=== PATIENT | male | born 1945 | race Caucasian/White ===

== ENCOUNTER → 2016-11-07 | Outpatient (CLI) | payer OTHER ==
[~2016-11-07] MED LIST: ASPCH81 PO; ASPI81TA28 PO; ATOR-26 PO; CARB25TA12 PO; CARB25TA14 PO; CHOL100010 PO; CHOL200010 PO; DONE1TAB11 PO; GLUCTAB7 PO; IMD/2 PO; METO25TA56 PO; MISCCAP80 PO; MULT-845 PO; NTRGSL/4 SL; OMEG10007 PO; PRAM1TAB47 PO; PREG1CAP28 PO; PRLSR20 PO; SERT50TA PO; TPRSR25 PO; TRAM-10 PO; VNTHFA/IN INH; WARF3TAB PO
[2016-11-07 15:38] LABS: BASO % 0.3 %; BASO ABS # 0.04 K/uL (0-0.2); COMPLETE YES; EOS % 2.2 %; HEMATOCRIT 36.7 % (42-52); IG% 0.2 %; LYMPH % 14.7 %; LYMPH ABS # 1.87 K/uL (1.2-3.4); MEAN CELL VOLUME 91.8 fL (80-100); MEAN CORPUSCULAR HGB CONC 33.8 g/dl (32-36); MEAN PLATELET VOLUME 11.3 fL (7.4-10.4); MONO % 3.8 %; NEUT % 78.8 %; PLATELET COUNT 194 K/uL (130-400)
[2016-11-07 15:40] LABS: URINE APPEARANCE CLEAR (CLEAR); URINE BILIRUBIN NEG (NEG); URINE COLOR DK YELLOW; URINE EPITHELIAL CELL AUTO 0-5 /lpf (0-5); URINE NITRITE NEG (NEG); URINE PH 5.5 (4.5-7.5); URINE SPECIFIC GRAVITY 1.025 (1.000-1.030); UROBILINOGEN NEG (NEG); ZZUR CULT IF INDIC CLEAN CATCH NO
[2016-11-07 15:45] LABS: MANUAL MICROSCOPIC REQUIRED? NO; REVIEW REQ? NO
[2016-11-07 15:59] LABS: ALT/SGPT 8 U/L (12-78); AST/SGOT 14 U/L (15-37); BLOOD UREA NITROGEN 16 mg/dl (7-18); BUN/CREATININE RATIO 15.7 (10-20); CARBON DIOXIDE 29 mmol/L (21-32); CHLORIDE 105 mmol/L (98-107); GLUCOSE 117 mg/dl (70-99); POTASSIUM 4.2 mmol/L (3.5-5.1); SODIUM 141 mmol/L (136-145)
[2016-11-07 16:00] LABS: ALB/GLOB RATIO 0.7 (0.9-2); ALKALINE PHOSPHATASE 115 U/L (45-117)
[2016-11-08 06:34] LABS: ESTIMATED AVERAGE GLUCOSE 120 mg/dl; HA1C FLAG Normal (Normal)
== END | disposition home or self-care (01) ==
LOC: C.LAB1850 14:23
PROVIDERS: ATTEND Internal Medicine
DX: R73.01 Impaired fasting glucose (principal); I25.10 Atherosclerotic heart disease of native coronary artery without angina pectoris; Z11.59 Encounter for screening for other viral diseases; M25.569 Pain in unspecified knee; I48.0 Paroxysmal atrial fibrillation

== ENCOUNTER → 2016-11-11 | Outpatient (CLI) | payer OTHER | END | disposition home or self-care (01) | LOC: C.LABSPEC 17:11 | PROVIDERS: ATTEND Internal Medicine | DX: R39.9 Unspecified symptoms and signs involving the genitourinary system (principal) ==

== ENCOUNTER → 2016-11-19 | Outpatient (CLI) | payer OTHER ==
[2016-11-19 17:23] LABS: BASO % 0.5 %; BASO ABS # 0.04 K/uL (0-0.2); COMPLETE YES; EOS % 3.5 %; HEMATOCRIT 38.4 % (42-52); IG% 0.1 %; LYMPH % 23.5 %; LYMPH ABS # 1.94 K/uL (1.2-3.4); MEAN CELL VOLUME 91.6 fL (80-100); MEAN CORPUSCULAR HEMOGLOBIN 30.1 pg (25-34); MEAN CORPUSCULAR HGB CONC 32.8 g/dl (32-36); MEAN PLATELET VOLUME 11.9 fL (7.4-10.4); MONO % 3.5 %; NEUT % 68.9 %; PLATELET COUNT 175 K/uL (130-400); RED BLOOD COUNT 4.19 M/uL (4.7-6.1); WHITE BLOOD COUNT 8.27 K/uL (4.8-10.8)
== END | disposition home or self-care (01) ==
LOC: C.LABBFT 12:17
PROVIDERS: ATTEND Internal Medicine
DX: R79.9 Abnormal finding of blood chemistry, unspecified (principal)

== ENCOUNTER → 2016-12-31 | Outpatient (CLI) | payer OTHER ==
[2016-12-31 17:50] LABS: BASO % 0.4 %; BASO ABS # 0.03 K/uL (0-0.2); COMPLETE YES; EOS % 3.5 %; IG% 0.3 %; LYMPH % 27.3 %; LYMPH ABS # 2.13 K/uL (1.2-3.4); MEAN CELL VOLUME 91.3 fL (80-100); MEAN CORPUSCULAR HGB CONC 32.8 g/dl (32-36); MEAN PLATELET VOLUME 11.9 fL (7.4-10.4); MONO % 5.3 %; NEUT % 63.2 %; PLATELET COUNT 133 K/uL (130-400); RED BLOOD COUNT 4.27 M/uL (4.7-6.1); WHITE BLOOD COUNT 7.79 K/uL (4.8-10.8)
[2016-12-31 18:42] LABS: ALT/SGPT 13 U/L (12-78); AST/SGOT 17 U/L (15-37); BLOOD UREA NITROGEN 16 mg/dl (7-18); BUN/CREATININE RATIO 13.5 (10-20); CALCIUM 8.6 mg/dl (8.5-10.1); CARBON DIOXIDE 29 mmol/L (21-32); CHLORIDE 108 mmol/L (98-107); GLUCOSE 112 mg/dl (70-99); POTASSIUM 4.1 mmol/L (3.5-5.1); SODIUM 143 mmol/L (136-145)
[2016-12-31 18:57] LABS: ALB/GLOB RATIO 0.8 (0.9-2); ALKALINE PHOSPHATASE 116 U/L (45-117)
== END | disposition home or self-care (01) ==
LOC: C.LABBFT 10:30
PROVIDERS: ATTEND Nurse Practitioner Family
DX: D69.6 Thrombocytopenia, unspecified (principal)

== ENCOUNTER 2017-01-05 16:06 | Inpatient (IN) | payer OTHER ==
[~2017-01-05] VITALS: Ht 170.2 cm; Wt 91.4 kg
[~2017-01-05 16:06] MED LIST changes: -ASPI81TA28 PO; -CARB25TA14 PO; -CHOL200010 PO; -DONE1TAB11 PO; -IMD/2 PO; -TPRSR25 PO
[2017-01-05] MEDS ORDERED: SODIUM CHLORIDE 0.9% 1000ML 1,000 ML IV STA (18:04)
--- NOTE | 2017-01-05 18:32 | DIAGNOSTIC IMAGING REPORT ---
CHEST ONE VIEW PORTABLE CLINICAL HISTORY: Weakness, shortness of breath, confusion. COMPARISON STUDY: Thyroid second 2016 FINDINGS: There are postsurgical changes of a midline sternotomy. There is no failure. There is no focal pulmonary consolidation. There are no pleural effusions. A subcentimeter opacity at left lung base, likely represents atelectasis/scar.[ IMPRESSION: AP portable study. No evidence of failure. No evidence of focal pulmonary consolidation. Electronically signed by: Darien Velazquez M.D. 01/05/2017 6:31 PM Dictated Date/Time: 01/05/2017 6:30 PM
[2017-01-05 18:41] LABS: BASO % 0.4 %; BASO ABS # 0.04 K/uL (0-0.2); COMPLETE YES; EOS % 3.3 %; HEMATOCRIT 38.7 % (42-52); IG% 0.2 %; LYMPH % 24.8 %; LYMPH ABS # 2.35 K/uL (1.2-3.4); MEAN CELL VOLUME 89.4 fL (80-100); MEAN CORPUSCULAR HEMOGLOBIN 29.8 pg (25-34); MEAN CORPUSCULAR HGB CONC 33.3 g/dl (32-36); MEAN PLATELET VOLUME 11.1 fL (7.4-10.4); MONO % 4.7 %; NEUT % 66.6 %; PLATELET COUNT 120 K/uL (130-400); RED BLOOD COUNT 4.33 M/uL (4.7-6.1); WHITE BLOOD COUNT 9.48 K/uL (4.8-10.8)
[2017-01-05 18:52] LABS: INR 1.9 (0.9-1.1); PARTIAL THROMBOPLASTIN RATIO 1.5; PROTHROMBIN TIME (PATIENT) 20.5 SECONDS (9.0-12.0)
--- NOTE | 2017-01-05 18:58 | DIAGNOSTIC IMAGING REPORT ---
CT HEAD WITHOUT CONTRAST (CT) CLINICAL HISTORY: Change in mental status. Weakness. Parkinson's. COMPARISON STUDY: 06/01/2015 TECHNIQUE: Axial CT of the brain is performed from the vertex to the skull base. IV contrast was not administered for this examination. CT DOSE: 537.48 mGy.cm FINDINGS: No intra or extra-axial mass lesions are visualized. There is no CT evidence of acute cortical infarction. There is no evidence of midline shift. There is no acute hemorrhage. No calvarial fractures are visualized. There are minimal white matter hypodensities likely on a small vessel basis. There are dense pontine calcification similar to the preceding study. There is no evidence of pathologic ventricular dilatation. There is no evidence of acute sinusitis IMPRESSION: Dense pontine calcifications, unchanged from the preceding study. No acute intracranial findings. Electronically signed by: Darien Velazquez M.D. 01/05/2017 6:56 PM Dictated Date/Time: 01/05/2017 6:50 PM
[2017-01-05 19:01] LABS: ALT/SGPT 12 U/L (12-78); AST/SGOT 12 U/L (15-37); BLOOD UREA NITROGEN 19 mg/dl (7-18); CALCIUM 8.6 mg/dl (8.5-10.1); CARBON DIOXIDE 32 mmol/L (21-32); CHLORIDE 108 mmol/L (98-107); GLUCOSE 89 mg/dl (70-99); MAGNESIUM 2.3 mg/dl (1.8-2.4); POTASSIUM 4.2 mmol/L (3.5-5.1); SODIUM 145 mmol/L (136-145)
[2017-01-05 19:16] LABS: ALKALINE PHOSPHATASE 107 U/L (45-117)
[2017-01-05 20:10] LABS: URINE APPEARANCE CLEAR (CLEAR); URINE BILIRUBIN NEG (NEG); URINE COLOR DK YELLOW; URINE NITRITE NEG (NEG); URINE SPECIFIC GRAVITY 1.029 (1.000-1.030); UROBILINOGEN NEG (NEG)
[2017-01-05 20:12] LABS: MANUAL MICROSCOPIC REQUIRED? NO; REVIEW REQ? YES
[2017-01-05 20:34] LABS: URINE PATH CASTS 1-5 GRANULAR CASTS /lpf (0)
[2017-01-05] MEDS ORDERED: LACTULOSE SYRUP 20 GM/30 ML UDC PO STA (20:58)
[2017-01-05] MEDS ORDERED: ALBUTEROL HFA 8 GM INHALER INH PRN (22:00)
[2017-01-05] MEDS ORDERED: ALUMINUM/MAGNESIUM/SIMETH (MAALOX MAX) 30 ML UDC PO PRN (22:00)
[2017-01-05] MEDS ORDERED: ACETAMINOPHEN 325 MG TAB PO PRN (22:00)
[2017-01-05] MEDS ORDERED: POLYETHYLENE (MIRALAX) 17 GM PACK PO PRN (22:00)
[2017-01-05] MEDS ORDERED: ONDANSETRON INJ 2 MG/ML 2 ML VIAL IV PRN (22:00)
[2017-01-05] MEDS ORDERED: NITROGLYCERIN 0.4 MG SL PER TAB CHARGE SL PRN (22:00)
[2017-01-05] MEDS ORDERED: MAGNESIUM HYDROXIDE SUSP 30 ML UDC PO PRN (22:00)
--- NOTE | 2017-01-05 22:12 | History and Physical ---
History & Physical Date & Time of Service: Jan 05, 2017 at 21:54 Chief Complaint: Shortness Of Breath - Confused - Weakness Primary Care Physician: Isak Galaviz M.D. History of Present Illness Source: patient, spouse Mr Ramirez is a 71 yo M with Parkinson's Disease who presents with shortness of breath, fatigue, and altered mental status since noon today. His reports the pt was complaining his breathing was difficult, and the pt says he felt like he was drowning. She took his blood pressure and noticed his HR in the 50's, which is low for him. He has not been eating much over the last 1.5 weeks, and his reports he has only eating 1/4 of meals he usually eats. He has also not been drinking much water since he is having fecal incontinence. He denied any chest pain or tightness. He denied any nausea or vomiting. He has also had his Aricept increased from 5mg to 10mg over the last two weeks. His neurologist is Dr Rosado. He has had occasional urinary symptoms, including urgency. He has not had any fevers. He recently completed a PT/OT therapy session at [facility] for 6 weeks. Past Medical/Surgical History Medical Problems: (1) Coronary artery bypass grafts x 2 Status: Resolved (2) Coronary artery disease Status: Chronic (3) Coronary bypass surgery Status: Resolved (4) Hyperlipidemia Status: Chronic (5) Hypotension Status: Chronic (6) Kidney stone Status: Resolved (7) Myocardial infarction Status: Resolved Family History Cancer Heart disease Hypertension Social History Smoking Status: Current Every Day Smoker Marital Status: Housing status: lives with family Occupational Status: employed Immunizations History of Influenza Vaccine: Yes Influenza Vaccine Date: Jun 27, 2013 History of Tetanus Vaccine?: Yes History of Pneumococcal: Yes History of Hepatitis B Vaccine: Unknown Multi-Drug Resistant Organisms History of MDRO: No Allergies Coded Allergies: Penicillins (Verified Allergy, Severe, hives,swelling, 01/05/17) IV PENICILLINS Home Medications Scheduled Aspirin (Aspirin Tab-Chewable *), 81 MG PO QPM Atorvastatin (Lipitor), 80 MG PO HS Carbidopa/Levodopa (Sinemet 25MG/100MG), 1.5 TAB PO QID Cholecalciferol (Vitamin D), 1,000 INTER.UNIT PO QAM Fish Oil (Benoit-3), 1 CAP PO BID Wrgjldtrwcz-Vjydygdpbmu-Gcq C- (Glucosamine Chondroitin), 1 TAB PO BID Metoprolol Tartrate (Lopressor) (Lopressor), 12.5 MG PO BID Multiple Vitamins W/ Minerals (Centrum Silver Adult 50+), 1 TAB PO QAM Nitroglycerin (Nitrostat), 0.4 MG SL PRN Omeprazole (Prilosec), 20 MG PO QAM Pramipexole Dihydrochloride (Mirapex), 0.5 MG PO BID Pregabalin (Lyrica), 75 MG PO BID Probiotic Product (Probiotic), 1 CAP PO TID Sertraline (Zoloft), 50 MG PO QAM Warfarin Sodium (Coumadin), 3 MG PO QPM UD Scheduled PRN Albuterol Hfa (Ventolin Hfa), 2 PUFFS INH QID PRN Tramadol (Ultram), 1 TAB PO BID PRN for Pain Review of Systems See HPI for pertinent positives & negatives. A total of 10 systems reviewed and were otherwise negative. Physical Exam Vital Signs Date Time Temp Pulse Resp B/P Pulse Ox O2 Delivery O2 Flow Rate FiO2 01/05/17 21:09 69 20 102/73 94 Room Air 01/05/17 19:45 52 01/05/17 19:12 98 Room Air 01/05/17 19:10 55 16 117/72 98 Room Air 01/05/17 16:16 96 Room Air 01/05/17 16:16 36.9 53 16 111/74 96 Room Air General Appearance: WD/WN, no apparent distress, + pertinent finding (Flat facies) Head: normocephalic, atraumatic Eyes: normal inspection, PERRL ENT: hearing grossly normal Neck: supple, no JVD Respiratory/Chest: lungs clear, normal breath sounds, no respiratory distress Cardiovascular: regular rate, rhythm, no murmur, normal peripheral pulses Abdomen/GI: normal bowel sounds, non tender, soft Back: no CVA tenderness, no muscle spasm Extremities/Musculoskelatal: no pedal edema Neurologic/Psych: alert, normal mood/affect, oriented x 3 Skin: no rash Diagnostics Laboratory Results Results Past 24 Hours Test 01/05/17 18:25 01/05/17 19:20 01/05/17 19:30 Range/Units White Blood Count 9.48 4.8-10.8 K/uL Red Blood Count 4.33 4.7-6.1 M/uL Hemoglobin 12.9 14.0-18.0 g/dL Hematocrit 38.7 42-52 % Mean Corpuscular Volume 89.4 80-100 fL Mean Corpuscular Hemoglobin 29.8 25-34 pg Mean Corpuscular Hemoglobin Concent 33.3 32-36 g/dl Platelet Count 120 130-400 K/uL Mean Platelet Volume 11.1 7.4-10.4 fL Neutrophils (%) (Auto) 66.6 % Lymphocytes (%) (Auto) 24.8 % Monocytes (%) (Auto) 4.7 % Eosinophils (%) (Auto) 3.3 % Basophils (%) (Auto) 0.4 % Neutrophils # (Auto) 6.31 1.4-6.5 K/uL Lymphocytes # (Auto) 2.35 1.2-3.4 K/uL Monocytes # (Auto) 0.45 0.11-0.59 K/uL Eosinophils # (Auto) 0.31 0-0.5 K/uL Basophils # (Auto) 0.04 0-0.2 K/uL RDW Standard Deviation 45.9 36.4-46.3 fL RDW Coefficient of Variation 14.0 11.5-14.5 % Immature Granulocyte % (Auto) 0.2 % Immature Granulocyte # (Auto) 0.02 0.00-0.02 K/uL Prothrombin Time 20.5 9.0-12.0 SECONDS Prothromb Time International Ratio 1.9 0.9-1.1 Activated Partial Thromboplast Time 38.3 21.0-31.0 SECONDS Partial Thromboplastin Ratio 1.5 Sodium Level 145 136-145 mmol/L Potassium Level 4.2 3.5-5.1 mmol/L Chloride Level 108 98-107 mmol/L Carbon Dioxide Level 32 21-32 mmol/L Anion Gap 5.0 3-11 mmol/L Blood Urea Nitrogen 19 7-18 mg/dl Creatinine 1.10 0.60-1.40 mg/dl Est Creatinine Clear Calc Drug Dose 64.5 ml/min Estimated GFR () 76.8 Estimated GFR (Non- 66.2 BUN/Creatinine Ratio 17.0 10-20 Random Glucose 89 70-99 mg/dl Calcium Level 8.6 8.5-10.1 mg/dl Magnesium Level 2.3 1.8-2.4 mg/dl Total Bilirubin 0.7 0.2-1 mg/dl Direct Bilirubin 0.2 0-0.2 mg/dl Aspartate Amino Transf (AST/SGOT) 12 15-37 U/L Alanine Aminotransferase (ALT/SGPT) 12 12-78 U/L Alkaline Phosphatase 107 45-117 U/L Troponin I < 0.015 0-0.045 ng/ml Pro-B-Type Natriuretic Peptide 282 0-900 pg/ml Total Protein 7.0 6.4-8.2 gm/dl Albumin 3.1 3.4-5.0 gm/dl Lipase 94 73-393 U/L Thyroid Stimulating Hormone (TSH) 1.380 0.300-4.500 uIu/ml Urine Color DK YELLOW Urine Appearance CLEAR CLEAR Urine pH 5.0 4.5-7.5 Urine Specific Petty 1.029 1.000-1.030 Urine Protein NEG NEG Urine Glucose (UA) NEG NEG Urine Ketones TRACE NEG Urine Occult Blood NEG NEG Urine Nitrite NEG NEG Urine Bilirubin NEG NEG Urine Urobilinogen NEG NEG Urine Leukocyte Esterase TRACE NEG Urine WBC (Auto) 5-10 0-5 /hpf Urine RBC (Auto) 5-10 0-4 /hpf Urine Hyaline Casts (Auto) 10-30 0-5 /lpf Urine Epithelial Cells (Auto) 10-20 0-5 /lpf Urine Bacteria (Auto) NEG NEG Urine Crystals CALCIUM OXALATE NONE PRSENT Urine Pathogenic Casts 1-5 GRANULAR CASTS 0 /lpf Ammonia 44.0 11-32 umol/L Microbiology Results 01/05/17 Urine Culture, Received Pending Diagnostic Radiology [~ rep ct add3]] CT HEAD WITHOUT CONTRAST (CT) CLINICAL HISTORY: Change in mental status. Weakness. Parkinson's. COMPARISON STUDY: 06/01/2015 TECHNIQUE: Axial CT of the brain is performed from the vertex to the skull base. IV contrast was not administered for this examination. CT DOSE: 537.48 mGy.cm FINDINGS: No intra or extra-axial mass lesions are visualized. There is no CT evidence of acute cortical infarction. There is no evidence of midline shift. There is no acute hemorrhage. No calvarial fractures are visualized. There are minimal white matter hypodensities likely on a small vessel basis. There are dense pontine calcification similar to the preceding study. There is no evidence of pathologic ventricular dilatation. There is no evidence of acute sinusitis IMPRESSION: Dense pontine calcifications, unchanged from the preceding study. No acute intracranial findings. Electronically signed by: Darien Velazquez M.D. 01/05/2017 6:56 PM Dictated Date/Time: 01/05/2017 6:50 PM CXR normal Normal EKG, No change from prior EKG Impression Assessment and Plan 71 yo M with altered mental state and shortness of breath for about 11 hours, found to have elevated ammonia level. Differential includes: stroke, arrhythmia/ [place], hepatic disfunction/failure, dehydration, CHF exacerbation. Metabolic encephalopathy - Telemetry monitoring - Will obtain MRI combo now - Trend CBC/CMP/Ammonia level - If breathing worsens, will obtain ABG/repeat CXR Parkinson's Disease - Will decrease Aricept back to 5mg from 10mg - Falls/aspiration precautions - Swallow evaluation / speech and language consult - PT/OT Elevated ammonia level - Received 30g Lactulose in ED - Will recheck in AM and reassess need for further therapy Urinalysis - Will give a dose of Levaquin now to treat UTI - Would be helpful to obtain a repeat clean catch sample if pt is able to with assistance - Urine culture, will adjust/discontinue abx as necessary Dehydration - Maintenance IV fluids - Electrolytes normal - If pt has significant diarrhea, will bolus fluids Low albumin/Poor dietary intake - Emblem Cutter consult History of [place] - Continue aspirin and metoprolol History of atrial fibrillation, on coumadin - Subtherapeutic INR today (1.9) - Telemetry monitoring - 3mg dose today, then continue tomorrow Level of Care Telemetry Resuscitation Status FULL RESUSCITATION VTE Prophylaxis VTE Risk Assessment Done? Y/N: Yes Risk Level: Low Given or contraindicated: Warfarin (Coumadin) Resident Tracking Resident Involvement: Resident Care Provided Care Provided: Adult Hospital Medicine Assessment and Plan Attending Addendum: I have physically seen and examined this patient, have directed their medical care, have supervised the medical residents activities, and agree with the H&P as noted above, with the following changes: The patient is awake, alert and oriented 3, but slow in speech, normocephalic and atraumatic, lying in bed and in no acute distress. HEENT--PERRL, EOMI, mucous membranes and oropharynx dry. Neck--supple, no JVD or bruits, thyroid normal, trachea midline, no adenopathy. Heart--normal S1 and S2, no extra beats, no murmurs, rubs or gallops. Lungs--clear bilaterally with good air movement, no respiratory distress, no accessory muscle use. Abdomen--normal bowel sounds and soft, nontender and nondistended, no hernias or masses, no organomegaly. Extremities--no cyanosis, clubbing or edema. There are good distal pulses b/l. Dermatologic--normal skin turgor, normal color, warm and dry, no abnormal lymph nodes, no rash. Neurologic--cranial nerves II through XII grossly intact, motor and sensory examination normal. Rheumatologic--normal range of motion, nontender, muscles and joints. Psychiatric--relatively flat affect. Assessment and Plan: Metabolic encephalopathy/altered mental status contributing factors include recent increase in Aricept dosing, recent discontinuance of Parkinson's physical therapy, acute on chronic urinary issues, difficulties with speech and swallowing, potential new CVA, among others. CAD/hypertension/status post CABG/atrial fibrillation/history of [place]--The patient will be admitted to the telemetry unit, for serial cardiac enzymes, cardiac rhythm monitoring and a 2-D echocardiogram with Dopplers. 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 Parkinson's disease/depression--we'll decrease Aricept from 10 mg back to 5 mg daily. We'll order speech, PT and OT assessments. Continue carbidopa/ levodopa 25/100 one half tabs by mouth 4 times a day, pramipexole 0.5 mg by mouth twice a day, sertraline 50 mg by mouth every morning, Lyrica 75 mg by mouth twice a day. Possible UTI/probable BPH--treated empirically for UTI with Levaquin 500 mg IV daily, follow urine culture and sensitivity reports. Hypercholesterolemia--continue atorvastatin 80 mg by mouth at bedtime, and fish oil 1 capsule by mouth twice a day. GERD--change omeprazole 20 mg by mouth every morning to pantoprazole 40 mg by mouth every morning. Pulmonary status/tobacco --despite his objective no dictation of the sense of not deep enough breath, he does have good oxygenation, normal examination and respiratory rate. His best treatment would be tobacco cessation. We'll have albuterol HFA and high flow nebs available to use when necessary. Ammonia level--minimally elevated, did receive a one-time dose of lactulose emergency department, is more likely a functional dehydration and hemoconcentration, he'll be gently hydrated with IV fluids.
[2017-01-05] MEDS ORDERED: WARFARIN SOD 3 MG TAB PO ONE (22:30)
[2017-01-05 22:45] VITALS: BP 120/73; PULSE 56; TEMP 36.5; O2SAT 95; Ht 170.2 cm; Wt 91.4 kg
[2017-01-05] MEDS ORDERED: LEVOFLOXACIN / D5W 750 MG in PREMIXED IN D5W 150 ML IV SCH (23:00)
[2017-01-05] MEDS ORDERED: SODIUM CHLOR 0.45% + 20MEQ KCL 1,000 ML IV SCH (23:00)
[2017-01-06] MEDS ORDERED: GADAVIST IV PRN (01:00)
--- NOTE | 2017-01-06 02:14 | EMERGENCY ROOM VISIT NOTE ---
History Report prepared by Oscar: Igor Costa Under the Supervision of: Dr. Tarun Richards M.D. First contact with patient: 17:59 Chief Complaint: SHORTNESS OF BREATH Stated Complaint: SHORTNESS OF BREATH - CONFUSED - WEAKNESS Nursing Triage Summary: Patient ambulatory to triage with the use of a walker, states "I am having shortness of breath, weakness, confusion. I am not sure what is wrong. I have had symptoms since 1300 today." History of Present Illness The patient is a 71 year old male who presents to the Emergency Room with complaints of constant shortness of breath since 1300 today. The patient's additionally states that the patient was confused, weak, tired, and having some leg swelling. She states that the patient became short of breath while just sitting, and even more so after walking. The patient additionally states that he is having some left-sided back pain. She additionally states that the patient had a heart bypass surgery done in 2012. Pt denies LOC, headache, fevers , chills, diaphoresis, visual changes, neck pain, chest pain, nausea, vomiting, abdominal pain, melena, hematochezia, urinary symptoms, numbness, lymphadenopathy, rash, or other complaints. Source of History: patient, spouse/significant other Onset: 1300 Position: other (global) Quality: other (shortness of breath) Timing: constant Associated Symptoms: + back pain (left) Note: Associated symptoms: Leg swelling Review of Systems See HPI for pertinent positives and negatives. A total of ten systems were reviewed and were otherwise negative. Past Medical & Surgical Medical Problems: (1) Altered mental status (2) Chest pain (3) Coronary artery bypass grafts x 2 (4) Coronary artery disease (5) Coronary bypass surgery (6) Hyperlipidemia (7) Hypotension (8) Increased ammonia level (9) Kidney stone (10) Myocardial infarction (11) Shortness of breath Family History Cancer Heart disease Hypertension Social History Smoking Status: Current Every Day Smoker Alcohol Use: occasionally Marital Status: Housing Status: lives with family Occupation Status: employed Current/Historical Medications Scheduled Aspirin (Aspirin Tab-Chewable *), 81 MG PO QPM Atorvastatin (Lipitor), 80 MG PO HS Carbidopa/Levodopa (Sinemet 25MG/100MG), 1.5 TAB PO QID Cholecalciferol (Vitamin D), 1,000 INTER.UNIT PO QAM Fish Oil ([place]-3), 1 CAP PO BID Rghzbszxkbv-Dvyycjfhfjp-Voq C- (Glucosamine Chondroitin), 1 TAB PO BID Metoprolol Tartrate (Lopressor) (Lopressor), 12.5 MG PO BID Multiple Vitamins W/ Minerals (Centrum Silver Adult 50+), 1 TAB PO QAM Nitroglycerin (Nitrostat), 0.4 MG SL PRN Omeprazole (Prilosec), 20 MG PO QAM Pramipexole Dihydrochloride (Mirapex), 0.5 MG PO BID Pregabalin (Lyrica), 75 MG PO BID Probiotic Product (Probiotic), 1 CAP PO TID Sertraline (Zoloft), 50 MG PO QAM Warfarin Sodium (Coumadin), 3 MG PO QPM UD Scheduled PRN Albuterol Hfa (Ventolin Hfa), 2 PUFFS INH QID PRN Tramadol (Ultram), 1 TAB PO BID PRN for Pain Allergies Coded Allergies: Penicillins (Verified Allergy, Severe, hives,swelling, 01/05/17) IV PENICILLINS Physical Exam Vital Signs Date Time Temp Pulse Resp B/P Pulse Ox O2 Delivery O2 Flow Rate FiO2 01/05/17 21:09 69 20 102/73 94 Room Air 01/05/17 19:45 52 01/05/17 19:12 98 Room Air 01/05/17 19:10 55 16 117/72 98 Room Air 01/05/17 16:16 96 Room Air 01/05/17 16:16 36.9 53 16 111/74 96 Room Air Physical Exam GENERAL: Awake, alert, well-appearing, in no distress HENT: Normocephalic, atraumatic. Oropharynx unremarkable. EYES: PERRL. EOMI. Normal conjunctiva. Sclera non-icteric. NECK: Supple. No nuchal rigidity. FROM. No JVD. RESPIRATORY: Clear to auscultation. CARDIAC: Regular rate, normal rhythm. Extremities warm and well perfused. Pulses equal. ABDOMEN: Soft, non-distended. No tenderness to palpation. No rebound or guarding. No masses. RECTAL: Deferred. MUSCULOSKELETAL: Chest examination reveals no tenderness. The back is symmetrical on inspection without obvious abnormality. There is no CVA tenderness to palpation. No joint edema. LOWER EXTREMITIES: Trace lower extremity edema. Calves are equal size bilaterally and non-tender. No discoloration. NEURO: No drift. Normal alternating movements. Normal sensorium. No sensory or motor deficits noted. SKIN: No rash or jaundice noted. Medical Decision & Procedures ER Provider Diagnostic Interpretation: X ray results as stated below per my interpretation and radiologist interpretation. Other radiology results as stated below per my review and radiologist interpretation CT HEAD WITHOUT CONTRAST (CT) CLINICAL HISTORY: Change in mental status. Weakness. Parkinson's. COMPARISON STUDY: 06/01/2015 TECHNIQUE: Axial CT of the brain is performed from the vertex to the skull base. IV contrast was not administered for this examination. CT DOSE: 537.48 mGy.cm FINDINGS: No intra or extra-axial mass lesions are visualized. There is no CT evidence of acute cortical infarction. There is no evidence of midline shift. There is no acute hemorrhage. No calvarial fractures are visualized. There are minimal white matter hypodensities likely on a small vessel basis. There are dense pontine calcification similar to the preceding study. There is no evidence of pathologic ventricular dilatation. There is no evidence of acute sinusitis IMPRESSION: Dense pontine calcifications, unchanged from the preceding study. No acute intracranial findings. Electronically signed by: Darien Velazquez M.D. 01/05/2017 6:56 PM Dictated Date/Time: 01/05/2017 6:50 PM CHEST ONE VIEW PORTABLE CLINICAL HISTORY: Weakness, shortness of breath, confusion. COMPARISON STUDY: Thyroid second 2015 FINDINGS: There are postsurgical changes of a midline sternotomy. There is no failure. There is no focal pulmonary consolidation. There are no pleural effusions. A subcentimeter opacity at left lung base, likely represents atelectasis/scar.[ IMPRESSION: AP portable study. No evidence of failure. No evidence of focal pulmonary consolidation. Electronically signed by: Darien Velazquez M.D. 01/05/2017 6:31 PM Dictated Date/Time: 01/05/2017 6:30 PM Laboratory Results 01/05/17 18:25 Red Blood Count 4.33, Mean Corpuscular Volume 89.4, Mean Corpuscular Hemoglobin 29.8, Mean Corpuscular Hemoglobin Concent 33.3, Mean Platelet Volume 11.1, Neutrophils (%) (Auto) 66.6, Lymphocytes (%) (Auto) 24.8, Monocytes (%) (Auto) 4.7, Eosinophils (%) (Auto) 3.3, Basophils (%) (Auto) 0.4, Neutrophils # (Auto) 6.31, Lymphocytes # (Auto) 2.35, Monocytes # (Auto) 0.45, Eosinophils # (Auto) 0.31, Basophils # (Auto) 0.04 01/05/17 18:25 Test 01/05/17 18:25 01/05/17 19:20 01/05/17 19:30 White Blood Count 9.48 K/uL (4.8-10.8) Red Blood Count 4.33 M/uL (4.7-6.1) Hemoglobin 12.9 g/dL (14.0-18.0) Hematocrit 38.7 % (42-52) Mean Corpuscular Volume 89.4 fL (80-100) Mean Corpuscular Hemoglobin 29.8 pg (25-34) Mean Corpuscular Hemoglobin Concent 33.3 g/dl (32-36) Platelet Count 120 K/uL (130-400) Mean Platelet Volume 11.1 fL (7.4-10.4) Neutrophils (%) (Auto) 66.6 % Lymphocytes (%) (Auto) 24.8 % Monocytes (%) (Auto) 4.7 % Eosinophils (%) (Auto) 3.3 % Basophils (%) (Auto) 0.4 % Neutrophils # (Auto) 6.31 K/uL (1.4-6.5) Lymphocytes # (Auto) 2.35 K/uL (1.2-3.4) Monocytes # (Auto) 0.45 K/uL (0.11-0.59) Eosinophils # (Auto) 0.31 K/uL (0-0.5) Basophils # (Auto) 0.04 K/uL (0-0.2) RDW Standard Deviation 45.9 fL (36.4-46.3) RDW Coefficient of Variation 14.0 % (11.5-14.5) Immature Granulocyte % (Auto) 0.2 % Immature Granulocyte # (Auto) 0.02 K/uL (0.00-0.02) Prothrombin Time 20.5 SECONDS (9.0-12.0) Prothromb Time International Ratio 1.9 (0.9-1.1) Activated Partial Thromboplast Time 38.3 SECONDS (21.0-31.0) Partial Thromboplastin Ratio 1.5 Anion Gap 5.0 mmol/L (3-11) Est Creatinine Clear Calc Drug Dose 64.5 ml/min Estimated GFR () 76.8 Estimated GFR (Non- 66.2 BUN/Creatinine Ratio 17.0 (10-20) Calcium Level 8.6 mg/dl (8.5-10.1) Magnesium Level 2.3 mg/dl (1.8-2.4) Total Bilirubin 0.7 mg/dl (0.2-1) Direct Bilirubin 0.2 mg/dl (0-0.2) Aspartate Amino Transf (AST/SGOT) 12 U/L (15-37) Alanine Aminotransferase (ALT/SGPT) 12 U/L (12-78) Alkaline Phosphatase 107 U/L (45-117) Troponin I < 0.015 ng/ml (0-0.045) Pro-B-Type Natriuretic Peptide 282 pg/ml (0-900) Total Protein 7.0 gm/dl (6.4-8.2) Albumin 3.1 gm/dl (3.4-5.0) Lipase 94 U/L (73-393) Thyroid Stimulating Hormone (TSH) 1.380 uIu/ml (0.300-4.500) Urine Color DK YELLOW Urine Appearance CLEAR (CLEAR) Urine pH 5.0 (4.5-7.5) Urine Specific [place] 1.029 (1.000-1.030) Urine Protein NEG (NEG) Urine Glucose (UA) NEG (NEG) Urine Ketones TRACE (NEG) Urine Occult Blood NEG (NEG) Urine Nitrite NEG (NEG) Urine Bilirubin NEG (NEG) Urine Urobilinogen NEG (NEG) Urine Leukocyte Esterase TRACE (NEG) Urine WBC (Auto) 5-10 /hpf (0-5) Urine RBC (Auto) 5-10 /hpf (0-4) Urine Hyaline Casts (Auto) 10-30 /lpf (0-5) Urine Epithelial Cells (Auto) 10-20 /lpf (0-5) Urine Bacteria (Auto) NEG (NEG) Urine Crystals CALCIUM OXALATE (NONE Urine Pathogenic Casts 1-5 GRANULAR CASTS /lpf (0) Ammonia 44.0 umol/L (11-32) Laboratory results reviewed by me Medications Administered Medications (Trade) Dose Ordered Sig/Dany Route Start Time Stop Time Status Last Admin Dose Admin Sodium Chloride (Nss 1000ml) 1,000 ml @ 125 mls/hr Q8H STAT IV 01/05/17 18:04 01/05/17 22:51 DC 01/05/17 19:08 125 MLS/HR Lactulose (Chronulac Syrup) 30 gm NOW STAT PO 01/05/17 20:58 01/05/17 21:00 DC 01/05/17 21:09 30 GM ECG Indication: SOB/dyspnea Rate (beats per minute): 52 Rhythm: sinus bradycardia Findings: no acute ischemic change, no ectopy ED Course 1758: The patient was evaluated in room C6. A complete history and physical exam was performed. 1803: Sodium Chloride 1000 ml @ 125 mls/hr IV 2053: I reevaluated the patient, and he is still somewhat confused, but he is without complaints. 2057: Lactulose 30gm PO 2106: I discussed the patient's case with Dr. Guillory. She is going to evaluate the patient for further treatment Medical Decision Prior records/ancillary studies reviewed and summarized above. Nursing notes reviewed and agree them. Additional history obtained from his . The patient's history was concerning for altered mental status. Differential diagnosis: Etiologies such as infection, hypoglycemia, electrolyte abnormalities, cardiac sources, intracerebral event, toxicologic, neurologic, as well as others were entertained. Physical examination: As above. ER treatment provided: IV Lock Normal saline hydration Oral lactulose On reassessment the patient felt better. Diagnostics interpretation by me: ECG: No ischemia The labs revealed an unremarkable CBC except for mild anemia. Therapeutic INR. Chemistry panel unremarkable. LFTs unremarkable. Ammonia level was elevated. BnP, TSH negative. Imaging studies: X-ray and CT scan as above The patient has hyperammonemia. His current medications are not known to cause this. He has no history of liver disease. This may explain why he has had this confusion. Further evaluation and management will be necessary. Consultation: A consultation was placed with the hospitalist. The case was discussed and diagnostics were reviewed. The patient was evaluated in the ER for further treatment. The chart was completed utilizing [employer] voice recognition software. Grammatical errors, random word insertions, pronoun errors, and incomplete sentences are an occasional consequence of this system due to software limitations, ambient noise, and hardware issues. Any formal questions or concerns about the content, text, or information contained within the body of this dictation should be directly addressed to the physician for clarification. Consults Time Called: 2101 Consulting Physician: Dr. Guillory Returned Call: 2106 I discussed the patient's case with Dr. Guillory. She is going to evaluate the patient for further treatment Impression Primary Impression: Altered mental status Additional Impression: Hyperammonemia Scribe Attestation The scribe's documentation has been prepared under my direction and personally reviewed by me in its entirety. I confirm that the note above accurately reflects all work, treatment, procedures, and medical decision making performed by me. Departure Information Dispostion Being Evaluated By Hospitalist Referrals No Doctor, Assigned (PCP) Patient Instructions [facility] Problem Qualifiers
[2017-01-06 04:00] VITALS: BP 128/64; PULSE 62; TEMP 36.8; O2SAT 96
--- NOTE | 2017-01-06 06:52 | DIAGNOSTIC IMAGING REPORT ---
MRI OF THE BRAIN WITHOUT AND WITH IV CONTRAST CLINICAL HISTORY: ?stroke mental status change COMPARISON STUDY: 06/01/2015 TECHNIQUE: Utilizing a 1.5 Jessica magnet and dedicated coil, multiplanar, multiecho imaging of the brain was performed pre and postcontrast administration. IV administration of 8 mL of Gadavist contrast was uneventful. FINDINGS: Diffusion-weighted images are negative for an acute ischemic process. Mild chronic small vessel change in the periventricular deep white matter regions. No evidence for abnormal postcontrast enhancement. IMPRESSION: Negative MRI of the brain for age Electronically signed by: Jeanmarie Palumbo M.D. 01/06/2017 6:51 AM Dictated Date/Time: 01/06/2017 6:49 AM
[2017-01-06 07:17] LABS: BASO % 0.4 %; BASO ABS # 0.03 K/uL (0-0.2); COMPLETE YES; EOS % 4.4 %; HEMATOCRIT 35.9 % (42-52); IG% 0.1 %; LYMPH % 28.6 %; LYMPH ABS # 1.94 K/uL (1.2-3.4); MEAN CELL VOLUME 90.4 fL (80-100); MEAN CORPUSCULAR HGB CONC 33.1 g/dl (32-36); MONO % 4.9 %; NEUT % 61.6 %; PLATELET COUNT 102 K/uL (130-400); RED BLOOD COUNT 3.97 M/uL (4.7-6.1); WHITE BLOOD COUNT 6.79 K/uL (4.8-10.8)
[2017-01-06 07:20] LABS: PROTHROMBIN TIME (PATIENT) 22.6 SECONDS (9.0-12.0)
[2017-01-06 07:44] VITALS: BP 131/80; PULSE 48; TEMP 36.7; O2SAT 95
[2017-01-06 07:45] LABS: BUN/CREATININE RATIO 21.4 (10-20); CALCIUM 8.3 mg/dl (8.5-10.1); CREATININE 0.85 mg/dl (0.60-1.40); POTASSIUM 3.8 mmol/L (3.5-5.1)
[2017-01-06 07:47] LABS: ALB/GLOB RATIO 0.8 (0.9-2)
[2017-01-06] MEDS: SERTRALINE HCL 50 MG TAB PO SCH (08:18)
[2017-01-06] MEDS: PANTOprazole SOD 40 MG TAB PO SCH (08:18)
[2017-01-06] MEDS: DONEPEZIL HCL 5 MG TAB PO SCH (08:18)
[2017-01-06] MEDS: PRAMIPEXOLE DIHYDROCHLORIDE 0.5 MG TAB PO SCH ×2 (08:18→20:22)
[2017-01-06] MEDS: CARBIDOPA/LEVODOPA 25/100MG TAB PO SCH ×3 (08:19→20:21)
[2017-01-06] MEDS: PREGABALIN 75 MG CAP PO SCH ×2 (08:22→20:21)
[2017-01-06] MEDS ORDERED: METOPROLOL TARTRATE 25 MG TAB PO SCH (09:00)
[2017-01-06 11:00] VITALS: BP 80/55
[2017-01-06 11:57] VITALS: BP_SYST 107; BP_SYST 132; BP_SYST 133; BP_DIAS 68; BP_DIAS 77; PULSE 50; TEMP 36.6; O2SAT 94
[2017-01-06 14:31] VITALS: BP 133/78; PULSE 50; O2SAT 95
[2017-01-06 15:54] VITALS: BP 137/55; PULSE 43; TEMP 36.2; O2SAT 99
--- NOTE | 2017-01-06 15:54 | DIAGNOSTIC IMAGING REPORT ---
VIDEO SWALLOW HISTORY: Dysphagia. Dyspnea. advancing Parkinson's; please schedule per order TECHNIQUE: Video fluoroscopic evaluation of swallowing was performed in the AP and lateral projections by the speech pathology staff. The patient is fed nectar-thick and thin liquid barium, a barium coated wafer, and barium pudding. FLUOROSCOPY TIME: 1.7 minutes. COMPARISON STUDY: None. FINDINGS: There is evidence for aspiration with thin and somewhat thicker liquids. There is minimal cough reflex. There is no significant aspiration with thick fluids to semisolid substances. IMPRESSION: 1. Significant aspiration with thin and moderately thickened fluids. 2. Please see the speech pathologist report for detailed findings and recommendations. Electronically signed by: Jeanmarie Palumbo M.D. 01/06/2017 3:52 PM Dictated Date/Time: 01/06/2017 3:45 PM
[2017-01-06] MEDS: WARFARIN SOD 3 MG TAB PO SCH (16:35)
--- NOTE | 2017-01-06 16:39 | Family Medicine Progress Note ---
Progress Note Date of Service Jan 06, 2017. Subjective Pt evaluation today including: conversation w/ patient, physical exam, chart review, lab review, review of studies Pain: 0/10 Voiding: no voiding problems Patient described the incidence of ALOC to me , states he suddenly had an episode of shortness of breath and saw physical coffins stack up and then fly away. Stated that he thought he was going to and told his to call the EMS He has never had visual hallucinations before he has not had any sob since this episode Constitutional: No fever Eyes: No worsening of vision ENT: No hearing loss Respiratory: No cough, No dyspnea on exertion, No shortness of breath, No sputum, No wheezing Cardiovascular: No chest pain Abdomen: No constipation, No diarrhea, No nausea, No pain, No vomiting Musculoskeletal: No joint pain, No muscle pain Male : No dysuria, No hematuria Neurologic: + balance problems, + weakness, No paralysis Endo: No fatigue Skin: No rash Medications Medications Administered Medications (Trade) Dose Ordered Sig/Dany Route Start Time Stop Time Status Last Admin Dose Admin Sodium Chloride (Nss 1000ml) 1,000 ml @ 125 mls/hr Q8H STAT IV 01/05/17 18:04 01/05/17 22:51 DC 01/05/17 19:08 125 MLS/HR Lactulose (Chronulac Syrup) 30 gm NOW STAT PO 01/05/17 20:58 01/05/17 21:00 DC 01/05/17 21:09 30 GM Carbidopa/Levodopa (Sinemet 25/ 100MG Tab) 1.5 tab QID PO 01/06/17 09:00 02/05/17 08:59 01/06/17 08:19 1.5 TAB Pramipexole Dihydrochloride (miraPEX TAB) 0.5 mg BID PO 01/06/17 09:00 02/05/17 08:59 01/06/17 08:18 0.5 MG Pregabalin (Lyrica Cap) 75 mg BID PO 01/06/17 09:00 02/05/17 08:59 01/06/17 08:22 75 MG Sertraline HCl (Zoloft Tab) 50 mg QAM PO 01/06/17 09:00 02/05/17 08:59 01/06/17 08:18 50 MG Pantoprazole Sodium (Protonix Tab) 40 mg QAM PO 01/06/17 09:00 02/05/17 08:59 01/06/17 08:18 40 MG Warfarin Sodium 3 mg 3 mg 2230 ONCE PO 01/05/17 22:30 01/05/17 22:31 DC 01/05/17 22:28 3 MG Levofloxacin/Prmx (Levaquin / D5W/ Premixed D5W) 150 ml @ 100 mls/hr Q24H IV 01/05/17 23:00 01/15/17 22:59 Future Hold 01/05/17 23:22 100 MLS/HR Donepezil HCl 5 mg 5 mg QAM PO 01/06/17 09:00 02/05/17 08:59 01/06/17 08:18 5 MG Potassium Chloride/Sodium Chloride (1/2 Nss + 20meq KCl 1000ml) 1,000 ml @ 100 mls/hr Q10H IV 01/05/17 23:00 01/07/17 04:59 01/05/17 23:21 100 MLS/HR Objective Vital Signs Date Time Temp Pulse Resp B/P Pulse Ox O2 Delivery O2 Flow Rate FiO2 01/06/17 15:54 36.2 43 20 137/55 99 Room Air 01/06/17 14:31 50 95 01/06/17 12:00 Room Air 01/06/17 11:57 36.6 50 16 133/77 94 Room Air 132/77 107/68 01/06/17 11:00 80/55 01/06/17 08:00 Room Air 01/06/17 07:44 36.7 48 16 131/80 95 Room Air 01/06/17 04:00 36.8 62 18 128/64 96 Room Air 01/06/17 04:00 Room Air 01/05/17 22:45 36.5 56 16 120/73 95 Room Air 01/05/17 22:21 54 20 119/80 96 01/05/17 21:09 69 20 102/73 94 Room Air 01/05/17 19:45 52 01/05/17 19:12 98 Room Air 01/05/17 19:10 55 16 117/72 98 Room Air Physical Exam General Appearance: no apparent distress Eyes: normal inspection ENT: normal ENT inspection Neck: supple Respiratory/Chest: lungs clear, normal breath sounds, no respiratory distress, no accessory muscle use Cardiovascular: regular rate, rhythm, no murmur Abdomen: normal bowel sounds, non tender, soft Extremities: non-tender, normal inspection, no pedal edema, no calf tenderness Neurologic/Psychiatric: alert, oriented x 3 Skin: normal color, warm/dry, no rash Lymphatic: no adenopathy Laboratory Results Results Past 24 Hours Test 01/05/17 18:25 01/05/17 19:20 01/05/17 19:30 01/06/17 06:59 Range/Units White Blood Count 9.48 6.79 4.8-10.8 K/uL Red Blood Count 4.33 3.97 4.7-6.1 M/uL Hemoglobin 12.9 11.9 14.0-18.0 g/dL Hematocrit 38.7 35.9 42-52 % Mean Corpuscular Volume 89.4 90.4 80-100 fL Mean Corpuscular Hemoglobin 29.8 30.0 25-34 pg Mean Corpuscular Hemoglobin Concent 33.3 33.1 32-36 g/dl Platelet Count 120 102 130-400 K/uL Mean Platelet Volume 11.1 11.0 7.4-10.4 fL Neutrophils (%) (Auto) 66.6 61.6 % Lymphocytes (%) (Auto) 24.8 28.6 % Monocytes (%) (Auto) 4.7 4.9 % Eosinophils (%) (Auto) 3.3 4.4 % Basophils (%) (Auto) 0.4 0.4 % Neutrophils # (Auto) 6.31 4.18 1.4-6.5 K/uL Lymphocytes # (Auto) 2.35 1.94 1.2-3.4 K/uL Monocytes # (Auto) 0.45 0.33 0.11-0.59 K/uL Eosinophils # (Auto) 0.31 0.30 0-0.5 K/uL Basophils # (Auto) 0.04 0.03 0-0.2 K/uL RDW Standard Deviation 45.9 46.5 36.4-46.3 fL RDW Coefficient of Variation 14.0 14.0 11.5-14.5 % Immature Granulocyte % (Auto) 0.2 0.1 % Immature Granulocyte # (Auto) 0.02 0.01 0.00-0.02 K/uL Prothrombin Time 20.5 22.6 9.0-12.0 SECONDS Prothromb Time International Ratio 1.9 2.0 0.9-1.1 Activated Partial Thromboplast Time 38.3 21.0-31.0 SECONDS Partial Thromboplastin Ratio 1.5 Sodium Level 145 144 136-145 mmol/L Potassium Level 4.2 3.8 3.5-5.1 mmol/L Chloride Level 108 109 98-107 mmol/L Carbon Dioxide Level 32 28 21-32 mmol/L Anion Gap 5.0 7.0 3-11 mmol/L Blood Urea Nitrogen 19 18 7-18 mg/dl Creatinine 1.10 0.85 0.60-1.40 mg/dl Est Creatinine Clear Calc Drug Dose 64.5 83.5 ml/min Estimated GFR () 76.8 100.2 Estimated GFR (Non- 66.2 86.4 BUN/Creatinine Ratio 17.0 21.4 10-20 Random Glucose 89 78 70-99 mg/dl Calcium Level 8.6 8.3 8.5-10.1 mg/dl Magnesium Level 2.3 1.8-2.4 mg/dl Total Bilirubin 0.7 0.5 0.2-1 mg/dl Direct Bilirubin 0.2 0-0.2 mg/dl Aspartate Amino Transf (AST/SGOT) 12 13 15-37 U/L Alanine Aminotransferase (ALT/SGPT) 12 13 12-78 U/L Alkaline Phosphatase 107 99 45-117 U/L Troponin I < 0.015 0-0.045 ng/ml Pro-B-Type Natriuretic Peptide 282 0-900 pg/ml Total Protein 7.0 6.4 6.4-8.2 gm/dl Albumin 3.1 2.8 3.4-5.0 gm/dl Lipase 94 73-393 U/L Thyroid Stimulating Hormone (TSH) 1.380 0.300-4.500 uIu/ml Urine Color DK YELLOW Urine Appearance CLEAR CLEAR Urine pH 5.0 4.5-7.5 Urine Specific [place] 1.029 1.000-1.030 Urine Protein NEG NEG Urine Glucose (UA) NEG NEG Urine Ketones TRACE NEG Urine Occult Blood NEG NEG Urine Nitrite NEG NEG Urine Bilirubin NEG NEG Urine Urobilinogen NEG NEG Urine Leukocyte Esterase TRACE NEG Urine WBC (Auto) 5-10 0-5 /hpf Urine RBC (Auto) 5-10 0-4 /hpf Urine Hyaline Casts (Auto) 10-30 0-5 /lpf Urine Epithelial Cells (Auto) 10-20 0-5 /lpf Urine Bacteria (Auto) NEG NEG Urine Crystals CALCIUM OXALATE NONE PRSENT Urine Pathogenic Casts 1-5 GRANULAR CASTS 0 /lpf Ammonia 44.0 32.0 11-32 umol/L Globulin 3.6 2.5-4.0 gm/dl Albumin/Globulin Ratio 0.8 0.9-2 Microbiology Results 01/05/17 Urine Culture - Preliminary, Resulted NO GROWTH - LESS THAN 1,000 COLONIES/... Assessment and Plan This is a 71 yo m that is presenting to us with an episode of visual hallucinations and shortness of breath. there is question if this is secondary to progression of disease ; Lewy Body dementia. He also has been having hypotensive episodes which could be secondary to autonomic dysfunction. At this time patient is not safe to go home until full evaluation completed. Will also trial d/c of Metoprolol metabolic encephalopathy secondary to progression of disease; lewy body dementia ? - downgrade to medsurg as ALOC resolved - follow BMP and CBC - close follow up with neuro in outpt - PT/OT eval - speech eval - mri wnl orthostatic hypotension secondary to autonomic dysfunction - will hold metoprolol - as per Dr Campbell clinic note ok to hold with autonomic dysfunction - follow vitals while in house HTN - metoprolol held Hyperammonia - unclear significance but improving Parkinson's - continue Sinemet, Mirapex and Aricept Abnormal UA - unlikely a UTi - considering prolonged QTc and PCn allergy will follow cultures and additionally add abx - for now d/c levaquin DVt prophylaxis - warfarin- patient has a h/o DVt/PE - no h/o a fibb - daily INR SCD Resident Physician Supervision Note: I interviewed and examined the patient. Discussed with Dr. Rodrigues and agree with findings and plan as documented in the note. Any exceptions or clarifications are listed here: None Documented By: Héctor Gracia feeling better no further hallucinations. bp drops noted vitals noted, see EMR. 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 follow - no clear reasons for delirium otherwise and seems to have resolved orthostatic hypotension - likely does relate to parkinsons - reduce BP meds ( agree holding beta delfina) weakness - await PT/OT evals- hopefully home tomorrow Continued [facility] stay due to: other Discharge planning: uncertain
[2017-01-06] MEDS ORDERED: ASPIRIN 81 MG CHEW PO SCH (21:00)
[2017-01-06] MEDS ORDERED: ATORVASTATIN 40 MG TAB PO SCH (21:00)
[2017-01-07 01:28] VITALS: BP 113/67; PULSE 52; TEMP 36.6; O2SAT 96
[2017-01-07 07:38] LABS: INR 2.7 (0.9-1.1); PROTHROMBIN TIME (PATIENT) 30.1 SECONDS (9.0-12.0)
[2017-01-07] MEDS ORDERED: BOOST VANILLA PO SCH ×2 (08:00)
[2017-01-07 08:04] LABS: BUN/CREATININE RATIO 17.3 (10-20); CALCIUM 8.4 mg/dl (8.5-10.1); CREATININE 0.81 mg/dl (0.60-1.40); POTASSIUM 3.9 mmol/L (3.5-5.1)
[2017-01-07] MEDS: CARBIDOPA/LEVODOPA 25/100MG TAB PO SCH ×3 (08:08→16:37)
[2017-01-07] MEDS: PANTOprazole SOD 40 MG TAB PO SCH (08:08)
[2017-01-07] MEDS: PRAMIPEXOLE DIHYDROCHLORIDE 0.5 MG TAB PO SCH (08:08)
[2017-01-07] MEDS: SERTRALINE HCL 50 MG TAB PO SCH (08:08)
[2017-01-07] MEDS: DONEPEZIL HCL 5 MG TAB PO SCH (08:08)
[2017-01-07] MEDS: PREGABALIN 75 MG CAP PO SCH (08:09)
[2017-01-07 08:21] VITALS: BP 120/77; PULSE 58; TEMP 36.6; O2SAT 95
[2017-01-07 09:55] LABS: HEMATOCRIT 36.1 % (42-52); MEAN CELL VOLUME 89.1 fL (80-100); MEAN CORPUSCULAR HEMOGLOBIN 30.4 pg (25-34); MEAN CORPUSCULAR HGB CONC 34.1 g/dl (32-36); PLATELET COUNT 109 K/uL (130-400); PLT ESTIMATE DECREASED; RED BLOOD COUNT 4.05 M/uL (4.7-6.1)
--- NOTE | 2017-01-07 14:06 | Discharge Instructions ---
Discharge Instructions Date of Service Jan 07, 2017. Admission Reason for Admission: Altered Mental Status,Increased Ammonia Level,Sob Discharge Discharge Diagnosis / Problem: autonomic dysfunction Discharge Goals Goal(s): Diagnostic testing, Therapeutic intervention Activity Recommendations Activity Limitations: as noted below Exercise/Sports Limitations: gradually increase as tolerated Remember to take your time moving from a sitting to a standing position . Instructions / Follow-Up Instructions / Follow-Up You were admitted to the hospital because of the acute shortness of breath you were suffering from. This resolved however you did have an episode of hypotension during one of your sessions with therapy. This resolved after laying in bed. We believe that this is something called autonomic dysfunction. Unfortunately as a part of ageing and can be exacerbated by Parkinson's this is not an uncommon finding. Our body loses the ability to compensate to blood pressure changes when we are doing activities or changing position. This can be avoided by taking breaks before changing position to allow our body to adjust and by changing medications that augment blood pressure. As per Dr Campbell's notes, if this become an issue he recommended stopping the metoprolol which is what we did. We recommend follow up with your PCP and Dr Campbell 1. Please stop metoprolol 2. Urine did not indicate an infection, no need for antibiotics Current Hospital Diet Patient's current hospital diet: AHA Diet (Heart Healthy) Discharge Diet Recommended Diet: AHA Diet (Heart Healthy) Pending Studies Studies pending at discharge: no Laboratory Results Hemoglobin A1c Test 11/07/16 14:26 Range/Units Estimated Average Glucose 120 mg/dl Hemoglobin A1c 5.8 H 4.5-5.6 % Medical Emergencies . Who to Call and When: Medical Emergencies: If at any time you feel your situation is an emergency, please call 911 immediately. . Non-Emergent Contact Non-Emergency issues call your: Primary Care Provider . . "Provider Documentation" section prepared by Twyla Rodrigues. VTE Core Measure Inpt VTE Proph given/why not?: Warfarin (Coumadin)
[2017-01-07 14:53] VITALS: BP 120/77; PULSE 58; TEMP 36.6; O2SAT 95
[2017-01-07 15:57] VITALS: BP 115/64; PULSE 92; TEMP 36.7; O2SAT 90
--- NOTE | 2017-01-07 16:28 | Discharge Summary ---
Discharge Summary Date of Service Jan 07, 2017. (Twyla Rodrigues MD) Discharge Summary Admission Date: Jan 05, 2017 at 21:52 Discharge Date: Jan 07, 2017 Discharge Disposition: Home Principal Diagnosis: autonomic dysfunction Immunizations: Have You Had Influenza Vaccine: Yes Influenza Vaccine Date: Jun 27, 2013 History of Tetanus Vaccine?: Yes History of Pneumococcal: Yes History of Hepatitis B Vaccine: Unknown (Twyla Rodrigues MD) Medication Reconciliation Continued Medications: Albuterol Hfa (Ventolin Hfa) 200 Puffs/98294 Mcg Aers 2 PUFFS INH QID PRN Aspirin (Aspirin Tab-Chewable *) 81 Mg Chew 81 MG PO QPM, 0 Refills Atorvastatin (Lipitor) 80 Mg Tab 80 MG PO HS, TAB Carbidopa/Levodopa (Sinemet 25MG/100MG) Tab 1.5 TAB PO QID, TAB Cholecalciferol (Vitamin D) 1,000 Inter.unit Tab 1000 INTER.UNIT PO QAM, TAB Fish Oil ([place]-3) 1 Ea Cap 1 CAP PO BID, CAP Bhthojysmcv-Btkeksloycf-Cni C- (Glucosamine Chondroitin) 1 Tab Tab 1 TAB PO BID Multiple Vitamins W/ Minerals (Centrum Silver Adult 50+) 1 Tab Tab 1 TAB PO QAM Nitroglycerin (Nitrostat) 0.4 Mg Tab 0.4 MG SL PRN, 0 Refills EVERY 5 MINUTES TIMES 3 Omeprazole (Prilosec) 20 Mg Capcr 20 MG PO QAM, 0 Refills Pramipexole Dihydrochloride (Mirapex) 0.5 Mg Tab 0.5 MG PO BID 1 TAB IN AFTERNOON 2 TAB AT NIGHT Pregabalin (Lyrica) 75 Mg Cap 75 MG PO BID, CAP Probiotic Product (Probiotic) 1 Cap Cap 1 CAP PO TID Sertraline (Zoloft) 50 Mg Tab 50 MG PO QAM, 0 Refills Tramadol (Ultram) 50 Mg Tab 1 TAB PO BID PRN for Pain, TAB Warfarin Sodium (Coumadin) 3 Mg Tab 3 MG PO QPM UD, TAB Discontinued Medications: Metoprolol Tartrate (Lopressor) (Lopressor) 25 Mg Tab 12.5 MG PO BID, TAB 1/2 of 25 mg.tab Discharge Exam Feeling well, no hypotensive episodes or visual hallucinations discussed care and d/c with and patient and agreeable to d/c home questions answered Review of Systems: Constitutional: No fever Eyes: No worsening of vision ENT: No hearing loss Respiratory: No cough, No dyspnea at rest, No dyspnea on exertion, No shortness of breath, No sputum, No wheezing Cardiovascular: No chest pain Abdomen: No constipation, No diarrhea, No nausea, No pain, No vomiting Musculoskeletal: No joint pain, No muscle pain Genitourinary - Male: No dysuria, No hematuria Neurologic: + balance problems, + weakness, No numbness/tingling Psychiatric: No depression symptoms Endocrine: No fatigue Integumentary: No rash Physical Exam: General Appearance: no apparent distress Eyes: normal inspection ENT: normal ENT inspection Neck: supple Respiratory/Chest: normal breath sounds, no respiratory distress, no accessory muscle use Cardiovascular: regular rate, rhythm, no murmur Abdomen / GI: normal bowel sounds, non tender, soft Extremities: no calf tenderness, no pedal edema, + pertinent finding ( shuffling gait) Neurologic/Psychiatric: alert, oriented x 3, + pertinent finding (flat affect) Skin: normal color, warm/dry, no rash Lymphatic: no adenopathy (Twyla Rodrigues MD) Hospital Course This is a 71 yo m that is presenting to us with an episode of visual hallucinations and shortness of breath. there is question if this is secondary to progression of disease ; Lewy Body dementia. He also has been having hypotensive episodes which could be secondary to autonomic dysfunction. After a chart review and discuss with the patient and family it was decided that the metoprolol was held. No further episodes since d/c. metabolic encephalopathy secondary to progression of disease; lewy body dementia ? - Follow up with neuro in outpatient - PT/OT eval - will continue outpt PT/ OT, script given - speech eval - discussed proper swallowing technique with patient as risk for aspiration - mri wnl orthostatic hypotension secondary to autonomic dysfunction - will hold metoprolol - as per Dr Campbell clinic note ok to hold with autonomic dysfunction HTN - metoprolol held Hyperammonia - unclear significance but improving - recommend repeat in one month Parkinson's - continue Sinemet, Mirapex and Aricept Abnormal UA - unlikely a UTi - UCx negative DVt prophylaxis - warfarin- patient has a h/o DVt/PE - no h/o a fibb Total Time Spent: Less than 30 minutes This includes examination of the patient, discharge planning, medication reconciliation, and communication with other providers. (Twyla Rodrigues MD) Resident Physician Supervision Note: I interviewed and examined the patient. Discussed with Dr. Rodrigues and agree with findings and plan as documented in the note. Any exceptions or clarifications are listed here: None Documented By: Héctor Gracia extensive discussion w and pt. answered all questions to the best of our ability. feeling better. safe/stable for home vitals noted nad, breathing unlabored, cn2-12 grossly intact, no focal deficits altered mental status - seems to have been transient visual hallucinations. no UTI, ammonia of doubtful significance. repeat in ~1wks. likely related to parkinsons. autonomic insufficiency and orthostatic hypotension - from parkinsons - stop beta delfina. stable for home, outpt PT, outpt labs, outpt f/ u Total Time Spent: Greater than 30 minutes (Héctor Gracia, D.O.) Discharge Instructions Please refer to the electronic Patient Visit Report (Discharge Instructions) for additional information. (Twyla Rodrigues MD) Additional Copies To Isak Galaviz M.D.; Geoffrey Rosado M.D.; Ke Campbell MD
[2017-01-07] MEDS: WARFARIN SOD 3 MG TAB PO SCH (16:37)
--- NOTE | 2017-01-20 08:00 | EDITING REQUIRED CODING QUERY ---
SUPPORTING DIAGNOSIS NEEDED A supporting diagnosis is required for the test/procedure performed on this patient in order for us to be reimbursed by the patient's insurance. Please provide a supporting diagnosis for the following test/procedure listed below next to the test name along with your signature. *If there is no additional diagnosis for this patient that would support the following test/procedure please document that below next to the test/procedure. Test(s)/Procedure(s) that require a supporting diagnosis: * VIDEO SWALLOW DIAGNOSIS: * DOS: 01/06/17 Diagnosis: Dysphagia. Dyspnea. advancing Parkinson's, Concern for aspiration Provider Signature: TED YA Date: ____01/20/17___ Thank you Rosalina Hardin Health Information Management Once completed, please kindly fax back to [phone] For questions please call [phone]
[2017-06-11] MEDS ORDERED: TPRSR25 PO (16:08)
== END 2017-01-07 16:44 | disposition home or self-care (01) | DRG 71 ==
LOC: CANRESERV → ENRESERVTM → ENRESERVDT → C.EDB 16:07 → C.2T 21:52 → C.MS4W 01-06 13:17
PROVIDERS: ADMIT Hospitalist; ATTEND Family Medicine
DX: G93.41 Metabolic encephalopathy (principal); E72.20 Disorder of urea cycle metabolism, unspecified; G90.8 Other disorders of autonomic nervous system; R79.1 Abnormal coagulation profile; R82.90 Unspecified abnormal findings in urine; G20 Parkinson's disease; F02.80 Dementia in other diseases classified elsewhere, unspecified severity, without behavioral disturbance, psychotic disturbance, mood disturbance, and anxiety; E88.09 Other disorders of plasma-protein metabolism, not elsewhere classified; R44.1 Visual hallucinations; R06.02 Shortness of breath; I95.1 Orthostatic hypotension; E86.0 Dehydration; R19.7 Diarrhea, unspecified; R15.9 Full incontinence of feces; I48.91 Unspecified atrial fibrillation; K21.9 Gastro-esophageal reflux disease without esophagitis; I10 Essential (primary) hypertension; I25.10 Atherosclerotic heart disease of native coronary artery without angina pectoris; E78.00 Pure hypercholesterolemia, unspecified; N40.0 Benign prostatic hyperplasia without lower urinary tract symptoms; F32.9 Major depressive disorder, single episode, unspecified; F17.200 Nicotine dependence, unspecified, uncomplicated; I25.2 Old myocardial infarction; Z95.1 Presence of aortocoronary bypass graft; Z86.718 Personal history of other venous thrombosis and embolism; Z86.711 Personal history of pulmonary embolism; Z86.73 Personal history of transient ischemic attack (TIA), and cerebral infarction without residual deficits; Z79.82 Long term (current) use of aspirin; Z79.01 Long term (current) use of anticoagulants; Z79.891 Long term (current) use of opiate analgesic; Z79.899 Other long term (current) drug therapy

== ENCOUNTER 2017-04-15 04:18 | Inpatient (IN) | payer OTHER ==
[~2017-04-15] VITALS: Ht 172.7 cm; Wt 91.1 kg
[2017-04-15] VITALS (10 sets, daily range): BP systolic 110–152; BP diastolic 68–83; PULSE 50–61; TEMP 36.5–36.9; O2SAT 94–97; Ht 172.7 cm; Wt 91.1 kg
[~2017-04-15 04:18] MED LIST changes: -METO25TA56 PO
[2017-04-15] MEDS ORDERED: SODIUM CHLORIDE 0.9% 500ML 500 ML IV STA ×2 (04:37→05:28)
[2017-04-15 04:52] LABS: ALT/SGPT 12 U/L (12-78); BLOOD UREA NITROGEN 16 mg/dl (7-18); BUN/CREATININE RATIO 14.1 (10-20); CALCIUM 8.7 mg/dl (8.5-10.1); CARBON DIOXIDE 31 mmol/L (21-32); CHLORIDE 107 mmol/L (98-107); GLUCOSE 92 mg/dl (70-99); MAGNESIUM 2.1 mg/dl (1.8-2.4); SODIUM 143 mmol/L (136-145)
[2017-04-15 04:59] LABS: PARTIAL THROMBOPLASTIN RATIO 1.5; PROTHROMBIN TIME (PATIENT) 21.8 SECONDS (9.0-12.0)
[2017-04-15 05:03] LABS: ALKALINE PHOSPHATASE 115 U/L (45-117); AST/SGOT 23 U/L (15-37)
[2017-04-15 05:15] LABS: BASO % 0.3 %; BASO ABS # 0.02 K/uL (0-0.2); COMPLETE YES; EOS % 3.1 %; HEMATOCRIT 34.9 % (42-52); IG% 0.2 %; LYMPH % 22.4 %; LYMPH ABS # 1.36 K/uL (1.2-3.4); MEAN CELL VOLUME 89.9 fL (80-100); MEAN CORPUSCULAR HEMOGLOBIN 29.9 pg (25-34); MEAN CORPUSCULAR HGB CONC 33.2 g/dl (32-36); MEAN PLATELET VOLUME 10.9 fL (7.4-10.4); MONO % 6.9 %; NEUT % 67.1 %; PLATELET COUNT 127 K/uL (130-400); RED BLOOD COUNT 3.88 M/uL (4.7-6.1); WHITE BLOOD COUNT 6.06 K/uL (4.8-10.8)
[2017-04-15] MEDS ORDERED: CARB25TA14 PO (05:20)
[2017-04-15] MEDS ORDERED: PRAM1TAB47 PO ×2 (05:23)
[2017-04-15] MEDS ORDERED: DONE1TAB11 PO (05:25)
[2017-04-15] MEDS ORDERED: ASPI81TA28 PO (05:25)
[2017-04-15] MEDS ORDERED: IMD/2 PO (05:26)
[2017-04-15] MEDS ORDERED: CHOL200010 PO (05:26)
[2017-04-15] MEDS ORDERED: SODIUM CHLORIDE 0.9% 1000ML 1,000 ML IV STA (05:27)
--- NOTE | 2017-04-15 05:28 | EMERGENCY ROOM VISIT NOTE ---
ED Visit Note First contact with patient: 04:26 I have personally evaluated and examined this patient. I agree with assessment and plan of Candy Stern PA-C.
[2017-04-15] MEDS ORDERED: NITROGLYCERIN 0.4 MG SL PER TAB CHARGE SL PRN (06:15)
[2017-04-15] MEDS ORDERED: ONDANSETRON INJ 2 MG/ML 2 ML VIAL IV PRN (06:15)
[2017-04-15] MEDS ORDERED: ACETAMINOPHEN 325 MG TAB PO PRN (06:15)
--- NOTE | 2017-04-15 06:16 | EMERGENCY ROOM VISIT NOTE ---
History First contact with patient: 04:26 Chief Complaint: FALL Stated Complaint: FALL History of Present Illness The patient is a 71 year old male who presents to the Emergency Room with complaints of near syncope tonight. Patient states he got up from his recliner and felt very weak walk into his bedroom called out for his and fell. Patient denies hitting his head or losing consciousness. Patient states he feels weak, weaker than normal. He normally ambulates with his walker but did not. Patient denies chest pain, dyspnea, fever, chills, cough, congestion, abdominal pain, headache, head injury, neck pain, numbness, tingling. Patient states she is tolerate by mouth fluids and food. He ate dinner last night without difficulties. Family check blood pressure at home and was 80/60. EMS got 110/70 Review of Systems See HPI for pertinent positives & negatives. A total of 10 systems reviewed and were otherwise negative. Past Medical/Surgical History Medical Problems: (1) Altered mental status (2) Chest pain (3) Coronary artery bypass grafts x 2 (4) Coronary artery disease (5) Coronary bypass surgery (6) Hyperlipidemia (7) Hypotension (8) Increased ammonia level (9) Kidney stone (10) Myocardial infarction (11) Shortness of breath (12) Syncope Family History Cancer Heart disease Hypertension Social History Smoking Status: Light Tobacco Smoker Alcohol Use: occasionally Drug Use: none Marital Status: Housing Status: lives with family Occupation Status: employed Current/Historical Medications Scheduled Aspirin (Aspirin Ec), 81 MG PO HS Atorvastatin (Lipitor), 80 MG PO HS Carbidopa/Levodopa (Sinemet 25MG/250MG), 1 TAB PO QID Cholecalciferol (Vitamin D), 2,000 UNIT PO QAM Donepezil Hydrochloride (Donepezil Hcl), 5 MG PO HS Zsqofuxdqwk-Jvuyovjslpm-Lrk C- (Glucosamine Chondroitin), 1 TAB PO BID Loperamide Hcl (Imodium), 2 MG PO QAM Multiple Vitamins W/ Minerals (Centrum Silver Adult 50+), 1 TAB PO QAM Omeprazole (Prilosec), 20 MG PO QAM Pramipexole Dihydrochloride (Mirapex), 1 TAB PO daily at 2pmwi Pramipexole Dihydrochloride (Mirapex), 2 TABS PO HS Pregabalin (Lyrica), 75 MG PO AMPM Probiotic Product (Probiotic), 1 CAP PO TID Sertraline (Zoloft), 50 MG PO daily at 2pm Warfarin Sodium (Coumadin), 3 MG PO QPM UD Scheduled PRN Nitroglycerin (Nitrostat), 0.4 MG SL UD PRN for Chest Pain Tramadol (Ultram), 1 TAB PO BID PRN for Pain Allergies Coded Allergies: Penicillins (Verified Allergy, Severe, hives,swelling, 04/15/17) IV PENICILLINS Physical Exam Vital Signs Date Time Temp Pulse Resp B/P (MAP) Pulse Ox O2 Delivery O2 Flow Rate FiO2 04/15/17 05:44 60 18 90/60 92 Room Air 04/15/17 05:27 62 18 103/67 93 Room Air 04/15/17 05:03 61 18 98/65 95 Room Air 69 94/66 72 70/52 04/15/17 04:41 95 Room Air 04/15/17 04:41 95 Room Air 04/15/17 04:23 36.5 65 18 96/60 95 Room Air Physical Exam VITALS: Vitals are noted on the nurse's note and reviewed by myself. Vital signs mildly hypotensive GENERAL: Pleasant male, in no acute distress, nondiaphoretic, well-developed well-nourished. SKIN: The skin was without rashes, erythema, edema, or bruising. There is no tenting of the skin. Capillary reflex less than 2 seconds. HEAD: Normocephalic atraumatic. EARS: External auditory canals clear, tympanic membranes pearly goldsmith without erythema or effusion bilaterally. EYES: Pupils equal round and reactive to light and accommodation. Conjunctivae without injection, sclerae without icterus. Extraocular movements intact. NOSE: Patent, turbinates without inflammation or discharge. MOUTH: Mucous membranes mildly dry. Pharynx without erythema or exudate. Uvula midline. Airway patent. Tongue does not deviate. NECK: Supple without nuchal rigidity. No lymphadenopathy. No thyromegaly. Cervical spine is nontender. No JVD. HEART: Regular rate and rhythm LUNGS: Clear to auscultation bilaterally without wheezes, rales or rhonchi. No dullness to percussion. No retractions or accessory muscle use. ABDOMEN: Positive bowel sounds x 4. Normal tympanic percussion. Soft, nontender, without masses or organomegaly. Moreno sign negative. No guarding or rebound tenderness. MUSCULOSKELETAL: No muscle atrophy, erythema, or edema noted. NEURO: Patient was alert and oriented to person place and time. Normal sensation to light and sharp touch. No focal neurological deficits. Medical Decision & Procedures Laboratory Results 04/15/17 05:06 Red Blood Count 3.88, Mean Corpuscular Volume 89.9, Mean Corpuscular Hemoglobin 29.9, Mean Corpuscular Hemoglobin Concent 33.2, Mean Platelet Volume 10.9, Neutrophils (%) (Auto) 67.1, Lymphocytes (%) (Auto) 22.4, Monocytes (%) (Auto) 6.9, Eosinophils (%) (Auto) 3.1, Basophils (%) (Auto) 0.3, Neutrophils # (Auto) 4.06, Lymphocytes # (Auto) 1.36, Monocytes # (Auto) 0.42, Eosinophils # (Auto) 0.19, Basophils # (Auto) 0.02 04/15/17 04:00 Test 04/15/17 04:00 04/15/17 05:06 Prothrombin Time 21.8 SECONDS (9.0-12.0) Prothromb Time International Ratio 2.0 (0.9-1.1) Activated Partial Thromboplast Time 38.3 SECONDS (21.0-31.0) Partial Thromboplastin Ratio 1.5 Anion Gap 5.0 mmol/L (3-11) Est Creatinine Clear Calc Drug Dose 65.3 ml/min Estimated GFR () 76.8 Estimated GFR (Non- 66.2 BUN/Creatinine Ratio 14.1 (10-20) Calcium Level 8.7 mg/dl (8.5-10.1) Magnesium Level 2.1 mg/dl (1.8-2.4) Total Bilirubin 0.7 mg/dl (0.2-1) Direct Bilirubin 0.2 mg/dl (0-0.2) Aspartate Amino Transf (AST/SGOT) 23 U/L (15-37) Alanine Aminotransferase (ALT/SGPT) 12 U/L (12-78) Alkaline Phosphatase 115 U/L (45-117) Troponin I < 0.015 ng/ml (0-0.045) Total Protein 7.1 gm/dl (6.4-8.2) Albumin 3.4 gm/dl (3.4-5.0) Thyroid Stimulating Hormone (TSH) 3.240 uIu/ml (0.300-4.500) White Blood Count 6.06 K/uL (4.8-10.8) Red Blood Count 3.88 M/uL (4.7-6.1) Hemoglobin 11.6 g/dL (14.0-18.0) Hematocrit 34.9 % (42-52) Mean Corpuscular Volume 89.9 fL (80-100) Mean Corpuscular Hemoglobin 29.9 pg (25-34) Mean Corpuscular Hemoglobin Concent 33.2 g/dl (32-36) Platelet Count 127 K/uL (130-400) Mean Platelet Volume 10.9 fL (7.4-10.4) Neutrophils (%) (Auto) 67.1 % Lymphocytes (%) (Auto) 22.4 % Monocytes (%) (Auto) 6.9 % Eosinophils (%) (Auto) 3.1 % Basophils (%) (Auto) 0.3 % Neutrophils # (Auto) 4.06 K/uL (1.4-6.5) Lymphocytes # (Auto) 1.36 K/uL (1.2-3.4) Monocytes # (Auto) 0.42 K/uL (0.11-0.59) Eosinophils # (Auto) 0.19 K/uL (0-0.5) Basophils # (Auto) 0.02 K/uL (0-0.2) RDW Standard Deviation 44.7 fL (36.4-46.3) RDW Coefficient of Variation 13.6 % (11.5-14.5) Immature Granulocyte % (Auto) 0.2 % Immature Granulocyte # (Auto) 0.01 K/uL (0.00-0.02) Medications Administered Medications (Trade) Dose Ordered Sig/Dany Route Start Time Stop Time Status Last Admin Dose Admin Sodium Chloride 500 ml @ 999 mls/hr Q31M STAT IV 04/15/17 04:37 04/15/17 05:07 DC 04/15/17 05:07 999 MLS/HR Sodium Chloride 1,000 ml @ 125 mls/hr Q8H STAT IV 04/15/17 05:27 04/15/17 13:26 04/15/17 06:10 125 MLS/HR Sodium Chloride 500 ml @ 999 mls/hr Q31M STAT IV 04/15/17 05:28 04/15/17 05:58 DC 04/15/17 05:49 999 MLS/HR ED Course Prior records/ancillary studies reviewed and summarized above. Nursing notes reviewed. Additional history obtained from EMS. The patient's history was concerning for weakness. Differential diagnosis: Etiologies such as metabolic, infection, hypo/hyperglycemia, electrolyte abnormalities, cardiac sources, intracerebral event, toxicologic, neurologic, as well as others were entertained. Physical examination: As above. ER treatment provided: IV Lock IV fluids On reassessment the patient felt better. Diagnostics interpretation by me: ECG: Normal sinus, normal intervals, no acute ST-T wave changes. Impression normal sinus rhythm interpreted by myself The labs revealed mild anemia. Imaging studies: Negative head CT Chest x-ray with no acute consolidation, pneumothorax or free air per my interpretation, hardware placement Consultation: A consultation was placed with the hospitalist, Dr. Ramsey. The case was discussed and diagnostics were reviewed. The patient was evaluated in the ER for further treatment. Exam and history seem consistent with near-syncope from dehydration. He was neurovascularly and neurologically intact. No deficits on exam. He will be evaluated by medicine for possible admission.By the evaluation outlined above emergent etiologies such as infection, electrolyte abnormalities, cardiac sources, intracerebral event, toxologic, neurologic, abnormalities blood glucose , metabolic, as well as others were deemed relatively unlikely. The pt informed about the findings as listed above. All questions were answered and pleased with the treatment. Case reviewed with my attending. Medical Decision As above Impression Primary Impression: Hypotension Additional Impressions: Dehydration Fall Departure Information Dispostion Being Evaluated By Hospitalist Condition FAIR Referrals Isak Galaviz M.D. (PCP) Patient Instructions My [facility] Problem Qualifiers
--- NOTE | 2017-04-15 06:32 | History and Physical ---
History & Physical Date & Time of Service: Apr 15, 2017 at 06:12 Chief Complaint: FALL Primary Care Physician: Isak Galaviz M.D. History of Present Illness Source: patient, spouse The patient is a 71-year-old male with a past medical history including Parkinson's who was walking with his walker early this morning, and he, per his fell forward. She reports that the duration of time he was passed out for was 2-3 minutes, did not have loss of bowel or bladder function, and was not postictal when he awoke. This was not a mechanical fall per the . He reports that he's had difficulty getting a full breath of air over the past few weeks, but denies any cough, wheezing, or other signs of infection. His reports that he does not drink much in the way of liquids, because he does not want to have to go to the bathroom, so her feeling is that he is always dehydrated, and appears more so than now than usual. He has been taking his medications as directed. He is supposed to wear CPAP at nighttime, but has not been wearing it due to the noise it makes, and she reports that he does take 4- 5 naps during the day. His neurologist is Dr. Rosado. Past Medical/Surgical History Medical Problems: (1) Coronary artery bypass grafts x 2 Status: Resolved (2) Coronary artery disease Status: Chronic (3) Coronary bypass surgery Status: Resolved (4) Hyperlipidemia Status: Chronic (5) Hypotension Status: Chronic (6) Kidney stone Status: Resolved (7) Myocardial infarction Status: Resolved Family History Cancer Heart disease Hypertension Social History Smoking Status: Light Tobacco Smoker Smokeless Tobacco Use: No Alcohol Use: none Drug Use: none Marital Status: Housing status: lives with family Occupational Status: employed Immunizations History of Influenza Vaccine: Yes Influenza Vaccine Date: Jun 27, 2013 History of Tetanus Vaccine?: Yes History of Pneumococcal: Yes History of Hepatitis B Vaccine: Unknown Multi-Drug Resistant Organisms History of MDRO: No Allergies Coded Allergies: Penicillins (Verified Allergy, Severe, hives,swelling, 04/15/17) IV PENICILLINS Home Medications Scheduled Aspirin (Aspirin Ec), 81 MG PO HS Atorvastatin (Lipitor), 80 MG PO HS Carbidopa/Levodopa (Sinemet 25MG/250MG), 1 TAB PO QID Cholecalciferol (Vitamin D), 2,000 UNIT PO QAM Donepezil Hydrochloride (Donepezil Hcl), 5 MG PO HS Mvuztwmycqt-Rttuuznjhzx-Mqh C- (Glucosamine Chondroitin), 1 TAB PO BID Loperamide Hcl (Imodium), 2 MG PO QAM Multiple Vitamins W/ Minerals (Centrum Silver Adult 50+), 1 TAB PO QAM Omeprazole (Prilosec), 20 MG PO QAM Pramipexole Dihydrochloride (Mirapex), 1 TAB PO daily at 2pmwi Pramipexole Dihydrochloride (Mirapex), 2 TABS PO HS Pregabalin (Lyrica), 75 MG PO AMPM Probiotic Product (Probiotic), 1 CAP PO TID Sertraline (Zoloft), 50 MG PO daily at 2pm Warfarin Sodium (Coumadin), 3 MG PO QPM UD Scheduled PRN Nitroglycerin (Nitrostat), 0.4 MG SL UD PRN for Chest Pain Tramadol (Ultram), 1 TAB PO BID PRN for Pain Review of Systems The patient denies chest pain, palpitations, cough, lower extremity swelling, sore throat, fevers, chills, sweats, weight change, nausea, vomiting, abdominal pain, pelvic pain, blood in urine or stool, dysuria, urinary frequency or urgency, rash, abnormal bruising or bleeding, focal weakness, numbness or tingling in arms or legs, arthralgias or myalgias, back or neck pain, night sweats. The review of systems is otherwise negative other than for that already noted above, and at least 10 systems have been reviewed. Physical Exam Vital Signs Date Time Temp Pulse Resp B/P (MAP) Pulse Ox O2 Delivery O2 Flow Rate FiO2 04/15/17 05:44 60 18 90/60 92 Room Air 04/15/17 05:27 62 18 103/67 93 Room Air 04/15/17 05:03 61 18 98/65 95 Room Air 69 94/66 72 70/52 04/15/17 04:41 95 Room Air 04/15/17 04:41 95 Room Air 04/15/17 04:23 36.5 65 18 96/60 95 Room Air The patient is awake, well-developed and adequately nourished, alert and oriented 3, normocephalic and atraumatic, lying in bed and in no acute distress. HEENT--PERRL, EOMI, mucous membranes and oropharynx dry. Neck--supple, no JVD or bruits, thyroid normal, trachea midline, no adenopathy. Heart--normal S1 and S2, no extra beats, no murmurs, rubs or gallops. Lungs--decreased breath sounds throughout, no respiratory distress, no accessory muscle use. Abdomen--normal bowel sounds and soft, nontender and nondistended, no hernias or masses, no organomegaly. Extremities--no cyanosis, clubbing or edema. There are good distal pulses b/l. Dermatologic--normal skin turgor, normal color, warm and dry, no abnormal lymph nodes, no rash. Neurologic--cranial nerves II through XII grossly intact. Rheumatologic--deferred. Psychiatric--normal affect. Diagnostics Laboratory Results Results Past 24 Hours Test 04/15/17 04:00 04/15/17 05:06 Range/Units Prothrombin Time 21.8 9.0-12.0 SECONDS Prothromb Time International Ratio 2.0 0.9-1.1 Activated Partial Thromboplast Time 38.3 21.0-31.0 SECONDS Partial Thromboplastin Ratio 1.5 Sodium Level 143 136-145 mmol/L Potassium Level 4.0 3.5-5.1 mmol/L Chloride Level 107 98-107 mmol/L Carbon Dioxide Level 31 21-32 mmol/L Anion Gap 5.0 3-11 mmol/L Blood Urea Nitrogen 16 7-18 mg/dl Creatinine 1.10 0.60-1.40 mg/dl Est Creatinine Clear Calc Drug Dose 65.3 ml/min Estimated GFR () 76.8 Estimated GFR (Non- 66.2 BUN/Creatinine Ratio 14.1 10-20 Random Glucose 92 70-99 mg/dl Calcium Level 8.7 8.5-10.1 mg/dl Magnesium Level 2.1 1.8-2.4 mg/dl Total Bilirubin 0.7 0.2-1 mg/dl Direct Bilirubin 0.2 0-0.2 mg/dl Aspartate Amino Transf (AST/SGOT) 23 15-37 U/L Alanine Aminotransferase (ALT/SGPT) 12 12-78 U/L Alkaline Phosphatase 115 45-117 U/L Troponin I < 0.015 0-0.045 ng/ml Total Protein 7.1 6.4-8.2 gm/dl Albumin 3.4 3.4-5.0 gm/dl Thyroid Stimulating Hormone (TSH) 3.240 0.300-4.500 uIu/ml White Blood Count 6.06 4.8-10.8 K/uL Red Blood Count 3.88 4.7-6.1 M/uL Hemoglobin 11.6 14.0-18.0 g/dL Hematocrit 34.9 42-52 % Mean Corpuscular Volume 89.9 80-100 fL Mean Corpuscular Hemoglobin 29.9 25-34 pg Mean Corpuscular Hemoglobin Concent 33.2 32-36 g/dl Platelet Count 127 130-400 K/uL Mean Platelet Volume 10.9 7.4-10.4 fL Neutrophils (%) (Auto) 67.1 % Lymphocytes (%) (Auto) 22.4 % Monocytes (%) (Auto) 6.9 % Eosinophils (%) (Auto) 3.1 % Basophils (%) (Auto) 0.3 % Neutrophils # (Auto) 4.06 1.4-6.5 K/uL Lymphocytes # (Auto) 1.36 1.2-3.4 K/uL Monocytes # (Auto) 0.42 0.11-0.59 K/uL Eosinophils # (Auto) 0.19 0-0.5 K/uL Basophils # (Auto) 0.02 0-0.2 K/uL RDW Standard Deviation 44.7 36.4-46.3 fL RDW Coefficient of Variation 13.6 11.5-14.5 % Immature Granulocyte % (Auto) 0.2 % Immature Granulocyte # (Auto) 0.01 0.00-0.02 K/uL EKG EKG shows normal sinus rhythm at 62 bpm, no acute ST-T changes, and compared to 01/07/2017 there are no longer PVCs present. Impression Assessment and Plan Syncope--patient had a CT of the head which was negative. During his most recent hospital admission from January 05 to January 07, he did have an MRI of the brain performed at that time. Possible etiologies include: Dehydration, fatigue secondary to uncorrected sleep apnea, arrhythmia, seizure or underlying Parkinson's. denies any seizure type activity. We'll consult his neurologist Dr. Rosado. We'll place him on IV fluids for rehydration. When he provides a urine specimen if it looks to be infected, antibiotics can be started at that time. We'll consult PT/OT/social work msw. His reports that he refused PT/OT in December. Parkinson's/dementia/depression/anxiety--continue carbidopa/ levodopa, donepezil , pramipexole, sertraline, Lyrica. Sleep apnea--his present CPAP machine at home is at least 5 years old. He may benefit from a newer machine which is less noisy, and thus he might utilize at home. CAD/hypertension--continue aspirin 81 mg by mouth daily, warfarin 3 mg by mouth daily. Hyperlipidemia--continue atorvastatin. GERD--continue pantoprazole. GI--continue Floranex, loperamide, ondansetron. Level of Care Telemetry Advanced Directives Existing Advance Directive: No Existing Living Will: No Existing Power of Mechanical Expert: No Resuscitation Status FULL RESUSCITATION VTE Prophylaxis VTE Risk Assessment Done? Y/N: Yes Risk Level: Moderate Given or contraindicated: Warfarin (Coumadin)
--- NOTE | 2017-04-15 07:10 | DIAGNOSTIC IMAGING REPORT ---
CT SCAN OF THE BRAIN WITHOUT IV CONTRAST CLINICAL HISTORY: Fall. Weakness. COMPARISON STUDY: CT of the brain dated 01/05/2017. MRI of the brain dated 01/06/2017. TECHNIQUE: Unenhanced axial CT scan of the brain is performed from the vertex to the skull base. CT DOSE: 614.27 mGy.cm FINDINGS: Brain parenchyma: There are age-related involutional changes noting mild subcortical and periventricular microangiopathic change. There is no hemorrhage, mass effect, or evidence of acute territorial ischemia by CT criteria. Meek-white matter is preserved. No extra-axial fluid collection is seen. A large calcification is again seen within the brainstem. This is similar to prior studies. Ventricles, sulci, cisterns: Prominent secondary to involutional change. Intracranial vasculature: There is atherosclerotic calcification of the cavernous carotid and vertebral arteries. Calvarium: The skeletal structures are osteopenic. No depressed calvarial fracture is seen. Sinuses and mastoids: There is trace mucosal thickening in the right maxillary antrum. A tiny retention cyst is seen in the left maxillary antrum. The remaining visualized paranasal sinuses are clear. The mastoid air cells are well pneumatized. Orbits: The bony orbits are grossly intact. There are bilateral ocular lens implants. IMPRESSION: There is no hemorrhage, mass effect, or evidence of acute territorial ischemia by CT criteria. Electronically signed by: Reese Colmenares M.D. 04/15/2017 7:09 AM Dictated Date/Time: 04/15/2017 7:06 AM
--- NOTE | 2017-04-15 07:26 | DIAGNOSTIC IMAGING REPORT ---
SINGLE VIEW CHEST CLINICAL HISTORY: Generalized weakness. FINDINGS: An AP, portable, upright chest radiograph is compared to study dated 01/05/2017 and correlated with chest CT dated 10/27/2012. The examination is degraded by portable technique and patient rotation. The patient is status post midline sternotomy. The heart is enlarged and there is atherosclerotic calcification of the thoracic aorta. The pulmonary vascular structures noncongested. There are low lung volumes. Chronic interstitial thickening is unchanged. No airspace consolidation or large pleural effusion is identified. No pneumothorax is seen. The skeletal structures are osteopenic. The bony thorax is grossly intact. IMPRESSION: Low lung volumes and cardiomegaly. There is no acute cardiopulmonary abnormality. Electronically signed by: Reese Colmenares M.D. 04/15/2017 7:25 AM Dictated Date/Time: 04/15/2017 7:24 AM
[2017-04-15] MEDS: NSS + 20MEQ KCL 1000ML 1,000 ML IV SCH ×2 (07:35→17:03)
[2017-04-15] MEDS: TRAMADOL HCL 50 MG TAB PO PRN (07:39)
[2017-04-15 09:13] LABS: URINE APPEARANCE CLEAR (CLEAR); URINE BILIRUBIN NEG (NEG); URINE COLOR DK YELLOW; URINE NITRITE NEG (NEG); URINE SPECIFIC GRAVITY 1.022 (1.000-1.030); UROBILINOGEN NEG (NEG)
[2017-04-15 09:33] LABS: MANUAL MICROSCOPIC REQUIRED? NO; REVIEW REQ? NO
--- NOTE | 2017-04-15 09:43 | Medical Student: [facility] ---
Med Student History & Physical Date & Time of Service: Apr 15, 2017 at 09:09 Chief Complaint: Syncope Primary Care Physician: Isak Galaviz M.D. History of Present Illness Source: patient, clinic records, hospital records Mr. Ramirez is a 71yo male with a medical history significant for Parkinson's disease, CAD, hyperlipidemia, restless leg syndrome, peripheral neuropathy, DVT , COPD, and bladder cancer who presented to the ED with a suspected syncopal episode. According to the patient, he had been working outside for several hours during the daytime. At about 2-3AM he was walking from his recliner in the TV room to his bedroom. He fell while walking from the doorway of his bedroom to the bed in the center of the room. Given his PD, the patient describes difficulty with balance and gait. He normally uses a walker or cane for assistance when walking outside the home. When walking within his home, he uses furniture and the mosqueda to guide and steady himself. Yet, Mr. Ramirez had nothing to guide him (i.e. hold onto) when he walked to the bed in the center of the room. The patient describes that his legs were weak and then went numb, which caused him to fall. He remembers falling and calling out to his for help. Prior to arriving in the ED, his took his blood pressure, which was low; reported a systolic BP of around 70, but he could not remember the diastolic BP reading. Mr. Ramirez does not like drink much fluid in order to avoid the effects of his urge incontinence. At Mr. Ramirez's most recent neurology appointment in February 2017, Dr. Rosado noted a modest symptomatic decline in his Parkinson's disease for which he recommended an increase in his Sinemet dosage to 25/250mg four times a day. A slight improvement in his restless leg syndrome symptoms was noted for which he takes Mirapex. He was originally diagnosed with PD in 2010; his PD is described as "not really classic or idiopathic, primarily bradykinetic with postural instability. No evidence for NPH on previous imaging." Also, no shaking or tremor is noted. Past Medical/Surgical History Medical History: 1.) Hyperlipidemia 2.) Pre-diabetes 3.) Peripheral neuropathy 4.) BPH 5.) CAD 6.) Parkinson's disease 7.) Mild dementia 8.) DVT 9.) COPD 10.) Sleep apnea 11.) Depression Past Surgical History: 1.) CABG x 2 (WHITTAKER to LAD; SCG to RCA) Family History Father: heart disease (CAD- in eight decade of life) Mother: pertinent history of (aneurysm- in eight decade of life) Social History Smoking Status: Current Every Day Smoker (smokes/chews cigars 2-3/day) Smokeless Tobacco Use: Yes (smokes/chews cigars 2-3/day) Alcohol Use: occasionally (3-4 shots of bourbon per week) Drug Use: none Marital Status: Housing status: lives with family 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) Immunizations History of Influenza Vaccine: Yes Influenza Vaccine Date: Jun 27, 2013 History of Tetanus Vaccine?: Yes History of Pneumococcal: Yes History of Hepatitis B Vaccine: Unknown Allergies Coded Allergies: Penicillins (Verified Allergy, Severe, hives,swelling, 04/15/17) IV PENICILLINS Medications Aspirin (Aspirin Ec), 81 MG PO HS Atorvastatin (Lipitor), 80 MG PO HS Carbidopa/Levodopa (Sinemet 25MG/250MG), 1 TAB PO QID Cholecalciferol (Vitamin D), 2,000 UNIT PO QAM Donepezil Hydrochloride (Donepezil Hcl), 5 MG PO HS Yqqajiyvhlv-Ywiejhyukww-Atd C- (Glucosamine Chondroitin), 1 TAB PO BID Loperamide Hcl (Imodium), 2 MG PO QAM Multiple Vitamins W/ Minerals (Centrum Silver Adult 50+), 1 TAB PO QAM Nitroglycerin (Nitrostat), 0.4 MG SL UD PRN for Chest Pain Omeprazole (Prilosec), 20 MG PO QAM Pramipexole Dihydrochloride (Mirapex), 1 TAB PO daily at 2pmwi Pramipexole Dihydrochloride (Mirapex), 2 TABS PO HS Pregabalin (Lyrica), 75 MG PO AMPM Probiotic Product (Probiotic), 1 CAP PO TID Sertraline (Zoloft), 50 MG PO daily at 2pm Tramadol (Ultram), 1 TAB PO BID PRN for Pain Warfarin Sodium (Coumadin), 3 MG PO QPM UD Review of Systems Constitutional: + weakness, No fever, No chills, No sweats Eyes: + eye pain (left eye pain) ENT: + hearing loss (slight b/l hearing loss), No nasal symptoms, No tinnitus Respiratory: + shortness of breath, + dyspnea on exertion, + dyspnea at rest, No cough, No sputum, No wheezing Cardiovascular: No chest pain, No orthopnea, No edema Abdomen: + constipation, No pain, No nausea, No vomiting, No diarrhea Genitourinary - Male: + urinary urgency, + urinary incontinence Neurologic: + numbness/tingling (b/l lower extremities ), + balance problems Endocrine: No fatigue Integumentary: No rash, No itch Physical Exam Vital Signs (24 Hours) Date Time Temp Pulse Resp B/P (MAP) Pulse Ox O2 Delivery O2 Flow Rate FiO2 04/15/17 07:16 36.5 54 16 110/68 (82) 96 Room Air 04/15/17 06:25 58 18 103/69 95 04/15/17 05:44 60 18 90/60 92 Room Air 04/15/17 05:27 62 18 103/67 93 Room Air 04/15/17 05:03 61 18 98/65 95 Room Air 69 94/66 72 70/52 04/15/17 04:41 95 Room Air 04/15/17 04:41 95 Room Air 04/15/17 04:23 36.5 65 18 96/60 95 Room Air General Appearance: WD/WN, no apparent distress Head: normocephalic, atraumatic Eyes: PERRL, EOMI, + pertinent finding (left eye redness and gopi-orbital edema ) ENT: pharynx normal, + pertinent finding (mild b/l hearing loss) Neck: supple, no adenopathy, thyroid normal, no carotid bruits Respiratory/Chest: lungs clear, + pertinent finding (difficulty with deep breathing) Cardiovascular: regular rate, rhythm, no murmur Abdomen/GI: normal bowel sounds Extremities/Musculoskelatal: no pedal edema Neurologic/Psych: waste examiner II-XII nml as tested (except for some difficulty swallowing), no motor/sensory deficits (strength 5/5 b/l upper and lower extremity ), alert, + pertinent finding (flat affect; slow cognition) Skin: normal color, no rash Diagnostics Laboratory Results Results Past 24 Hours Test 04/15/17 04:00 04/15/17 05:06 04/15/17 08:00 Range/Units Prothrombin Time 21.8 9.0-12.0 SECONDS Prothromb Time International Ratio 2.0 0.9-1.1 Activated Partial Thromboplast Time 38.3 21.0-31.0 SECONDS Partial Thromboplastin Ratio 1.5 Sodium Level 143 136-145 mmol/L Potassium Level 4.0 3.5-5.1 mmol/L Chloride Level 107 98-107 mmol/L Carbon Dioxide Level 31 21-32 mmol/L Anion Gap 5.0 3-11 mmol/L Blood Urea Nitrogen 16 7-18 mg/dl Creatinine 1.10 0.60-1.40 mg/dl Est Creatinine Clear Calc Drug Dose 65.3 ml/min Estimated GFR () 76.8 Estimated GFR (Non- 66.2 BUN/Creatinine Ratio 14.1 10-20 Random Glucose 92 70-99 mg/dl Calcium Level 8.7 8.5-10.1 mg/dl Magnesium Level 2.1 1.8-2.4 mg/dl Total Bilirubin 0.7 0.2-1 mg/dl Direct Bilirubin 0.2 0-0.2 mg/dl Aspartate Amino Transf (AST/SGOT) 23 15-37 U/L Alanine Aminotransferase (ALT/SGPT) 12 12-78 U/L Alkaline Phosphatase 115 45-117 U/L Troponin I < 0.015 0-0.045 ng/ml Total Protein 7.1 6.4-8.2 gm/dl Albumin 3.4 3.4-5.0 gm/dl Thyroid Stimulating Hormone (TSH) 3.240 0.300-4.500 uIu/ml White Blood Count 6.06 4.8-10.8 K/uL Red Blood Count 3.88 4.7-6.1 M/uL Hemoglobin 11.6 14.0-18.0 g/dL Hematocrit 34.9 42-52 % Mean Corpuscular Volume 89.9 80-100 fL Mean Corpuscular Hemoglobin 29.9 25-34 pg Mean Corpuscular Hemoglobin Concent 33.2 32-36 g/dl Platelet Count 127 130-400 K/uL Mean Platelet Volume 10.9 7.4-10.4 fL Neutrophils (%) (Auto) 67.1 % Lymphocytes (%) (Auto) 22.4 % Monocytes (%) (Auto) 6.9 % Eosinophils (%) (Auto) 3.1 % Basophils (%) (Auto) 0.3 % Neutrophils # (Auto) 4.06 1.4-6.5 K/uL Lymphocytes # (Auto) 1.36 1.2-3.4 K/uL Monocytes # (Auto) 0.42 0.11-0.59 K/uL Eosinophils # (Auto) 0.19 0-0.5 K/uL Basophils # (Auto) 0.02 0-0.2 K/uL RDW Standard Deviation 44.7 36.4-46.3 fL RDW Coefficient of Variation 13.6 11.5-14.5 % Immature Granulocyte % (Auto) 0.2 % Immature Granulocyte # (Auto) 0.01 0.00-0.02 K/uL Impression Assessment and Plan Mr. Ramirez is a 71yo male with a medical history significant for Parkinson's disease, CAD, hyperlipidemia, restless leg syndrome, peripheral neuropathy, DVT , COPD, and bladder cancer who presented to the ED with a suspected syncopal episode. syncopal episode --there appear to be multiple factors contributing to Mr. Ramirez's most recent fall/syncopal episode: -tiredness, groggy- fall occurred around 2-3AM when he awoke from his recliner and walked to his bedroom in the dark -dehydration and subsequent hypotension -long history of PD affecting his gait and balance -peripheral neuropathy may contribute to him losing his footing in a dark room --would recommend that Mr. Ramirez increase his fluid intake during the day, consider compression socks, and consider using his cane for assistance around the house, especially in the dark when there is nothing around for him to support/stabilize himself --consider PT/OT; prior PT/OT at [facility] was done earlier this year. Parkinson's disease --Carbidopa-levodopa 25/250mg qid Restless leg syndrome --Pramipexole dihydrochloride 0.5mg 2hr b/f bed Memory loss --donepezil HCl 10mg Depression --sertraline HCL 50mg DVT PPx --warfarin sodium 3mg Hyperlipidemia --atorvastatin calcium 80mg Neurology attending addendum: Patient was seen and evaluated with medical student. Please see my separate neurology consult note for full evaluation and recommendations. 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
--- NOTE | 2017-04-15 09:56 | Neurology Consultation ---
Neurology Consultation Date of Consultation: Apr 15, 2017. Attending Physician: Jose J Leon M.D. Primary Care Physician: Isak Galaviz M.D. Reason for Consultation: Consultation for syncope History of Present Illness Source: patient, clinic records, hospital records This is a 71-year-old male who presents for the above evaluation. Per ER notes describes suitable episode where he was passed out for 1-2 minutes. No reported seizure-like activity. Patient does admit that he was working outside all day and does tend to chronically be dehydrated due to urinary urgency. He restricts his fluid intake to try to avoid urinary accidents. He reports that last night he got up to go to his bedroom and was feeling dizzy/lightheaded. He reports this is been going on for years to. He reports that he does not feel dizzy fees lay down, but every day when he sits up or stands up he feels dizzy. He reports only 2 falls in the last year to 2 mechanical tripping. Family reports that he does not pick up man his feet very well. He reports that he did do [facility] rehabilitation earlier this year. He denies any increased dizziness when his Sinemet was increased by Dr. Rosado in clinic in February. She reports that when he was going to the bedroom he did not have lights on. He was hanging on to mosqueda and furniture like he normally does to help keep his balance, and when he was going between the wall and the bed he fell. He is not certain whether he lost consciousness, but per ER reports the believes that he did. He does report poor balance and symptoms of likely peripheral neuropathy with decreased sensation and pain in his feet. In the emergency room he did have positive orthostatic blood pressure On review of systems he reports some left eye pain which may be secondary to his fall. He has reports some chronic mild dysphagia for which she seen speech before. He reports some on-and-off shortness of breath. He reports some left shoulder pain and leg pain since his fall. He does report that his left side tends to be stiffer than the right secondary to Parkinson's. He denies any significant tremor at this time. He does have symptoms of urinary urgency. 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 Family History No family history of Parkinson's Social History Patient lives with his . Normal independent in his activities of daily living. History of tobacco use. Drinks 3-4 drinks per week. Smoking Status: Former smoker Smokeless Tobacco Use: No Alcohol Use: none Drug Use: none Marital Status: Housing Status: lives with family Occupation Status: employed Allergies Coded Allergies: Penicillins (Verified Allergy, Severe, hives,swelling, 04/15/17) IV PENICILLINS Current Inpatient Medications Current Inpatient Medications Medications (Trade) Dose Ordered Sig/Dany Route Start Time Stop Time Status Last Admin Dose Admin Potassium Chloride/Sodium Chloride 1,000 ml @ 100 mls/hr Q10H IV 04/15/17 08:00 05/15/17 07:59 04/15/17 07:35 100 MLS/HR Acetaminophen (Tylenol Tab) 650 mg Q4H PRN PO 04/15/17 06:15 05/15/17 06:14 Ondansetron HCl (Zofran Inj) 4 mg Q6H PRN IV 04/15/17 06:15 05/15/17 06:14 Aspirin (Ecotrin Tab) 81 mg HS PO 04/15/17 21:00 05/15/17 20:59 Atorvastatin Calcium (Lipitor Tab) 80 mg HS PO 04/15/17 21:00 05/15/17 20:59 Carbidopa/Levodopa (Sinemet 25/ 250MG Tab) 1 tab QID PO 04/15/17 13:00 05/15/17 12:59 Donepezil HCl (Aricept Tab) 5 mg HS PO 04/15/17 21:00 05/15/17 20:59 Loperamide HCl (Imodium Cap) 2 mg QAM PO 04/16/17 09:00 05/16/17 08:59 Multivitamins/ Minerals (Multivitamin W/ Minerals Tab) 1 tab QAM PO 04/16/17 09:00 05/16/17 08:59 Nitroglycerin (Nitrostat Tab) 0.4 mg UD PRN SL 04/15/17 06:15 05/15/17 06:14 Pramipexole Dihydrochloride (miraPEX TAB) 0.5 mg DAILY@1400 PO 04/15/17 14:00 05/15/17 13:59 Pramipexole Dihydrochloride (miraPEX TAB) 1 mg HS PO 04/15/17 21:00 05/15/17 20:59 Pregabalin (Lyrica Cap) 75 mg BID PO 04/15/17 21:00 05/15/17 20:59 Sertraline HCl (Zoloft Tab) 50 mg DAILY@1400 PO 04/15/17 14:00 05/15/17 13:59 Tramadol HCl (Ultram Tab) 50 mg BID PRN PO 04/15/17 06:15 05/15/17 06:14 04/15/17 07:39 50 MG Warfarin Sodium (Coumadin Tab) 3 mg DAILY@1600 PO 04/15/17 16:00 05/15/17 15:59 Cholecalciferol (Vitamin D Tab) 2,000 inter.unit QAM PO 04/16/17 09:00 05/16/17 08:59 Pantoprazole Sodium (Protonix Tab) 40 mg QAM PO 04/16/17 09:00 05/16/17 08:59 Lactobacillus Acidophilus (Floranex Tab) 4 tab TIDM PO 04/15/17 12:00 05/15/17 11:59 Review of Systems Complete review of systems otherwise negative except for the above noted in history of present illness Physical Exam Vital Signs (Past 24 Hrs): Date Time Temp Pulse Resp B/P (MAP) Pulse Ox O2 Delivery O2 Flow Rate FiO2 04/15/17 07:16 36.5 54 16 110/68 (82) 96 Room Air 04/15/17 06:25 58 18 103/69 95 04/15/17 05:44 60 18 90/60 92 Room Air 04/15/17 05:27 62 18 103/67 93 Room Air 04/15/17 05:03 61 18 98/65 95 Room Air 69 94/66 72 70/52 04/15/17 04:41 95 Room Air 04/15/17 04:41 95 Room Air 04/15/17 04:23 36.5 65 18 96/60 95 Room Air Gen.: Patient is alert and oriented in no acute distress lying in bed Heart: Regular rate and rhythm Extremities: No gross deformities or rashes noted Neurological examination: Mental status: Patient is alert and oriented to person place and time. Able to give his own history. Attention concentration normal for the situation. Speech is fluent without any dysarthria or aphasia noted. He occasionally searches for words Cranial nerves: Funduscopic examination was difficult to visualize. Pupils equally round and reactive to light. Extraocular muscles intact without nystagmus. No facial asymmetry noted. Facial sensation intact. Tongue midline. Good palatal elevation. Good shoulder shrug bilaterally. Hearing grossly intact voice. Strength: 5/5 both proximal and distal in all extremities with the exception of some possible trace weakness in left hip flexion. Minimally increased tone in the left upper extremity compared to the right. No tremors seen Sensation: Grossly intact to light touch in all extremities but this seemed to have some possible decreased sensation to light touch in the distal feet compared to proximal legs right greater than the left. Deep tendon reflexes: +1 in bilateral biceps and patellar. Toes are downgoing to plantar stimulation bilaterally Coordination: Patient has good finger to nose without dysmetria Station within the bed is normal. Laboratory Results Past 24 Hours: 04/15/17 05:06 Red Blood Count 3.88, Mean Corpuscular Volume 89.9, Mean Corpuscular Hemoglobin 29.9, Mean Corpuscular Hemoglobin Concent 33.2, Mean Platelet Volume 10.9, Neutrophils (%) (Auto) 67.1, Lymphocytes (%) (Auto) 22.4, Monocytes (%) (Auto) 6.9, Eosinophils (%) (Auto) 3.1, Basophils (%) (Auto) 0.3, Neutrophils # (Auto) 4.06, Lymphocytes # (Auto) 1.36, Monocytes # (Auto) 0.42, Eosinophils # (Auto) 0.19, Basophils # (Auto) 0.02 04/15/17 04:00 Test 04/15/17 04:00 04/15/17 05:06 04/15/17 08:00 Prothrombin Time 21.8 SECONDS (9.0-12.0) Prothromb Time International Ratio 2.0 (0.9-1.1) Activated Partial Thromboplast Time 38.3 SECONDS (21.0-31.0) Partial Thromboplastin Ratio 1.5 Anion Gap 5.0 mmol/L (3-11) Est Creatinine Clear Calc Drug Dose 65.3 ml/min Estimated GFR () 76.8 Estimated GFR (Non- 66.2 BUN/Creatinine Ratio 14.1 (10-20) Calcium Level 8.7 mg/dl (8.5-10.1) Magnesium Level 2.1 mg/dl (1.8-2.4) Total Bilirubin 0.7 mg/dl (0.2-1) Direct Bilirubin 0.2 mg/dl (0-0.2) Aspartate Amino Transf (AST/SGOT) 23 U/L (15-37) Alanine Aminotransferase (ALT/SGPT) 12 U/L (12-78) Alkaline Phosphatase 115 U/L (45-117) Troponin I < 0.015 ng/ml (0-0.045) Total Protein 7.1 gm/dl (6.4-8.2) Albumin 3.4 gm/dl (3.4-5.0) Thyroid Stimulating Hormone (TSH) 3.240 uIu/ml (0.300-4.500) White Blood Count 6.06 K/uL (4.8-10.8) Red Blood Count 3.88 M/uL (4.7-6.1) Hemoglobin 11.6 g/dL (14.0-18.0) Hematocrit 34.9 % (42-52) Mean Corpuscular Volume 89.9 fL (80-100) Mean Corpuscular Hemoglobin 29.9 pg (25-34) Mean Corpuscular Hemoglobin Concent 33.2 g/dl (32-36) Platelet Count 127 K/uL (130-400) Mean Platelet Volume 10.9 fL (7.4-10.4) Neutrophils (%) (Auto) 67.1 % Lymphocytes (%) (Auto) 22.4 % Monocytes (%) (Auto) 6.9 % Eosinophils (%) (Auto) 3.1 % Basophils (%) (Auto) 0.3 % Neutrophils # (Auto) 4.06 K/uL (1.4-6.5) Lymphocytes # (Auto) 1.36 K/uL (1.2-3.4) Monocytes # (Auto) 0.42 K/uL (0.11-0.59) Eosinophils # (Auto) 0.19 K/uL (0-0.5) Basophils # (Auto) 0.02 K/uL (0-0.2) RDW Standard Deviation 44.7 fL (36.4-46.3) RDW Coefficient of Variation 13.6 % (11.5-14.5) Immature Granulocyte % (Auto) 0.2 % Immature Granulocyte # (Auto) 0.01 K/uL (0.00-0.02) Urine Color DK YELLOW Urine Appearance CLEAR (CLEAR) Urine pH 7.0 (4.5-7.5) Urine Specific [place] 1.022 (1.000-1.030) Urine Protein NEG (NEG) Urine Glucose (UA) NEG (NEG) Urine Ketones TRACE (NEG) Urine Occult Blood NEG (NEG) Urine Nitrite NEG (NEG) Urine Bilirubin NEG (NEG) Urine Urobilinogen NEG (NEG) Urine Leukocyte Esterase NEG (NEG) Imaging CT of the head report and images reviewed by myself and unremarkable Impression this is a 71-year-old male who presents with what appears to be syncopal event secondary to orthostatic hypotension. Likely multifactorial including acute on chronic dehydration, Parkinson's disease, medication, etc. I do not see anything at this time that suggests a stroke or seizure etiology. Plan Encourage better hydration Recommend trying compression socks or stockings for symptoms of orthostatic hypotension There may be also a component of poor balance and deconditioning secondary to Parkinson's and possible peripheral neuropathy. Would consider PT/OT and speech evaluations (patient also complains of dysphagia sometimes) Discussed the importance of turning the lights, avoiding walking through dark spaces, and using his cane to help avoid losing his balance and falling. I do not see any indication for adjusting his Parkinson's medications. Follow-up with Dr. Rosado in neurology clinic as previously indicated.
[2017-04-15] MEDS: CARBIDOPA/LEVODOPA 25-250 1 EA TAB PO SCH ×3 (13:33→20:56)
[2017-04-15] MEDS: LACTOBACILLUS ACIDOPHILUS (FLORANEX) TAB PO SCH ×2 (13:33→17:04)
[2017-04-15] MEDS ORDERED: PRAMIPEXOLE DIHYDROCHLORIDE 0.5 MG TAB PO SCH ×2 (14:00→21:00)
[2017-04-15] MEDS ORDERED: SERTRALINE HCL 50 MG TAB PO SCH (14:00)
--- NOTE | 2017-04-15 14:32 | Family Medicine Progress Note ---
Progress Note Date of Service Apr 15, 2017. Subjective Pt evaluation today including: conversation w/ patient, conversation w/ family , physical exam, chart review, lab review, review of studies Pain: states that his knees hurt today PO Intake: WNL Voiding: no voiding problems Patient sates that he has ongoing dizziness when he tries to get up. He does not have it when he is sitting in the bed. Amendable to PT. States he wears stockings but they are "the regular kind" so difficult to determine if this is ANN stockings Constitutional: No fever Eyes: No worsening of vision ENT: No hearing loss Respiratory: No cough, No sputum, No wheezing, No shortness of breath, No dyspnea on exertion Cardiovascular: No chest pain Abdomen: No pain, No nausea, No vomiting, No diarrhea, No constipation Musculoskeletal: + joint pain, No muscle pain Neurologic: + weakness, + balance problems, No memory loss Psychiatric: No depression symptoms Endo: No fatigue Medications Medications Administered Medications (Trade) Dose Ordered Sig/Dany Route Start Time Stop Time Status Last Admin Dose Admin Sodium Chloride 500 ml @ 999 mls/hr Q31M STAT IV 04/15/17 04:37 04/15/17 05:07 DC 04/15/17 05:07 999 MLS/HR Sodium Chloride 1,000 ml @ 125 mls/hr Q8H STAT IV 04/15/17 05:27 04/15/17 07:17 DC 04/15/17 06:10 125 MLS/HR Sodium Chloride 500 ml @ 999 mls/hr Q31M STAT IV 04/15/17 05:28 04/15/17 05:58 DC 04/15/17 05:49 999 MLS/HR Potassium Chloride/Sodium Chloride 1,000 ml @ 100 mls/hr Q10H IV 04/15/17 08:00 05/15/17 07:59 04/15/17 07:35 100 MLS/HR Carbidopa/Levodopa (Sinemet 25/ 250MG Tab) 1 tab QID PO 04/15/17 13:00 05/15/17 12:59 04/15/17 13:33 1 TAB Pramipexole Dihydrochloride (miraPEX TAB) 0.5 mg DAILY@1400 PO 04/15/17 14:00 05/15/17 13:59 04/15/17 13:34 0.5 MG Sertraline HCl (Zoloft Tab) 50 mg DAILY@1400 PO 04/15/17 14:00 05/15/17 13:59 04/15/17 13:35 50 MG Tramadol HCl (Ultram Tab) 50 mg BID PRN PO 04/15/17 06:15 05/15/17 06:14 04/15/17 07:39 50 MG Lactobacillus Acidophilus (Floranex Tab) 4 tab TIDM PO 04/15/17 12:00 05/15/17 11:59 04/15/17 13:33 4 TAB Objective Vital Signs Date Time Temp Pulse Resp B/P (MAP) Pulse Ox O2 Delivery O2 Flow Rate FiO2 04/15/17 11:33 36.8 50 18 114/70 (85) 95 Room Air 04/15/17 08:00 36.5 58 16 111/71 95 Room Air 04/15/17 07:16 36.5 54 16 110/68 (82) 96 Room Air 04/15/17 06:25 58 18 103/69 95 04/15/17 05:44 60 18 90/60 92 Room Air 04/15/17 05:27 62 18 103/67 93 Room Air 04/15/17 05:03 61 18 98/65 95 Room Air 69 94/66 72 70/52 04/15/17 04:41 95 Room Air 04/15/17 04:41 95 Room Air 04/15/17 04:23 36.5 65 18 96/60 95 Room Air Physical Exam General Appearance: no apparent distress Eyes: normal inspection ENT: normal ENT inspection Neck: supple Respiratory/Chest: normal breath sounds, no respiratory distress, no accessory muscle use Cardiovascular: regular rate, rhythm, no murmur Abdomen: normal bowel sounds, non tender, soft Extremities: non-tender, normal inspection, no pedal edema, no calf tenderness Neurologic/Psychiatric: alert, oriented x 3, + pertinent finding (no tremors noted, unable to illicit cogwheel rigidity, flat affect, slow speech) Skin: normal color, warm/dry, no rash Lymphatic: no adenopathy Laboratory Results Results Past 24 Hours Test 04/15/17 04:00 04/15/17 05:06 04/15/17 08:00 Range/Units Prothrombin Time 21.8 9.0-12.0 SECONDS Prothromb Time International Ratio 2.0 0.9-1.1 Activated Partial Thromboplast Time 38.3 21.0-31.0 SECONDS Partial Thromboplastin Ratio 1.5 Sodium Level 143 136-145 mmol/L Potassium Level 4.0 3.5-5.1 mmol/L Chloride Level 107 98-107 mmol/L Carbon Dioxide Level 31 21-32 mmol/L Anion Gap 5.0 3-11 mmol/L Blood Urea Nitrogen 16 7-18 mg/dl Creatinine 1.10 0.60-1.40 mg/dl Est Creatinine Clear Calc Drug Dose 65.3 ml/min Estimated GFR () 76.8 Estimated GFR (Non- 66.2 BUN/Creatinine Ratio 14.1 10-20 Random Glucose 92 70-99 mg/dl Calcium Level 8.7 8.5-10.1 mg/dl Magnesium Level 2.1 1.8-2.4 mg/dl Total Bilirubin 0.7 0.2-1 mg/dl Direct Bilirubin 0.2 0-0.2 mg/dl Aspartate Amino Transf (AST/SGOT) 23 15-37 U/L Alanine Aminotransferase (ALT/SGPT) 12 12-78 U/L Alkaline Phosphatase 115 45-117 U/L Troponin I < 0.015 0-0.045 ng/ml Total Protein 7.1 6.4-8.2 gm/dl Albumin 3.4 3.4-5.0 gm/dl Thyroid Stimulating Hormone (TSH) 3.240 0.300-4.500 uIu/ml White Blood Count 6.06 4.8-10.8 K/uL Red Blood Count 3.88 4.7-6.1 M/uL Hemoglobin 11.6 14.0-18.0 g/dL Hematocrit 34.9 42-52 % Mean Corpuscular Volume 89.9 80-100 fL Mean Corpuscular Hemoglobin 29.9 25-34 pg Mean Corpuscular Hemoglobin Concent 33.2 32-36 g/dl Platelet Count 127 130-400 K/uL Mean Platelet Volume 10.9 7.4-10.4 fL Neutrophils (%) (Auto) 67.1 % Lymphocytes (%) (Auto) 22.4 % Monocytes (%) (Auto) 6.9 % Eosinophils (%) (Auto) 3.1 % Basophils (%) (Auto) 0.3 % Neutrophils # (Auto) 4.06 1.4-6.5 K/uL Lymphocytes # (Auto) 1.36 1.2-3.4 K/uL Monocytes # (Auto) 0.42 0.11-0.59 K/uL Eosinophils # (Auto) 0.19 0-0.5 K/uL Basophils # (Auto) 0.02 0-0.2 K/uL RDW Standard Deviation 44.7 36.4-46.3 fL RDW Coefficient of Variation 13.6 11.5-14.5 % Immature Granulocyte % (Auto) 0.2 % Immature Granulocyte # (Auto) 0.01 0.00-0.02 K/uL Urine Color DK YELLOW Urine Appearance CLEAR CLEAR Urine pH 7.0 4.5-7.5 Urine Specific [place] 1.022 1.000-1.030 Urine Protein NEG NEG Urine Glucose (UA) NEG NEG Urine Ketones TRACE NEG Urine Occult Blood NEG NEG Urine Nitrite NEG NEG Urine Bilirubin NEG NEG Urine Urobilinogen NEG NEG Urine Leukocyte Esterase NEG NEG Assessment and Plan This is a 71 yo m with a history of Parkinson's and CABG that presented to the ED after a syncopal episode. CT head was negative and he was found to have profound orthostasis. Considering his Parkinson's the syncopal episode is most likely secondary to autonomic dysfunction. No abnormalities noted on the monitor while admitted. Syncope most likely secondary to autonomic dysfunction and Parkinson's - CT head negative - MRI dec 2016 WNL - Consult neuro- no need to change medications at this time - To continue his Sinemet, donepezil, pramipexole, sertraline and lyrica - patient is not on any medications that could exacerbate this - patient was on toprol during his previous admission in december however this was held because of autonomic dysfunction - PT/ OT - ANN stockings - Orthostatics every shift - IV hydration. Follow Aspiration risk - On assessment at previous admission patient is an aspiration risk - Will adjust nutrition based on the assessment 1.Mechanical soft diet, thin liquids. 2.STRICT Aspiration precautions, NO straws. Fully upright for all p.o. intake and for 30-60 minutes after meals. Stringent oral care to include brushing all surfaces of the mouth before and after meals, as well as before bed. 3.Safe swallow strategies: SMALL single sips. Chin tuck with all liquid sips (small sip, tuck chin to chest, swallow liquid with chin down). Supervision with meals for carryover of strategies. 4.Would benefit from continued speech therapy in acute rehab at discharge for dysphagia therapy (for improved swallow initiation time) and carryover of safe swallow strategies. Modification to nectar thick liquids would be indicated should this patient evidence any signs or symptoms of aspiration (reports his nose is runny during meals at times) or should his CXR worsen to show infiltrative changes. Sleep Apnea - does not use his CPAP at home because it is "noisy" - Will offer CPAP while inpatient and discuss potential for a new one or trying a new mask CAD/ HTN ASA daily Hyperlipidemia - Atorvastatin cont'd GERD - Continue pantoprazole DVT Prophylaxis - continue coumadin- h/o DVT/ PE - no history of A fibb Continued [facility] stay due to: abnormal vital signs Discharge planning: uncertain Reviewed: Pt Seen/Exam by Me History no dizziness. Constitutional: denies: fever Respiratory: negative: short of breath Cardiovascular: denies edema General Appearance: no apparent distress Respiratory: lungs clear, no respiratory distress Cardiovascular: regular rate, rhythm Neurologic/Psychiatric: alert, oriented x 3 Skin Characteristics: warm/dry Assessment/Plan Resident Physician Supervision Note: I was present with Dr. Rodrigues in bedside. I verified the hernandez history and physical, reviewed labs and image studies, discussed the case with the resident and agree with the findings and care plan.
[2017-04-15] MEDS ORDERED: WARFARIN SOD 3 MG TAB PO SCH (16:00)
[2017-04-15] MEDS: PREGABALIN 75 MG CAP PO SCH (20:58)
[2017-04-15] MEDS ORDERED: ATORVASTATIN 20 MG TAB PO SCH (21:00)
[2017-04-15] MEDS ORDERED: ASPIRIN 81 MG ECTAB PO SCH (21:00)
[2017-04-15] MEDS ORDERED: DONEPEZIL HCL 5 MG TAB PO SCH (21:00)
[2017-04-16] MEDS: TRAMADOL HCL 50 MG TAB PO PRN (01:33)
[2017-04-16] MEDS: NSS + 20MEQ KCL 1000ML 1,000 ML IV SCH (03:58)
[2017-04-16 04:46] VITALS: BP 105/60; PULSE 53; TEMP 36.8; O2SAT 94
[2017-04-16 06:27] LABS: BASO % 0.6 %; BASO ABS # 0.03 K/uL (0-0.2); COMPLETE YES; EOS % 4.8 %; HEMATOCRIT 34.5 % (42-52); IG% 0.2 %; LYMPH % 31.5 %; LYMPH ABS # 1.71 K/uL (1.2-3.4); MEAN CELL VOLUME 89.8 fL (80-100); MEAN CORPUSCULAR HEMOGLOBIN 29.9 pg (25-34); MEAN CORPUSCULAR HGB CONC 33.3 g/dl (32-36); MONO % 7.6 %; NEUT % 55.3 %; PLATELET COUNT 106 K/uL (130-400); RED BLOOD COUNT 3.84 M/uL (4.7-6.1); WHITE BLOOD COUNT 5.42 K/uL (4.8-10.8)
[2017-04-16 06:33] LABS: INR 1.8 (0.9-1.1); PARTIAL THROMBOPLASTIN RATIO 1.4; PROTHROMBIN TIME (PATIENT) 19.4 SECONDS (9.0-12.0)
[2017-04-16 06:49] LABS: CALCIUM 8.4 mg/dl (8.5-10.1)
[2017-04-16 06:54] LABS: BUN/CREATININE RATIO 13.5 (10-20); CREATININE 0.85 mg/dl (0.60-1.40); POTASSIUM 4.1 mmol/L (3.5-5.1)
[2017-04-16 07:36] VITALS: BP_SYST 105; BP_SYST 133; BP_SYST 140; BP_DIAS 66; BP_DIAS 71; BP_DIAS 76; PULSE 52; PULSE 54; PULSE 61; TEMP 36.7; O2SAT 94
[2017-04-16] MEDS: LACTOBACILLUS ACIDOPHILUS (FLORANEX) TAB PO SCH ×2 (08:02→12:54)
[2017-04-16] MEDS: CARBIDOPA/LEVODOPA 25-250 1 EA TAB PO SCH ×2 (08:03→12:54)
[2017-04-16] MEDS: PREGABALIN 75 MG CAP PO SCH (08:07)
--- NOTE | 2017-04-16 08:16 | Discharge Instructions ---
Discharge Instructions Date of Service Apr 16, 2017. Admission Reason for Admission: Syncope Discharge Discharge Diagnosis / Problem: orthostatic hypotension Discharge Goals Goal(s): Decrease discomfort, Improve function Activity Recommendations Activity Limitations: resume your previous activity . Instructions / Follow-Up Instructions / Follow-Up You were admitted to the hospital for a recent fall which was most likely related to low blood pressures and dehydration. While you were in the hospital you received IV fluids and there was improvement in the blood pressure and your dizziness has resolved. As there is concern for falling again we recommend that you use ANN stockings at home to help improve blood flow from the legs back to the heart. We also recommend that to decrease risk of falls to use a walker to help you around the house. Remember that when getting up from sitting to standing to do this slowly. We recommend follow up with your PCP in the next week. Current Hospital Diet Patient's current hospital diet: Low Sodium Diet (2gm Na), AHA Diet (Heart Healthy) Discharge Diet Recommended Diet: Regular Diet Pending Studies Studies pending at discharge: no Medical Emergencies . Who to Call and When: Medical Emergencies: If at any time you feel your situation is an emergency, please call 911 immediately. . Non-Emergent Contact Non-Emergency issues call your: Primary Care Provider . . "Provider Documentation" section prepared by Twyla Rodrigues. . VTE Core Measure Inpt VTE Proph given/why not?: Warfarin (Coumadin)
[2017-04-16] MEDS ORDERED: CEROVITE ADV FORMULA TAB PO SCH (09:00)
[2017-04-16] MEDS ORDERED: LOPERAMIDE HCL 2 MG CAP PO SCH (09:00)
[2017-04-16] MEDS ORDERED: PANTOprazole SOD 40 MG TAB PO SCH (09:00)
[2017-04-16] MEDS ORDERED: CHOLECALCIFEROL 1000 INTER.UNIT TAB PO SCH (09:00)
--- NOTE | 2017-04-16 10:00 | Discharge Summary ---
Discharge Summary Date of Service Apr 16, 2017. (Twyla Rodrigues MD) Discharge Summary Admission Date: Apr 15, 2017 at 06:04 Discharge Date: Apr 16, 2017 Discharge Disposition: Home Principal Diagnosis: orthostatic hypotension Immunizations: Have You Had Influenza Vaccine: Yes Influenza Vaccine Date: Jun 27, 2013 History of Tetanus Vaccine?: Yes History of Pneumococcal: Yes History of Hepatitis B Vaccine: Unknown (Twyla Rodrigues MD) Medication Reconciliation Continued Medications: Aspirin (Aspirin Ec) 81 Mg Tab 81 MG PO HS Atorvastatin (Lipitor) 80 Mg Tab 80 MG PO HS, TAB Carbidopa/Levodopa (Sinemet 25MG/250MG) Tab 1 TAB PO QID, TAB Cholecalciferol (Vitamin D) 2,000 Unit Cap 2000 UNIT PO QAM Donepezil Hydrochloride (Donepezil Hcl) 5 Mg Tab 5 MG PO HS, 5 Refills Dqcxpjqpyrj-Hlyuiskpkkx-Yau C- (Glucosamine Chondroitin) 1 Tab Tab 1 TAB PO BID Loperamide Hcl (Imodium) 2 Mg Cap 2 MG PO QAM, CAP Multiple Vitamins W/ Minerals (Centrum Silver Adult 50+) 1 Tab Tab 1 TAB PO QAM Nitroglycerin (Nitrostat) 0.4 Mg Tab 0.4 MG SL UD PRN for Chest Pain, 0 Refills EVERY 5 MINUTES TIMES 3 Omeprazole (Prilosec) 20 Mg Capcr 20 MG PO QAM, 0 Refills Pramipexole Dihydrochloride (Mirapex) 0.5 Mg Tab 1 TAB PO daily at 2pmwi Pramipexole Dihydrochloride (Mirapex) 0.5 Mg Tab 2 TABS PO HS Pregabalin (Lyrica) 75 Mg Cap 75 MG PO AMPM Probiotic Product (Probiotic) 1 Cap Cap 1 CAP PO TID Sertraline (Zoloft) 50 Mg Tab 50 MG PO daily at 2pm, 0 Refills Tramadol (Ultram) 50 Mg Tab 1 TAB PO BID PRN for Pain, TAB Warfarin Sodium (Coumadin) 3 Mg Tab 3 MG PO QPM UD, TAB Discharge Exam Significant improvement in dizziness. Discussed d/c with patient and family member. Agreeable to d/c and reflected understanding of instructions Review of Systems: Constitutional: No fever Eyes: No worsening of vision ENT: No hearing loss Respiratory: No cough, No sputum, No wheezing, No shortness of breath, No dyspnea on exertion, No dyspnea at rest Cardiovascular: No chest pain Abdomen: No pain, No nausea, No vomiting, No diarrhea, No constipation Musculoskeletal: No joint pain, No muscle pain Genitourinary - Male: No hematuria, No dysuria Neurologic: + weakness, + balance problems, No numbness/tingling Psychiatric: No depression symptoms Endocrine: No fatigue Integumentary: No rash Physical Exam: General Appearance: no apparent distress Eyes: normal inspection ENT: normal ENT inspection Neck: supple Respiratory/Chest: normal breath sounds, no respiratory distress, no accessory muscle use Cardiovascular: regular rate, rhythm, no murmur Abdomen / GI: normal bowel sounds, non tender, soft Extremities: normal inspection, no calf tenderness, no pedal edema, normal range of motion, + pertinent finding (shuffling gait, slow movements) Neurologic/Psychiatric: alert, normal mood/affect, oriented x 3, + pertinent finding (flat affect) Skin: normal color, warm/dry, no rash Lymphatic: no adenopathy (Twyla Rodrigues MD) feeling much better today dizziness with sitting up and standing mostly resolved Review of Systems: Constitutional: No fever Respiratory: No shortness of breath Cardiovascular: No chest pain, No palpitations Abdomen: No pain Physical Exam: General Appearance: no apparent distress Respiratory/Chest: lungs clear, no respiratory distress Cardiovascular: regular rate, rhythm Abdomen / GI: normal bowel sounds, non tender, soft Neurologic/Psychiatric: alert, oriented x 3 Skin: warm/dry (Cailin Flaherty M.D.) Hospital Course This is a 71 yo m with a history of Parkinson's and CABG that presented to the ED after a syncopal episode. CT head was negative and he was found to have profound orthostasis. Considering his Parkinson's the syncopal episode is most likely secondary to autonomic dysfunction. No abnormalities noted on the monitor while admitted. After receiving IVF the patient had improvement of BP but ongoing orthostasis. Education given on how to get up to standing, recommendations for ANN stockings. RX for walker also given. No other changes to medications Syncope most likely secondary to autonomic dysfunction and Parkinson's - CT head negative - MRI dec 2016 WNL - Consult neuro- no need to change medications at this time - To continue his Sinemet, donepezil, pramipexole, sertraline and lyrica - patient is not on any medications that could exacerbate this - patient was on toprol during his previous admission in december however this was held because of autonomic dysfunction - ANN stockings recommended Sleep Apnea - does not use his CPAP at home because it is "noisy" - Will offer CPAP while inpatient and discuss potential for a new one or trying a new mask, can be arranged with his PCP CAD/ HTN ASA daily Hyperlipidemia - Atorvastatin cont'd GERD - Continue pantoprazole DVT Prophylaxis - continue coumadin- h/o DVT/ PE - no history of A fibb Total Time Spent: Less than 30 minutes This includes examination of the patient, discharge planning, medication reconciliation, and communication with other providers. (Twyla Rodrigues MD) Resident Physician Supervision Note: I was present with Dr. Murray in bedside. I verified the hernandez history and physical , reviewed labs and image studies, discussed the case with the resident and agree with the findings and care plan. Total Time Spent: Greater than 30 minutes (35) (Cailin Flaherty M.D.) Discharge Instructions Please refer to the electronic Patient Visit Report (Discharge Instructions) for additional information. (Twyla Rodrigues MD) Additional Copies To Isak Galaviz M.D.
[2017-04-16 11:39] VITALS: BP 115/72; PULSE 58; TEMP 36.5; O2SAT 95
[2017-04-16 12:26] VITALS: BP 115/72; PULSE 58; TEMP 36.5; O2SAT 95
== END 2017-04-16 14:30 | disposition home or self-care (01) | DRG 312 ==
LOC: EDBD 04:18 → C.EDA 04:19 → C.MED 06:04 → ENRESERV 06:11
PROVIDERS: ADMIT Hospitalist; ATTEND Family Medicine
DX: I95.1 Orthostatic hypotension (principal); F45.8 Other somatoform disorders; G20 Parkinson's disease; F02.80 Dementia in other diseases classified elsewhere, unspecified severity, without behavioral disturbance, psychotic disturbance, mood disturbance, and anxiety; G47.30 Sleep apnea, unspecified; I25.10 Atherosclerotic heart disease of native coronary artery without angina pectoris; I10 Essential (primary) hypertension; E78.5 Hyperlipidemia, unspecified; K21.9 Gastro-esophageal reflux disease without esophagitis; E86.0 Dehydration; F32.9 Major depressive disorder, single episode, unspecified; F17.210 Nicotine dependence, cigarettes, uncomplicated; F41.9 Anxiety disorder, unspecified; I25.2 Old myocardial infarction; Z91.19 Patient's noncompliance with other medical treatment and regimen; Z79.82 Long term (current) use of aspirin; Z79.899 Other long term (current) drug therapy; Z79.01 Long term (current) use of anticoagulants; Z95.1 Presence of aortocoronary bypass graft; Z99.89 Dependence on other enabling machines and devices; Z79.891 Long term (current) use of opiate analgesic; Z86.718 Personal history of other venous thrombosis and embolism; Z86.711 Personal history of pulmonary embolism; Z82.49 Family history of ischemic heart disease and other diseases of the circulatory system; W18.30XA Fall on same level, unspecified, initial encounter; Y92.002 Bathroom of unspecified non-institutional (private) residence as the place of occurrence of the external cause

== ENCOUNTER 2017-04-26 17:52 | Emergency (ER) | payer OTHER ==
[~2017-04-26] VITALS: Ht 172.7 cm; Wt 91.0 kg
[~2017-04-26 17:52] MED LIST changes: -ASPCH81 PO; +ASPI81TA28 PO; -CARB25TA12 PO; +CARB25TA14 PO; -CHOL100010 PO; +CHOL200010 PO; +DONE1TAB11 PO; +IMD/2 PO; -OMEG10007 PO; -VNTHFA/IN INH
[2017-04-26 18:01] VITALS: TEMP 36.7; Ht 172.7 cm; Wt 91.0 kg
[2017-04-26] MEDS ORDERED: WARF3TAB PO (18:36)
--- NOTE | 2017-04-26 19:26 | DIAGNOSTIC IMAGING REPORT ---
LEFT KNEE 3 VIEWS CLINICAL HISTORY: Fall with left knee pain. FINDINGS: AP, crosstable lateral, and sunrise views of left knee are obtained. No prior studies are available for comparison at the time of dictation. The skeletal structures are osteopenic. No fracture is seen. There is mild tricompartmental degenerative joint space narrowing, greatest at the patellofemoral articulation. A calcified fabella is incidentally noted. There are patellar enthesophytes and tiny marginal osteophytes. A joint effusion is noted. Soft tissue swelling is present around the knee. A surgical clip is present in the upper calf. There is atherosclerotic calcification of the popliteal artery. IMPRESSION: 1. Joint effusion and soft tissue swelling. There is no radiographic evidence of left knee fracture. 2. Osteopenia and degenerative change as above. Electronically signed by: Reese Colmenares M.D. 04/26/2017 7:24 PM Dictated Date/Time: 04/26/2017 7:23 PM
--- NOTE | 2017-04-26 19:28 | DIAGNOSTIC IMAGING REPORT ---
TWO VIEW CHEST CLINICAL HISTORY: Fall. FINDINGS: AP and lateral chest radiographs are compared to study dated 04/15/2017. The AP view is degraded by patient rotation. The patient is status post midline sternotomy. The heart is enlarged and there is atherosclerotic calcification of the thoracic aorta. The pulmonary vasculature is noncongested. Chronic interstitial thickening is similar to previous. No airspace consolidation, large pleural effusion, or pneumothorax is identified. The skeletal structures are osteopenic. The bony thorax appears intact. Degenerative change is noted throughout the thoracic spine. IMPRESSION: Cardiomegaly with no active disease in the chest. Electronically signed by: Reese Colmenares M.D. 04/26/2017 7:26 PM Dictated Date/Time: 04/26/2017 7:25 PM
[2017-04-26 19:53] VITALS: BP 135/84; PULSE 61; O2SAT 99
--- NOTE | 2017-04-26 20:22 | EMERGENCY ROOM VISIT NOTE ---
History First contact with patient: 18:10 Chief Complaint: FALL Stated Complaint: FELL ON PAVEMENT,HURT LEGS & LF KNEE History of Present Illness The patient is a 71 year old male who presents to the Emergency Room with complaints of left knee pain after falling approximately 9 hours prior to arrival. The patient has a history of Parkinson's and was attempting to [place] on a stool at camp. The stool broke, and the patient fell onto his left knee. The patient did not strike his head or lose consciousness. He does have some mild right-sided chest wall pain along the most lateral inferior aspect of the ribs. The patient has been ambulatory with a walker since the injury. He rates his current discomfort a 6/10. He does have tramadol at home, but has not taken this medication. Review of Systems More than 10 systems were reviewed and otherwise negative with the exception of history of present illness. Past Medical/Surgical History Medical Problems: (1) Altered mental status (2) Chest pain (3) Coronary artery bypass grafts x 2 (4) Coronary artery disease (5) Coronary bypass surgery (6) Hyperlipidemia (7) Hypotension (8) Increased ammonia level (9) Kidney stone (10) Myocardial infarction (11) Shortness of breath (12) Syncope Family History Cancer Heart disease Hypertension Social History Smoking Status: Current Every Day Smoker Alcohol Use: occasionally Drug Use: none Marital Status: Housing Status: lives with family Occupation Status: retired Current/Historical Medications Scheduled Aspirin (Aspirin Ec), 81 MG PO HS Atorvastatin (Lipitor), 80 MG PO HS Carbidopa/Levodopa (Sinemet 25MG/250MG), 1 TAB PO QID Cholecalciferol (Vitamin D), 2,000 UNIT PO QAM Donepezil Hydrochloride (Donepezil Hcl), 5 MG PO HS Ngxgpvchsxx-Tgomqilkpvo-Kaq C- (Glucosamine Chondroitin), 1 TAB PO BID Loperamide Hcl (Imodium), 2 MG PO QAM Multiple Vitamins W/ Minerals (Centrum Silver Adult 50+), 1 TAB PO QAM Omeprazole (Prilosec), 20 MG PO QAM Pramipexole Dihydrochloride (Mirapex), 1 TAB PO daily at 2pmwi Pramipexole Dihydrochloride (Mirapex), 2 TABS PO HS Pregabalin (Lyrica), 75 MG PO AMPM Probiotic Product (Probiotic), 1 CAP PO TID Sertraline (Zoloft), 50 MG PO daily at 2pm Warfarin Sodium (Coumadin), 3 MG PO QPM 4XWK Warfarin Sodium (Coumadin), 4.5 MG PO QPM 2XWK Scheduled PRN Nitroglycerin (Nitrostat), 0.4 MG SL UD PRN for Chest Pain Tramadol (Ultram), 1 TAB PO BID PRN for Pain Allergies Coded Allergies: Penicillins (Verified Allergy, Severe, RASH,SWELLING, 04/26/17) IV PENICILLINS Physical Exam Vital Signs Date Time Temp Pulse Resp B/P (MAP) Pulse Ox O2 Delivery O2 Flow Rate FiO2 04/26/17 19:53 61 18 135/84 99 Room Air 04/26/17 18:01 36.7 74 16 114/71 97 Room Air Pain Rating (0-10): 3.0 Physical Exam VITALS: Vitals are noted on the nurse's note and reviewed by myself. Vital signs stable. GENERAL: Well-developed, well-nourished, white male, who is in no acute distress and resting comfortably. Patient is cooperative with the examination. HEAD: Normocephalic atraumatic. EARS: External ear normal. External auditory canals clear, tympanic membranes pearly goldsmith without erythema or effusion bilaterally. EYES: Pupils equal round and reactive to light and accommodation. Conjunctivae without injection, sclerae without icterus. Extraocular movements intact. NOSE: Patent, turbinates without inflammation or discharge. MOUTH: Mucous membranes moist. Tonsils are not enlarged. Pharynx without erythema, blood, or exudate. Uvula midline. Airway patent. NECK: Supple without nuchal rigidity. No lymphadenopathy. No thyromegaly. Cervical spine is nontender. HEART: Regular rate and rhythm without murmurs gallops or rubs. LUNGS: Clear to auscultation bilaterally without wheezes, rales or rhonchi. No retractions or accessory muscle use. CHEST WALL: Reproducible tenderness appreciated along the lateral and inferior right-sided chest wall. No flail chest or significant ecchymosis ABDOMEN: Positive normal bowel sounds x 4. Soft, nontender, without masses or organomegaly. No guarding or rebound tenderness. MUSCULOSKELETAL: Mild edema is appreciated of the left knee which is tender diffusely on palpation. Negative anterior/posterior drawer. No varus and valgus laxity. No laceration or significant abrasion. No other extremity injury appreciated. NEURO: Patient was alert and oriented to person place and time. Medical Decision & Procedures ER Provider Diagnostic Interpretation: TWO VIEW CHEST CLINICAL HISTORY: Fall. FINDINGS: AP and lateral chest radiographs are compared to study dated 04/15/2017. The AP view is degraded by patient rotation. The patient is status post midline sternotomy. The heart is enlarged and there is atherosclerotic calcification of the thoracic aorta. The pulmonary vasculature is noncongested. Chronic interstitial thickening is similar to previous. No airspace consolidation, large pleural effusion, or pneumothorax is identified. The skeletal structures are osteopenic. The bony thorax appears intact. Degenerative change is noted throughout the thoracic spine. IMPRESSION: Cardiomegaly with no active disease in the chest. LEFT KNEE 3 VIEWS CLINICAL HISTORY: Fall with left knee pain. FINDINGS: AP, crosstable lateral, and sunrise views of left knee are obtained. No prior studies are available for comparison at the time of dictation. The skeletal structures are osteopenic. No fracture is seen. There is mild tricompartmental degenerative joint space narrowing, greatest at the patellofemoral articulation. A calcified fabella is incidentally noted. There are patellar enthesophytes and tiny marginal osteophytes. A joint effusion is noted. Soft tissue swelling is present around the knee. A surgical clip is present in the upper calf. There is atherosclerotic calcification of the popliteal artery. IMPRESSION: 1. Joint effusion and soft tissue swelling. There is no radiographic evidence of left knee fracture. 2. Osteopenia and degenerative change as above. ED Course Physical exam and history were performed. Nursing notes and EMR were reviewed. Patient appears to have fallen and suffered injury to his left knee primarily. The patient is also complaining of some right sided chest wall discomfort. X- rays were obtained and do not show evidence of fractures, dislocation, or other traumatic etiology of his symptoms. The patient was monitored for some time here in the emergency department without worsening of his symptoms. The case was discussed with my attending physician, Dr. Parekh, who also evaluated the patient. Overall it has been nearly 12 hours since the time of the fall and the patient is doing well. He does have a history of Parkinson's, and I'm concerned that he is at a high risk for repeat fall. The patient will be placed in an Sherwin wrap of the knee. He does have a walker at home, which she needs to use at all times to prevent further injury. The patient should take his tramadol for comfort and was otherwise invited back to the ER with any new, worsening, or concerning symptoms. The chart was completed utilizing [employer] Speech Voice Recognition Software. Grammatical errors, random word insertions, pronoun errors, and incomplete sentences are an occasional consequence of this system due to software limitations, ambient noise, and hardware issues. Any formal questions or concerns about the content, text, or information contained within the body of this dictation should be directly addressed to the provider for clarification. . Medical Decision Differential diagnoses includes, but is not limited to: Sprain, strain, fracture , dislocation, subluxation, contusion, and others Impression Primary Impression: Fall Additional Impressions: Soft tissue injury of right chest wall Injury of left knee Departure Information Dispostion Home / Self-Care Condition GOOD Forms HOME CARE DOCUMENTATION FORM, IMPORTANT VISIT INFORMATION Patient Instructions [facility] Additional Instructions You were seen and evaluated today on an emergency basis only. This is not a substitute for, or an effort to provide, complete comprehensive medical care. It is not possible to recognize and treat all injuries or illnesses in a single emergency department visit. For this reason it is recommended that you followup with your primary care physician this week for ongoing care and evaluation. Continue your tramadol at home for pain control. Wear your Sherwin wrap for support and comfort. Use your walker at home at all times. Take every precaution to prevent falling. You are welcome to return to the emergency department anytime with new, worsening, or concerning symptoms. Problem Qualifiers Primary Impression: Fall Encounter type: initial encounter Qualified Codes: W19.XXXA - Unspecified fall, initial encounter Additional Impressions: Injury of left knee Encounter type: initial encounter Qualified Codes: S89.92XA - Unspecified injury of left lower leg, initial encounter
--- NOTE | 2017-04-27 00:47 | EMERGENCY ROOM VISIT NOTE ---
ED Visit Note First contact with patient: 18:10 I have personally evaluated this patient examined her and reviewed the pertinent labs and data. I have discussed the case with Douglas Gould, the physician funeral home assistant and agree with the plan. Please refer to the PA note This patient suffered from a mechanical fall. X-rays his knee and ribs/chest the do not show any acute fractures. When I went into evaluate him, his knee was getting rapid resting comfortably and talking on the phone. He will be discharged home.
[2017-06-11] MEDS ORDERED: TPRSR25 PO (16:08)
== END 2017-04-26 20:15 | disposition home or self-care (01) ==
LOC: C.EDB 17:53 → C.EDD 20:15
DX: S29.8XXA Other specified injuries of thorax, initial encounter (principal); S89.92XA Unspecified injury of left lower leg, initial encounter; W07.XXXA Fall from chair, initial encounter; Y92.89 Other specified places as the place of occurrence of the external cause; G20 Parkinson's disease; E78.5 Hyperlipidemia, unspecified; I95.9 Hypotension, unspecified; I25.2 Old myocardial infarction; F17.200 Nicotine dependence, unspecified, uncomplicated; Z95.1 Presence of aortocoronary bypass graft; Z87.442 Personal history of urinary calculi; Z79.01 Long term (current) use of anticoagulants; Z79.82 Long term (current) use of aspirin; Z82.49 Family history of ischemic heart disease and other diseases of the circulatory system

== ENCOUNTER → 2017-05-25 | Outpatient (CLI) | payer OTHER ==
[~2017-05-25] MED LIST changes: +TPRSR25 PO
[2017-05-25 12:13] LABS: BASO % 0.4 %; BASO ABS # 0.03 K/uL (0-0.2); COMPLETE YES; EOS % 3.8 %; IG% 0.1 %; LYMPH % 23.7 %; LYMPH ABS # 1.76 K/uL (1.2-3.4); MEAN CELL VOLUME 93.1 fL (80-100); MEAN CORPUSCULAR HEMOGLOBIN 30.3 pg (25-34); MEAN CORPUSCULAR HGB CONC 32.6 g/dl (32-36); MEAN PLATELET VOLUME 11.9 fL (7.4-10.4); MONO % 5.7 %; NEUT % 66.3 %; PLATELET COUNT 135 K/uL (130-400); RED BLOOD COUNT 4.19 M/uL (4.7-6.1); WHITE BLOOD COUNT 7.42 K/uL (4.8-10.8)
[2017-05-25 12:27] LABS: ESTIMATED AVERAGE GLUCOSE 111 mg/dl; HA1C FLAG Normal (Normal)
[2017-05-25 12:37] LABS: ALT/SGPT 24 U/L (12-78); BLOOD UREA NITROGEN 15 mg/dl (7-18); BUN/CREATININE RATIO 13.6 (10-20); CALCIUM 9.1 mg/dl (8.5-10.1); CARBON DIOXIDE 30 mmol/L (21-32); CHLORIDE 107 mmol/L (98-107); CHOLESTEROL 127 mg/dl (0-200); GLUCOSE 99 mg/dl (70-99); POTASSIUM 4.7 mmol/L (3.5-5.1); SODIUM 141 mmol/L (136-145); TRIGLYCERIDES 105 mg/dl (0-150); VERY LOW DENSITY LIPOPROT CALC 21 mg/dl
[2017-05-25 12:40] LABS: ALB/GLOB RATIO 0.9 (0.9-2); ALKALINE PHOSPHATASE 122 U/L (45-117); AST/SGOT 20 U/L (15-37); CHOLESTEROL/HDL RATIO 3.1; HDL CHOLESTEROL 41 mg/dl; LDL CHOLESTEROL CALCULATED 65 mg/dl
== END | disposition home or self-care (01) ==
LOC: C.LABBFT 08:57
PROVIDERS: ATTEND Internal Medicine
DX: R41.82 Altered mental status, unspecified (principal); R73.01 Impaired fasting glucose; E78.5 Hyperlipidemia, unspecified

== ENCOUNTER 2017-06-09 14:18 | Inpatient (IN) | payer OTHER ==
[~2017-06-09] VITALS: Ht 172.7 cm; Wt 87.1 kg
[~2017-06-09 14:18] MED LIST changes: -TPRSR25 PO
--- NOTE | 2017-06-09 14:49 | DIAGNOSTIC IMAGING REPORT ---
SINGLE VIEW CHEST CLINICAL HISTORY: Atypical chest pain. Dyspnea. FINDINGS: An AP, portable, upright chest radiograph is compared to study dated 04/26/2017 and correlated with chest CT dated 10/27/2012. The examination is degraded by portable technique and patient rotation. The patient is status post midline sternotomy. The heart is enlarged and there is atherosclerotic calcification of the thoracic aorta. The pulmonary vasculature is noncongested. There are low lung volumes with bibasilar atelectasis. Chronic interstitial thickening is unchanged. No airspace consolidation or large pleural effusion is identified. No pneumothorax is seen. The skeletal structures are osteopenic. The bony thorax is grossly intact. IMPRESSION: Low lung volumes and cardiomegaly. There is no acute cardiopulmonary abnormality. Electronically signed by: Reese Colmenares M.D. 06/09/2017 2:48 PM Dictated Date/Time: 06/09/2017 2:47 PM
[2017-06-09 14:55] LABS: INR 1.3 (0.9-1.1); PARTIAL THROMBOPLASTIN RATIO 1.3; PROTHROMBIN TIME (PATIENT) 14.3 SECONDS (9.0-12.0)
[2017-06-09 15:07] LABS: BUN/CREATININE RATIO 17.4 (10-20); CALCIUM 8.7 mg/dl (8.5-10.1); CREATININE 0.95 mg/dl (0.60-1.40); POTASSIUM 3.8 mmol/L (3.5-5.1)
[2017-06-09 15:12] LABS: ALB/GLOB RATIO 0.8 (0.9-2); CKMB/CK RATIO 0.9 (0-3.0); HEMATOCRIT 36.8 % (42-52); MEAN CELL VOLUME 92.9 fL (80-100); MEAN CORPUSCULAR HEMOGLOBIN 30.1 pg (25-34); MEAN CORPUSCULAR HGB CONC 32.3 g/dl (32-36); PLATELET COUNT 122 K/uL (130-400); RED BLOOD COUNT 3.96 M/uL (4.7-6.1)
--- NOTE | 2017-06-09 15:17 | EMERGENCY ROOM VISIT NOTE ---
History Report prepared by Oscar: Darshan Gutiérrez Under the Supervision of: Dr. Dalton Catalan M.D. First contact with patient: 15:02 Chief Complaint: ILLNESS Stated Complaint: UNABLE TO AMBULATE History of Present Illness The patient is a 72 year old male who presents to the Emergency Room with complaints of constant chest pain that started yesterday. He rates his pain as a 9/10 in severity and describes the pain as a "heaviness". The patient states that he started to experience weakness yesterday. He reports that he still decided to drive for an hour to visit a friend. The patient states that he was in the same position while he was driving. He states that once he got out of the car, he started to experience shortness of breath and lightheadedness. The patient states that he could not take a deep breath. He also reports that it "felt like everything attached inside just let go". The patient reports that whenever he tries to move, he starts to experience back pain across his back, but he denies that this symptoms is new. The patient states that he had his friend give him a back massage and put DP on the area. The patient admits to a history of a stroke and Parkinson's. He admits that he has been taking his medication. He admits that he was able to urinate this morning, but was not able to have a bowel movement. The patient admits that he normally experiences incontinence with his bowels due to his history of Parkinson's. The patient states that he uses a cane and a walker to help him ambulate. He denies any nausea or vomiting. Source of History: patient Onset: yesterday Position: chest Symptom Intensity: 9/10 Quality: other (heavy) Timing: constant Associated Symptoms: + SOB, + back pain, + weakness, No nausea, No vomiting Review of Systems See HPI for pertinent positives and negatives. A total of ten systems were reviewed and were otherwise negative. Past Medical & Surgical Medical Problems: (1) ACS (acute coronary syndrome) (2) Altered mental status (3) Chest pain (4) Coronary artery bypass grafts x 2 (5) Coronary artery disease (6) Coronary bypass surgery (7) Hyperlipidemia (8) Hypotension (9) Increased ammonia level (10) Kidney stone (11) Myocardial infarction (12) Shortness of breath (13) Syncope Family History Cancer Heart disease Hypertension Social History Smoking Status: Current Every Day Smoker Alcohol Use: occasionally Drug Use: none Marital Status: Housing Status: lives with family Occupation Status: retired Current/Historical Medications Scheduled Aspirin (Aspirin Ec), 81 MG PO HS Atorvastatin (Lipitor), 80 MG PO HS Carbidopa/Levodopa (Sinemet 25MG/250MG), 1 TAB PO QID Cholecalciferol (Vitamin D), 2,000 UNIT PO QAM Donepezil Hydrochloride (Donepezil Hcl), 5 MG PO HS Npvqaoiaeqf-Yndniwhekzr-Stl C- (Glucosamine Chondroitin), 1 TAB PO BID Loperamide Hcl (Imodium), 2 MG PO QAM Multiple Vitamins W/ Minerals (Centrum Silver Adult 50+), 1 TAB PO QAM Omeprazole (Prilosec), 20 MG PO QAM Pramipexole Dihydrochloride (Mirapex), 0.5 MG PO daily at 2pmwi Pramipexole Dihydrochloride (Mirapex), 1 MG PO HS Pregabalin (Lyrica), 75 MG PO AMPM Probiotic Product (Probiotic), 1 CAP PO TID Sertraline (Zoloft), 25 MG PO daily at 2pm Warfarin Sodium (Coumadin), 3 MG PO DAILY Scheduled PRN Nitroglycerin (Nitrostat), 0.4 MG SL UD PRN for Chest Pain Tramadol (Ultram), 50 MG PO BID PRN for Pain Allergies Coded Allergies: Penicillins (Verified Allergy, Severe, RASH,SWELLING, 06/09/17) IV PENICILLINS Physical Exam Vital Signs Date Time Temp Pulse Resp B/P (MAP) Pulse Ox O2 Delivery O2 Flow Rate FiO2 06/09/17 20:34 67 16 142/78 98 Room Air 06/09/17 18:40 65 16 137/75 98 Room Air 06/09/17 17:32 67 06/09/17 17:09 69 16 131/82 94 06/09/17 15:54 73 16 124/75 95 Room Air 06/09/17 14:31 94 Room Air 06/09/17 14:28 75 06/09/17 14:25 37.2 74 22 115/62 95 Room Air Physical Exam GENERAL: Awake, alert, well-appearing, in no distress HENT: Normocephalic, atraumatic. Dry mucous membranes. Oropharynx otherwise unremarkable. EYES: Normal conjunctiva. Sclera non-icteric. NECK: Supple. No nuchal rigidity. FROM. No JVD. RESPIRATORY: Clear to auscultation. CARDIAC: Regular rate, normal rhythm. Extremities warm and well perfused. Pulses equal. ABDOMEN: Soft, non-distended. No tenderness to palpation. No rebound or guarding. No masses. RECTAL: Deferred. MUSCULOSKELETAL: Chest examination reveals no tenderness. The back is symmetrical on inspection without obvious abnormality. There is no CVA tenderness to palpation. No joint edema. LOWER EXTREMITIES: Calves are equal size bilaterally and non-tender. 1+ lower extremity edema. No discoloration. NEURO: Normal sensorium. No sensory or motor deficits noted. Slow motor movements consistent with Parkinson's. Moving all extremities at baseline. SKIN: No rash or jaundice noted. Medical Decision & Procedures ER Provider Diagnostic Interpretation: Radiology results as stated below per my review and radiologist interpretation: SINGLE VIEW CHEST CLINICAL HISTORY: Atypical chest pain. Dyspnea. FINDINGS: An AP, portable, upright chest radiograph is compared to study dated 04/26/2017 and correlated with chest CT dated 10/27/2012. The examination is degraded by portable technique and patient rotation. The patient is status post midline sternotomy. The heart is enlarged and there is atherosclerotic calcification of the thoracic aorta. The pulmonary vasculature is noncongested. There are low lung volumes with bibasilar atelectasis. Chronic interstitial thickening is unchanged. No airspace consolidation or large pleural effusion is identified. No pneumothorax is seen. The skeletal structures are osteopenic. The bony thorax is grossly intact. IMPRESSION: Low lung volumes and cardiomegaly. There is no acute cardiopulmonary abnormality. Electronically signed by: Reese Colmenares M.D. 06/09/2017 2:48 PM Dictated Date/Time: 06/09/2017 2:47 PM CHEST CTA for AORTIC DISSECTION CT DOSE: 1405.89 mGy.cm HISTORY: Atypical chest pain. Back pain. Generalized abdominal pain. TECHNIQUE: Multiaxial CT images of the chest were performed both before and after the intravenous administration of contrast to evaluate the aorta. Maximal intensity projection images were also obtained. A dose lowering technique was utilized adhering to the principles of ALARA. COMPARISON STUDY: Abdomen and pelvis CT 12/11/2015. FINDINGS: Noncontrast imaging through the chest shows no evidence for an intramural hematoma within the thoracic aorta. The aorta is normal in course and caliber with no evidence for dissection. Mild calcified plaque within the distal abdominal aorta. The iliac arteries are widely patent. The heart is mildly enlarged. The central pulmonary arteries are patent. No pleural or pericardial effusions. Partially calcified mediastinal and hilar lymph nodes. Poststernotomy changes. No pneumothorax. Bibasilar linear densities consistent with subsegmental atelectasis. A 5 mm subpleural nodule along the right minor fissure on image 116. No pneumoperitoneum. No pneumatosis. Bilateral L5 spondylolysis with associated spondylolisthesis. This remains unchanged. No fractures within the visualized osseous structures. Small fat-containing midline epigastric hernia. Small fat-containing bilateral inguinal hernias. Trace left hip effusion. Moderate right and severe left hip osteoarthritis. Mild bladder wall thickening. This could be due to underdistention. Colonic diverticulosis. Normal appendix. No bowel wall thickening or obstruction. A few small gallstones. No gallbladder wall thickening. A few punctate calcified granulomas within the liver and spleen. The pancreas and adrenal glands are unremarkable. Right-sided nephrolithiasis. No hydronephrosis. No retroperitoneal lymphadenopathy. The celiac, mesenteric, and renal arteries are widely patent. There is a 1.4 cm distal esophageal lymph nodes. This is increased in size. IMPRESSION: 1. No evidence for an aortic dissection. 2. A 5 mm indeterminate subpleural nodule within the right minor fissure. Please refer to the chart below for recommended follow-up. 3. Right-sided nephrolithiasis. No hydronephrosis. 4. Increase in size in the 1.4 cm distal paraesophageal lymph node. 5. Mild bladder wall thickening. This could be due to underdistention. Recommend correlation with urinalysis. 6. Colonic diverticulosis. 7. Cholelithiasis. 8. Additional findings as described above. Please refer to below summary of Fleischner criteria recommendations for follow-up of incidental CT nodules (Doreen Boyer, Guidelines for management of small pulmonary nodules detected on CT scans: A statement from the Fleischner Society, Radiology 237: [phone].) SOLID NODULES Solitary nodule size: <6 mm * Low risk patients: no follow-up needed * high risk patients: optional CT at 12 months Solitary nodule size: 6-8 mm * Low risk patients: follow-up at 6-12 months, then consider further follow-up at 18-24 months * high risk patients: initial follow-up CT at 6-12 months and then at 18-24 months if no change Solitary nodule size: >8 mm * either low or high risk patients - consider follow-up CT at 3 months, and/or CT-PET, and/or biopsy Multiple nodules size: <6 mm * Low risk patients: no routine follow-up * high risk patients: optional CT at 12 months Multiple nodules size: 6-8 mm * Low risk patients: follow-up at 3-6 months, then consider further follow-up at 18-24 months * high risk patients: follow-up at 3-6 months, then at 18-24 months if no change Multiple nodules size: >8 mm * Low risk patients: follow-up at 3-6 months, then consider further follow-up at 18-24 months * high risk patients: follow-up at 3-6 months, then at 18-24 months if no change Note: newly detected indeterminate nodule in persons 35 years of age or older. * Low risk patients: minimal or absent history of smoking and/or other known risk factors * high risk patients: history of smoking or of other known risk factors (e.g. first degree relative with lung cancer, or exposure to asbestos, radon, uranium) * if a nodule up to 8 mm is partly solid or is ground glass further follow-up is required after 24 months to exclude possible slow growing adenocarcinoma ([place]) SUBSOLID NODULES Solitary pure ground-glass nodule * nodule size <6 mm - no CT follow-up required * nodule size >=6 mm - follow-up CT at 6-12 months, then every 2 years until 5 years Solitary part-solid nodule * nodule size <6 mm - no CT follow-up required * nodule size >=6 mm - follow-up CT at 3-6 months. If unchanged, and solid component remains <6 mm, then annual follow-up for 5 years Multiple subsolid nodules * nodule size <6 mm - follow-up CT at 3-6 months, consider further follow-up at 2 and 4 years if stable * nodule size >=6 mm - follow-up CT at 3-6 months, subsequent management based on the most suspicious nodule(s) Electronically signed by: Cameron Coelho M.D. 06/09/2017 5:33 PM Dictated Date/Time: 06/09/2017 5:15 PM CHEST CTA for AORTIC DISSECTION CT DOSE: 1405.89 mGy.cm HISTORY: Atypical chest pain. Back pain. Generalized abdominal pain. TECHNIQUE: Multiaxial CT images of the chest were performed both before and after the intravenous administration of contrast to evaluate the aorta. Maximal intensity projection images were also obtained. A dose lowering technique was utilized adhering to the principles of ALARA. COMPARISON STUDY: Abdomen and pelvis CT 12/11/2015. FINDINGS: Noncontrast imaging through the chest shows no evidence for an intramural hematoma within the thoracic aorta. The aorta is normal in course and caliber with no evidence for dissection. Mild calcified plaque within the distal abdominal aorta. The iliac arteries are widely patent. The heart is mildly enlarged. The central pulmonary arteries are patent. No pleural or pericardial effusions. Partially calcified mediastinal and hilar lymph nodes. Poststernotomy changes. No pneumothorax. Bibasilar linear densities consistent with subsegmental atelectasis. A 5 mm subpleural nodule along the right minor fissure on image 116. No pneumoperitoneum. No pneumatosis. Bilateral L5 spondylolysis with associated spondylolisthesis. This remains unchanged. No fractures within the visualized osseous structures. Small fat-containing midline epigastric hernia. Small fat-containing bilateral inguinal hernias. Trace left hip effusion. Moderate right and severe left hip osteoarthritis. Mild bladder wall thickening. This could be due to underdistention. Colonic diverticulosis. Normal appendix. No bowel wall thickening or obstruction. A few small gallstones. No gallbladder wall thickening. A few punctate calcified granulomas within the liver and spleen. The pancreas and adrenal glands are unremarkable. Right-sided nephrolithiasis. No hydronephrosis. No retroperitoneal lymphadenopathy. The celiac, mesenteric, and renal arteries are widely patent. There is a 1.4 cm distal esophageal lymph nodes. This is increased in size. IMPRESSION: 1. No evidence for an aortic dissection. 2. A 5 mm indeterminate subpleural nodule within the right minor fissure. Please refer to the chart below for recommended follow-up. 3. Right-sided nephrolithiasis. No hydronephrosis. 4. Increase in size in the 1.4 cm distal paraesophageal lymph node. 5. Mild bladder wall thickening. This could be due to underdistention. Recommend correlation with urinalysis. 6. Colonic diverticulosis. 7. Cholelithiasis. 8. Additional findings as described above. Please refer to below summary of Fleischner criteria recommendations for follow-up of incidental CT nodules (Doreen Boyer, Guidelines for management of small pulmonary nodules detected on CT scans: A statement from the Fleischner Society, Radiology 237: [phone].) SOLID NODULES Solitary nodule size: <6 mm * Low risk patients: no follow-up needed * high risk patients: optional CT at 12 months Solitary nodule size: 6-8 mm * Low risk patients: follow-up at 6-12 months, then consider further follow-up at 18-24 months * high risk patients: initial follow-up CT at 6-12 months and then at 18-24 months if no change Solitary nodule size: >8 mm * either low or high risk patients - consider follow-up CT at 3 months, and/or CT-PET, and/or biopsy Multiple nodules size: <6 mm * Low risk patients: no routine follow-up * high risk patients: optional CT at 12 months Multiple nodules size: 6-8 mm * Low risk patients: follow-up at 3-6 months, then consider further follow-up at 18-24 months * high risk patients: follow-up at 3-6 months, then at 18-24 months if no change Multiple nodules size: >8 mm * Low risk patients: follow-up at 3-6 months, then consider further follow-up at 18-24 months * high risk patients: follow-up at 3-6 months, then at 18-24 months if no change Note: newly detected indeterminate nodule in persons 35 years of age or older. * Low risk patients: minimal or absent history of smoking and/or other known risk factors * high risk patients: history of smoking or of other known risk factors (e.g. first degree relative with lung cancer, or exposure to asbestos, radon, uranium) * if a nodule up to 8 mm is partly solid or is ground glass further follow-up is required after 24 months to exclude possible slow growing adenocarcinoma ([place]) SUBSOLID NODULES Solitary pure ground-glass nodule * nodule size <6 mm - no CT follow-up required * nodule size >=6 mm - follow-up CT at 6-12 months, then every 2 years until 5 years Solitary part-solid nodule * nodule size <6 mm - no CT follow-up required * nodule size >=6 mm - follow-up CT at 3-6 months. If unchanged, and solid component remains <6 mm, then annual follow-up for 5 years Multiple subsolid nodules * nodule size <6 mm - follow-up CT at 3-6 months, consider further follow-up at 2 and 4 years if stable * nodule size >=6 mm - follow-up CT at 3-6 months, subsequent management based on the most suspicious nodule(s) Electronically signed by: Cameron Coelho M.D. 06/09/2017 5:33 PM Dictated Date/Time: 06/09/2017 5:15 PM Laboratory Results Test 06/09/17 14:30 06/09/17 14:36 Total Bilirubin 0.8 mg/dl (0.2-1) Aspartate Amino Transf (AST/SGOT) 15 U/L (15-37) Alanine Aminotransferase (ALT/SGPT) 19 U/L (12-78) Alkaline Phosphatase 116 U/L (45-117) Pro-B-Type Natriuretic Peptide 416 pg/ml (0-900) Total Protein 6.7 gm/dl (6.4-8.2) Albumin 3.0 gm/dl (3.4-5.0) Globulin 3.7 gm/dl (2.5-4.0) Albumin/Globulin Ratio 0.8 (0.9-2) Lipase 74 U/L (73-393) Bedside Troponin I < 0.030 ng/ml (0-0.045) Laboratory results reviewed by me Medications Administered Medications (Trade) Dose Ordered Sig/Dany Route Start Time Stop Time Status Last Admin Dose Admin Famotidine (Pepcid 20mg/100 ml) 20 mg ONE STAT IV 06/09/17 19:22 06/09/17 19:23 DC 06/09/17 19:22 20 MG Miscellaneous Medication (Gi Cocktail) 24 ml NOW STAT PO 06/09/17 19:22 06/09/17 19:23 DC 06/09/17 19:22 24 ML Aspirin (Aspirin Chew) 324 mg NOW STAT PO 06/09/17 19:57 06/09/17 19:59 DC 06/09/17 20:01 324 MG Acetaminophen/ Hydrocodone Bitart ([place] 7.5/325 Tab) 1 tab 2042 ONCE PO 06/09/17 20:43 06/09/17 21:00 DC 06/09/17 23:38 1 TAB Pregabalin (Lyrica Cap) 75 mg BID PO 06/09/17 21:00 07/09/17 20:59 06/10/17 20:39 75 MG ECG Indication: chest pain Rate (beats per minute): 70 Rhythm: normal sinus Findings: no acute ischemic change, other (Normal interval) Comparison ECG Date: 04/16/17 Change: no significant change ED Course 1505: The patient was evaluated in room B02. A complete history and physical exam was performed. 1914: I reevaluated the patient and he still has sensation. I will give him a GI cocktail. I discussed his treatment plan and he agreed for further evaluation. 1921: Ordered Gi Cocktail 24 ml PO, Famotidine 20 mg IV. 1944: I discussed the patients case with the keycase assembler. 1954: I discussed the patients case with Dr. Leon [facility] Hospitalist. He understands the patients condition and agrees to accept the patient. The patient will be further evaluated. 1956: Ordered Aspirin 324 mg PO. Medical Decision I reviewed the patient's past medical history, medications, and the nursing notes as described above. The patient's presentation and history were concerning for ACS v. Dissection PD , GERD, gastritis, pneumonia, and bronchitis. The patient presents to the emergency department with episode of constant CP with radiation to back per HPI. Arrives to ED c/o of persistence of CP but is in NAD. EKG unchanged. Trop negative in the setting of constant sx. CXR negative. Considering sharp/burning radiation to back dissection high on differential and so CTA done that was negative for dissection. Thus considering burning pepcid/gi cocktail attempted for sx relief. Otherwise, considering the patient's extensive cardiac hx patient admitted for ACS and possible PE r/o considering patient subtherapeutic on his coumadin. Case d/w hospital medicine who admitted patient for further management. Medication Reconcilliation Current Medication List: was personally reviewed by me Blood Pressure Screening Patient's blood pressure: Elevated blood pressure Blood pressure disposition: Elevated BP felt to be situational Consults Time Called: 1954 Consulting Physician: Dr. Leon [facility] Hospitalist Returned Call: 1954 I discussed the patients case with Dr. Leon [facility] Hospitalist. He understands the patients condition and agrees to accept the patient. The patient will be further evaluated. Impression Primary Impression: Chest pain Scribe Attestation The scribe's documentation has been prepared under my direction and personally reviewed by me in its entirety. I confirm that the note above accurately reflects all work, treatment, procedures, and medical decision making performed by me. Departure Information Dispostion Being Evaluated By Hospitalist Referrals Isak Galaviz M.D. (PCP) Patient Instructions My [facility]
[2017-06-09] MEDS ORDERED: OPTIRAY 320 IV PRN (15:45)
--- NOTE | 2017-06-09 17:35 | DIAGNOSTIC IMAGING REPORT ---
CHEST CTA for AORTIC DISSECTION CT DOSE: 1405.89 mGy.cm HISTORY: Atypical chest pain. Back pain. Generalized abdominal pain. TECHNIQUE: Multiaxial CT images of the chest were performed both before and after the intravenous administration of contrast to evaluate the aorta. Maximal intensity projection images were also obtained. A dose lowering technique was utilized adhering to the principles of ALARA. COMPARISON STUDY: Abdomen and pelvis CT 12/11/2015. FINDINGS: Noncontrast imaging through the chest shows no evidence for an intramural hematoma within the thoracic aorta. The aorta is normal in course and caliber with no evidence for dissection. Mild calcified plaque within the distal abdominal aorta. The iliac arteries are widely patent. The heart is mildly enlarged. The central pulmonary arteries are patent. No pleural or pericardial effusions. Partially calcified mediastinal and hilar lymph nodes. Poststernotomy changes. No pneumothorax. Bibasilar linear densities consistent with subsegmental atelectasis. A 5 mm subpleural nodule along the right minor fissure on image 116. No pneumoperitoneum. No pneumatosis. Bilateral L5 spondylolysis with associated spondylolisthesis. This remains unchanged. No fractures within the visualized osseous structures. Small fat-containing midline epigastric hernia. Small fat-containing bilateral inguinal hernias. Trace left hip effusion. Moderate right and severe left hip osteoarthritis. Mild bladder wall thickening. This could be due to underdistention. Colonic diverticulosis. Normal appendix. No bowel wall thickening or obstruction. A few small gallstones. No gallbladder wall thickening. A few punctate calcified granulomas within the liver and spleen. The pancreas and adrenal glands are unremarkable. Right-sided nephrolithiasis. No hydronephrosis. No retroperitoneal lymphadenopathy. The celiac, mesenteric, and renal arteries are widely patent. There is a 1.4 cm distal esophageal lymph nodes. This is increased in size. IMPRESSION: 1. No evidence for an aortic dissection. 2. A 5 mm indeterminate subpleural nodule within the right minor fissure. Please refer to the chart below for recommended follow-up. 3. Right-sided nephrolithiasis. No hydronephrosis. 4. Increase in size in the 1.4 cm distal paraesophageal lymph node. 5. Mild bladder wall thickening. This could be due to underdistention. Recommend correlation with urinalysis. 6. Colonic diverticulosis. 7. Cholelithiasis. 8. Additional findings as described above. Please refer to below summary of Fleischner criteria recommendations for follow-up of incidental CT nodules (Doreen Boyer, Guidelines for management of small pulmonary nodules detected on CT scans: A statement from the Fleischner Society, Radiology 237: [id number].) SOLID NODULES Solitary nodule size: <6 mm * Low risk patients: no follow-up needed * high risk patients: optional CT at 12 months Solitary nodule size: 6-8 mm * Low risk patients: follow-up at 6-12 months, then consider further follow-up at 18-24 months * high risk patients: initial follow-up CT at 6-12 months and then at 18-24 months if no change Solitary nodule size: >8 mm * either low or high risk patients - consider follow-up CT at 3 months, and/or CT-PET, and/or biopsy Multiple nodules size: <6 mm * Low risk patients: no routine follow-up * high risk patients: optional CT at 12 months Multiple nodules size: 6-8 mm * Low risk patients: follow-up at 3-6 months, then consider further follow-up at 18-24 months * high risk patients: follow-up at 3-6 months, then at 18-24 months if no change Multiple nodules size: >8 mm * Low risk patients: follow-up at 3-6 months, then consider further follow-up at 18-24 months * high risk patients: follow-up at 3-6 months, then at 18-24 months if no change Note: newly detected indeterminate nodule in persons 35 years of age or older. * Low risk patients: minimal or absent history of smoking and/or other known risk factors * high risk patients: history of smoking or of other known risk factors (e.g. first degree relative with lung cancer, or exposure to asbestos, radon, uranium) * if a nodule up to 8 mm is partly solid or is ground glass further follow-up is required after 24 months to exclude possible slow growing adenocarcinoma ([facility]) SUBSOLID NODULES Solitary pure ground-glass nodule * nodule size <6 mm - no CT follow-up required * nodule size >=6 mm - follow-up CT at 6-12 months, then every 2 years until 5 years Solitary part-solid nodule * nodule size <6 mm - no CT follow-up required * nodule size >=6 mm - follow-up CT at 3-6 months. If unchanged, and solid component remains <6 mm, then annual follow-up for 5 years Multiple subsolid nodules * nodule size <6 mm - follow-up CT at 3-6 months, consider further follow-up at 2 and 4 years if stable * nodule size >=6 mm - follow-up CT at 3-6 months, subsequent management based on the most suspicious nodule(s) Electronically signed by: Cameron Coelho M.D. 06/09/2017 5:33 PM Dictated Date/Time: 06/09/2017 5:15 PM
[2017-06-09] MEDS ORDERED: GI COCKTAIL PO STA (19:22)
[2017-06-09] MEDS ORDERED: FAMOTIDINE 20MG/102 ML D5W IV STA (19:22)
[2017-06-09] MEDS ORDERED: ALUMINUM/MAGNESIUM SUSP 30 ML UDC ONE (19:28)
[2017-06-09] MEDS ORDERED: FAMOTIDINE 20MG/102 ML D5W ONE (19:28)
[2017-06-09] MEDS ORDERED: LIDOCAINE HCL 2% VISC SOLN 20 ML UDC ONE (19:28)
[2017-06-09] MEDS ORDERED: ASPIRIN 81 MG CHEW PO STA (19:57)
[2017-06-09] MEDS ORDERED: ACETAMINOPHEN 325 MG TAB PO PRN (20:30)
[2017-06-09] MEDS ORDERED: POLYETHYLENE (MIRALAX) 17 GM PACK PO PRN (20:30)
[2017-06-09] MEDS ORDERED: ALUMINUM/MAGNESIUM/SIMETH (MAALOX MAX) 30 ML UDC PO PRN (20:30)
[2017-06-09] MEDS ORDERED: NITROGLYCERIN 0.4 MG SL PER TAB CHARGE SL PRN (20:30)
[2017-06-09] MEDS ORDERED: ONDANSETRON INJ 2 MG/ML 2 ML VIAL IV PRN (20:30)
[2017-06-09] MEDS ORDERED: MAGNESIUM HYDROXIDE SUSP 30 ML UDC PO PRN (20:30)
--- NOTE | 2017-06-09 20:41 | History and Physical ---
History & Physical Date & Time of Service: Jun 09, 2017 at 20:26 Chief Complaint: Unable To Ambulate Primary Care Physician: Isak Galaviz M.D. History of Present Illness Source: patient, spouse () The patient is a 72-year-old male with background history of Parkinson's disease , DVT, coronary artery disease with CABG, depression who presents with sudden onset malaise. The patient states that yesterday he was driving his car and said "I just started to feel off". He describes a generalized pain along his entire anterior chest and anterior abdomen, with radiation into the back. The pain is described as an aching pain 8 out of 10 initially, but now slightly improved to 6 out of 10. The pain is constant. The pain is worsened by cough. The pain is not positional. The pain is also nonexertional. He also describes symptoms of generalized weakness and lightheadedness. He's also been more short of breath with ambulation for the past 1 month. The patient denies any nausea or vomiting. He also does not describe any diarrhea or constipation. He states he only had one shot of bourbon last night , total 4-5 units about called total per week. He denies any NSAID use for his chronic back pain. He denies fevers chills or night sweats. The patient's notes a history of DVT and PE. However she is unable to give details on what exactly this happened, but notes that as result of this he is on warfarin for that they've been having difficulty getting his levels therapeutic. He states compliance with medication. He denies any new calf pain or calf tenderness. He denies any prolonged periods of immobility, or recent surgeries. Is a history of myocardial infarction with CABG. His current symptoms do not remind him of that. In the ER and initial troponin was negative. Given the ongoing pain in his chest abdomen, CT was done to evaluate for dissection, though this was negative. His yard he got a lot of contrast, he is unable to be evaluated for the possibility of a PE. Past Medical/Surgical History Medical Problems: (1) Coronary artery bypass grafts x 2 in 2012 Status: Resolved (2) Coronary artery disease Status: Chronic (3) Coronary bypass surgery Status: Resolved (4) Hyperlipidemia Status: Chronic (5) Hypotension Status: Chronic (6) Kidney stone Status: Resolved (7) Myocardial infarction Status: Resolved Parkinson's Disease Bladder Cancer GERD Restless Leg History of DVT and PE 5 within the past 5 years. Family History Cancer Heart disease Hypertension Social History Smoking Status: Current Every Day Smoker (cigars) Smokeless Tobacco Use: No Alcohol Use: occasionally (5 units per week) Drug Use: none Marital Status: Housing status: lives with family Occupational Status: retired Immunizations History of Influenza Vaccine: Yes Influenza Vaccine Date: Jun 27, 2013 History of Tetanus Vaccine?: Yes History of Pneumococcal: Yes History of Hepatitis B Vaccine: Unknown Multi-Drug Resistant Organisms History of MDRO: No Allergies Coded Allergies: Penicillins (Verified Allergy, Severe, RASH,SWELLING, 06/09/17) IV PENICILLINS Home Medications Scheduled Aspirin (Aspirin Ec), 81 MG PO HS Atorvastatin (Lipitor), 80 MG PO HS Carbidopa/Levodopa (Sinemet 25MG/250MG), 1 TAB PO QID Cholecalciferol (Vitamin D), 2,000 UNIT PO QAM Donepezil Hydrochloride (Donepezil Hcl), 5 MG PO HS Imiqfahuwez-Dytrevvhwgk-Jpb C- (Glucosamine Chondroitin), 1 TAB PO BID Loperamide Hcl (Imodium), 2 MG PO QAM Multiple Vitamins W/ Minerals (Centrum Silver Adult 50+), 1 TAB PO QAM Omeprazole (Prilosec), 20 MG PO QAM Pramipexole Dihydrochloride (Mirapex), 0.5 MG PO daily at 2pmwi Pramipexole Dihydrochloride (Mirapex), 1 MG PO HS Pregabalin (Lyrica), 75 MG PO AMPM Probiotic Product (Probiotic), 1 CAP PO TID Sertraline (Zoloft), 25 MG PO daily at 2pm Warfarin Sodium (Coumadin), 3 MG PO DAILY Scheduled PRN Nitroglycerin (Nitrostat), 0.4 MG SL UD PRN for Chest Pain Tramadol (Ultram), 50 MG PO BID PRN for Pain Review of Systems A 10 point review of systems was negative unless stated above. Physical Exam Vital Signs Date Time Temp Pulse Resp B/P (MAP) Pulse Ox O2 Delivery O2 Flow Rate FiO2 06/09/17 18:40 65 16 137/75 98 Room Air 06/09/17 17:32 67 06/09/17 17:09 69 16 131/82 94 06/09/17 15:54 73 16 124/75 95 Room Air 06/09/17 14:31 94 Room Air 06/09/17 14:28 75 06/09/17 14:25 37.2 74 22 115/62 95 Room Air General Appearance: WD/WN, no apparent distress Head: normocephalic, atraumatic Eyes: normal inspection, EOMI ENT: hearing grossly normal, pharynx normal Neck: supple, no adenopathy, no JVD Respiratory/Chest: lungs clear, no respiratory distress Cardiovascular: regular rate, rhythm, no gallop, no murmur Abdomen/GI: normal bowel sounds, non tender, soft, + pertinent finding ( epigastric tendenress) Back: no CVA tenderness, no muscle spasm Extremities/Musculoskelatal: no calf tenderness, no pedal edema Neurologic/Psych: alert, normal mood/affect, oriented x 3 Skin: normal color, warm/dry, no rash Lymphatic: no adenopathy Diagnostics Laboratory Results Results Past 24 Hours Test 06/09/17 14:30 06/09/17 14:36 Range/Units White Blood Count 9.10 4.8-10.8 K/uL Red Blood Count 3.96 4.7-6.1 M/uL Hemoglobin 11.9 14.0-18.0 g/dL Hematocrit 36.8 42-52 % Mean Corpuscular Volume 92.9 80-100 fL Mean Corpuscular Hemoglobin 30.1 25-34 pg Mean Corpuscular Hemoglobin Concent 32.3 32-36 g/dl RDW Standard Deviation 46.9 36.4-46.3 fL RDW Coefficient of Variation 13.8 11.5-14.5 % Platelet Count 122 130-400 K/uL Mean Platelet Volume 11.0 7.4-10.4 fL Prothrombin Time 14.3 9.0-12.0 SECONDS Prothromb Time International Ratio 1.3 0.9-1.1 Activated Partial Thromboplast Time 33.8 21.0-31.0 SECONDS Partial Thromboplastin Ratio 1.3 Sodium Level 141 136-145 mmol/L Potassium Level 3.8 3.5-5.1 mmol/L Chloride Level 108 98-107 mmol/L Carbon Dioxide Level 29 21-32 mmol/L Anion Gap 4.0 3-11 mmol/L Blood Urea Nitrogen 17 7-18 mg/dl Creatinine 0.95 0.60-1.40 mg/dl Est Creatinine Clear Calc Drug Dose 73.9 ml/min Estimated GFR () 91.0 Estimated GFR (Non- 78.5 BUN/Creatinine Ratio 17.4 10-20 Random Glucose 92 70-99 mg/dl Calcium Level 8.7 8.5-10.1 mg/dl Total Bilirubin 0.8 0.2-1 mg/dl Aspartate Amino Transf (AST/SGOT) 15 15-37 U/L Alanine Aminotransferase (ALT/SGPT) 19 12-78 U/L Alkaline Phosphatase 116 45-117 U/L Total Creatine Kinase 75 39-308 U/L Creatine Kinase MB 0.7 0.5-3.6 ng/ml Creatine Kinase MB Ratio 0.9 0-3.0 Pro-B-Type Natriuretic Peptide 416 0-900 pg/ml Total Protein 6.7 6.4-8.2 gm/dl Albumin 3.0 3.4-5.0 gm/dl Globulin 3.7 2.5-4.0 gm/dl Albumin/Globulin Ratio 0.8 0.9-2 Bedside Troponin I < 0.030 0-0.045 ng/ml Diagnostic Radiology CHEST CTA for AORTIC DISSECTION CT DOSE: 1405.89 mGy.cm HISTORY: Atypical chest pain. Back pain. Generalized abdominal pain. TECHNIQUE: Multiaxial CT images of the chest were performed both before and after the intravenous administration of contrast to evaluate the aorta. Maximal intensity projection images were also obtained. A dose lowering technique was utilized adhering to the principles of ALARA. COMPARISON STUDY: Abdomen and pelvis CT 12/11/2015. FINDINGS: Noncontrast imaging through the chest shows no evidence for an intramural hematoma within the thoracic aorta. The aorta is normal in course and caliber with no evidence for dissection. Mild calcified plaque within the distal abdominal aorta. The iliac arteries are widely patent. The heart is mildly enlarged. The central pulmonary arteries are patent. No pleural or pericardial effusions. Partially calcified mediastinal and hilar lymph nodes. Poststernotomy changes. No pneumothorax. Bibasilar linear densities consistent with subsegmental atelectasis. A 5 mm subpleural nodule along the right minor fissure on image 116. No pneumoperitoneum. No pneumatosis. Bilateral L5 spondylolysis with associated spondylolisthesis. This remains unchanged. No fractures within the visualized osseous structures. Small fat-containing midline epigastric hernia. Small fat-containing bilateral inguinal hernias. Trace left hip effusion. Moderate right and severe left hip osteoarthritis. Mild bladder wall thickening. This could be due to underdistention. Colonic diverticulosis. Normal appendix. No bowel wall thickening or obstruction. A few small gallstones. No gallbladder wall thickening. A few punctate calcified granulomas within the liver and spleen. The pancreas and adrenal glands are unremarkable. Right-sided nephrolithiasis. No hydronephrosis. No retroperitoneal lymphadenopathy. The celiac, mesenteric, and renal arteries are widely patent. There is a 1.4 cm distal esophageal lymph nodes. This is increased in size. IMPRESSION: 1. No evidence for an aortic dissection. 2. A 5 mm indeterminate subpleural nodule within the right minor fissure. Please refer to the chart below for recommended follow-up. 3. Right-sided nephrolithiasis. No hydronephrosis. 4. Increase in size in the 1.4 cm distal paraesophageal lymph node. 5. Mild bladder wall thickening. This could be due to underdistention. Recommend correlation with urinalysis. 6. Colonic diverticulosis. 7. Cholelithiasis. 8. Additional findings as described above. Impression Assessment and Plan 72-year-old male presenting with chest pain. The patient does not seem exertional, and has more of an epigastric nature. Seems unlikely that this is cardiac though look at the EKG one may argue very subtle anterior ST segment depression. Given his history of CAD with history of CABG and known coronary disease, he will be evaluated as an inpatient. Our plan for him is as follows: Acute onset chest pain - Troponin negative 1; repeat serial cardiac enzymes every 8 hours - Monitor telemetry - CT for dissection was negative - CT PE seems appropriate given his history of DVT/PE and being subtherapeutic on current Coumadin dose. However the patient cannot get to contrast loads and 24 hour period therefore this needs to be deferred Order imaging per day team I will start him on empiric IV heparin infusion to cover him for the possibility of DVT until evaluation for this complete Subtherapeutic INR - Continue Coumadin 3 mg; monitor PT/INR and titrate accordingly - CT PE to be done per day team, for chest pain as noted above - I will order ultrasounds of the lower extremities Incidental right lung nodule - Noted on CT scan; surveillance can be done as per guidelines outlined in the imaging report Coronary artery disease - Continue atorvastatin - Continue ASA 81 mg daily - Nitroglycerin when necessary for chest pain Parkinson's disease - Continue Sinemet - Continue Aricept - Continue Mirapex Depression - Continue sertraline Per , his doses recently been dropped from 25 mg to 12.5 mg as he is in the process of being weaned off DVT prophylaxis - SCD - Victoriano - Heparin infusion CODE STATUS - Level I Disposition - [facility] - notes increasing inability to care for her at home; I reassured that we will have PT and OT evaluations for further recommendations on disposition Attending Addendum: I have physically seen and examined this patient, have supervised the medical residents activities, and agree with the H&P as noted above with the following exceptions as noted. The patient denies lower extremity swelling, vision change, hearing change, sore throat, fevers, chills, sweats, weight change, fatigue, nausea, vomiting, abdominal pain, pelvic pain, blood in urine or stool, dysuria, urinary frequency or urgency, lightheadedness, dizziness, headache, memory loss, rash, abnormal bruising or bleeding, imbalance, focal weakness, numbness or tingling in arms or legs, generalized arthralgias or myalgias, back or neck pain, night sweats, or allergy symptoms. The review of systems is otherwise negative other than for that already noted above, and at least 10 systems have been reviewed. The patient is awake, well-developed and adequately nourished, alert and oriented 3, normocephalic and atraumatic, lying in bed and in no acute distress. HEENT--PERRL, EOMI, mucous membranes and oropharynx dry. Neck--supple, no JVD or bruits, thyroid normal, trachea midline, no adenopathy. Heart--normal S1 and S2, no extra beats, no murmurs, rubs or gallops. Lungs--clear bilaterally with good air movement, no respiratory distress, no accessory muscle use. Abdomen--normal bowel sounds and soft, nontender and nondistended, no hernias or masses, no organomegaly. Extremities--no cyanosis, clubbing or edema. There are good distal pulses b/l. Dermatologic--normal skin turgor, normal color, warm and dry, no abnormal lymph nodes, no rash. Neurologic--cranial nerves II through XII grossly intact. Rheumatologic--normal range of motion, nontender, muscles and joints. Psychiatric--normal affect. Assessment and Plan: CAD/hypertension/Chest pain with new EKG changes--The patient will be admitted to telemetry for serial cardiac enzymes, cardiac rhythm monitoring and a 2-D echocardiogram with Dopplers DVT PE history/subtherapeutic Coumadin--the patient is unable to get a CTA of chest due to having had a CTA of abdomen and pelvis tonight, which was negative for dissection. Place patient on heparin drip/therapeutic Lovenox subcutaneous as a bridge until increasing dose of warfarin is therapeutic. Continue aspirin 81 mg by mouth daily. Parkinson's/SDAT/depression--continue carbidopa/levodopa, donepezil, pramipexole , Lyrica and sertraline as per outpatient. Level of Care Telemetry Advanced Directives Existing Advance Directive: No Existing Living Will: No Existing Power of Supervisor [place]: No Resuscitation Status FULL RESUSCITATION VTE Prophylaxis VTE Risk Assessment Done? Y/N: Yes Risk Level: Moderate Given or contraindicated: Enoxaparin (Lovenox)SQ, Warfarin (Coumadin) Social Service Consult None Apply
[2017-06-09] MEDS ORDERED: HYDROCODONE/ACETAMINOPHEN 7.5/325MG TAB PO ONE (20:43)
[2017-06-09] MEDS ORDERED: HYDROCODONE/ACETAMINOPHEN 7.5/325MG TAB PO PRN (20:45)
[2017-06-09] MEDS ORDERED: IV FLUIDS COMPLETED PRN (21:30)
[2017-06-09 22:00] VITALS: BP 137/84; PULSE 62; TEMP 37; O2SAT 96; Ht 172.7 cm; Wt 87.1 kg
[2017-06-09] MEDS ORDERED: TRAMADOL HCL 50 MG TAB PO PRN (22:00)
[2017-06-09] MEDS: PREGABALIN 75 MG CAP PO SCH (23:37)
[2017-06-09 23:38] VITALS: BP 128/81; PULSE 63; TEMP 36.5; O2SAT 96
[2017-06-10] VITALS (9 sets, daily range): BP systolic 96–113; BP diastolic 51–76; PULSE 57–105; TEMP 36.4–37.2; O2SAT 94–99
[2017-06-10 00:28] LABS: URINE APPEARANCE CLEAR (CLEAR); URINE BILIRUBIN NEG (NEG); URINE COLOR YELLOW; URINE NITRITE NEG (NEG); URINE PH 7.5 (4.5-7.5); URINE SPECIFIC GRAVITY > 1.045 (1.000-1.030); UROBILINOGEN NEG (NEG)
[2017-06-10 00:29] LABS: MANUAL MICROSCOPIC REQUIRED? NO; REVIEW REQ? NO
[2017-06-10] MEDS ORDERED: HEPARIN IV BOLUS 6,000 UNIT in SYRINGE 0 ML IV STA (01:27)
[2017-06-10] MEDS ORDERED: HEPARIN 25,000 UNIT/500ML D5W 500 ML IV PRN (01:30)
[2017-06-10] MEDS ORDERED: NURSING VERBAL MED ORDER ONE ×2 (01:45→02:00)
[2017-06-10] MEDS ORDERED: METOPROLOL TARTRATE 1 MG/ML VIAL IV STA ×2 (01:45→02:02)
[2017-06-10] MEDS ORDERED: PNEUMOCOCCAL POLYSACCHARIDES 25 MCG/0.5 ML VIAL/SYR IM. ONE (08:00)
[2017-06-10] MEDS ORDERED: PNEUMOCOCCAL ADMINISTRATION CHARGE ONE (08:00)
[2017-06-10 08:07] LABS: BASO % 0.6 %; BASO ABS # 0.05 K/uL (0-0.2); COMPLETE YES; EOS % 4.4 %; HEMATOCRIT 36.2 % (42-52); IG% 0.1 %; LYMPH ABS # 1.78 K/uL (1.2-3.4); MEAN CELL VOLUME 90.3 fL (80-100); MEAN CORPUSCULAR HEMOGLOBIN 31.2 pg (25-34); MEAN CORPUSCULAR HGB CONC 34.5 g/dl (32-36); MEAN PLATELET VOLUME 11.1 fL (7.4-10.4); MONO % 6.9 %; PLATELET COUNT 114 K/uL (130-400); RED BLOOD COUNT 4.01 M/uL (4.7-6.1); WHITE BLOOD COUNT 8.88 K/uL (4.8-10.8)
[2017-06-10 08:20] LABS: INR 1.4 (0.9-1.1); PROTHROMBIN TIME (PATIENT) 15.2 SECONDS (9.0-12.0)
[2017-06-10] MEDS: CEROVITE ADV FORMULA TAB PO SCH (08:20)
[2017-06-10] MEDS: CARBIDOPA/LEVODOPA 25-250 1 EA TAB PO SCH ×4 (08:20→20:37)
[2017-06-10] MEDS: ATORVASTATIN 40 MG TAB PO SCH (08:21)
[2017-06-10] MEDS: PRAMIPEXOLE DIHYDROCHLORIDE 0.5 MG TAB PO SCH ×2 (08:21→13:27)
[2017-06-10] MEDS: SERTRALINE HCL 50 MG TAB PO SCH (08:22)
[2017-06-10] MEDS: CHOLECALCIFEROL 1000 INTER.UNIT TAB PO SCH (08:22)
[2017-06-10] MEDS: LOPERAMIDE HCL 2 MG CAP PO SCH (08:24)
[2017-06-10 08:25] LABS: PARTIAL THROMBOPLASTIN RATIO 4.2
[2017-06-10] MEDS: PREGABALIN 75 MG CAP PO SCH ×2 (08:32→20:39)
--- NOTE | 2017-06-10 08:37 | Family Medicine Progress Note ---
Progress Note Date of Service Jun 10, 2017. 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 -Today pt denies SOB, cough, sputum production, N/V/D, fever, abdominal pain Constitutional: No fever, No chills, No sweats ENT: No nasal symptoms, No sore throat Respiratory: No cough, No sputum, No wheezing, No shortness of breath Cardiovascular: + chest pain, No orthopnea, No edema Abdomen: No pain, No nausea, No vomiting, No diarrhea Musculoskeletal: + joint pain (says his back hurts more than usual ), + muscle pain Medications Current Inpatient Medications Medications (Trade) Dose Ordered Sig/Dany Route Start Time Stop Time Status Last Admin Dose Admin Ioversol (Optiray 320) 125 ml UD PRN IV 06/09/17 15:45 06/13/17 15:44 Acetaminophen (Tylenol Tab) 650 mg Q4H PRN PO 06/09/17 20:30 07/09/17 20:29 Al Hydrox/Mg Hydrox/Simethicone (Maalox Max Susp) 15 ml Q4H PRN PO 06/09/17 20:30 07/09/17 20:29 Magnesium Hydroxide (Milk Of Magnesia Susp) 30 ml Q12H PRN PO 06/09/17 20:30 07/09/17 20:29 Ondansetron HCl (Zofran Inj) 4 mg Q6H PRN IV 06/09/17 20:30 07/09/17 20:29 Nitroglycerin (Nitrostat Tab) 0.4 mg UD PRN SL 06/09/17 20:30 07/09/17 20:29 Polyethylene (Miralax Powder Packet) 17 gm DAILY PRN PO 06/09/17 20:30 07/09/17 20:29 Acetaminophen/ Hydrocodone Bitart ([place] 7.5/325 Tab) 1 tab Q4H PRN PO 06/09/17 20:45 06/23/17 20:44 Miscellaneous (Iv Fluids Completed) 1 ea PRN PRN N/A 06/09/17 21:30 06/09/18 21:29 Aspirin (Ecotrin Tab) 81 mg HS PO 06/10/17 21:00 07/10/17 20:59 Atorvastatin Calcium (Lipitor Tab) 80 mg HS PO 06/10/17 21:00 07/10/17 20:59 06/10/17 08:21 80 MG Carbidopa/Levodopa (Sinemet 25/ 250MG Tab) 1 tab QID PO 06/10/17 09:00 07/10/17 08:59 06/10/17 08:20 1 TAB Donepezil HCl (Aricept Tab) 5 mg HS PO 06/10/17 21:00 07/10/17 20:59 Loperamide HCl (Imodium Cap) 2 mg QAM PO 06/10/17 09:00 07/10/17 08:59 Multivitamins/ Minerals (Multivitamin W/ Minerals Tab) 1 tab QAM PO 06/10/17 09:00 07/10/17 08:59 06/10/17 08:20 1 TAB Pramipexole Dihydrochloride (miraPEX TAB) 0.5 mg DAILY@1400 PO 06/10/17 14:00 07/10/17 13:59 06/10/17 08:21 0.5 MG Pramipexole Dihydrochloride (miraPEX TAB) 1 mg HS PO 06/10/17 21:00 07/10/17 20:59 Pregabalin (Lyrica Cap) 75 mg BID PO 06/09/17 21:00 07/09/17 20:59 06/09/17 23:37 75 MG Sertraline HCl (Zoloft Tab) 25 mg DAILY PO 06/10/17 09:00 07/10/17 08:59 06/10/17 08:22 25 MG Tramadol HCl (Ultram Tab) 50 mg BID PRN PO 06/09/17 22:00 07/09/17 21:59 Warfarin Sodium (Coumadin Tab) 3 mg DAILY@1600 PO 06/10/17 16:00 07/10/17 15:59 Cholecalciferol (Vitamin D Tab) 2,000 inter.unit QAM PO 06/10/17 09:00 07/10/17 08:59 06/10/17 08:22 2,000 INTER.UNIT Heparin Sodium/ Dextrose 500 ml @ 27 mls/hr [id number] PRN IV 06/10/17 01:30 07/10/17 01:29 06/10/17 01:49 27 MLS/HR Objective Vital Signs Date Time Temp Pulse Resp B/P (MAP) Pulse Ox O2 Delivery O2 Flow Rate FiO2 06/10/17 08:10 37.2 57 16 105/70 (82) 94 Room Air 06/10/17 04:00 Room Air 06/10/17 03:41 36.6 60 18 100/67 (78) 99 Room Air 06/10/17 02:06 105 99/65 (76) 06/10/17 02:04 108 101/68 06/10/17 01:56 97 106/73 (84) 06/10/17 01:51 117 109/78 06/10/17 01:10 105 107/72 (84) 96 Room Air 06/09/17 23:59 Room Air 06/09/17 23:38 36.5 63 16 128/81 (97) 96 Room Air 06/09/17 22:00 37.0 62 19 137/84 96 Room Air 06/09/17 20:34 67 16 142/78 98 Room Air 06/09/17 18:40 65 16 137/75 98 Room Air 06/09/17 17:32 67 06/09/17 17:09 69 16 131/82 94 06/09/17 15:54 73 16 124/75 95 Room Air 06/09/17 14:31 94 Room Air 06/09/17 14:28 75 06/09/17 14:25 37.2 74 22 115/62 95 Room Air Physical Exam General Appearance: WD/WN, no apparent distress Eyes: normal inspection, sclerae normal Neck: supple, no adenopathy Respiratory/Chest: chest non-tender, lungs clear, normal breath sounds, no respiratory distress, no accessory muscle use Cardiovascular: regular rate, rhythm, no edema, no gallop, no JVD, no murmur Abdomen: normal bowel sounds, non tender, soft Neurologic/Psychiatric: alert, normal mood/affect, oriented x 3 Skin: normal color, warm/dry, no rash Laboratory Results 06/10/17 07:54 Red Blood Count 4.01, Mean Corpuscular Volume 90.3, Mean Corpuscular Hemoglobin 31.2, Mean Corpuscular Hemoglobin Concent 34.5, Mean Platelet Volume 11.1, Neutrophils (%) (Auto) 68.0, Lymphocytes (%) (Auto) 20.0, Monocytes (%) (Auto) 6.9, Eosinophils (%) (Auto) 4.4, Basophils (%) (Auto) 0.6, Neutrophils # (Auto) 6.04, Lymphocytes # (Auto) 1.78, Monocytes # (Auto) 0.61, Eosinophils # (Auto) 0.39, Basophils # (Auto) 0.05 Test 06/09/17 14:30 06/09/17 14:36 06/09/17 23:30 06/10/17 02:23 Est Creatinine Clear Calc Drug Dose 73.9 ml/min Total Bilirubin 0.8 mg/dl (0.2-1) Aspartate Amino Transf (AST/SGOT) 15 U/L (15-37) Alanine Aminotransferase (ALT/SGPT) 19 U/L (12-78) Alkaline Phosphatase 116 U/L (45-117) Pro-B-Type Natriuretic Peptide 416 pg/ml (0-900) Total Protein 6.7 gm/dl (6.4-8.2) Albumin 3.0 gm/dl (3.4-5.0) Globulin 3.7 gm/dl (2.5-4.0) Albumin/Globulin Ratio 0.8 (0.9-2) Lipase 74 U/L (73-393) Bedside Troponin I < 0.030 ng/ml (0-0.045) Urine Color YELLOW Urine Appearance CLEAR (CLEAR) Urine pH 7.5 (4.5-7.5) Urine Specific [place] > 1.045 (1.000-1.030) Urine Protein NEG (NEG) Urine Glucose (UA) NEG (NEG) Urine Ketones NEG (NEG) Urine Occult Blood NEG (NEG) Urine Nitrite NEG (NEG) Urine Bilirubin NEG (NEG) Urine Urobilinogen NEG (NEG) Urine Leukocyte Esterase NEG (NEG) Total Creatine Kinase 99 U/L (39-308) Creatine Kinase MB 1.0 ng/ml (0.5-3.6) Creatine Kinase MB Ratio 1.0 (0-3.0) Troponin I < 0.015 ng/ml (0-0.045) Test 06/10/17 07:54 White Blood Count 8.88 K/uL (4.8-10.8) Red Blood Count 4.01 M/uL (4.7-6.1) Hemoglobin 12.5 g/dL (14.0-18.0) Hematocrit 36.2 % (42-52) Mean Corpuscular Volume 90.3 fL (80-100) Mean Corpuscular Hemoglobin 31.2 pg (25-34) Mean Corpuscular Hemoglobin Concent 34.5 g/dl (32-36) Platelet Count 114 K/uL (130-400) Mean Platelet Volume 11.1 fL (7.4-10.4) Neutrophils (%) (Auto) 68.0 % Lymphocytes (%) (Auto) 20.0 % Monocytes (%) (Auto) 6.9 % Eosinophils (%) (Auto) 4.4 % Basophils (%) (Auto) 0.6 % Neutrophils # (Auto) 6.04 K/uL (1.4-6.5) Lymphocytes # (Auto) 1.78 K/uL (1.2-3.4) Monocytes # (Auto) 0.61 K/uL (0.11-0.59) Eosinophils # (Auto) 0.39 K/uL (0-0.5) Basophils # (Auto) 0.05 K/uL (0-0.2) RDW Standard Deviation 44.8 fL (36.4-46.3) RDW Coefficient of Variation 13.5 % (11.5-14.5) Immature Granulocyte % (Auto) 0.1 % Immature Granulocyte # (Auto) 0.01 K/uL (0.00-0.02) Prothrombin Time 15.2 SECONDS (9.0-12.0) Prothromb Time International Ratio 1.4 (0.9-1.1) Assessment and Plan 72-year-old male presenting with chest pain. Acute onset chest pain - Troponin negative 1; repeat serial cardiac enzymes every 8 hours - Monitor telemetry - CT for dissection was negative - CT PE seems appropriate given his history of DVT/PE and being subtherapeutic on current Coumadin dose. - CT PE will be ordered for tomorrow am. - Continue IV heparin Atrial Fibrillation -New onset, 2 episodes -Pt was asymptomatic, HR 100-120, BP 90/50 during episodes -Last night converted to NSR on Lopressor, today converted spontaneously -EKG, TSH, cardiology consultation Subtherapeutic INR - Continue Coumadin 3 mg; monitor PT/INR and titrate accordingly Incidental right lung nodule - Noted on CT scan; surveillance can be done as per guidelines outlined in the imaging report Coronary artery disease - Continue atorvastatin - Continue ASA 81 mg daily - Nitroglycerin when necessary for chest pain Parkinson's disease - Continue Sinemet - Continue Aricept - Continue Mirapex Depression - Continue sertraline Per , his doses recently been dropped from 25 mg to 12.5 mg as he is in the process of being weaned off DVT prophylaxis - SCD - Victoriano - Heparin infusion CODE STATUS - Level I Disposition - [facility] Reviewed: Pt Seen/Exam by Me History still having pain on both sides of lower chest pain no shortness of breath or palpitation has chronic history of DDD Constitutional: denies: fever Respiratory: negative: short of breath Cardiovascular: denies chest pain General Appearance: no apparent distress Respiratory: lungs clear, no respiratory distress Cardiovascular: regular rate, rhythm Neurologic/Psychiatric: alert, oriented x 3 Skin Characteristics: warm/dry Assessment/Plan Resident Physician Supervision Note: I was present with Dr. Lobato in bedside. I verified the hernandez history and physical, reviewed labs and image studies, discussed the case with the resident and agree with the findings and care plan.
[2017-06-10 08:38] LABS: BUN/CREATININE RATIO 16.6 (10-20); CALCIUM 8.6 mg/dl (8.5-10.1); CREATININE 0.87 mg/dl (0.60-1.40); POTASSIUM 3.9 mmol/L (3.5-5.1)
[2017-06-10] MEDS ORDERED: NON-FORMULARY MEDICATION (Glucosamine-Chondroitin-Vit C- (Glucosamine Chondroitin) 1 TAB) PO SCH (09:00)
[2017-06-10] MEDS ORDERED: ENOXAPARIN 40 MG/0.4 ML SYR SC SCH (09:00)
[2017-06-10] MEDS ORDERED: ASPIRIN 81 MG CHEW PO SCH (09:00)
[2017-06-10 12:19] LABS: CKMB/CK RATIO 0.8 (0-3.0)
--- NOTE | 2017-06-10 12:25 | Clinical Documentation Query ---
CLINICAL DOCUMENTATION QUERY 72 year old male who presents to the Emergency Room with complaints of constant chest pain and malaise. In your clinical opinion is this patient being managed for: ( ) Paroxysmal Atrial fibrillation with RVR inducing "unstable angina" in patient with CAD ( ) Not Agree ( ) Other explanation of clinical findings (Please Explain) ( x ) Unable to determine (Please Define) Pt is having pleuritic chest pain. Episodes of afib incidentally found on telemetry. Afib unlikely the cause of chest pain. ( ) Need to Discuss The medical record reflects the following clinical findings, treatment, and risk factors. Clinical Indicators: Presents with reports of CP. HR 117. Monitor strip and EKG showing conversion to Afib with RVR then back to NSR after treatment. Treatment: Warfarin, Heparin gtt, IV Lopressor, telemetry Risk Factors: Age, CAD, tachycardia Please clarify and document your clinical opinion in the progress notes and discharge summary. Terms such as "probable", "suspected", "likely", "questionable", "possible", or "still to be ruled out" are acceptable. IF IN AGREEMENT, YOU MUST DOCUMENT ABOVE DIAGNOSTIC STATEMENT IN DAILY PROGRESS NOTES AND DISCHARGE SUMMARY. This document is not part of the patient's record. Thank You, Jason Mckeon, RN [phone]
[2017-06-10] MEDS: WARFARIN SOD 3 MG TAB PO SCH (15:49)
[2017-06-10 17:43] LABS: PARTIAL THROMBOPLASTIN RATIO 2.4
[2017-06-10] MEDS ORDERED: PRAMIPEXOLE DIHYDROCHLORIDE 0.5 MG TAB PO SCH (21:00)
[2017-06-10] MEDS ORDERED: DONEPEZIL HCL 5 MG TAB PO SCH (21:00)
[2017-06-10] MEDS ORDERED: ASPIRIN 81 MG ECTAB PO SCH (21:00)
--- NOTE | 2017-06-10 22:50 | CARDIOLOGY CONSULTATION ---
DATE OF CONSULTATION: 06/10/2017 PERTINENT HISTORY: Mr. Ramirez is a 72-year-old white male admitted yesterday with an atypical chest pain syndrome. The patient has had 3 paroxysms of atrial fibrillation since admission, and therefore, this consultation was ordered. Of note, [facility] patient typically follows with Dr. Heart in the outpatient setting. The patient claims he was in his usual state of health until the day of presentation. While driving to and from [place], the patient noted a mid-sternal chest discomfort. This had no other associated symptoms, such as shortness of breath, nausea, vomiting, diaphoresis, or radiation of the discomfort. The patient claims that this lasted for nearly 24 hours. He also noticed an inability to walk and therefore, presented to the Emergency Department for care. While on the monitor, the patient has developed 3 paroxysms of atrial fibrillation. Ventricular response is typically in the 110-120 range while in atrial fibrillation. He then spontaneously converts to sinus rhythm. The patient specifically denies palpitations during the paroxysms. He was diagnosed with paroxysmal atrial fibrillation immediately following his bypass surgery in October 2011. He has been maintained on warfarin, as he developed a DVT and resultant pulmonary embolism back in 2012. Currently, the patient is resting comfortably in bed without complaints of chest pain, dyspnea, or palpitations. PAST MEDICAL HISTORY: 1. Coronary artery disease. 2. Coronary artery bypass surgery x2 -- WHITTAKER to the LAD, SVG to the RCA -- October 2011. 3. Preoperative cardiac catheterization -- 40% proximal LAD, 70% mid LAD, 60% ostial second diagonal, 90% mid RCA, and 50% distal RCA. 4. Negative dobutamine stress test -- November 2015. 5. Paroxysmal atrial fibrillation. 6. Hypertension. 7. Hypercholesterolemia. 8. DVT/PE -- 2012. 9. COPD. 10. Obstructive sleep apnea. 11. Cervical disc disease. 12. Lumbar spinal stenosis. 13. Depression. 14. Dementia. 15. Polymyalgia rheumatica. 16. History of parotid neoplasm. 17. Parkinson's disease. 18. Nephrolithiasis. 19. History of bladder carcinoma. 20. Diverticulosis. 21. DJD. MEDICATIONS: 1. Heparin drip. 2. Coumadin 5 mg daily. 3. Aspirin 81 mg per day. 4. Lipitor 80 mg at bedtime. 5. Lyrica 75 mg b.i.d. 6. Zoloft 25 mg daily. 7. Sinemet 20/550 q.i.d. 8. Mirapex 0.5 mg q.a.m. and 1 m q.p.m. 9. Aricept 5 mg daily. ALLERGIES: PENICILLIN. SOCIAL HISTORY: The patient is and lives with his . Retired. He has been smoking one half pack of cigarettes daily. Occasional use of alcohol. FAMILY HISTORY: Noncontributory realizing his advanced age. REVIEW OF SYSTEMS: A ten-point review of systems was negative except for that described above. PHYSICAL EXAMINATION: GENERAL: This is a well-developed, well-nourished, white male lying supine in bed without complaints. VITAL SIGNS: Blood pressure is 107/70 with a regular pulse of 60. Respiratory rate is 16. The patient is afebrile at 37.0 degrees Celsius and saturation is 95% on room air. HEENT: Negative. NECK: Supple with full carotid upstrokes. There are no carotid bruits. Jugular venous pressure is flat at 90 degrees. There is no thyromegaly. CARDIOVASCULAR: Reveals a regular rhythm with normal S1 and S2. No S3, S4, or murmurs are noted. LUNGS: Clear without rales, rhonchi, or wheezes. ABDOMEN: Soft and nontender without bruits. EXTREMITIES: Reveal intact radial artery pulses bilaterally. There is no peripheral edema. DATA: CBC notes hemoglobin 12.5, hematocrit 36.2, white count 8.8, platelet count 114,000. Electrolytes note a sodium of 142, potassium 3.9, chloride 108, bicarb 28, BUN 14, creatinine 0.87, glucose 81. Three troponin I levels are undetectable at less than 0.015. Three CKs are negative. TSH level is 1.85. BNP is 416. INR is 1.4 with a PTT of 110. Initial EKG notes normal sinus rhythm with an old inferior myocardial infarction pattern and nonspecific T-wave abnormality. EKG during a paroxysm noted atrial fibrillation with a rapid ventricular response. There is an old inferior myocardial infarction and a nonspecific ST and T-wave abnormality. A CT scan of the chest on presentation was negative for any dissection. Chest x-ray shows cardiomegaly. IMPRESSION: Mr. Ramirez has had 3 episodes of paroxysmal atrial fibrillation since his admission. He is completely asymptomatic, according to his report. Agree with use of intravenous heparin, as his INR is supratherapeutic at this time. The patient had previously been on a low dose beta-delfina, however, that was discontinued as he was having difficulty with orthostasis, likely related to his Parkinson's disease. We will leave the decision regarding rate controlling medications to Dr. Heart, as he knows the patient well. It would be reasonable to check a magnesium level. PLAN: 1. Agree with the use of intravenous heparin. 2. Check magnesium level. 3. Further recommendations depending on his clinical course. 4. Dr. Campbell to assume care tomorrow.
[2017-06-11 04:03] VITALS: BP 118/73; PULSE 65; TEMP 36.7; O2SAT 94
[2017-06-11 07:18] LABS: BUN/CREATININE RATIO 15.8 (10-20); CALCIUM 8.4 mg/dl (8.5-10.1); CREATININE 0.98 mg/dl (0.60-1.40); MAGNESIUM 2.2 mg/dl (1.8-2.4); POTASSIUM 4.4 mmol/L (3.5-5.1)
[2017-06-11 07:26] VITALS: BP 116/71; PULSE 59; TEMP 36.5; O2SAT 97
[2017-06-11 07:26] LABS: INR 1.3 (0.9-1.1); PARTIAL THROMBOPLASTIN RATIO 2.9; PROTHROMBIN TIME (PATIENT) 14.5 SECONDS (9.0-12.0)
[2017-06-11] MEDS: LOPERAMIDE HCL 2 MG CAP PO SCH (07:57)
[2017-06-11] MEDS: ATORVASTATIN 40 MG TAB PO SCH (08:01)
[2017-06-11] MEDS: SERTRALINE HCL 50 MG TAB PO SCH (08:01)
[2017-06-11] MEDS: PREGABALIN 75 MG CAP PO SCH (08:01)
[2017-06-11] MEDS: CEROVITE ADV FORMULA TAB PO SCH (08:02)
[2017-06-11] MEDS: CARBIDOPA/LEVODOPA 25-250 1 EA TAB PO SCH ×3 (08:02→15:54)
[2017-06-11] MEDS: PRAMIPEXOLE DIHYDROCHLORIDE 0.5 MG TAB PO SCH ×2 (08:03→14:25)
[2017-06-11] MEDS: CHOLECALCIFEROL 1000 INTER.UNIT TAB PO SCH (08:03)
[2017-06-11] MEDS ORDERED: OPTIRAY 320 IV PRN (08:45)
--- NOTE | 2017-06-11 10:03 | DIAGNOSTIC IMAGING REPORT ---
(CHEST FOR PE) ANGIO WITH CT DOSE: 323.83 mGy.cm HISTORY: 72 years-old Male presents with acute chest pain and history of blood clots. TECHNIQUE: Multiple CTA images of the chest were obtained after the intravenous administration of 118 ml Optiray 320. Coronal and sagittal MIPS were obtained from the axial data set and were submitted for review. A dose lowering technique was utilized adhering to the principles of ALARA. COMPARISON: CTA of the chest 10/27/2012. FINDINGS: CTA: Heart is moderately enlarged with small pericardial effusion measuring up to 7 mm posteriorly. Prior median sternotomy and CABG. [place] coronary arterial calcifications are present. Bovine aortic arch is noted. There is atherosclerotic plaquing of the aorta without dissection or aneurysm identified. The pulmonary arterial tree is well opacified to the proximal subsegmental branches and demonstrates no focal filling defects to suggest pulmonary emboli. CT CHEST: No dominant thyroid nodule is seen. Essentially calcified lymph nodes are seen throughout the mediastinum suggesting prior granulomatous disease. There is no pneumothorax, pleural effusion or focal airspace consolidation. There is mild bibasilar subsegmental atelectasis. 7 x 7 mm mixed attenuating focus along the dependent midthoracic trachea suggest mucosal debris. Layering gallstones are seen within the gallbladder lumen. Punctate calcification involves the mid liver. High attenuating material seen within the stomach. There is severe pancreatic atrophy. Bones appear intact. IMPRESSION: 1. No acute cardiopulmonary process, specifically no acute aortic pathology or evidence of pulmonary thromboembolic disease. 2. Evidence of prior granulomatous disease. 3. Cholelithiasis. 4. Prior median sternotomy and CABG with cardiomegaly and small pericardial effusion. The above report was generated using voice recognition software. It may contain grammatical, syntax or spelling errors. Electronically signed by: Alvino Riddle M.D. 06/11/2017 10:01 AM Dictated Date/Time: 06/11/2017 9:55 AM
[2017-06-11 11:41] VITALS: BP 118/66; PULSE 58; TEMP 36.6; O2SAT 96
[2017-06-11 13:59] LABS: PARTIAL THROMBOPLASTIN RATIO 2.5
[2017-06-11 14:52] VITALS: BP 142/87
[2017-06-11] MEDS ORDERED: METOPROLOL SUCC 25MG EXT REL TAB PO ONE (14:58)
--- NOTE | 2017-06-11 15:33 | CARDIOLOGY PROGRESS NOTE ---
DATE: 06/11/2017 TIME: 15:01 p.m. SUBJECTIVE: Denies chest pain, shortness of breath, syncope, near syncope, or palpitations. OBJECTIVE: VITAL SIGNS: Temperature 36.6 degrees, heart rate 58 beats per minute, but mostly charted in the 60s once in sinus rhythm. Respiratory rate 18, blood pressure 118/66 mmHg, and oxygen saturation 96% on room air. I's and O's positive 120 mL. GENERAL: No acute distress. He is alert. NECK: No JVD. CARDIAC EXAM: No ventricular heave. Regular, normal S1 and S2. No audible murmurs, rubs or gallops. LUNGS: Clear to auscultation bilaterally without wheezes, rales or rhonchi. ABDOMEN: Soft, nontender, and nondistended. Normoactive bowel sounds. No bruits. EXTREMITIES: No cyanosis or edema. PSYCHIATRIC: Affect appears flat. MEDICATIONS: Reviewed. Medications include aspirin 81 mg daily, atorvastatin 80 mg daily, carbidopa/levodopa 1 tab q.i.d., Aricept 5 mg at bedtime, Lyrica 75 mg p.o. b.i.d., Coumadin 3 mg daily, and heparin drip per protocol. Telemetry personally reviewed. Has been in sinus after converting to sinus rhythm yesterday at 13:11 p.m. LABORATORY DATA: INR 1.3. PTT 64. Sodium 142, potassium 4.4, BUN 15, and creatinine 0.98. Troponins negative x3. TSH 1.85. Telemetry personally reviewed as noted above. ECG on 06/10/2017 at 12:20 p.m., personally reviewed. Atrial fibrillation with rapid ventricular response at 106 beats per minute. Inferior infarct. Nonspecific ST abnormality. ECG upon presentation on 06/09/2017 at 14:28, sinus rhythm, 70 beats per minute, nonspecific T-wave abnormality. Possible inferior infarct. CT scan of the chest on 06/11/2017: Report reviewed. No acute cardiopulmonary process such as pulmonary embolism per radiology. Small pericardial effusion also reported. CT images reviewed. CT angiography on 06/09/2017 of aorta: No aortic dissection. These images were also personally reviewed to evaluate for the concern of pericardial effusion. It is not clear if there is a pericardial effusion or a fat pad on personal review. ASSESSMENT AND PLAN: 1. Paroxysmal atrial fibrillation: He did have rapid ventricular response and is not on any rate controlling medications. He was on metoprolol 12.5 mg twice daily, which was discontinued in December during hospitalization when he had orthostatic hypotension and relative hypotension. We will start metoprolol succinate 12.5 mg once daily to see if he tolerates this. His heart rate should tolerate the low dose beta delfina. He is asymptomatic with the atrial arrhythmia. He is already on anticoagulation for stroke risk reduction as he was being treated for his prior thromboembolic event. 2. Chest pain: Chest pain apparently was long lasting and despite this had negative cardiac markers. This is not consistent with ischemic heart disease. No further evaluation from a cardiac standpoint in this regard. 3. Coronary artery disease status post CABG x2: No angina. Can continue antiplatelet therapy, high intensity statin therapy. 4. Hypertension: Blood pressure except acceptable. If he becomes hypotensive or symptomatic with very low dose beta delfina, would discontinue beta delfina, but we will give a trial of beta delfina now. 5. Concern for pericardial effusion: Could be pericardial fat pad. A limited echo will be ordered to further evaluate. 6. Disposition: If no specific concern on limited echo, no further evaluation will be recommended at this time. If there is a pericardial effusion and it truly a small, he does not have any suggestion of tamponade physiology currently and therefore, would just watch as an outpatient. He is currently being bridged with heparin drip due to low INR for his chronic anticoagulation. His was called as per his request; however, she did not answer her home phone or cell phone.
--- NOTE | 2017-06-11 15:56 | Family Medicine Progress Note ---
Progress Note Date of Service Jun 11, 2017. Subjective Pt evaluation today including: conversation w/ patient, conversation w/ family , physical exam, chart review, lab review -Pt still complains of chest pain with inspiration and position change. -Pt denies SOB, cough, edema, syncope -Pt denies fever N/V/D Constitutional: No fever, No chills, No sweats Respiratory: No cough, No sputum, No shortness of breath Cardiovascular: No chest pain, No edema Abdomen: No pain, No nausea, No vomiting, No diarrhea Medications Current Inpatient Medications Medications (Trade) Dose Ordered Sig/Dany Route Start Time Stop Time Status Last Admin Dose Admin Ioversol (Optiray 320) 125 ml UD PRN IV 06/09/17 15:45 06/13/17 15:44 Acetaminophen (Tylenol Tab) 650 mg Q4H PRN PO 06/09/17 20:30 07/09/17 20:29 Al Hydrox/Mg Hydrox/Simethicone (Maalox Max Susp) 15 ml Q4H PRN PO 06/09/17 20:30 07/09/17 20:29 Magnesium Hydroxide (Milk Of Magnesia Susp) 30 ml Q12H PRN PO 06/09/17 20:30 07/09/17 20:29 Ondansetron HCl (Zofran Inj) 4 mg Q6H PRN IV 06/09/17 20:30 07/09/17 20:29 Nitroglycerin (Nitrostat Tab) 0.4 mg UD PRN SL 06/09/17 20:30 07/09/17 20:29 Polyethylene (Miralax Powder Packet) 17 gm DAILY PRN PO 06/09/17 20:30 07/09/17 20:29 Acetaminophen/ Hydrocodone Bitart ([place] 7.5/325 Tab) 1 tab Q4H PRN PO 06/09/17 20:45 06/23/17 20:44 Miscellaneous (Iv Fluids Completed) 1 ea PRN PRN N/A 06/09/17 21:30 06/09/18 21:29 Aspirin (Ecotrin Tab) 81 mg HS PO 06/10/17 21:00 07/10/17 20:59 06/10/17 20:36 81 MG Atorvastatin Calcium (Lipitor Tab) 80 mg HS PO 06/10/17 21:00 07/10/17 20:59 06/11/17 08:01 80 MG Carbidopa/Levodopa (Sinemet 25/ 250MG Tab) 1 tab QID PO 06/10/17 09:00 07/10/17 08:59 06/11/17 14:25 1 TAB Donepezil HCl (Aricept Tab) 5 mg HS PO 06/10/17 21:00 07/10/17 20:59 06/10/17 20:36 5 MG Loperamide HCl (Imodium Cap) 2 mg QAM PO 06/10/17 09:00 07/10/17 08:59 06/10/17 08:24 2 MG Multivitamins/ Minerals (Multivitamin W/ Minerals Tab) 1 tab QAM PO 06/10/17 09:00 07/10/17 08:59 06/11/17 08:02 1 TAB Pramipexole Dihydrochloride (miraPEX TAB) 0.5 mg DAILY@1400 PO 06/10/17 14:00 07/10/17 13:59 06/11/17 14:25 0.5 MG Pramipexole Dihydrochloride (miraPEX TAB) 1 mg HS PO 06/10/17 21:00 07/10/17 20:59 06/10/17 20:37 1 MG Pregabalin (Lyrica Cap) 75 mg BID PO 06/09/17 21:00 07/09/17 20:59 06/11/17 08:01 75 MG Sertraline HCl (Zoloft Tab) 25 mg DAILY PO 06/10/17 09:00 07/10/17 08:59 06/11/17 08:01 25 MG Tramadol HCl (Ultram Tab) 50 mg BID PRN PO 06/09/17 22:00 07/09/17 21:59 Warfarin Sodium (Coumadin Tab) 3 mg DAILY@1600 PO 06/10/17 16:00 07/10/17 15:59 06/10/17 15:49 3 MG Cholecalciferol (Vitamin D Tab) 2,000 inter.unit QAM PO 06/10/17 09:00 07/10/17 08:59 06/11/17 08:03 2,000 INTER.UNIT Heparin Sodium/ Dextrose 500 ml @ 20 mls/hr Q24H PRN IV 06/10/17 01:30 07/10/17 01:29 06/10/17 01:49 27 MLS/HR Ioversol (Optiray 320) 125 ml UD PRN IV 06/11/17 08:45 06/15/17 08:44 Metoprolol Succinate (Toprol Xl Tab) 12.5 mg QAM PO 06/12/17 09:00 07/12/17 08:59 Objective Vital Signs Date Time Temp Pulse Resp B/P (MAP) Pulse Ox O2 Delivery O2 Flow Rate FiO2 06/11/17 15:05 Room Air 06/11/17 11:41 36.6 58 18 118/66 (83) 96 Room Air 06/11/17 11:14 Room Air 06/11/17 08:00 Room Air 06/11/17 07:26 36.5 59 18 116/71 (86) 97 Room Air 06/11/17 04:03 36.7 65 18 118/73 (88) 94 Room Air 06/11/17 04:00 Room Air 06/11/17 00:00 Room Air 06/10/17 23:09 36.5 66 19 109/73 (85) 95 Room Air 06/10/17 20:08 36.6 68 18 113/76 (88) 96 Room Air 06/10/17 20:00 Room Air Physical Exam General Appearance: WD/WN, no apparent distress Eyes: normal inspection, sclerae normal Neck: supple, no adenopathy Respiratory/Chest: chest non-tender, lungs clear, normal breath sounds, no respiratory distress, no accessory muscle use Cardiovascular: regular rate, rhythm, no edema, no gallop, no JVD, no murmur Abdomen: normal bowel sounds, non tender, soft, no organomegaly, no pulsatile mass Neurologic/Psychiatric: alert, normal mood/affect, oriented x 3 Skin: normal color, warm/dry, no rash Laboratory Results 06/11/17 06:29 Test 06/11/17 06:29 06/11/17 13:26 Prothrombin Time 14.5 SECONDS (9.0-12.0) Prothromb Time International Ratio 1.3 (0.9-1.1) Anion Gap 2.0 mmol/L (3-11) Est Creatinine Clear Calc Drug Dose 71.0 ml/min Estimated GFR () 87.7 Estimated GFR (Non- 75.6 BUN/Creatinine Ratio 15.8 (10-20) Calcium Level 8.4 mg/dl (8.5-10.1) Magnesium Level 2.2 mg/dl (1.8-2.4) Activated Partial Thromboplast Time 64.3 SECONDS (21.0-31.0) Partial Thromboplastin Ratio 2.5 Assessment and Plan 72-year-old male presenting with chest pain. New onset Paroxysmal Atrial Fibrillation -Pt was asymptomatic, HR 100-120, BP 90/50 during episodes -Normal TSH -Pt started on 12.5 mg metoprolol succinate once daily per cardio recs Pleuritic Chest pain - Troponin negative 1 - CT for dissection was negative - CT did not show signs of PE - CT did show mild pericardial effusion--ECHO ordered by cardio - Continue IV heparin Subtherapeutic INR - Continue Coumadin 3 mg - monitor PT/INR and titrate accordingly Incidental right lung nodule - Noted on CT scan; surveillance can be done as per guidelines outlined in the imaging report Coronary artery disease - Continue atorvastatin - Continue ASA 81 mg daily - Nitroglycerin when necessary for chest pain Parkinson's disease - Continue Sinemet - Continue Aricept - Continue Mirapex
[2017-06-11] MEDS: WARFARIN SOD 3 MG TAB PO SCH (15:58)
[2017-06-11] MEDS ORDERED: TPRSR25 PO (16:08)
[2017-06-11] MEDS ORDERED: WARFARIN SOD 3 MG TAB PO ONE (16:15)
[2017-06-11 16:19] VITALS: BP 142/87; PULSE 98; TEMP 36.6; O2SAT 96
[2017-06-11 16:48] VITALS: BP 108/77; PULSE 75; TEMP 36.4; O2SAT 95
--- NOTE | 2017-06-11 17:06 | Discharge Instructions ---
Discharge Instructions Date of Service Jun 11, 2017. Admission Reason for Admission: Acs, Chest Pain Discharge Discharge Diagnosis / Problem: Atypical chest pain, atrial fibrillation Discharge Goals Goal(s): Increase independence, Improve disease control Activity Recommendations Activity Limitations: per Instructions/Follow-up section . Instructions / Follow-Up Instructions / Follow-Up Mr. Ramirez, bharath were admitted to the hospital for chest pain. You went through a series of test EKG, ECHO and Chest Ct and it was determined that your pain was not due to a serious heart condition such as a heart attack. We also did not see any evidence that you had a pulmonary embolism. Your pain seems to be what we call pleuritic chest pain, or pain with breathing in or changing position. This could be due to your back pain and increased activity as of late. Although we did not find anything serious during your stay, you were found to have atrial fibrillation. Atrial fibrillation is heart rhythm that can increase your risk for stroke. We gave you a medicine called Metoprolol succinate to control your heart so that you stay out of afib. We also what to be sure that you are adequately anticoagulated. Currently you are on medicine called warfarin for anticoagulation. We found that you INR level is not where we need it to be. When you leave the hospital, you need to: 1. Get your new medications 2. Set up an appointment with Dr. Galaviz to follow-up with hospitalization and to check PT-INR 3. A binder caser will be contacting you to discuss home health 4. Follow up with neurologist regarding Parkinson's symptoms. Current Hospital Diet Patient's current hospital diet: Regular Diet Discharge Diet Recommended Diet: Regular Diet Diet Texture: Dental Soft (bite-sized) Pending Studies Studies pending at discharge: no Laboratory Results Hemoglobin A1c Test 05/25/17 09:11 Range/Units Estimated Average Glucose 111 mg/dl Hemoglobin A1c 5.5 4.5-5.6 % Lipid Panel Test 05/25/17 09:11 Range/Units Triglycerides Level 105 0-150 mg/dl Cholesterol Level 127 0-200 mg/dl HDL Cholesterol 41 mg/dl Cholesterol/HDL Ratio 3.1 LDL Cholesterol, Calculated 65 mg/dl Medical Emergencies . Who to Call and When: Medical Emergencies: If at any time you feel your situation is an emergency, please call 911 immediately. . Non-Emergent Contact Non-Emergency issues call your: Primary Care Provider . . "Provider Documentation" section prepared by Carter Lobato. . VTE Core Measure Inpt VTE Proph given/why not?: Enoxaparin (Lovenox)SQ, Warfarin (Coumadin)
--- NOTE | 2017-06-11 17:16 | ECHOCARDIOGRAM REPORT ---
*NOTICE TO RECEIVING DEMOCRAT AGENCY This information is strictly Confidential and protected under [place] law. [place] law prohibits you from making any further disclosure of this information unless further disclosure is expressly permitted by the written consent of the person to whom it pertains or is authorized by law. A general authorization for the release of medical or other information is not sufficient for this purpose. Hospital accepts no responsibility if the information is made available to any other person, INCLUDING THE PATIENT. Interpretation Summary * Name: BELL WILLSON Study Date: 06/11/2017 03:35 PM BP: 118/66 mmHg * Patient Location: C.2T\S\S242\S\2 HR: 101 * : 1945 (M/d/yyy) Gender: Male Height: 816 in * Age: 72 yrs Ethnicity: CA Weight: 192 lb * Ordering Physician: Ke Campbell * Referring Physician: Self, Referred * Performed By: Haydne Flaherty RCS * * Reason For Study: Pericardial Effusion * BSA: 12.2 m2 * -- Conclusions -- * 1. Normal left ventricular size and systolic function. EF 55-60%. No definite regional wall motion abnormalities, but cannot rule out given quality of study. No significant left ventricular hypertrophy. * 2. Mild biatrial dilation. * 3. No hemodynamically significant pericardial effusion noted. Anterior fat pad noted. * 4. Limited 2D study as per request. Poor to fair quality. Technically difficult study. Procedure Details * The study was technically difficult. * Limited views were obtained. Left Ventricle * Normal left ventricular size and systolic function. EF 55-60%. No definite regional wall motion abnormalities, but cannot rule out given quality of study. No significant left ventricular hypertrophy. Right Ventricle * The right ventricle is normal in size and function. Atria * The left atrium is mildly dilated. * Right atrium not well visualized but appeared mildly dilated. * The thickening of interatrial septum suggests lipomatous hypertrophy. Mitral Valve * The mitral valve is grossly normal. Tricuspid Valve * The tricuspid valve is not well visualized. Aortic Valve * The aortic valve opens well. * The aortic valve is not well visualized. Pulmonic Valve * The pulmonic valve is not well visualized. Great Vessels * The aortic root is normal size. Pericardium/Pleural * No hemodynamically significant pericardial effusion noted. Anterior fat pad noted. Great Vessels * IVC not well visualized. MMode 2D Measurements and Calculations IVSd 0.99 cm LVIDd 4.9 cm LVIDs 3.3 cm LVPWd 1.1 cm IVS/LVPW 0.92 FS 33.6 % EDV(Teich) 112.4 ml ESV(Teich) 42.5 ml EF(Teich) 62.1 % EDV(cubed) 117.0 ml ESV(cubed) 34.3 ml EF(cubed) 70.7 % LV mass(C)d 183.1 grams LV mass(C)dI 15.0 grams/m\S\2 SV(Teich) 69.8 ml SI(Teich) 5.7 ml/m\S\2 SV(cubed) 82.7 ml SI(cubed) 6.8 ml/m\S\2 Ao root diam 4.0 cm Ao root area 12.4 cm\S\2
--- NOTE | 2017-06-11 21:01 | Discharge Summary ---
Discharge Summary Date of Service Jun 11, 2017. (Carter Lobato M.D.) Discharge Summary Admission Date: Jun 09, 2017 at 21:27 Discharge Date: Jun 11, 2017 Principal Diagnosis: Atypical chest pain, afib Immunizations: Have You Had Influenza Vaccine: Yes Influenza Vaccine Date: Jun 27, 2013 History of Tetanus Vaccine?: Yes History of Pneumococcal: Yes History of Hepatitis B Vaccine: Unknown (Carter Lobato M.D.) Medication Reconciliation New Medications: Metoprolol Succinate (Metoprolol Succinate ER) 25 Mg Tabcr 12.5 MG PO QAM for 30 Days, #15 TAB Continued Medications: Aspirin (Aspirin Ec) 81 Mg Tab 81 MG PO HS Atorvastatin (Lipitor) 80 Mg Tab 80 MG PO HS, TAB Carbidopa/Levodopa (Sinemet 25MG/250MG) Tab 1 TAB PO QID, TAB Cholecalciferol (Vitamin D) 2,000 Unit Cap 2000 UNIT PO QAM Donepezil Hydrochloride (Donepezil Hcl) 5 Mg Tab 5 MG PO HS, 5 Refills Kagqrapmigt-Ywzjlpwdiua-Blo C- (Glucosamine Chondroitin) 1 Tab Tab 1 TAB PO BID Loperamide Hcl (Imodium) 2 Mg Cap 2 MG PO QAM, CAP Multiple Vitamins W/ Minerals (Centrum Silver Adult 50+) 1 Tab Tab 1 TAB PO QAM Nitroglycerin (Nitrostat) 0.4 Mg Tab 0.4 MG SL UD PRN for Chest Pain, 0 Refills EVERY 5 MINUTES TIMES 3 Omeprazole (Prilosec) 20 Mg Capcr 20 MG PO QAM, 0 Refills Pramipexole Dihydrochloride (Mirapex) 0.5 Mg Tab 0.5 MG PO daily at 2pmwi Pramipexole Dihydrochloride (Mirapex) 0.5 Mg Tab 1 MG PO HS Pregabalin (Lyrica) 75 Mg Cap 75 MG PO AMPM Probiotic Product (Probiotic) 1 Cap Cap 1 CAP PO TID Sertraline (Zoloft) 50 Mg Tab 25 MG PO daily at 2pm, 0 Refills Tramadol (Ultram) 50 Mg Tab 50 MG PO BID PRN for Pain Warfarin Sodium (Coumadin) 3 Mg Tab 3 MG PO DAILY Discharge Exam Review of Systems: Constitutional: No fever, No chills, No sweats Respiratory: No cough, No sputum, No wheezing, No shortness of breath, No dyspnea on exertion, No dyspnea at rest Cardiovascular: + chest pain Abdomen: No pain, No nausea, No vomiting, No diarrhea Genitourinary - Male: No hematuria, No dysuria, No urinary frequency Physical Exam: General Appearance: WD/WN, no apparent distress Eyes: normal inspection Neck: supple, no adenopathy Respiratory/Chest: chest non-tender, lungs clear, normal breath sounds, no respiratory distress, no accessory muscle use Cardiovascular: regular rate, rhythm, no edema, no gallop, no JVD, no murmur Abdomen / GI: normal bowel sounds, non tender, soft, no organomegaly, no pulsatile mass Neurologic/Psychiatric: alert, normal mood/affect, oriented x 3 Skin: normal color, warm/dry, no rash (Carter Lobato M.D.) chest pain much improved. still with some pain on both sides of his chest though Review of Systems: Constitutional: No fever Respiratory: No shortness of breath Cardiovascular: No chest pain Abdomen: No pain Physical Exam: General Appearance: no apparent distress Respiratory/Chest: lungs clear, no respiratory distress Cardiovascular: regular rate, rhythm Neurologic/Psychiatric: alert, oriented x 3 Skin: warm/dry (Cailin Flaherty M.D.) Hospital Course Mr. Ramirez was admitted to [facility] on 22Aug and evaluated for chest pain. The patient has a past medical history significant for CAD and CABG in 2012. The patient's chest pain began after a couple days of increased physical activity as he was preparing for the [employer]. Throughout the hospitalization , he described the pain as a constant pain that worsened with inspiration and cough. The pain is nonexertional. In the ED, the patient was worked up for potential causes of chest pain: IA and aortic dissection. CT and troponin were both negative. Pt was admitted for a cardiology workup. In addition, investigations for PE were done. CT PE was performed [address] dissection. No evidence of PE was noted on imaging. During the hospitalization, pt had a few episodes of afib with a rate of 100- 120. Afib would spontaneously convert back to NSR. The patients cariologist, Dr. Campbell evaluated the patient and treated his Afib with metoprolol succinate 12.5mg. Pt has been on metoprolol previously and experienced hypotension. Pt current treatment is seen as a trial. ECHO showed EF of 55-60%. In addition Mr. Saucedo was found to have a subtherapeutic INR (1.3) on 3 mg of warfarin. During the hospitalization, he was started on IV heparin. On the last day of hospitalization, pt was given an extra dose of warfarin, 6mg total. Pt was sent home with instructions to f/u with his primary Dr. Galaviz on Thursday to reaccess his INR and determine anti-coagulation regimen going forward. Total Time Spent: Less than 30 minutes This includes examination of the patient, discharge planning, medication reconciliation, and communication with other providers. (Carter Lobato M.D.) Resident Physician Supervision Note: I was present with Dr. Lobato in bedside. I verified the hernandez history and physical, reviewed labs and image studies, discussed the case with the resident and agree with the findings and care plan. With known DDD - pain possibly radicular. Total Time Spent: Greater than 30 minutes (40) (Cailin Flaherty M.D.) Discharge Instructions Please refer to the electronic Patient Visit Report (Discharge Instructions) for additional information. (Carter Lobato M.D.) Additional Copies To Isak Galaviz M.D.
[2017-06-12] MEDS ORDERED: METOPROLOL SUCC 25MG EXT REL TAB PO SCH (09:00)
== END 2017-06-11 18:32 | disposition home health service (06) | DRG 204 ==
LOC: EDBD 14:18 → C.EDB 14:19 → ENRESERV 20:32 → C.2T 21:27 → EDBEDREQ 21:36
PROVIDERS: ADMIT Student in an Organized Health Care Education/Training Program; ATTEND Family Medicine
DX: R07.81 Pleurodynia (principal); I31.3 Pericardial effusion (noninflammatory); I48.0 Paroxysmal atrial fibrillation; R79.1 Abnormal coagulation profile; R91.1 Solitary pulmonary nodule; I25.10 Atherosclerotic heart disease of native coronary artery without angina pectoris; I25.2 Old myocardial infarction; I11.9 Hypertensive heart disease without heart failure; G20 Parkinson's disease; E78.5 Hyperlipidemia, unspecified; F32.9 Major depressive disorder, single episode, unspecified; K21.9 Gastro-esophageal reflux disease without esophagitis; J44.9 Chronic obstructive pulmonary disease, unspecified; G25.81 Restless legs syndrome; F17.290 Nicotine dependence, other tobacco product, uncomplicated; F17.210 Nicotine dependence, cigarettes, uncomplicated; Z79.899 Other long term (current) drug therapy; Z79.01 Long term (current) use of anticoagulants; Z79.82 Long term (current) use of aspirin; Z95.1 Presence of aortocoronary bypass graft; Z86.718 Personal history of other venous thrombosis and embolism; Z86.711 Personal history of pulmonary embolism; Z85.51 Personal history of malignant neoplasm of bladder; Z82.49 Family history of ischemic heart disease and other diseases of the circulatory system

== ENCOUNTER → 2017-07-06 | Outpatient (CLI) | payer OTHER ==
[~2017-07-06] MED LIST changes: +TPRSR25 PO
[2017-07-06 17:49] LABS: BLOOD UREA NITROGEN 17 mg/dl (7-18)
[2017-07-06 18:23] LABS: BASO % 0.4 %; BASO ABS # 0.03 K/uL (0-0.2); COMPLETE YES; EOS % 3.4 %; IG% 0.1 %; LYMPH % 30.2 %; LYMPH ABS # 2.04 K/uL (1.2-3.4); MEAN CELL VOLUME 93.2 fL (80-100); MEAN CORPUSCULAR HEMOGLOBIN 30.2 pg (25-34); MEAN CORPUSCULAR HGB CONC 32.4 g/dl (32-36); MEAN PLATELET VOLUME 12.2 fL (7.4-10.4); MONO % 7.1 %; NEUT % 58.8 %; PLATELET COUNT 127 K/uL (130-400); PLT ESTIMATE DECREASED; RED BLOOD COUNT 3.97 M/uL (4.7-6.1); WHITE BLOOD COUNT 6.75 K/uL (4.8-10.8)
== END | disposition home or self-care (01) ==
LOC: C.LABBFT 15:02
DX: D64.9 Anemia, unspecified (principal); N40.0 Benign prostatic hyperplasia without lower urinary tract symptoms; K11.9 Disease of salivary gland, unspecified

== ENCOUNTER → 2017-07-07 | Outpatient (CLI) | payer OTHER ==
[~2017-07-07] MED LIST changes: +GADAVIST IV PRN
--- NOTE | 2017-07-07 14:17 | DIAGNOSTIC IMAGING REPORT ---
MRI OF THE NECK WITH AND WITHOUT CONTRAST CLINICAL HISTORY: Right parotid mass. COMPARISON STUDY: MRI of the neck August 26, 2016. TECHNIQUE: Utilizing 1.5 Jessica magnet and dedicated coil, multiplanar, multiecho imaging of the neck was performed pre and postcontrast administration. Injection of 8.5 cc of Gadavist IV was uneventful. FINDINGS: The 1.8 cm T2 hyperintense right parotid gland lesion is unchanged since MRI of August 26, 2016 and only minimally increased in size since MRI of August 25, 2014. This contains a fluid fluid level. There is thin peripheral enhancement and possible enhancement within the posterior aspect of this lesion. This lesion is unchanged. There is no cervical lymphadenopathy. No additional salivary gland lesions are identified. No mucosal lesion is identified although these may be occult by MRI. There is mild mucosal thickening of the right maxillary sinus. IMPRESSION: 1. No change in the 1.8 cm cystic right parotid gland lesion since MRI of August 26, 2016 and only slight increase in size since MRI of August 25, 2014. 2. No cervical lymphadenopathy. Electronically signed by: Errol Dempsey M.D. 07/07/2017 2:16 PM Dictated Date/Time: 07/07/2017 11:23 AM
== END | disposition home or self-care (01) ==
LOC: C.MRI 09:35
DX: K11.9 Disease of salivary gland, unspecified (principal)

== ENCOUNTER 2017-11-17 10:46 | Inpatient (IN) | payer OTHER ==
[~2017-11-17] VITALS: Ht 172.7 cm; Wt 98.2 kg
[~2017-11-17 10:46] MED LIST changes: +ACET-1256 PO; -GADAVIST IV PRN; -SERT50TA PO; +WARF1TAB PO
--- NOTE | 2017-11-17 11:14 | EMERGENCY ROOM VISIT NOTE ---
History Report prepared by Oscar: Gatito Sanabria Under the Supervision of: Dr. Reese Emaunel M.D. First contact with patient: 11:01 Chief Complaint: COUGH Stated Complaint: EXPORATING BRIGHT & RED BLOOD History of Present Illness The patient is a 72 year old male who presents to the Emergency Room with complaints of a cough that began yesterday. He has a past medical history of CAD , hyperlipidemia, CABG, PR, bladder cancer, COPD, PE, Parkinson's disease, and DVT. The patient states he has a chronic cough whenever he bends over. However, yesterday he began to cough more than his baseline and has now become short of breath. Today, he had two episodes of hemoptysis which has never happened before. He describes this as bright red blood. He is on Coumadin and a baby Aspirin daily. His last INR level was found to be 3.1. He denies any fevers, chest pain, or any other abnormal symptoms. Source of History: patient Onset: yesterday Position: other (Respiratory System) Symptom Intensity: moderate Quality: other (Cough) Timing: intermittent Associated Symptoms: + SOB, No fevers, No chest pain Note: He had two episodes of hemoptysis earlier today. Review of Systems See HPI for pertinent positives & negatives. A total of 10 systems reviewed and were otherwise negative. Past Medical & Surgical Medical Problems: (1) ACS (acute coronary syndrome) (2) Altered mental status (3) Bladder carcinoma (4) Chest pain (5) Coronary artery bypass grafts x 2 (6) Coronary artery disease (7) Coronary bypass surgery (8) History of DVT (deep vein thrombosis) (9) History of pulmonary embolism (10) Hyperlipidemia (11) Hypotension (12) Increased ammonia level (13) Kidney stone (14) Myocardial infarction (15) Paroxysmal atrial fibrillation (16) Shortness of breath (17) Syncope Family History Cancer Heart disease Hypertension Social History Smoking Status: Current Every Day Smoker Alcohol Use: occasionally Drug Use: none Marital Status: Housing Status: lives with family Occupation Status: retired Current/Historical Medications Scheduled Acetaminophen (Tylenol), 500 MG PO DAILY Albuterol Hfa (Ventolin Hfa), 2-4 PUFFS INH DAILY Aspirin (Aspirin Ec), 81 MG PO HS Atorvastatin (Lipitor), 80 MG PO HS Carbidopa/Levodopa (Sinemet 25MG/250MG), 1 TAB PO QID Cholecalciferol (Vitamin D), 2,000 UNIT PO QAM Donepezil Hydrochloride (Donepezil Hcl), 5 MG PO HS Phpqeibslxy-Oyctrmssodl-Omk C- (Glucosamine Chondroitin), 1 TAB PO BID Loperamide Hcl (Imodium), 2 MG PO QAM Metoprolol Succinate (Metoprolol Succinate ER), 12.5 MG PO QAM Omeprazole (Prilosec), 20 MG PO QAM Pramipexole Dihydrochloride (Mirapex), 0.5 MG PO daily at 2pmwi Pramipexole Dihydrochloride (Mirapex), 1 MG PO HS Pregabalin (Lyrica), 75 MG PO AMPM Warfarin Sodium (Coumadin), 3 MG PO 5XWK Scheduled PRN Nitroglycerin (Nitrostat), 0.4 MG SL UD PRN for Chest Pain Tramadol (Ultram), 50 MG PO BID PRN for Pain Allergies Coded Allergies: Penicillins (Verified Allergy, Severe, RASH,SWELLING, 11/17/17) IV PENICILLINS Physical Exam Vital Signs Date Time Temp Pulse Resp B/P (MAP) Pulse Ox O2 Delivery O2 Flow Rate FiO2 11/17/17 14:10 54 18 132/72 96 Room Air 11/17/17 12:17 62 18 123/73 97 Room Air 11/17/17 11:33 54 11/17/17 11:16 95 Room Air 11/17/17 11:16 Room Air 11/17/17 10:57 36.6 55 20 136/94 96 Room Air Physical Exam GENERAL: Patient is in no acute distress. HEENT: No acute trauma, normocephalic atraumatic, mucous membranes moist, no nasal congestion, no scleral icterus. NECK: No stridor, no adenopathy, no meningismus, trachea is midline. LUNGS: Clear to auscultation bilaterally, no wheeze, no rhonchi, breath sounds equal. HEART: Without murmurs gallops or rubs, regular rate and rhythm. ABDOMEN: Soft, nontender, bowel sounds positive, no hernias, no peritonitis. EXTREMITIES: No cyanosis or edema, full range of motion of all the joints without pain or difficulty, no signs for acute trauma. NEUROLOGIC: Awake and alert. Moving all extremities. Some dementia noted. SKIN: No rash, no jaundice, no diaphoresis. Medical Decision & Procedures ER Provider Diagnostic Interpretation: Radiology results as stated below per my review and radiologist interpretation: CT ANGIOGRAPHY OF THE CHEST, PULMONARY EMBOLUS PROTOCOL CLINICAL HISTORY: Chest pain. Hemoptysis. COMPARISON STUDY: Chest CT June 11, 2017. TECHNIQUE: Following IV administration of 94 mL of Optiray-320, helical axial images of the chest were obtained utilizing the pulmonary embolus protocol. Maximal intensity projections and sagittal and coronal reformats were viewed on an independent 3D workstation. IV contrast was administered without complication. A dose lowering technique was utilized adhering to the principles of ALARA. CT DOSE: 586.25 mGy.cm FINDINGS: No pulmonary emboli are identified. The heart is moderately enlarged. There is no pericardial effusion. There are median sternotomy wires and post operative findings consistent with bypass grafting. Thoracic cortical opacification is suboptimal but there is no evidence for dissection on this exam. Caliber of the thoracic aorta is normal. No enlarged axillary, mediastinal or hilar lymph nodes are present. There are calcified mediastinal and bilateral hilar lymph nodes. There are no enlarged lymph nodes. There is no pneumothorax or pleural effusion. Central airways are patent. There is no consolidation. Visualized portions of the upper abdomen demonstrate pancreatic glandular atrophy and gallstones. Fat-containing ventral hernias noted. IMPRESSION: 1. No pulmonary emboli identified. 2. No acute intrathoracic findings. 3. Moderate cardiomegaly. 4. Cholelithiasis. Electronically signed by: Errol Dempsey M.D. 11/17/2017 1:33 PM Dictated Date/Time: 11/17/2017 1:27 PM CHEST ONE VIEW PORTABLE HISTORY: EVALUATE RESPIRATORY DISTRESS.DYSPNEA COMPARISON: Chest 06/09/2017. FINDINGS: The heart remains mildly enlarged. There are poststernotomy changes. No pleural effusions. No pneumothorax. There are low lung volumes. No focal lung consolidations. No evidence for pulmonary edema. IMPRESSION: Low lung volumes with stable mild cardiomegaly. No acute process within the chest. Electronically signed by: Cameron Coelho M.D. 11/17/2017 11:30 AM Dictated Date/Time: 11/17/2017 11:27 AM Laboratory Results 11/17/17 11:19 Red Blood Count 4.16, Mean Corpuscular Volume 93.0, Mean Corpuscular Hemoglobin 31.0, Mean Corpuscular Hemoglobin Concent 33.3, Mean Platelet Volume 11.4, Neutrophils (%) (Auto) 68.6, Lymphocytes (%) (Auto) 20.3, Monocytes (%) (Auto) 6.2, Eosinophils (%) (Auto) 4.3, Basophils (%) (Auto) 0.4, Neutrophils # (Auto) 5.75, Lymphocytes # (Auto) 1.70, Monocytes # (Auto) 0.52, Eosinophils # (Auto) 0.36, Basophils # (Auto) 0.03 11/17/17 11:19 Test 11/17/17 11:19 White Blood Count 8.38 K/uL (4.8-10.8) Red Blood Count 4.16 M/uL (4.7-6.1) Hemoglobin 12.9 g/dL (14.0-18.0) Hematocrit 38.7 % (42-52) Mean Corpuscular Volume 93.0 fL (80-100) Mean Corpuscular Hemoglobin 31.0 pg (25-34) Mean Corpuscular Hemoglobin Concent 33.3 g/dl (32-36) Platelet Count 126 K/uL (130-400) Mean Platelet Volume 11.4 fL (7.4-10.4) Neutrophils (%) (Auto) 68.6 % Lymphocytes (%) (Auto) 20.3 % Monocytes (%) (Auto) 6.2 % Eosinophils (%) (Auto) 4.3 % Basophils (%) (Auto) 0.4 % Neutrophils # (Auto) 5.75 K/uL (1.4-6.5) Lymphocytes # (Auto) 1.70 K/uL (1.2-3.4) Monocytes # (Auto) 0.52 K/uL (0.11-0.59) Eosinophils # (Auto) 0.36 K/uL (0-0.5) Basophils # (Auto) 0.03 K/uL (0-0.2) RDW Standard Deviation 46.9 fL (36.4-46.3) RDW Coefficient of Variation 13.8 % (11.5-14.5) Immature Granulocyte % (Auto) 0.2 % Immature Granulocyte # (Auto) 0.02 K/uL (0.00-0.02) Prothrombin Time 24.1 SECONDS (9.0-12.0) Prothromb Time International Ratio 2.3 (0.9-1.1) Activated Partial Thromboplast Time 37.0 SECONDS (21.0-31.0) Partial Thromboplastin Ratio 1.4 Anion Gap 6.0 mmol/L (3-11) Est Creatinine Clear Calc Drug Dose 68.8 ml/min Estimated GFR () 78.8 Estimated GFR (Non- 68.0 BUN/Creatinine Ratio 13.7 (10-20) Calcium Level 8.3 mg/dl (8.5-10.1) Total Bilirubin 0.6 mg/dl (0.2-1) Aspartate Amino Transf (AST/SGOT) 21 U/L (15-37) Alanine Aminotransferase (ALT/SGPT) 18 U/L (12-78) Alkaline Phosphatase 104 U/L (45-117) Troponin I < 0.015 ng/ml (0-0.045) Total Protein 7.1 gm/dl (6.4-8.2) Albumin 3.4 gm/dl (3.4-5.0) Globulin 3.7 gm/dl (2.5-4.0) Albumin/Globulin Ratio 0.9 (0.9-2) Laboratory results reviewed by me. ECG Indication: SOB/dyspnea Rate (beats per minute): 56 Rhythm: sinus bradycardia Findings: nonspecific-ST abn, PVC, no acute ischemic change Change: ECG interpreted by me ED Course 1101: The patient was evaluated in room A10. A complete history and physical exam was performed. 1354: I spoke with Dr. Biswas of Cardiovascular at this time. He would like the patient to be treated as an inpatient by a hospitalist service for further observation and treatment. 1358: Upon reexamination the patient is resting. I discussed results and treatment plan with the patient and his . They verbalize agreement and understanding. I spoke with Dr. Shoemaker of the [facility] [place]. We discussed the patient's results and findings. The patient will be evaluated by them for further management. Medical Decision Differential diagnosis includes but is not limited to bronchitis, elevated INR, coagulopathy, anemia, pneumonia, PE, and malignancy. There is no leukocytosis or worrisome anemia. No significant electrolyte abnormality, kidney failure or hepatitis. EKG shows a sinus rhythm, no acute ischemia. Cardiac enzyme testing 1 is not consistent with acute cardiac injury. Chest film does not show pneumonia or CHF. Chest CT does not show PE, no evidence for mass. INR is therapeutic. The patient presents with hemoptysis. He is anticoagulated. The cause for the hemoptysis is not clear. I discussed the case with cardiothoracic surgery. They did recommend a hospital stay for possible further workup, even bronchoscopy. I spoke to the patient and case management. The on-call hospitalist was consulted. Medication Reconcilliation Current Medication List: was personally reviewed by me Blood Pressure Screening Patient's blood pressure: Normal blood pressure Blood pressure disposition: Did not require urgent referral Consults Time Called: 1350 Consulting Physician: Dr. Biswas - Cardiovascular Returned Call: [phone] They would like the patient to be treated as an inpatient with a hospitalist service. Additional Consults: Time Called: 1356 Consulted Physician: Dr. Shoemaker - [facility] [place] Returned Call: [phone] Additional Comments: Discussed the patient's case. The patient will be evaluated for further management. Impression Primary Impression: Hemoptysis Additional Impression: Anticoagulated Scribe Attestation The scribe's documentation has been prepared under my direction and personally reviewed by me in its entirety. I confirm that the note above accurately reflects all work, treatment, procedures, and medical decision making performed by me. Departure Information Dispostion Being Evaluated By Hospitalist Referrals Isak Galaviz M.D. (PCP) Patient Instructions My [facility] Problem Qualifiers
[2017-11-17] MEDS ORDERED: OPTIRAY 320 IV PRN (11:15)
[2017-11-17 11:30] LABS: BASO % 0.4 %; BASO ABS # 0.03 K/uL (0-0.2); EOS % 4.3 %; EOS ABS # 0.36 K/uL (0-0.5); HEMATOCRIT 38.7 % (42-52); HEMOGLOBIN 12.9 g/dL (14.0-18.0); IG# 0.02 K/uL (0.00-0.02); LYMPH % 20.3 %; MEAN CORPUSCULAR HGB CONC 33.3 g/dl (32-36); MEAN PLATELET VOLUME 11.4 fL (7.4-10.4); MONO % 6.2 %; MONO ABS # 0.52 K/uL (0.11-0.59); NEUT % 68.6 %; NEUT ABS # 5.75 K/uL (1.4-6.5); PLATELET COUNT 126 K/uL (130-400); RED CELL DISTRIBUTION WIDTH CV 13.8 % (11.5-14.5); RED CELL DISTRIBUTION WIDTH SD 46.9 fL (36.4-46.3); WHITE BLOOD COUNT 8.38 K/uL (4.8-10.8)
--- NOTE | 2017-11-17 11:31 | DIAGNOSTIC IMAGING REPORT ---
CHEST ONE VIEW PORTABLE HISTORY: EVALUATE RESPIRATORY DISTRESS.DYSPNEA COMPARISON: Chest 06/09/2017. FINDINGS: The heart remains mildly enlarged. There are poststernotomy changes. No pleural effusions. No pneumothorax. There are low lung volumes. No focal lung consolidations. No evidence for pulmonary edema. IMPRESSION: Low lung volumes with stable mild cardiomegaly. No acute process within the chest. Electronically signed by: Cameron Coelho M.D. 11/17/2017 11:30 AM Dictated Date/Time: 11/17/2017 11:27 AM
[2017-11-17 11:42] LABS: INR 2.3 (0.9-1.1)
[2017-11-17 11:51] LABS: ALBUMIN 3.4 gm/dl (3.4-5.0); ALT/SGPT 18 U/L (12-78); BLOOD UREA NITROGEN 15 mg/dl (7-18); CALCIUM 8.3 mg/dl (8.5-10.1); CARBON DIOXIDE 27 mmol/L (21-32); CREATININE 1.07 mg/dl (0.60-1.40); GLUCOSE 106 mg/dl (70-99); POTASSIUM 4.1 mmol/L (3.5-5.1); SODIUM 141 mmol/L (136-145)
[2017-11-17 11:56] LABS: ALKALINE PHOSPHATASE 104 U/L (45-117); AST/SGOT 21 U/L (15-37); TOTAL PROTEIN 7.1 gm/dl (6.4-8.2)
[2017-11-17] MEDS ORDERED: VNTHFA/IN INH (11:58)
--- NOTE | 2017-11-17 13:34 | DIAGNOSTIC IMAGING REPORT ---
CT ANGIOGRAPHY OF THE CHEST, PULMONARY EMBOLUS PROTOCOL CLINICAL HISTORY: Chest pain. Hemoptysis. COMPARISON STUDY: Chest CT June 11, 2017. TECHNIQUE: Following IV administration of 94 mL of Optiray-320, helical axial images of the chest were obtained utilizing the pulmonary embolus protocol. Maximal intensity projections and sagittal and coronal reformats were viewed on an independent 3D workstation. IV contrast was administered without complication. A dose lowering technique was utilized adhering to the principles of ALARA. CT DOSE: 586.25 mGy.cm FINDINGS: No pulmonary emboli are identified. The heart is moderately enlarged. There is no pericardial effusion. There are median sternotomy wires and post operative findings consistent with bypass grafting. Thoracic cortical opacification is suboptimal but there is no evidence for dissection on this exam. Caliber of the thoracic aorta is normal. No enlarged axillary, mediastinal or hilar lymph nodes are present. There are calcified mediastinal and bilateral hilar lymph nodes. There are no enlarged lymph nodes. There is no pneumothorax or pleural effusion. Central airways are patent. There is no consolidation. Visualized portions of the upper abdomen demonstrate pancreatic glandular atrophy and gallstones. Fat-containing ventral hernias noted. IMPRESSION: 1. No pulmonary emboli identified. 2. No acute intrathoracic findings. 3. Moderate cardiomegaly. 4. Cholelithiasis. Electronically signed by: Errol Dempsey M.D. 11/17/2017 1:33 PM Dictated Date/Time: 11/17/2017 1:27 PM
[2017-11-17] MEDS ORDERED: NITROGLYCERIN 0.4 MG SL PER TAB CHARGE SL PRN (14:30)
[2017-11-17] MEDS ORDERED: ACETAMINOPHEN 325 MG TAB PO PRN (14:30)
[2017-11-17] MEDS ORDERED: POLYETHYLENE (MIRALAX) 17 GM PACK PO PRN (14:30)
[2017-11-17] MEDS ORDERED: ONDANSETRON INJ 2 MG/ML 2 ML VIAL IV PRN (14:30)
[2017-11-17] MEDS ORDERED: TRAMADOL HCL 50 MG TAB PO PRN (14:30)
[2017-11-17] MEDS ORDERED: MAGNESIUM HYDROXIDE SUSP 30 ML UDC PO PRN (14:30)
[2017-11-17] MEDS ORDERED: ALUMINUM/MAGNESIUM/SIMETH (MAALOX MAX) 30 ML UDC PO PRN (14:30)
[2017-11-17] MEDS ORDERED: IV FLUIDS COMPLETED PRN (14:45)
--- NOTE | 2017-11-17 14:50 | History and Physical ---
History & Physical Date & Time of Service: Nov 17, 2017 at 14:37 Chief Complaint: Exporating Bright & Red Blood Primary Care Physician: Isak Galaviz M.D. History of Present Illness Source: patient, family, clinic records, hospital records Patient is a pleasant 72 y/o male, with PMHx of CAD s/p CABG, HLD, HTN, COPD, paroxysmal a.fib, h/o PE/DVT, bladder carcinoma, Parkinson's disease, dementia, depression, and GERD, who presented to the ED because of hemoptysis x2 episodes. First episode was this AM around 0930. He denies any sputum production w/ the blood. He has never experienced anything like this before. states this episode occurred prior to eating today. He does have a h/o of dysphagia for which his follows strict aspiration precautions- no recent issues w/ eating/drinking. He smokes 3-4 cigars per day. He was otherwise been feeling well. Patient denies any fever, chills, sweats, lightheadedness, dizziness, vision changes, CP, palpitations, edema, SOB, wheezing, cough, abdominal pain, nausea, vomiting, diarrhea, urinary symptoms, melena, numbness/tingling, weakness, muscle/joint pain, anxiety/depression, active bleeding, or new skin discoloration/changes. Past Medical/Surgical History Medical Problems: CAD s/p CABG x2 vessel in 2011 HLD HTN COPD paroxysmal a.fib h/o PE/DVT in 2012 bladder carcinoma Parkinson's disease dementia depression GERD tobacco abuse Family History Cancer Heart disease Hypertension Social History Smoking Status: Current Every Day Smoker Drug Use: none Marital Status: Housing status: lives with family Occupational Status: retired Immunizations History of Influenza Vaccine: Yes Influenza Vaccine Date: Jun 27, 2013 History of Tetanus Vaccine?: Yes History of Pneumococcal: Yes History of Hepatitis B Vaccine: Unknown Multi-Drug Resistant Organisms History of MDRO: No Allergies Coded Allergies: Penicillins (Verified Allergy, Severe, RASH,SWELLING, 11/17/17) IV PENICILLINS Home Medications Scheduled Acetaminophen (Tylenol), 500 MG PO DAILY Albuterol Hfa (Ventolin Hfa), 2-4 PUFFS INH DAILY Aspirin (Aspirin Ec), 81 MG PO HS Atorvastatin (Lipitor), 80 MG PO HS Carbidopa/Levodopa (Sinemet 25MG/250MG), 1 TAB PO QID Cholecalciferol (Vitamin D), 2,000 UNIT PO QAM Donepezil Hydrochloride (Donepezil Hcl), 5 MG PO HS Fquzishzmbu-Kpwxgqwykkr-Lxf C- (Glucosamine Chondroitin), 1 TAB PO BID Loperamide Hcl (Imodium), 2 MG PO QAM Metoprolol Succinate (Metoprolol Succinate ER), 12.5 MG PO QAM Omeprazole (Prilosec), 20 MG PO QAM Pramipexole Dihydrochloride (Mirapex), 0.5 MG PO daily at 2pmwi Pramipexole Dihydrochloride (Mirapex), 1 MG PO HS Pregabalin (Lyrica), 75 MG PO AMPM Warfarin Sodium (Coumadin), 3 MG PO 5XWK Scheduled PRN Nitroglycerin (Nitrostat), 0.4 MG SL UD PRN for Chest Pain Tramadol (Ultram), 50 MG PO BID PRN for Pain Physical Exam Vital Signs Date Time Temp Pulse Resp B/P (MAP) Pulse Ox O2 Delivery O2 Flow Rate FiO2 11/17/17 14:10 54 18 132/72 96 Room Air 11/17/17 12:17 62 18 123/73 97 Room Air 11/17/17 11:33 54 11/17/17 11:16 95 Room Air 11/17/17 11:16 Room Air 11/17/17 10:57 36.6 55 20 136/94 96 Room Air General Appearance: no apparent distress, + obese Head: normocephalic, atraumatic Eyes: normal inspection, PERRL ENT: hearing grossly normal, pharynx normal Neck: supple Respiratory/Chest: no respiratory distress, no accessory muscle use, + crackles (bilateral lung bases ) Cardiovascular: + bradycardia (rhythm regular ) Abdomen/GI: normal bowel sounds, non tender, soft Back: normal inspection Extremities/Musculoskelatal: no calf tenderness, no pedal edema Neurologic/Psych: alert, oriented x 3, + pertinent finding (flat affect ) Skin: normal color, warm/dry, no rash Diagnostics Laboratory Results Results Past 24 Hours Test 11/17/17 11:19 Range/Units White Blood Count 8.38 4.8-10.8 K/uL Red Blood Count 4.16 4.7-6.1 M/uL Hemoglobin 12.9 14.0-18.0 g/dL Hematocrit 38.7 42-52 % Mean Corpuscular Volume 93.0 80-100 fL Mean Corpuscular Hemoglobin 31.0 25-34 pg Mean Corpuscular Hemoglobin Concent 33.3 32-36 g/dl Platelet Count 126 130-400 K/uL Mean Platelet Volume 11.4 7.4-10.4 fL Neutrophils (%) (Auto) 68.6 % Lymphocytes (%) (Auto) 20.3 % Monocytes (%) (Auto) 6.2 % Eosinophils (%) (Auto) 4.3 % Basophils (%) (Auto) 0.4 % Neutrophils # (Auto) 5.75 1.4-6.5 K/uL Lymphocytes # (Auto) 1.70 1.2-3.4 K/uL Monocytes # (Auto) 0.52 0.11-0.59 K/uL Eosinophils # (Auto) 0.36 0-0.5 K/uL Basophils # (Auto) 0.03 0-0.2 K/uL RDW Standard Deviation 46.9 36.4-46.3 fL RDW Coefficient of Variation 13.8 11.5-14.5 % Immature Granulocyte % (Auto) 0.2 % Immature Granulocyte # (Auto) 0.02 0.00-0.02 K/uL Prothrombin Time 24.1 9.0-12.0 SECONDS Prothromb Time International Ratio 2.3 0.9-1.1 Activated Partial Thromboplast Time 37.0 21.0-31.0 SECONDS Partial Thromboplastin Ratio 1.4 Sodium Level 141 136-145 mmol/L Potassium Level 4.1 3.5-5.1 mmol/L Chloride Level 109 98-107 mmol/L Carbon Dioxide Level 27 21-32 mmol/L Anion Gap 6.0 3-11 mmol/L Blood Urea Nitrogen 15 7-18 mg/dl Creatinine 1.07 0.60-1.40 mg/dl Est Creatinine Clear Calc Drug Dose 68.8 ml/min Estimated GFR () 78.8 Estimated GFR (Non- 68.0 BUN/Creatinine Ratio 13.7 10-20 Random Glucose 106 70-99 mg/dl Calcium Level 8.3 8.5-10.1 mg/dl Total Bilirubin 0.6 0.2-1 mg/dl Aspartate Amino Transf (AST/SGOT) 21 15-37 U/L Alanine Aminotransferase (ALT/SGPT) 18 12-78 U/L Alkaline Phosphatase 104 45-117 U/L Troponin I < 0.015 0-0.045 ng/ml Total Protein 7.1 6.4-8.2 gm/dl Albumin 3.4 3.4-5.0 gm/dl Globulin 3.7 2.5-4.0 gm/dl Albumin/Globulin Ratio 0.9 0.9-[address] ANGIOGRAPHY OF THE CHEST, PULMONARY EMBOLUS PROTOCOL CLINICAL HISTORY: Chest pain. Hemoptysis. COMPARISON STUDY: Chest CT June 11, 2017. TECHNIQUE: Following IV administration of 94 mL of Optiray-320, helical axial images of the chest were obtained utilizing the pulmonary embolus protocol. Maximal intensity projections and sagittal and coronal reformats were viewed on an independent 3D workstation. IV contrast was administered without complication. A dose lowering technique was utilized adhering to the principles of ALARA. CT DOSE: 586.25 mGy.cm FINDINGS: No pulmonary emboli are identified. The heart is moderately enlarged. There is no pericardial effusion. There are median sternotomy wires and post operative findings consistent with bypass grafting. Thoracic cortical opacification is suboptimal but there is no evidence for dissection on this exam. Caliber of the thoracic aorta is normal. No enlarged axillary, mediastinal or hilar lymph nodes are present. There are calcified mediastinal and bilateral hilar lymph nodes. There are no enlarged lymph nodes. There is no pneumothorax or pleural effusion. Central airways are patent. There is no consolidation. Visualized portions of the upper abdomen demonstrate pancreatic glandular atrophy and gallstones. Fat-containing ventral hernias noted. IMPRESSION: 1. No pulmonary emboli identified. 2. No acute intrathoracic findings. 3. Moderate cardiomegaly. 4. Cholelithiasis. Electronically signed by: Errol Dempsey M.D. 11/17/2017 1:33 PM Dictated Date/Time: 11/17/2017 1:27 PM The status of this report is Signed. Draft = Not yet reviewed or approved by Radiologist. Signed = Reviewed and approved by Radiologist CHEST ONE VIEW PORTABLE HISTORY: EVALUATE RESPIRATORY DISTRESS.DYSPNEA COMPARISON: Chest 06/09/2017. FINDINGS: The heart remains mildly enlarged. There are poststernotomy changes. No pleural effusions. No pneumothorax. There are low lung volumes. No focal lung consolidations. No evidence for pulmonary edema. IMPRESSION: Low lung volumes with stable mild cardiomegaly. No acute process within the chest. Electronically signed by: Cameron Coelho M.D. 11/17/2017 11:30 AM Dictated Date/Time: 11/17/2017 11:27 AM The status of this report is Signed. Draft = Not yet reviewed or approved by Radiologist. Signed = Reviewed and approved by Radiologist. EKG BELL WILLSON ID:[id number] 17-NOV-2017 11:15:03 [facility] Sinus bradycardia with occasional Premature ventricular complexes Otherwise normal ECG When compared with ECG of 10-JUN-2017 12:20, Sinus rhythm has replaced Atrial fibrillation Vent. rate has decreased BY 50 BPM 25mm/s 10mm/mV 150Hz 8.0 SP2 12SL 241 HD EFRAÍN: 12 Referred by: Unconfirmed Vent. rate 56 BPM AZ interval 158 ms QRS duration 96 ms QT/QTc 454/438 ms P-R-T axes 1 4 58 1945 (72 yr) Male 102in 1lb Room: Loc:15 [employer] Instructor:NANI KHOURY Test ind: Impression Assessment and Plan Patient is a pleasant 72 y/o male, with PMHx of CAD s/p CABG, HLD, HTN, COPD, paroxysmal a.fib, h/o PE/DVT, bladder carcinoma, Parkinson's disease, dementia, depression, and GERD, who presented to the ED because of hemoptysis x2 episodes. Hemoptysis: - Admit to med/sug - H&H STABLE, follow CBC - CXR and CTA w/out acute findings - Sputum culture pending - Hold ASA and Coumadin - Consult Dr. Biswas, appreciate recommendations- will make NPO after MD pending consultation incase further workup needed CAD s/p CABG, HLD, HTN, paroxysmal a.fib- STABLE: - Continue Lipitor 80 mg daily, Metoprolol 12.5 mg daily - ASA and Coumadin held as above h/o DVT/PE in 2012: Coumadin held as above- follow PT/INR Tobacco abuse: Smoking cessation counselling COPD- STABLE: Continue home inhalers Parkinson's disease, dementia, depression: Continue Donepezil, Sinemet, Mirapex , Lyrica GERD: Protonix- resume Prilosec at discharge DVT prophylaxis: Coumadin held due to hemoptysis Code status: LEVEL I, FULL Dispo: From home, lives w/ - PT/OT and CM consulted Level of Care Med/Surg Resuscitation Status FULL RESUSCITATION VTE Prophylaxis VTE Risk Assessment Done? Y/N: Yes Risk Level: Moderate Given or contraindicated: Contraindicated Note Attending Admission Note & Attestation: Pt seen/examined, chart reviewed, care plan d/w DEEPTHI Eddy. I agree w/ the hernandez components of her admission documentation. 72yo male with CAD s/p CABG, HTN, COPD, paroxysmal a.fib, h/o PE/DVT, bladder carcinoma, Parkinson's disease, dementia - on chronic coumadin presumably for PAF - presenting with 2 episodes of hemoptysis earlier today. During my bedside assessment he mentions several months of changing voice/hoarse voice & dysphagia as well. No weight loss. PMH, PSH, allergies, meds, sochx, famhx, ros - reviewed VSS, afebrile gen - NAD HEENT - hoarse voice, evidence of prior uvulopalatoplasty, no lesions neck - no JVD, lymph nodes, or masses; no goiter heart - RRR lungs - CTA b/l abd - soft, NT ext - no edema H/H stable INR 2.3 A/P: Hemoptysis in 72yo gentleman with known COPD and ongoing tobacco dependence. Also reports dysphagia/hoarse voice for several months. Hemodynamically is stable and H/H are stable fortunately. Hold coumadin. If any further hemoptysis will give vitamin K to reverse coumadin faster. INR in am. CT surgery consult and/or pulm consult for consideration of bronchoscopy to r/o endobronchial lesion. With dysphagia/hoarse voice could he have a laryngeal lesion leading to hemoptysis? Speech eval due to dysphagia. Tari ZHAO MD
[2017-11-17 15:35] VITALS: BP 154/88; PULSE 48; TEMP 36.7; O2SAT 96; Ht 172.7 cm; Wt 98.2 kg
[2017-11-17] MEDS: CARBIDOPA/LEVODOPA 25-250 1 EA TAB PO SCH ×2 (17:13→21:07)
[2017-11-17 17:50] VITALS: O2SAT 96
--- NOTE | 2017-11-17 18:23 | SURGICAL CONSULTATION ---
DATE OF CONSULTATION: 11/17/2017 REASON FOR CONSULTATION: Hemoptysis. HISTORY OF PRESENT ILLNESS: Tomas Ramirez is a 72-year-old male, I actually know as I have cared for his for several months over this past year. The patient is an active cigarette smoker. He noted this morning at about 9:30 that he had "blood in the back of my throat" and coughed up a large amount of blood. It still streaked around his lips and mouth. He underwent a workup which included a CT scan which showed no obvious abnormalities. He did not have a history of epistaxis and has had no nasal issues. He denied any trauma to his mouth or facial area. I was asked to evaluate him from a thoracic surgery standpoint. The patient denies any weight loss. He is a very poor historian and I believe that he has some dementia. He also suffers from Parkinson's disease and depression. He was diagnosed with a pulmonary embolism with deep vein thrombosis in 2012 and he is on Coumadin. I was asked to evaluate him for his hemoptysis. PAST MEDICAL HISTORY: 1. Active cigarette smoking. 2. Dementia. 3. Depression. 4. Parkinson's disease. 5. History of carcinoma of the bladder. 6. Gastroesophageal reflux disease. 7. Coronary artery disease. 8. Chronic obstructive pulmonary disease. 9. Paroxysmal atrial fibrillation. 10. Pulmonary embolism with deep vein thrombosis in 2012. 11. Hyperlipidemia. PAST SURGICAL HISTORY: Coronary artery bypass grafting 2013 x2. The patient smokes 3-4 cigars per day. MEDICATIONS: 1. Albuterol. 2. Coumadin. 3. Aspirin. 4. Sinemet. 5. Atorvastatin. 6. Lyrica. 7. Donepezil. 8. Imodium. 9. Metoprolol. 10. Mirapex. 11. Prilosec. ALLERGIES: PENICILLIN CAUSES RASH AND SWELLING. SOCIAL HISTORY: The patient lives at home with his . He is demented. He is retired of course. He does smoke several cigars a day. FAMILY MEDICAL HISTORY: Significant for coronary artery disease as well as hypertension, hyperlipidemia. REVIEW OF SYSTEMS: The patient's states his weight has been stable. He has really had no signs or symptoms of chest pain or palpitations. He denies productive cough. His states he has been eating well. He has no GI or issues. He has had no wound breakdown. He denies palpitations. He has had no visual or auditory symptoms. PHYSICAL EXAMINATION: GENERAL: This is a 5 feet 8 inch, 216 pound male who is awake and alert. He is obviously confused and slow to answer questions. HEENT: Extraocular movements are intact. Pupils are equal, round and reactive. Sclerae are anicteric. Tongue is midline. He is edentulous. He has no obvious oral mucosal lesions, although on the right side of his tongue, he does have some petechia. It appears that he has had a uvuloplasty in the past. He has no obvious lesions. I see no obvious nasal polyps. NECK: Supple. He has no supraclavicular or cervical lymphadenopathy. He is actually moving air well although he has decreased breath sounds on both sides. There is no wheezing or rales. HEART: He has an irregularly irregular rhythm of his heart. ABDOMEN: Soft, obese, nontender. EXTREMITIES: Upon evaluation of his lower extremities he has no obvious joint effusions. He does have palpable posterior tibialis pulses. NEUROLOGIC: Follows all commands, but very slowly and does have some cogwheel rigidity. LABORATORY DATA: I reviewed his CT scan. I really do not see any abnormalities. His INR is 2.3. His hemoglobin is stable at 12.9, which is his baseline. His BUN and creatinine is 15 and 1.07. ASSESSMENT AND PLAN: Hemoptysis. I think this patient needs a bronchoscopy. It is still unclear to me whether this is from his upper respiratory tract and he may need an otolaryngology evaluation; however, I would ask Dr. Leigh to evaluate him first.
[2017-11-17] MEDS: DONEPEZIL HCL 5 MG TAB PO SCH (21:07)
[2017-11-17] MEDS: ATORVASTATIN 40 MG TAB PO SCH (21:07)
[2017-11-17] MEDS: PRAMIPEXOLE DIHYDROCHLORIDE 0.5 MG TAB PO SCH (21:07)
[2017-11-17 23:20] VITALS: BP 113/73; PULSE 60; TEMP 36.5; O2SAT 94
[2017-11-18 07:50] VITALS: BP 132/86; PULSE 64; TEMP 36.8; O2SAT 94
[2017-11-18 07:58] LABS: HEMOGLOBIN 12.1 g/dL (14.0-18.0); MEAN CELL VOLUME 92.3 fL (80-100); MEAN CORPUSCULAR HGB CONC 33.6 g/dl (32-36); MEAN PLATELET VOLUME 11.2 fL (7.4-10.4); PLATELET COUNT 112 K/uL (130-400); RED CELL DISTRIBUTION WIDTH CV 13.8 % (11.5-14.5); RED CELL DISTRIBUTION WIDTH SD 45.9 fL (36.4-46.3); WHITE BLOOD COUNT 7.01 K/uL (4.8-10.8)
[2017-11-18 08:09] LABS: INR 2.1 (0.9-1.1)
[2017-11-18 08:36] LABS: CALCIUM 8.4 mg/dl (8.5-10.1); CREATININE 1.03 mg/dl (0.60-1.40); POTASSIUM 4.3 mmol/L (3.5-5.1)
[2017-11-18] MEDS: ALBUTEROL HFA 8 GM INHALER INH SCH (08:41)
[2017-11-18] MEDS: LOPERAMIDE HCL 2 MG CAP PO SCH (08:41)
[2017-11-18] MEDS: CARBIDOPA/LEVODOPA 25-250 1 EA TAB PO SCH ×4 (08:41→21:19)
[2017-11-18] MEDS: PANTOprazole SOD 40 MG TAB PO SCH (08:41)
[2017-11-18] MEDS: METOPROLOL SUCC 25MG EXT REL TAB PO SCH (08:49)
[2017-11-18] MEDS: PREGABALIN 75 MG CAP PO SCH (08:52)
[2017-11-18 08:53] VITALS: BP 137/80; PULSE 54
[2017-11-18 09:32] VITALS: O2SAT 94
--- NOTE | 2017-11-18 09:41 | SURGERY PROGRESS NOTE ---
DATE: 11/18/2017 Mr. Ramirez was seen today. He has been completely uneventful overnight. He is on room air with good saturations. He slept well. He has had no further hemoptysis, although he did cough up some white sputum today. He is going to be seen by pulmonary. It is unclear whether Dr. Leigh will offer him a bronchoscopy or not. He looks to be clinically stable.
--- NOTE | 2017-11-18 10:02 | PULMONARY CONSULTATION ---
DATE OF CONSULTATION: 11/18/2017 TIME: 08:55 a.m. REPORT OF CONSULTATION: The patient was seen in room 359. He is a 72-year-old male who came to the hospital yesterday after coughing up blood. It began about 09:30 in the morning. He relates that he had 2 very aggressive sneezes. A few minutes after this, he suddenly felt some material in the back of his throat and coughed it out and it was bloody. He estimates the size to be greater than a silver dollar. He states it was not very bright red. It was more darker. He had not had anything to eat. He did not have a nosebleed that he was aware of. He was definitely not vomiting, he felt. The patient had a second episode while later, perhaps 30 minutes or so. It was a lesser amount of blood. The patient does take Coumadin. He also takes baby aspirin. He has not had any hemoptysis since yesterday. He only had 2 episodes. The patient's INR yesterday was found to be 2.3. He denies significant shortness of breath to me, but the patient is not a good historian. He states he coughs some every day and he thinks it is mostly nasal mucus. He has not had a recent cold. He has not had chills, fevers or sweats. He has a history of dysphagia. This may be related to his Parkinson's disease. Reportedly, he has had some hoarseness. The patient did not tell me this, but it was reported in the history and physical. He did not sound hoarse upon speaking with him. The patient does carry a prior history of DVT and pulmonary embolism. He cannot give me any idea how long ago that was. He also reportedly has paroxysmal atrial fibrillation. He carries a history of COPD. I do know how that diagnosis was definitively made. The patient has been a long-term cigar smoker. He states he has never smoked cigarettes. He averages 3 or 4 cigars per day and he states they are small cigars. Alcohol use is described dose once per day. PAST SURGICAL HISTORY: 1. Coronary artery bypass graft in 2011. 2. Multiple cystoscopies due to bladder cancer. 3. Nasal surgery. 4. UPPP surgery for sleep apnea. 5. Bilateral cataract surgery. PAST MEDICAL HISTORY: 1. Coronary artery disease. 2. Prior HI. 3. Hyperlipidemia. 4. Bladder cancer as noted. 5. Parkinson's disease. 6. Paroxysmal atrial fibrillation. 7. Reflux. 8. Prior DVT and PE. 9. Reported history of dementia as per the charts. FAMILY HISTORY: The patient indicated that he did not know the medical problems of his parents. 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 ALLERGIES: PENICILLIN. MEDICATIONS: At home, 1. Ventolin HFA. 2. Baby aspirin. 3. Atorvastatin 80 mg daily. 4. Sinemet 25/250 one q.i.d. 5. Vitamin D. 6. Donepezil 5 mg. 7. Glucosamine chondroitin. 8. Imodium. 9. Metoprolol 12.5 daily. 10. Nitro p.r.n. 11. Omeprazole 20 daily. 12. Pramipexole 0.5 at 2 p.m. and 1 mg at bedtime. 13. Lyrica 75 mg b.i.d. 14. Tramadol p.r.n. 15. Coumadin 3 mg 5 days per week. REVIEW OF SYSTEMS: The patient is a poor historian. He has some difficulty getting up steps. He does admit he walks very slowly. He might be slightly short of breath at the top of steps. He denies any nausea, vomiting, diarrhea or constipation. Review of systems is otherwise negative. Ten systems reviewed. PHYSICAL EXAMINATION: GENERAL: The patient is a 72-year-old male who was cooperative, alert and oriented. He was in no distress. VITAL SIGNS: Temperature 36.8. The patient's BMI is 32.9. Heart rate is 64 per minute. The rhythm was regular. Blood pressure was 132/86. HEENT: Pupils were reactive to light. Implants were noted from prior surgery. Nares were congested greater on the left than the right. He has a deviated septum. Mouth exam shows evidence of prior UPPP surgery. No erythema or exudate was noted. NECK: Palpation of the neck reveals no lymph nodes. LUNGS: Lung bennett were clear bilaterally. Respiratory rate was 16 breaths per minute and not labored. Oxygen saturation 94% on room air. ABDOMEN: Soft and nontender. Good bowel sounds were heard. No masses were palpable. EXTREMITIES: Showed no cyanosis, clubbing or edema. There was a scar in his lower leg from the prior bypass donor site. LABORATORY DATA: White count of 7.01. Hemoglobin 12.1. Platelets 112,000. Electrolytes show sodium 141, potassium 4.3, chloride 108, and bicarb 28. BUN 15 with a creatinine 1.03. INR today was 2.1. Chest x-ray was clear. CAT scan of the chest was done. This showed no pulmonary emboli. No acute intrathoracic findings were noted. Cholelithiasis was present. IMPRESSIONS: 1. Hemoptysis of undetermined etiology. 2. Obstructive sleep apnea. 3. Parkinson's disease. 4. Dementia. COMMENTS AND RECOMMENDATIONS: The patient has not had any hemoptysis now for almost 24 hours. Historically, it may some like that he sneezed very hard and broke a blood vessel. The CAT scan of the chest showed nothing at all to suggest a neoplasm. Obviously, consideration could be given to bronchoscopy for completeness. I am doing this consult for Dr. Leigh. I will be discussing with him the case and then a decision will be made about whether or not the patient definitively needs bronchoscopy. In light of his hoarseness, at least the scope would give an advantage of looking at his pharyngeal area as well. The patient does have a remote history of sleep apnea. He had worn CPAP in the past, but stopped wearing it. I am not exactly certain why he stopped. He states he felt like he did not need it. Consideration could be given to reexploring the sleep apnea situation. There were no family members present to give any history regarding his sleep, but the patient did say his complains loud the snoring, which she still does. Thank you for asking us to assist in his care.
[2017-11-18] MEDS: PRAMIPEXOLE DIHYDROCHLORIDE 0.5 MG TAB PO SCH ×2 (13:39→21:19)
[2017-11-18 15:36] VITALS: BP 115/73; PULSE 58; TEMP 36.7; O2SAT 94
[2017-11-18 17:30] VITALS: O2SAT 94
--- NOTE | 2017-11-18 21:12 | Hospitalist Progress Note ---
Hospitalist Progress Note Date of Service Nov 18, 2017. Subjective Pt evaluation today including: conversation w/ patient, conversation w/ family ( on phone) Pt has not had any further hemoptysis today. No cough. Reports he has been hoarse for about one year. says she was present with him when the hemoptysis occurred, and does not recall him sneezing as he told the Research Program Assistant earlier today. Pt otherwise has no complaints All Other Systems: Reviewed and Negative Objective Vital Signs Date Time Temp Pulse Resp B/P (MAP) Pulse Ox O2 Delivery O2 Flow Rate FiO2 11/18/17 17:30 94 Room Air 11/18/17 15:36 36.7 58 19 115/73 (87) 94 Room Air 11/18/17 09:32 94 Room Air 11/18/17 08:53 54 137/80 (99) 11/18/17 07:50 36.8 64 16 132/86 (101) 94 Room Air 11/18/17 07:45 Room Air 11/17/17 23:50 Room Air 11/17/17 23:20 36.5 60 16 113/73 (86) 94 Room Air Physical Exam General Appearance: WD/WN, no apparent distress Eyes: normal inspection, sclerae normal ENT: hearing grossly normal, pharynx normal (with absence of uvula) Neck: supple, no adenopathy, thyroid normal, trachea midline Respiratory/Chest: lungs clear, normal breath sounds, no respiratory distress, no accessory muscle use Cardiovascular: regular rate, rhythm, no edema, no gallop, no murmur Abdomen: normal bowel sounds, non tender, soft Extremities: non-tender, normal inspection, no pedal edema, no calf tenderness Neurologic/Psychiatric: alert, normal mood/affect Skin: normal color, warm/dry, no rash Lymphatic: no adenopathy Laboratory Results Last 24 Hours Test 11/18/17 07:24 White Blood Count 7.01 K/uL Red Blood Count 3.90 M/uL Hemoglobin 12.1 g/dL Hematocrit 36.0 % Mean Corpuscular Volume 92.3 fL Mean Corpuscular Hemoglobin 31.0 pg Mean Corpuscular Hemoglobin Concent 33.6 g/dl RDW Standard Deviation 45.9 fL RDW Coefficient of Variation 13.8 % Platelet Count 112 K/uL Mean Platelet Volume 11.2 fL Prothrombin Time 21.4 SECONDS Prothromb Time International Ratio 2.1 Sodium Level 141 mmol/L Potassium Level 4.3 mmol/L Chloride Level 108 mmol/L Carbon Dioxide Level 28 mmol/L Anion Gap 5.0 mmol/L Blood Urea Nitrogen 15 mg/dl Creatinine 1.03 mg/dl Est Creatinine Clear Calc Drug Dose 71.5 ml/min Estimated GFR () 82.6 Estimated GFR (Non- 71.2 BUN/Creatinine Ratio 14.3 Random Glucose 84 mg/dl Calcium Level 8.4 mg/dl Assessment and Plan Patient is a pleasant 72 y/o male, with PMHx of CAD s/p CABG, HLD, HTN, COPD, paroxysmal a.fib, h/o PE/DVT, bladder carcinoma, Parkinson's disease, dementia, depression, and GERD, who presented to the ED because of hemoptysis x2 episodes. Hemoptysis: H/H stable with mild anemia. No further episodes. Holding coumadin currently, INR at 2.1 today Seen by Thoracic SUrgery who deferred to Pulm to do bronch Discussed case with Pulm who will have Dr. Leigh arrange for bronchoscopy tomorrow. Seems perhaps to be coming from upper airway. With hoarseness x 1 year , cigar smoker. CXR and CTA w/out significant findings -follow CBC - continue to hold ASA and Coumadin - NPO after midnight and start IVFs after midnight for bronchoscopy tomorrow -may end up needing ENT consultation inpatient vs outpt depending on what is found on bronchoscopy CAD s/p CABG, HLD, HTN, paroxysmal a.fib- STABLE: in NSR here - Continue Lipitor 80 mg daily, Metoprolol 12.5 mg daily - ASA and Coumadin held as above h/o DVT/PE in 2013: Coumadin held as above- follow PT/INR Tobacco abuse: Smoking cessation counselling COPD- STABLE: Continue home inhalers Parkinson's disease, dementia, depression: Continue Donepezil, Sinemet, Mirapex , Lyrica GERD: Protonix- resume Prilosec at discharge DVT prophylaxis: Coumadin held due to hemoptysis Code status: LEVEL I, FULL Dispo: From home, lives w/ - PT/OT and CM consulted
[2017-11-18] MEDS: DONEPEZIL HCL 5 MG TAB PO SCH (21:19)
[2017-11-18] MEDS: ATORVASTATIN 40 MG TAB PO SCH (21:19)
[2017-11-18 23:31] VITALS: BP 98/59; PULSE 58; TEMP 36.3; O2SAT 95
[2017-11-19] VITALS (8 sets, daily range): BP systolic 105–144; BP diastolic 64–89; PULSE 53–69; TEMP 36.3–37; O2SAT 92–98
[2017-11-19] MEDS: D5W AND 1/2NSS 1,000 ML IV SCH ×2 (00:38→12:58)
--- NOTE | 2017-11-19 07:09 | History & Physical Bridge Note ---
H&P Re-Evaluation Bridge Note: I have examined the patient, reviewed the History & Physical and in the interval since the performance of the History & Physical I have noted the following changes of clinical significance: No changes noted
--- NOTE | 2017-11-19 07:10 | Pre Sedation Assessment ---
Pre Sedation Assessment General Date of Sedation: Nov 19, 2017. Vital Signs Past 12 Hours Date Time Temp Pulse Resp B/P (MAP) Pulse Ox O2 Delivery O2 Flow Rate FiO2 11/19/17 00:47 Room Air 11/18/17 23:31 36.3 58 17 98/59 (72) 95 Room Air Review Cardiovascular: regular rate, rhythm, no edema, no gallop, no JVD, no murmur, normal peripheral pulses Lungs: chest non-tender, lungs clear, normal breath sounds, no respiratory distress, no accessory muscle use Pre-Sedation Airway Assessment Smoking Status: Current Every Day Smoker Hx of Sleep Apnea: No Hx of difficult intubation: No Short Thick Neck: Yes Thyro-mental Distance: > 3 Finger Breadths Oral Cavity: WNL Mallampati Classification: Class III ASA Classification: Class II Procedure Planning Contraindications for Sedation: None Current Medications Reviewed: Yes Notes The planned sedation has been discussed with the patient. Informed Consent was obtained. I have identified the patient, determined the appropriateness of sedation and have assessed the patient immediately prior to the procedure. All medicine(s) and interventions are by my order.
[2017-11-19 07:59] LABS: HEMATOCRIT 36.8 % (42-52); HEMOGLOBIN 12.5 g/dL (14.0-18.0); MEAN CELL VOLUME 92.5 fL (80-100); MEAN CORPUSCULAR HEMOGLOBIN 31.4 pg (25-34); MEAN PLATELET VOLUME 11.5 fL (7.4-10.4); PLATELET COUNT 114 K/uL (130-400); RED CELL DISTRIBUTION WIDTH CV 13.7 % (11.5-14.5); RED CELL DISTRIBUTION WIDTH SD 46.3 fL (36.4-46.3); WHITE BLOOD COUNT 6.07 K/uL (4.8-10.8)
[2017-11-19 08:04] LABS: INR 1.5 (0.9-1.1)
[2017-11-19 08:30] LABS: CALCIUM 8.4 mg/dl (8.5-10.1); CREATININE 1.09 mg/dl (0.60-1.40); POTASSIUM 4.1 mmol/L (3.5-5.1)
[2017-11-19] MEDS: METOPROLOL SUCC 25MG EXT REL TAB PO SCH (08:48)
[2017-11-19] MEDS: ALBUTEROL HFA 8 GM INHALER INH SCH (08:49)
[2017-11-19] MEDS: PANTOprazole SOD 40 MG TAB PO SCH (08:49)
[2017-11-19] MEDS: LOPERAMIDE HCL 2 MG CAP PO SCH (08:49)
[2017-11-19] MEDS: CARBIDOPA/LEVODOPA 25-250 1 EA TAB PO SCH ×4 (08:50→20:47)
[2017-11-19] MEDS: PREGABALIN 75 MG CAP PO SCH (08:53)
--- NOTE | 2017-11-19 09:05 | SURGERY PROGRESS NOTE ---
DATE: 11/19/2017 Mr. Ramirez was seen today. He has had no further hemoptysis. I have discussed the case with Dr. Ke Leigh. Dr. Leigh will take the patient to do a bronchoscopy. I am not sure what to make of this totally normal CT scan. He may well have had epistaxis or some other upper airway bleeding. We will follow along.
--- NOTE | 2017-11-19 12:13 | Post Sedation Assessment ---
Post Sedation Assessment General Date of Sedation Nov 19, 2017. Vital Signs: Vital Signs Past 12 Hours Date Time Temp Pulse Resp B/P (MAP) Pulse Ox O2 Delivery O2 Flow Rate FiO2 11/19/17 08:14 36.7 55 16 132/76 (94) 96 Room Air 11/19/17 07:25 Room Air 11/19/17 00:47 Room Air Post Procedure Recovery Score Activity: (2) Moves 4 extremities * Respiration: (2) Deep breath/cough Circulation: (2) +/-20% PreAnes Value Consciousness: (2) Fully Awake Oxygen Saturation: (2) > 92% On Room Air Discharge Sedation Level of Care: Phase I Post Sedation Plan On clinical assessment, the patient appears to have tolerated the sedation without complications. Patient is recovering as anticipated. Patient will continue to be monitored by nursing and may be discharged when sedation discharge criteria are met per below protocol. Upon Completions of procedure and additional 15 minutes continue every 5 minute vital signs and the P.A.R. score; then discharge to a Phase I or Fast Track to Phase II per the following guidelines: * Discharge Patient to appropriate Phase II area if PAR is 8 or greater or return to pre- procedure baseline. The post - procedure orders will be as directed. * If PAR score is less than 8 or not return to pre-procedure baseline then patient will follow Phase I monitoring till PAR is reached for Phase II. The Phase I may be done in procedure room or may call to secure a Phase I area. * If naloxone or flumazenil are used for reversal, hold in Phase I for an additional 60 -120 minutes before discharge to Phase II. Please call the Sedation Physician to re-evaluate and complete post-note for discharge to Phase II area. Do NOT discharge from procedure sedation or Phase 1 until post- sedation evaluation note is complete by procedure /sedation MD Sedation Discharge Instructions to be given to the patient at discharge to home.
--- NOTE | 2017-11-19 12:15 | Bronchoscopy Procedure Note ---
Bronchoscopy Procedure Note Procedure: Bronchoscopy, conscious sedation, bronchial lavage Consent: Obtained through the patient placed into the chart Pre-procedural diagnosis: Hemoptysis Post-procedural diagnosis: EDAC Start time: 1200 End time: 1210 Total time: minutes Analgesia: 2% liquid lidocaine: Via nebulizer 4% gel lidocaine: Via right naris Cetacaine spray: Posterior oropharynx Sedation: Versed IV: 2mg Fentanyl IV: 50 g Procedure: The Olympus video bronchoscope was used for this procedure and passed down through the oropharynx and retroflexed off the uvula Right-left naris/posterior naris/posterior oropharynx: Anatomically within normal limits Glottis: Anatomically within normal limits, mild redundancy/fullness of the left false vocal cord Vocal cords: Proper abduction and abduction, anatomically within normal limits Subglottis/trachea/Jina: Anatomically within normal limits Right bronchial tree: Right mainstem bronchus: Anatomically within normal limits Right upper lobe: Anatomically within normal limits Bronchus intermedius: Anatomically within normal limits Right middle lobe: Anatomically within normal limits Right lower lobe: Anatomically within normal limits Findings: No significant findings noted Left bronchial tree: Left mainstem bronchus: Anatomically within normal limits Left upper lobe: Anatomically within normal limits Lingula: Anatomically within normal limits Left lower lobe: Anatomically within normal limits Findings: No significant findings noted Bronchial alveolar lavage: Right upper lobe EBL: None Complications: None Follow-up: [facility]
[2017-11-19] MEDS ORDERED: FENTANYL CITRATE INJ 50 MCG/1 ML 2 ML VIAL IV ONE (12:31)
[2017-11-19] MEDS ORDERED: LIDOCAINE 4% INH SOLN 4 ML BTL TOP ONE (12:31)
[2017-11-19] MEDS ORDERED: MIDAZOLAM HCL 5 MG/ML 1 ML VIAL IV ONE (12:31)
[2017-11-19] MEDS ORDERED: LIDOCAINE VISCOUS 2% 100ML TOP ONE (12:31)
[2017-11-19] MEDS ORDERED: LIDOCAINE HCL 2% LOCAL 50ML VIAL INSTIL ONE (12:31)
[2017-11-19] MEDS: PRAMIPEXOLE DIHYDROCHLORIDE 0.5 MG TAB PO SCH ×2 (12:56→20:48)
--- NOTE | 2017-11-19 15:33 | Hospitalist Progress Note ---
Hospitalist Progress Note Date of Service Nov 19, 2017. (Renu Hay ., PA-C) Subjective Pt evaluation today including: conversation w/ patient, conversation w/ family , physical exam, chart review, lab review, review of inpatient medication list Pain: Sore throat PO Intake: NPO for bronchoscopy Voiding: no voiding problems Patient seen just after bronchoscopy. He complains of a sore throat from the procedure but is otherwise feeling well. He still has some cough, but no hemoptysis. He denies any shortness of breath currently. The patient denies fevers, chills, sweats, chest pain, palpitations, claudication, wheezing, shortness of breath, nausea, vomiting, abdominal pain, dysuria, hematuria, urinary retention, paralysis, weakness, numbness and tingling. Additional Comments: See HPI for pertinent positives and negatives. All other systems reviewed and negative. (Renu Hay ., PA-C) Objective Vital Signs Date Time Temp Pulse Resp B/P (MAP) Pulse Ox O2 Delivery O2 Flow Rate FiO2 11/19/17 14:58 36.4 53 16 116/72 (87) 95 Room Air 11/19/17 14:16 36.4 54 16 128/81 (97) 97 Nasal Cannula 2.0 11/19/17 13:20 57 16 138/89 (105) 98 11/19/17 13:13 Oxymask 11/19/17 12:50 98 Nasal Cannula 2.0 11/19/17 12:50 36.4 60 16 144/64 (90) 98 Nasal Cannula 11/19/17 12:50 98 Nasal Cannula 2.0 11/19/17 12:25 56 14 133/83 99 Oxymask 6 11/19/17 12:20 57 15 136/94 99 Oxymask 6 11/19/17 12:15 54 14 128/78 98 Oxymask 6 11/19/17 12:10 53 11 114/73 100 Oxymask 6 11/19/17 12:05 59 11 159/89 100 Oxymask 6 11/19/17 12:00 64 14 148/94 100 Oxymask 6 11/19/17 11:58 54 12 136/85 100 Oxymask 6 11/19/17 08:14 36.7 55 16 132/76 (94) 96 Room Air 11/19/17 07:25 Room Air 2/1/18 00:47 Room Air 11/18/17 23:31 36.3 58 17 98/59 (72) 95 Room Air 11/18/17 17:30 94 Room Air 11/18/17 15:36 36.7 58 19 115/73 (87) 94 Room Air (Renu Hay, DEEPTHI-C) Physical Exam Notes: General appearance: +Obese. Well-developed, well-nourished, no apparent distress Head: Normocephalic, atraumatic Eyes: Normal inspection, PERRL, EOMI ENT: Normal ENT inspection, hearing grossly normal, pharynx normal Neck: Supple, no JVD, trachea midline Respiratory/Chest: +On 2L NC. Lungs clear to auscultation, normal breath sounds, no respiratory distress Cardiovascular: Regular rate & rhythm, no gallop, no murmur Abdomen/GI: Normal bowel sounds, non-tender, soft Extremities/Musculoskeletal: Normal inspection, no calf tenderness, no pedal edema Neurological/Psych: Alert, normal mood/affect, oriented x 3 Skin: Normal color, warm/dry, no rash (Renu Hay ., PA-C) Laboratory Results Last 24 Hours Test 11/19/17 07:37 White Blood Count 6.07 K/uL Red Blood Count 3.98 M/uL Hemoglobin 12.5 g/dL Hematocrit 36.8 % Mean Corpuscular Volume 92.5 fL Mean Corpuscular Hemoglobin 31.4 pg Mean Corpuscular Hemoglobin Concent 34.0 g/dl RDW Standard Deviation 46.3 fL RDW Coefficient of Variation 13.7 % Platelet Count 114 K/uL Mean Platelet Volume 11.5 fL Prothrombin Time 15.6 SECONDS Prothromb Time International Ratio 1.5 Sodium Level 139 mmol/L Potassium Level 4.1 mmol/L Chloride Level 107 mmol/L Carbon Dioxide Level 28 mmol/L Anion Gap 5.0 mmol/L Blood Urea Nitrogen 16 mg/dl Creatinine 1.09 mg/dl Est Creatinine Clear Calc Drug Dose 67.5 ml/min Estimated GFR () 77.1 Estimated GFR (Non- 66.5 BUN/Creatinine Ratio 14.2 Random Glucose 92 mg/dl Calcium Level 8.4 mg/dl (Renu Hay ., PA-C) Diagnostic Results Bronchoscopy Procedure Note Procedure: Bronchoscopy, conscious sedation, bronchial lavage Consent: Obtained through the patient placed into the chart Pre-procedural diagnosis: Hemoptysis Post-procedural diagnosis: EDAC Start time: 1200 End time: 1210 Total time: minutes Analgesia: 2% liquid lidocaine: Via nebulizer 4% gel lidocaine: Via right naris Cetacaine spray: Posterior oropharynx Sedation: Versed IV: 2mg Fentanyl IV: 50 g Procedure: The Olympus video bronchoscope was used for this procedure and passed down through the oropharynx and retroflexed off the uvula Right-left naris/posterior naris/posterior oropharynx: Anatomically within normal limits Glottis: Anatomically within normal limits, mild redundancy/fullness of the left false vocal cord Vocal cords: Proper abduction and abduction, anatomically within normal limits Subglottis/trachea/Jina: Anatomically within normal limits Right bronchial tree: Right mainstem bronchus: Anatomically within normal limits Right upper lobe: Anatomically within normal limits Bronchus intermedius: Anatomically within normal limits Right middle lobe: Anatomically within normal limits Right lower lobe: Anatomically within normal limits Findings: No significant findings noted Left bronchial tree: Left mainstem bronchus: Anatomically within normal limits Left upper lobe: Anatomically within normal limits Lingula: Anatomically within normal limits Left lower lobe: Anatomically within normal limits Findings: No significant findings noted Bronchial alveolar lavage: Right upper lobe EBL: None Complications: None Follow-up: [facility] (Renu Hay, REYNALDO) Assessment and Plan 72 y/o male with a history of CAD s/p CABG, HLD, HTN, COPD, paroxysmal a.fib, h/ o PE/DVT, bladder carcinoma, Parkinson's disease, dementia, depression, and GERD who presented with hemoptysis. Hemoptysis--resolving. Denies any today -H&H remains stable -Resume ASA and warfarin 3 mg PO qd. INR 1.5 on 11/19 -Thoracic surgery defer to pulm for bronch -Bronch anatomically WNL, no significant findings -Resume diet 2 hours post bronch -CXR and CTA chest unremarkable -Hemoptysis possible secondary to burst blood vessel after violent sneeze? CAD s/p CABG, HLD, HTN, paroxysmal a.fib--stable, NSR - Continue Lipitor 80 mg daily, Metoprolol succinate 12.5 mg daily - Resume ASA, warfarin H/o DVT/PE in 2012 -Resume warfarin Tobacco abuse -Smoking cessation counselling COPD--stable, no acute exacerbation -Continue albuterol prn Parkinson's disease, dementia, depression--stable -Continue Donepezil 5 mg PO hs, Sinemet 25/250 PO QID, Mirapex 1 mg PO hs, Lyrica 75 mg PO BID GERD -Prilosec converted to Protonix DVT prophylaxis -Chemical ppx had been held due to hemoptysis, will resume warfarin now -SCDs Code Status -Level I, FULL RESUSCITATION STATUS Dispo -From home -PT/OT evaluate and treat (Renu Hay, PA-C) Supervising Note Dr. Sung I performed a history and physical examination on the patient. I reviewed above note and agree with it. I discussed plan with APC and patient. During my face to face encounter with the patient, I answered all of the patient's questions. (Tao Sung M.D.)
[2017-11-19] MEDS ORDERED: WARFARIN SOD 3 MG TAB PO SCH (16:00)
[2017-11-19] MEDS: DONEPEZIL HCL 5 MG TAB PO SCH (20:47)
[2017-11-19] MEDS: ATORVASTATIN 40 MG TAB PO SCH (20:47)
[2017-11-19] MEDS ORDERED: ASPIRIN 81 MG ECTAB PO SCH (21:00)
[2017-11-20] MEDS: D5W AND 1/2NSS 1,000 ML IV SCH (01:23)
[2017-11-20 04:00] VITALS: BP 93/60; PULSE 60; TEMP 36.8; O2SAT 94
[2017-11-20 07:13] VITALS: BP 117/74; PULSE 68; TEMP 37; O2SAT 94
[2017-11-20 08:00] VITALS: BP 118/80; PULSE 67; TEMP 36.4; O2SAT 92
[2017-11-20 08:19] VITALS: O2SAT 92
[2017-11-20 08:21] LABS: HEMOGLOBIN 13.3 g/dL (14.0-18.0); MEAN CELL VOLUME 92.4 fL (80-100); MEAN CORPUSCULAR HEMOGLOBIN 31.5 pg (25-34); MEAN CORPUSCULAR HGB CONC 34.1 g/dl (32-36); MEAN PLATELET VOLUME 11.5 fL (7.4-10.4); PLATELET COUNT 118 K/uL (130-400); RED CELL DISTRIBUTION WIDTH CV 13.8 % (11.5-14.5); RED CELL DISTRIBUTION WIDTH SD 46.7 fL (36.4-46.3); WHITE BLOOD COUNT 8.51 K/uL (4.8-10.8)
[2017-11-20 08:27] LABS: INR 1.2 (0.9-1.1)
[2017-11-20] MEDS: LOPERAMIDE HCL 2 MG CAP PO SCH (08:42)
[2017-11-20] MEDS: PANTOprazole SOD 40 MG TAB PO SCH (08:45)
[2017-11-20] MEDS: CARBIDOPA/LEVODOPA 25-250 1 EA TAB PO SCH ×2 (08:45→13:47)
[2017-11-20] MEDS: METOPROLOL SUCC 25MG EXT REL TAB PO SCH (08:45)
[2017-11-20] MEDS: ALBUTEROL HFA 8 GM INHALER INH SCH (08:46)
[2017-11-20] MEDS: PREGABALIN 75 MG CAP PO SCH (08:48)
[2017-11-20 08:49] VITALS: BP 131/83; PULSE 71
[2017-11-20 08:49] LABS: CALCIUM 8.4 mg/dl (8.5-10.1); CREATININE 1.13 mg/dl (0.60-1.40)
--- NOTE | 2017-11-20 13:16 | Discharge Instructions ---
Discharge Instructions Date of Service Nov 20, 2017. Admission Reason for Admission: Hemoptysis Discharge Discharge Diagnosis / Problem: Hemoptysis Discharge Goals Goal(s): Decrease discomfort, Improve function Activity Recommendations Activity Limitations: resume your previous activity . Instructions / Follow-Up Instructions / Follow-Up Followup with PCP in 1-2 weeks [address] Denise for sleep medicine. Current Hospital Diet Patient's current hospital diet: AHA Diet (Heart Healthy) Discharge Diet Recommended Diet: AHA Diet (Heart Healthy) Procedures Procedures Performed: BRONCHOSCOPY Pending Studies Studies pending at discharge: no Medical Emergencies . Who to Call and When: Medical Emergencies: If at any time you feel your situation is an emergency, please call 911 immediately. . Non-Emergent Contact Non-Emergency issues call your: Primary Care Provider Call Non-Emergent contact if: you have a fever . . "Provider Documentation" section prepared by Tao Sung. . VTE Core Measure Inpt VTE Proph given/why not?: Contraindicated (hemoptysis)
[2017-11-20 13:22] VITALS: BP 131/83; PULSE 71; TEMP 36.4; O2SAT 92
--- NOTE | 2017-11-20 13:36 | PULMONARY PROGRESS NOTE ---
DATE: 11/20/2017 PROBLEM LIST: 1. Hemoptysis. 2. Questionable COPD. SUBJECTIVE: The patient underwent bronchoscopy for this hemoptysis yesterday. There was no evidence of blood on bronchoscopic evaluation. Only thing of note was some EDAC. This was discussed with the patient and his significant other. Apparently, patient does have history of sleep apnea, does have CPAP at home, does not use it due to not having a mask that is comfortable. Otherwise, states that his breathing is doing well overall. No cough, no wheeze, no increased shortness of breath, no chest heaviness or tightness. No chest congestion. No other problems. No chest pain. No abdominal pain. Appetite is normal. OBJECTIVE: GENERAL: The patient is a 72-year-old male sitting at bedside in no acute distress, no respiratory distress. He is alert, interactive and cooperative. VITAL SIGNS: Temp 36.4, pulse 71, respirations 16, blood pressure is 131/83, and pulse ox 92% on room air. NECK: Supple. No mass, no adenopathy, no bruit. CHEST: Overall clear. I do not really appreciate any wheeze, rales or rhonchi at this time. CARDIOVASCULAR: Regular rate and rhythm. No murmurs, gallops or rubs. ABDOMEN: Bowel sounds are present. Abdomen soft, nontender. No guarding, rigidity or organomegaly noted. EXTREMITIES: No erythema, no edema, no cyanosis or clubbing. LABORATORY DATA: Shows white count of 8500, H&H 13.3 and 39.0, and platelet count of 118,000. No new lab or radiologic data. IMPRESSION: This is a 72-year-old male who presented with 2 episodes of hemoptysis and history of chronic obstructive pulmonary disease. The patient did have a CAT scan of his chest done which was unremarkable. The patient also had bronchoscopy done which was unremarkable for bleeding, did show EDAC, which patient is on. Does have sleep apnea and is supposed to be on CPAP for. At this time, could not find any source of the bleeding as respiratory status seems to be at his baseline level. For now, would recommend he continue to follow with his PCP, can do pulmonary consult if symptoms would happen again or if he has any worsening of his breathing. In regards to his EDAC and his sleep apnea, did recommend to patient and his /significant other that he may benefit from a sleep medicine consult and gave him the name of Dr. Denise for this, based on they would think about it. For now, there is not really much else to offer from a pulmonary standpoint, so will sign off at this time. EDUARDO
[2017-11-20] MEDS: PRAMIPEXOLE DIHYDROCHLORIDE 0.5 MG TAB PO SCH (13:47)
--- NOTE | 2017-11-20 22:58 | Discharge Summary ---
Discharge Summary Date of Service Nov 20, 2017. Discharge Summary Admission Date: Nov 18, 2017 at 11:01 Discharge Date: Nov 20, 2017 Immunizations: Have You Had Influenza Vaccine: Yes Influenza Vaccine Date: Jun 27, 2013 History of Tetanus Vaccine?: Yes History of Pneumococcal: Yes History of Hepatitis B Vaccine: Unknown Hospital Course Supervising Note Dr. Sung I performed a history and physical examination on the patient. I reviewed above note and agree with it. I discussed plan with APC and patient. During my face to face encounter with the patient, I answered all of the patient's questions. This includes examination of the patient, discharge planning, medication reconciliation, and communication with other providers. Discharge Instructions Please refer to the electronic Patient Visit Report (Discharge Instructions) for additional information.
--- NOTE | 2017-11-25 07:53 | EDITING REQUIRED CODING QUERY ---
EDAC is a form of tracheobronchial malacia CODING QUERY To promote full compliance with coding requirements relating to patient care, provider participation is requested in all cases of track repairer uncertainty. Please assist us with the question(s) below: Coding Question(s): Bronchoscopy postop diagnosis is EDAC. Please define meaning of this as it is not listed in our list of approved abbreviations. Physician's Response(s): Thank you Gloria Pepper Principal Diagnosis: "_that condition established after study, to be chiefly responsible for occasioning the admission of the patient to the hospital for care." Co-Existing Principal Diagnosis: "_when two or more diagnoses equally meet the criteria for principal diagnosis as determined by the circumstances of admission, diagnostic work up, and/or therapy provided, and the Alphabetic Index, Tabular List, or another coding guideline does not provide sequencing direction, any one of the diagnoses may be sequenced first." "When the physician has documented what appears to be a current diagnosis in the body of the record, but has not included the diagnosis in the final diagnostic statement, the physician should be asked whether the diagnosis should be added." (Source Coding [facility] 2 QTR90. p3-4)
== END 2017-11-20 14:37 | disposition home or self-care (01) | DRG 168 ==
LOC: C.EDB 10:51 → C.MSW 14:36 → ENRESERV 14:52 → OBSVTOIN 11-18 11:01
PROVIDERS: ADMIT Internal Medicine; ATTEND Family Medicine
PROC: 0B9C8ZX Drainage of Right Upper Lung Lobe, Via Natural or Artificial Opening Endoscopic, Diagnostic (ICD-10-PCS; principal; 2017-11-19 11:30)
DX: R04.2 Hemoptysis (principal); R13.10 Dysphagia, unspecified; R49.0 Dysphonia; J39.8 Other specified diseases of upper respiratory tract; G47.33 Obstructive sleep apnea (adult) (pediatric); G20 Parkinson's disease; F02.80 Dementia in other diseases classified elsewhere, unspecified severity, without behavioral disturbance, psychotic disturbance, mood disturbance, and anxiety; F17.290 Nicotine dependence, other tobacco product, uncomplicated; I25.10 Atherosclerotic heart disease of native coronary artery without angina pectoris; E78.5 Hyperlipidemia, unspecified; I10 Essential (primary) hypertension; I48.0 Paroxysmal atrial fibrillation; J44.9 Chronic obstructive pulmonary disease, unspecified; F32.9 Major depressive disorder, single episode, unspecified; K21.9 Gastro-esophageal reflux disease without esophagitis; I25.2 Old myocardial infarction; Z95.1 Presence of aortocoronary bypass graft; Z86.711 Personal history of pulmonary embolism; Z86.718 Personal history of other venous thrombosis and embolism; Z85.51 Personal history of malignant neoplasm of bladder; Z79.01 Long term (current) use of anticoagulants; Z79.1 Long term (current) use of non-steroidal anti-inflammatories (NSAID); Z79.82 Long term (current) use of aspirin; Z79.899 Other long term (current) drug therapy; Z82.49 Family history of ischemic heart disease and other diseases of the circulatory system

== ENCOUNTER → 2017-12-31 | Outpatient (CLI) | payer OTHER ==
[~2017-12-31] MED LIST changes: -DONE1TAB11 PO; +DONE5TAB26 PO; -MISCCAP80 PO; -MULT-845 PO; +NMN5 PO; +VNTHFA/IN INH; -WARF1TAB PO
--- NOTE | 2017-12-31 12:43 | DIAGNOSTIC IMAGING REPORT ---
CHEST 2 VIEWS ROUTINE CLINICAL HISTORY: Shortness of breath. COMPARISON STUDY: Chest CT November 17, 2017. FINDINGS: There are median sternotomy wires. No pneumothorax or pleural effusion is noted. There is no evidence for pulmonary edema. No consolidation is identified. The appearance of the chest is unchanged. IMPRESSION: No acute cardiopulmonary findings. No change in appearance of the chest. Electronically signed by: Errol Dempsey M.D. 12/31/2017 12:42 PM Dictated Date/Time: 12/31/2017 12:41 PM
[2017-12-31 14:06] LABS: BLOOD UREA NITROGEN 16 mg/dl (7-18); CALCIUM 8.8 mg/dl (8.5-10.1); CARBON DIOXIDE 30 mmol/L (21-32); CREATININE 1.02 mg/dl (0.60-1.40); GLUCOSE 93 mg/dl (70-99); POTASSIUM 4.2 mmol/L (3.5-5.1); SODIUM 141 mmol/L (136-145)
== END | disposition home or self-care (01) ==
LOC: C.RAD1850 12:12
PROVIDERS: ATTEND Internal Medicine Cardiovascular Disease
DX: I25.10 Atherosclerotic heart disease of native coronary artery without angina pectoris (principal); R60.9 Edema, unspecified; R06.02 Shortness of breath

== ENCOUNTER → 2018-01-20 | Outpatient (CLI) | payer OTHER ==
[~2018-01-20] MED LIST changes: -ACET-1256 PO; +DONE1TAB25 PO; -DONE5TAB26 PO; +FURO-85 PO; +GLUC10007 PO; -GLUCTAB7 PO; +HYDR-5688 PO; +METO25TA3 PO; -NTRGSL/4 SL; +NTRGSL/4 UT; +PRAM0.5T13 PO; -PRAM1TAB47 PO; -TPRSR25 PO; +TYLOTC500 PO; -WARF3TAB PO; +WARF3TAB6 PO
[2018-01-20 15:25] LABS: BLOOD UREA NITROGEN 20 mg/dl (7-18); CALCIUM 8.8 mg/dl (8.5-10.1); CARBON DIOXIDE 28 mmol/L (21-32); CREATININE 1.02 mg/dl (0.60-1.40); GLUCOSE 114 mg/dl (70-99); POTASSIUM 4.1 mmol/L (3.5-5.1); SODIUM 140 mmol/L (136-145)
== END | disposition home or self-care (01) ==
LOC: C.LAB1850 13:47
PROVIDERS: ATTEND Physician Assistant
DX: R60.9 Edema, unspecified (principal)

== ENCOUNTER → 2018-01-26 | Day surgery (SDC) | payer OTHER ==
[2018-01-08 12:10] VITALS: Ht 172.7 cm; Wt 95.5 kg
[~2018-01-26] VITALS: Ht 172.7 cm; Wt 95.5 kg
[~2018-01-26] MED LIST changes: +LIDOCAINE HCL 2% 2 ML VIAL (20MG/ML) ONE; +PHENYLEPHRINE 100MCG/ML 5ML SYR ONE; +PROPOFOL IV EMULSION 10 MG/ML 20 ML VIAL IV ONE; +SODIUM CHLORIDE 0.9% 500ML 500 ML IV ONE
--- NOTE | 2018-01-26 10:59 | Endo History and Physical ---
History & Physical Date of Service: Jan 26, 2018. Chief Complaint: screening Referring Physician: Dr. Isak Galaviz History of Present Illness 72 yo CM who presents for screening colonoscopy. Past Medical History Arthritis, Cancer, Sleep Apnea, Hypertension, COPD, SC Past Surgical History Hx Cardiac Surgery: Yes (HEART CATH, CABG-2 VESSELS) Hx Internal Defibrillator: No Hx Pacemaker: No Hx Abdominal Surgery: No Hx of Implantable Prosthesis: No Hx Post-Op Nausea and Vomiting: No Hx Cancer Surgery: Yes (CYSTOSCOPIES) Hx Thoracic Surgery: No Hx Orthopedic: No Hx Urinary Tract Surgery: Yes (TURBT) Family History Colon CA Social History Smoking Status: Current Every Day Smoker Hx Substance Use: No Hx Alcohol Use: Yes (1 BEER DAILY) Allergies Coded Allergies: Penicillins (Verified Allergy, Severe, RASH,SWELLING, 01/08/18) IV PENICILLINS Current Medications Reported Home Medications Medications Dose Route/Sig Max Daily Dose Days Date Category Dose Instructions Jantoven (Warfarin Sodium) 3 Mg Tab 3 Mg PO DAILY 01/08/18 Reported Vitamin D (Cholecalciferol) 2,000 Unit Cap 1 Cap PO DAILY 01/08/18 Reported Ventolin Hfa (Albuterol) 200 Puffs/02119 Mcg Aers 2-4 Puffs INH Q6H PRN 01/08/18 Reported Tylenol (Acetaminophen) 500 Mg Tab 500 Mg PO DAILY 01/08/18 Reported Ultram (Tramadol HCl) 50 Mg Tab 50 Mg PO Q6H PRN 01/08/18 Reported Pramipexole Dihydrochlori (Pramipexole Dihydrochloride) 0.5 Mg Tab 1 Tab PO DIRECTED 01/08/18 Reported 1 TAB IN THE AFTERNOON 2 TAB HS Prilosec (Omeprazole) 20 Mg Capcr 20 Mg PO QAM 01/08/18 Reported Nitrostat (Nitroglycerin) 0.4 Mg Tab 0.4 Mg UT PRN 01/08/18 Reported Toprol-Xl (Metoprolol Succinate) 25 Mg Tabcr 25 Mg PO QAM 01/08/18 Reported Namenda (Memantine) 5 Mg Tab 5 Mg PO BID 01/08/18 Reported Lyrica (Pregabalin) 75 Mg Cap 75 Mg PO BID 01/08/18 Reported Imodium (Loperamide HCl) 2 Mg Cap 2 Mg PO DAILY 01/08/18 Reported Glucosamine (Glucosamine Sulfate) 1,000 Mg Tab 1,000 Mg PO BID 01/08/18 Reported Lasix (Furosemide) 20 Mg Tab 20 Mg PO DAILY PRN 01/08/18 Reported Donepezil Hcl (Donepezil Hydrochloride) 5 Mg Tab 1 Tab PO HS 01/08/18 Reported Aspirin Ec (Aspirin) 81 Mg Tab 81 Mg PO HS 04/15/17 Reported Sinemet 25MG/250MG (Carbidopa/Levodopa) Tab 1 Tab PO QID 04/15/17 Reported Lipitor (Atorvastatin Calcium) 80 Mg Tab 80 Mg PO HS 12/24/15 Reported [place] 5MG/325MG (Acetaminophen/Hydrocodone Bitart) Tab 1 Tablet PO Q6 PRN 01/26/18 Reported PRN PAIN Vital Signs Weight (Kilograms): 95.45 Height (Feet): 5 Height (Inches): 8 Date Time Temp Pulse Resp B/P (MAP) Pulse Ox O2 Delivery O2 Flow Rate FiO2 01/26/18 10:33 36.5 60 20 115/69 (84) 97 Room Air Physical Exam General Appearance: WD/WN, no apparent distress Respiratory/Chest: Auscultation: breath sounds normal Cardiovascular: Heart Auscultation: RRR Abdomen: Bowel Sounds: normal Inspection & Palpation: soft, non-distended, no tenderness, guarding & rebound Assessment and Plan Assessment: 72 yo CM who presents for screening colonoscopy. Plan: Proceed with colonoscopy.
--- NOTE | 2018-01-26 11:42 | GI REPORT ---
Procedure Date: 01/26/2018 10:09 AM Procedure: Colonoscopy Indications: Screening for colorectal malignant neoplasm Medicines: Monitored Anesthesia Care Complications: No immediate complications. Estimated Blood Loss: Estimated blood loss: none. Procedure: Pre-Anesthesia Assessment: - Prior to the procedure, a History and Physical was performed, and patient medications and allergies were reviewed. The patient's tolerance of previous anesthesia was also reviewed. The risks and benefits of the procedure and the sedation options and risks were discussed with the patient. All questions were answered, and informed consent was obtained. Prior Anticoagulants: The patient last took aspirin 1 day and Coumadin (warfarin) 7 days prior to the procedure. ASA Grade Assessment: IV - A patient with severe systemic disease that is a constant threat to life. After reviewing the risks and benefits, the patient was deemed in satisfactory condition to undergo the procedure. After I obtained informed consent, the scope was passed under direct vision. Throughout the procedure, the patient's blood pressure, pulse, and oxygen saturations were monitored continuously. The scope was introduced through the anus and advanced to the terminal ileum. The colonoscopy was performed without difficulty. The patient tolerated the procedure well. The quality of the bowel preparation was good. The terminal ileum, ileocecal valve, appendiceal orifice, and rectum were photographed. Findings: The perianal and digital rectal examinations were normal. A 6 mm polyp was found in the descending colon. The polyp was sessile. The polyp was removed with a hot snare. Resection and retrieval were complete. Multiple small-mouthed diverticula were found in the sigmoid colon. Non-bleeding internal hemorrhoids were found during retroflexion. The hemorrhoids were small. Impression: - One 6 mm polyp in the descending colon, removed with a hot snare. Resected and retrieved. - Diverticulosis in the sigmoid colon. - Non-bleeding internal hemorrhoids. Recommendation: - Resume previous diet. - Continue present medications. - Repeat colonoscopy for surveillance based on pathology results. - Return to primary care physician as previously scheduled. Wilfrido Oconnor DO 01/26/2018 11:41:40 AM This report has been signed electronically. Note Initiated On: 01/26/2018 10:09 AM I attest to the content of the Intraoperative Record and orders documented therein, exceptions below
--- NOTE | 2018-01-26 11:44 | Discharge Instructions ---
Endoscopy Patient Instructions Date / Procedure(s) Performed Jan 26, 2018. Colonoscopy Allergy Information Coded Allergies: Penicillins (Verified Allergy, Severe, RASH,SWELLING, 01/08/18) IV PENICILLINS Discharge Date / Findings Jan 26, 2018. Colon polyp Diverticulosis Internal hemorrhoids Medication Instructions Stopped Medication(s): stopped Warfarin . January 19,took ASA yesterday OK to resume all medications today as prescribed Reported Home Medications Medications Dose Route/Sig Max Daily Dose Days Date Category Dose Instructions Jantoven (Warfarin Sodium) 3 Mg Tab 3 Mg PO DAILY 01/08/18 Reported Vitamin D (Cholecalciferol) 2,000 Unit Cap 1 Cap PO DAILY 01/08/18 Reported Ventolin Hfa (Albuterol) 200 Puffs/53526 Mcg Aers 2-4 Puffs INH Q6H PRN 01/08/18 Reported Tylenol (Acetaminophen) 500 Mg Tab 500 Mg PO DAILY 01/08/18 Reported Ultram (Tramadol HCl) 50 Mg Tab 50 Mg PO Q6H PRN 01/08/18 Reported Pramipexole Dihydrochlori (Pramipexole Dihydrochloride) 0.5 Mg Tab 1 Tab PO DIRECTED 01/08/18 Reported 1 TAB IN THE AFTERNOON 2 TAB HS Prilosec (Omeprazole) 20 Mg Capcr 20 Mg PO QAM 01/08/18 Reported Nitrostat (Nitroglycerin) 0.4 Mg Tab 0.4 Mg UT PRN 01/08/18 Reported Toprol-Xl (Metoprolol Succinate) 25 Mg Tabcr 25 Mg PO QAM 01/08/18 Reported Namenda (Memantine) 5 Mg Tab 5 Mg PO BID 01/08/18 Reported Lyrica (Pregabalin) 75 Mg Cap 75 Mg PO BID 01/08/18 Reported Imodium (Loperamide HCl) 2 Mg Cap 2 Mg PO DAILY 01/08/18 Reported Glucosamine (Glucosamine Sulfate) 1,000 Mg Tab 1,000 Mg PO BID 01/08/18 Reported Lasix (Furosemide) 20 Mg Tab 20 Mg PO DAILY PRN 01/08/18 Reported Donepezil Hcl (Donepezil Hydrochloride) 5 Mg Tab 1 Tab PO HS 01/08/18 Reported Aspirin Ec (Aspirin) 81 Mg Tab 81 Mg PO HS 04/15/17 Reported Sinemet 25MG/250MG (Carbidopa/Levodopa) Tab 1 Tab PO QID 04/15/17 Reported Lipitor (Atorvastatin Calcium) 80 Mg Tab 80 Mg PO HS 12/24/15 Reported [place] 5MG/325MG (Acetaminophen/Hydrocodone Bitart) Tab 1 Tablet PO Q6 PRN 01/26/18 Reported PRN PAIN Provider Instructions Activity Restrictions - No exercising or heavy lifting for 24 hours. - Do not drink alcohol the day of the procedure. - Do not drive a car or operate machinery until the day after the procedure. - Do not make any important decisions or sign important papers in 24 hours after the procedure. Following Day: - Return to full activity which may include returning to work/school. Diet Start your diet with liquids and light foods (jello, soup, juice, toast). Then eat your usual diet if not nauseated. Treatment For Common After Affects For mild abdominal pain, bloating, or excessive gas: - Rest - Eat lightly - Lie on right side Follow-Up Information Follow-up with Dr. Isak Galaviz as scheduled Anesthesia Information What You Should Know You have had a procedure that required some medicine to reduce anxiety and discomfort. This treatment is called moderate sedation. After receiving the treatment, you may be sleepy, but you will be able to breathe on your own. The effects of the treatment may last for several hours. Follow these instructions along with Activity/Diet recommendations noted above: * Do NOT do anything where dizziness or clumsiness would be dangerous. * Rest quietly at home today, then you can be up and about tomorrow. * Have a responsible person stay with you the rest of today. * You may have had an I.V. today. If so, you may take the dressing off later today. Recommendations Call your doctor if: * Trouble breathing * Continuous vomiting for more than 24 hours * Temperature above 101 degrees * Severe abdominal pain or bloating * Pain not relieved by pain medicine ordered * There is increased drainage or redness from any incision * A large amount of rectal bleeding greater than 2-3 tablespoons. (If you had a polyp/s removed or have hemorrhoids, a small amount of blood - from the rectum is to be expected.) * You have any unanswered questions or concerns. IN THE EVENT OF A SERIOUS EMERGENCY, GO TO THE NEAREST EMERGENCY ROOM Your discharge instructions were prepared by provider Wilfrido Oconnor. Patient Instructions Signature Page Tomas Ramirez Patient (or Guardian) Signature/Date: I have read and understand the instructions given to me by my caregivers. Caregiver/RN/Doctor Signature/Date: The above-named patient and/or guardian has received patient instructions on this date. + Original Patient Signature Page (only) stays with chart. Please make copy for patient.
[2018-01-26 12:14] VITALS: BP 123/79; PULSE 61; O2SAT 99
--- NOTE | 2018-01-26 14:46 | Anesthesiology Progress Note ---
Anesthesia Post Op Note Date & Time Jan 26, 2018 at 14:45 Vital Signs Pain Intensity: 0 Vital Signs Past 12 Hours Date Time Temp Pulse Resp B/P (MAP) Pulse Ox O2 Delivery O2 Flow Rate FiO2 01/26/18 12:14 61 18 123/79 (94) 99 Room Air 01/26/18 11:57 62 18 117/74 (88) 99 Room Air 01/26/18 11:42 69 14 95/64 (74) 99 Room Air 01/26/18 10:33 36.5 60 20 115/69 (84) 97 Room Air Notes Mental Status: alert / awake / arousable, participated in evaluation Pt Amnestic to Procedure: Yes Nausea / Vomiting: adequately controlled Pain: adequately controlled Airway Patency, RR, SpO2: stable & adequate BP & HR: stable & adequate Hydration State: stable & adequate Anesthetic Complications: no major complications apparent
== END | disposition home or self-care (01) ==
LOC: C.GI 09:53
PROVIDERS: ATTEND Internal Medicine
DX: Z12.11 Encounter for screening for malignant neoplasm of colon (principal); D12.4 Benign neoplasm of descending colon; K57.30 Diverticulosis of large intestine without perforation or abscess without bleeding; K64.8 Other hemorrhoids; G47.33 Obstructive sleep apnea (adult) (pediatric); J44.9 Chronic obstructive pulmonary disease, unspecified; F03.90 Unspecified dementia, unspecified severity, without behavioral disturbance, psychotic disturbance, mood disturbance, and anxiety; I25.2 Old myocardial infarction; I10 Essential (primary) hypertension; Z98.890 Other specified postprocedural states; F17.200 Nicotine dependence, unspecified, uncomplicated; Z88.0 Allergy status to penicillin; Z79.899 Other long term (current) drug therapy; Z79.01 Long term (current) use of anticoagulants; Z79.82 Long term (current) use of aspirin; Z98.41 Cataract extraction status, right eye; Z98.42 Cataract extraction status, left eye; Z86.73 Personal history of transient ischemic attack (TIA), and cerebral infarction without residual deficits; Z95.1 Presence of aortocoronary bypass graft; Z86.718 Personal history of other venous thrombosis and embolism; Z86.711 Personal history of pulmonary embolism; Z80.52 Family history of malignant neoplasm of bladder; Z80.0 Family history of malignant neoplasm of digestive organs

== ENCOUNTER → 2018-02-18 | Outpatient (CLI) | payer OTHER ==
[~2018-02-18] VITALS: Ht 172.7 cm; Wt 97.8 kg
[~2018-02-18] MED LIST changes: -LIDOCAINE HCL 2% 2 ML VIAL (20MG/ML) ONE; -PHENYLEPHRINE 100MCG/ML 5ML SYR ONE; -PROPOFOL IV EMULSION 10 MG/ML 20 ML VIAL IV ONE; -SODIUM CHLORIDE 0.9% 500ML 500 ML IV ONE
[2018-02-18 13:33] VITALS: BP 128/54; PULSE 54; BMI 32.8
[2018-02-18 13:41] VITALS: BP 128/84; PULSE 54; Ht 172.7 cm; Wt 97.8 kg
== END | disposition home or self-care (01) ==
LOC: C.NEUR 13:00
PROVIDERS: ATTEND Internal Medicine Pulmonary Disease
DX: G47.33 Obstructive sleep apnea (adult) (pediatric) (principal); Z88.0 Allergy status to penicillin

== ENCOUNTER 2018-05-27 12:20 | Emergency (ER) | payer OTHER ==
[~2018-05-27] VITALS: Ht 172.7 cm; Wt 99.4 kg
[~2018-05-27 12:20] MED LIST changes: +DOCU100C31 PO; -HYDR-5688 PO; -IMD/2 PO; +LVQ750 PO; +MRP5 PO
[2018-05-27 12:23] VITALS: TEMP 36.4; Ht 172.7 cm; Wt 99.4 kg
[2018-05-27] MEDS ORDERED: LIDODERM (LIDOCAINE) PATCH 5% TD STA (12:50)
--- NOTE | 2018-05-27 13:35 | EMERGENCY ROOM VISIT NOTE ---
ED Visit Note First contact with patient: 12:39 CHIEF COMPLAINT: Low back pain HISTORY OF PRESENT ILLNESS: This 73-year-old male patient presents to the emergency department, ambulatory, complaining of pain in the low back which began approximately 1 year ago. The pain has been worsening over the past 3-4 days. The pain was gradual in onset, is now constant and worse with movement. The patient notes the pain as sharp and throbbing and a 10/10. The patient has taken Tylenol, icy hot, Voltaren gel, aspirin, and tramadol without relief of the pain. The patient denies any loss of control of their bowel or bladder functions. There has been no leg numbness or weakness, and no change in sensation. No nausea or vomiting or abdominal pain. No chest pain or shortness of breath. The patient has not had prior back injuries. No dysuria or increased urinary frequency. The patient has seen his primary care provider regarding the back pain and was encouraged to follow-up with pain management. He contacted pain management, but was told he would receive a call back with an appointment, and that he would not get in today. The patient presents to the emergency department today desiring a cortisone injection, as he was told that is what he needs. He states he cannot handle the pain any longer. REVIEW OF SYSTEMS: A 10 system review of systems was performed with positives and pertinent negatives listed in the history of present illness. All other systems were reviewed and are negative. ALLERGIES: Penicillin MEDICATIONS: Coumadin, Lipitor, Sinemet, aspirin, benazepril, Lasix, glucosamine , Lyrica, Namenda, Toprol, nitro, Prilosec, pramipexole, tramadol, Tylenol, Ventolin, vitamin D, Coumadin, docusate PMH: Heart disease, hyperlipidemia, chronic pain, GERD SOCIAL HISTORY: The patient lives locally with family. He denies drug, alcohol use. He is a current everyday smoker. PHYSICAL EXAM: VITALS: Vitals are noted on the nurse's note and reviewed by myself. Vital signs stable. GENERAL: This is a 73-year-old white male, in no acute distress, nondiaphoretic , well-developed well-nourished. SKIN: The skin was without rashes, erythema, edema, or bruising. Capillary refill less than 2 seconds. NECK: Supple without nuchal rigidity. No cervical spine tenderness. No paraspinous muscle tenderness. HEART: Regular rate and rhythm without murmurs gallops or rubs. LUNGS: Clear to auscultation bilaterally without wheezes, rales or rhonchi. ABDOMEN: Positive bowel sounds x 4. Normal tympanic percussion. Soft, nontender, without masses or organomegaly. Moreno sign negative. MUSCULOSKELETAL: No muscle atrophy, erythema, or edema noted of the back. There is no tenderness over the lumbar spinous processes. There is mild tenderness over the paraspinous muscles on the left. There is tenderness of the left SI joint.. There is no tenderness over the thoracic spine or paraspinous muscles. There are no muscle spasms present. The patient is slow to move around with maximum tenderness with sitting from a lying position. Positive left-sided straight leg raise test. NEURO: Patient was alert and oriented to person place and time. Normal sensation to light and sharp touch. Deep tendon reflexes 2+ in the lower extremities. Dorsalis pedis pulse 2+ bilaterally. Strength 5/5 and equal in the bilateral lower extremities. EMERGENCY DEPARTMENT COURSE: The patient was seen and evaluated as above. There was no new injury to precipitate the worsening pain. X-ray performed reviewed by myself and radiologist as above. Patient was given a Lidoderm patch for pain. I discussed the findings of the x-ray with the patient at bedside. I discussed with him that we would not be giving him a cortisone injection, and that I am very limited on pain management options due to his history of heart disease and current Coumadin use. Patient was reassessed and is feeling mild improvement with the Lidoderm patch. He will be started on a short course of Tylenol #3 as well as Lidoderm patches to help with his symptoms. The patient was encouraged to follow-up closely with his primary care provider and pain management regarding ongoing discomfort. All questions answered patient satisfaction prior to discharge. Discharge instructions reviewed, patient was discharged home in good condition. PDMP consulted and no suspicious findings noted. I attest that I have personally reviewed the patient's current medication list. Patient was found to have normal blood pressure on screening and does not require follow-up. Etiologies such as lumbago, sciatica, cauda equina, epidural abscess, osteomyelitis, fracture, aortic disease, metastatic disease, infection, renal colic, gastrointestinal, as well as others were entertained. DIAGNOSIS: Sciatica The chart was completed utilizing [employer] Speech voice recognition software. Grammatical errors, random word insertions, pronoun errors, and incomplete sentences are an occasional consequence of this system due to software limitations, ambient noise, and hardware issues. Any formal questions or concerns about the content, text, or information contained within the body of this dictation should be directly addressed to the provider for clarification. Problem List Medical Problems: (1) Coronary artery bypass grafts x 2 Status: Resolved (2) Coronary artery disease Status: Chronic (3) Coronary bypass surgery Status: Resolved (4) Hyperlipidemia Status: Chronic (5) Hypotension Status: Chronic (6) Kidney stone Status: Resolved (7) Myocardial infarction Status: Resolved (8) Paroxysmal atrial fibrillation Status: Chronic Current/Historical Medications Scheduled Acetaminophen (Tylenol), 500 MG PO Q AFTERNOON Aspirin (Aspirin Ec), 81 MG PO HS Atorvastatin (Lipitor), 80 MG PO HS Carbidopa/Levodopa (Sinemet 25MG/250MG), 1 TAB PO QID Cholecalciferol (Vitamin D), 2,000 UNITS PO DAILY Docusate Sodium (Docusate Sodium), 1 CAP PO BID Donepezil Hydrochloride (Donepezil Hcl), 1 TAB PO HS Glucosamine Sulfate (Glucosamine), 1,000 MG PO BID Levofloxacin (Levofloxacin), 750 MG PO DAILY@11 Memantine (Namenda), 5 MG PO BID Metoprolol Succ (Toprol Xl) (Toprol-Xl), 12.5 MG PO QAM Nitroglycerin (Nitrostat), 0.4 MG UT PRN Omeprazole (Prilosec), 20 MG PO QAM Pramipexole Dihydrochloride (Pramipexole Dihydrochlori), 0.5 MG PO Q AFTERNOON Pramipexole Dihydrochloride (Pramipexole Dihydrochlori), 1 MG PO DIRECTED Pregabalin (Lyrica), 75 MG PO BID Warfarin Sod (Jantoven), 3 MG PO DAILY Scheduled PRN Acetaminophen/Codeine (Tylenol W/Codeine #3), 1 TAB PO Q4H PRN for Pain Albuterol Hfa (Ventolin Hfa), 2-4 PUFFS INH QID PRN for Shortness of Breath Furosemide (Lasix), 20 MG PO DAILY PRN for SOB/EDEMA Lidocaine (Lidocaine), 1 PATCH TD QD PRN for Pain Tramadol (Ultram), 50 MG PO Q6H PRN for Pain Allergies Coded Allergies: Penicillins (Verified Allergy, Severe, RASH,SWELLING, 03/22/18) IV PENICILLINS Vital Signs Date Time Temp Pulse Resp B/P (MAP) Pulse Ox O2 Delivery O2 Flow Rate FiO2 05/27/18 12:23 36.4 66 20 109/72 95 Room Air Medications Administered Medications (Trade) Dose Ordered Sig/Dany Route Start Time Stop Time Status Last Admin Dose Admin Lidocaine (Lidoderm Patch 5%) 1 patch NOW STAT TD 05/27/18 12:50 05/27/18 12:51 DC 05/27/18 13:21 1 PATCH Departure Information Impression Primary Impression: Sciatica Dispostion Home / Self-Care Condition GOOD Prescriptions Acetaminophen/Codeine (Tylenol W/Codeine #3) 300 Mg/30 Mg Tab 1 TAB PO Q4H Y for Pain, #12 TAB For Initial Treatment Prov: Renu Soni PA-C 05/27/18 Lidocaine (LIDOCAINE) 5 % Pad 1 PATCH TD QD Y for Pain, #30 PATCH Prov: Renu Soni PA-C 05/27/18 Referrals Isak Galaviz M.D. (PCP) Patient Instructions ED Sciatica, [facility] Additional Instructions You have been treated in the Emergency Department for Back Pain. You have been prescribed Tylenol #3 to be used for pain control. This is a narcotic medication. You cannot drive or consume alcohol while on this medicine. This medicine should only be used for pain that cannot be controlled with [id number] pain medicines. Use Lidoderm patches as prescribed. No more than 1 patch in 24 hours. Patch must be removed at 12 hours. New patch may be applied 12 hours later. For pain control, you can use the following [id number] medicines (if >12 yo): Acetaminophen(Tylenol) may be used for fever or pain. Use 1000mg every six hours as needed. Avoid using more than 3000mg in a 24 hour period. This includes acetaminophen which is in the Tylenol 3 are prescribed. If this is an acute injury, ice can be applied to the area of pain for the first 3 days to help decrease pain and inflammation. After the first 3 days, a heating pad can be used over the area for continued soothing relief. You should schedule a follow-up appointment in 2-3 days with your Primary Care Provider for further evaluation and treatment of your back pain. Contact pain management regarding an appointment for injection there. Return to the Emergency Department if your current symptoms worsen despite treatment course outlined above, or if you develop any of the following symptoms : intractable pain despite aforementioned treatment course, loss of control of your bowel or bladder, numbness or tingling in your groin, or development of a fever. Problem Qualifiers Primary Impression: Sciatica Laterality: left Qualified Codes: M54.32 - Sciatica, left side
--- NOTE | 2018-05-27 13:40 | DIAGNOSTIC IMAGING REPORT ---
L-SPINE MIN 4 VIEWS ROUTINE CLINICAL HISTORY: Low back pain. COMPARISON: Lumbar spine MRI July 28, 2011. FINDINGS: Note is made of a 7 mm of anterolisthesis of L5 on S1 due to bilateral L5 pars defects. There is mild loss of height of the superior endplate of L5. There is mild multilevel disc space narrowing and moderate multilevel facet arthrosis. Bowel gas pattern is normal. Right renal calculi are noted. IMPRESSION: 1. Mild loss of height of the superior endplate of L5. This suggests an age indeterminate mild compression fracture or Schmorl's node. 2. Mild multilevel degenerative disc disease and moderate multilevel facet arthrosis. 3. Grade I anterolisthesis of L5 on S1 due to bilateral L5 pars defects. 4. Right-sided nephrolithiasis. Electronically signed by: Errol Dempsey M.D. 05/27/2018 1:39 PM Dictated Date/Time: 05/27/2018 1:35 PM
--- NOTE | 2018-05-27 13:48 | EMERGENCY ROOM VISIT NOTE ---
ED Visit Note First contact with patient: 12:39 The patient was seen and examined with Renu Soni PA-C. I agree with the history, physical and findings. Please see the note for disposition and details.
[2018-05-27] MEDS ORDERED: LIDO1PAD2 TD (13:52)
[2018-05-27] MEDS ORDERED: ACET300T3 PO (13:52)
[2018-05-27 14:05] VITALS: BP 136/79; PULSE 54; O2SAT 97
--- NOTE | 2018-05-27 16:31 | Pharmacy Progress Note ---
ED Pharmacist Progress Note Date of Service: May 27, 2018. Received call from [facility] pharmacy regarding patients prescription for 5% lidocaine patches. Patient's insurance does not cover without a prior authorization. Discussed with Renu JACOBS who was prescribing provider, patient can follow-up with primary care physician for prior auth. or self-pay. Message relayed to Pharmacist at [facility] pharmacy.
== END 2018-05-27 14:06 | disposition home or self-care (01) ==
LOC: C.EDB 12:20 → C.EDD 14:06
DX: M54.32 Sciatica, left side (principal); I25.10 Atherosclerotic heart disease of native coronary artery without angina pectoris; I25.2 Old myocardial infarction; E78.5 Hyperlipidemia, unspecified; K21.9 Gastro-esophageal reflux disease without esophagitis; F17.210 Nicotine dependence, cigarettes, uncomplicated; G89.29 Other chronic pain; Z88.0 Allergy status to penicillin; Z79.01 Long term (current) use of anticoagulants; Z79.82 Long term (current) use of aspirin; Z79.899 Other long term (current) drug therapy

== ENCOUNTER 2019-03-28 12:37 | Inpatient (IN) ==
[2019-03-28] MEDS ORDERED: ALBUT/IPRATROP 3MG/0.5MG NEB 3 ML VIAL NEB STA (14:16)
--- NOTE | 2019-03-28 14:26 | Emergency Department Note ---
ED Visit Note I assisted attending Dr. Yadav in the care of this patient. Please see attending's note for details of the visit. Kim Lobato MD Family Nurse Practitioner PGY-2 . Resident Activity Tracking Resident Involvement: Resident Care Provided Care Provided: Adult ED
[2019-03-28 14:46] LABS: Basophils # (auto) 0.01 K/uL (0-0.2); Eosinophils # (auto) 0.08 K/uL (0-0.5); Eosinophils % (auto) 0.4 %; Hematocrit (blood only) 35.5 % (42-52); Hemoglobin 11.7 g/dL (14.0-18.0); Immature Granulocytes # (auto) 0.06 K/uL (0.00-0.02); Immature Granulocytes % (auto) 0.3 %; Lymphocytes % (auto) 5.7 %; Mean Corpuscular Volume 94.7 fL (80-100); Mean Platelet Volume 10.1 fL (7.4-10.4); Monocytes # (auto) 0.59 K/uL (0.11-0.59); Monocytes % (auto) 2.8 %; Neutrophils # (auto) 19.07 K/uL (1.4-6.5); Neutrophils % (auto) 90.8 %; Platelet Count 149 K/uL (130-400); RDW Coefficient of Variation 14.7 % (11.5-14.5); RDW Standard Deviation 50.4 fL (36.4-46.3); Red Blood Count 3.75 M/uL (4.7-6.1); White Blood Count 21.01 K/uL (4.8-10.8)
[2019-03-28 15:01] LABS: BUN Creatinine Ratio 18.7 (10-20); Calcium 8.7 mg/dl (8.5-10.1); Creatinine Clr Calc Pharmacy 52.1 ml/min; Est GFR (African American) 56.1; Est GFR (Non-African American) 48.4; Potassium 4.2 mmol/L (3.5-5.1)
[2019-03-28 15:13] LABS: D Dimer 630 ug/L FEU (0-500); Prothrombin Time 42.4 Seconds (9.0-12.0)
--- NOTE | 2019-03-28 15:14 | XRay Report ---
SINGLE VIEW CHEST CLINICAL HISTORY: Hemoptysis. FINDINGS: An AP, portable, upright chest radiograph is compared to study dated 03/16/2019 and correlat ed with chest CT dated 12/07/2018. The examination is degraded by portable technique and patient rotat ion. The patient is status post midline sternotomy. The heart is enlarged and there is atherosclerot ic calcification of the thoracic aorta. There is pulmonary vascular congestion. There are low lung vo lumes. Bibasilar consolidation is noted. Small pleural effusions are suspected. No pneumothorax is se en. The skeletal structures are osteopenic. The bony thorax is grossly intact. Degenerative change is noted in the shoulders and thoracic spine. IMPRESSION: 1. Cardiomegaly with evidence of congestive failure. 2. There is bibasilar consolidation. 3. Suspect small pleural effusions. Electronically signed by: Reese Colmenares M.D. 03/28/2019 3:13 PM
[2019-03-28 15:16] LABS: Partial Thromboplastin Time 55.3 Seconds (21.0-31.0)
--- NOTE | 2019-03-28 15:19 | Emergency Department Note ---
Entered by Isha Regalado acting as a scribe for Alessandro Yadav DO History of Present Illness General Chief complaint: Fever Stated complaint: PNX, MISSED FO, FEVER ASPIRATION Time Seen by Provider: 03/28/19 13:47 Source: patient and family (son) History of Present Illness Provider complaint: productive cough Onset (ago): week(s) (over the last week and a half) Location: chest Quality: + other (productive cough) Associated symptoms: + fever/chills (febrile at 99.5) Treatments prior to arrival: other (Z Pack, Prednisone) The patient is a 73 year old male who presents to the Emergency Department with complaints of a productive cough over the last week and a half. The patient reports that he has also possibly been coughing up blood. Per son, the patient was febrile at 99.5. The patient states that he was placed on a Z Pack and Prednisone for pneumonia and COPD exacerbation. He states that he finished the Z Pack and Prednisone but reports that he missed his 1 week follow-up. He reports a history of a PE and DVT and states that he is on Coumadin. He also reports a history of COPD and a CABG. Home Medications Home Medications Medication Instructions Recorded Confirmed Type Benefiber Clear SF (dextrin) 1 packet PO DAILY 08/04/18 03/28/19 History albuterol sulfate [Ventolin HFA] 2 puff INHALATION Q6H PRN 08/04/18 03/28/19 History aspirin [Aspirin Childrens] 81 mg PO DAILY 08/04/18 03/28/19 History atorvastatin 80 mg PO HS 08/04/18 03/28/19 History carbidopa-levodopa 1 tab PO QID 08/04/18 03/28/19 History cholecalciferol (vitamin D3) 2,000 unit PO DAILY 08/04/18 03/28/19 History diclofenac sodium [Voltaren] 2 g TOPICAL QID 08/04/18 03/28/19 History docusate sodium 100 mg PO BID 08/04/18 03/28/19 History donepezil 10 mg PO HS 08/04/18 03/28/19 History memantine 10 mg PO BID 08/04/18 03/28/19 History metoprolol succinate 12.5 mg PO DAILY 08/04/18 03/28/19 History nitroglycerin 0.4 mg SUBLINGUAL Q5M 08/04/18 03/28/19 History pantoprazole 40 mg PO DAILY 08/04/18 03/28/19 History polyethylene glycol 3350 [Miralax] 17 g PO DAILY PRN 08/04/18 03/28/19 History pregabalin 75 mg PO BID 08/04/18 03/28/19 History sennosides-docusate sodium 1 tab PO HS 08/04/18 03/28/19 History [Senna-S] pramipexole [Mirapex] 1 mg PO HS 08/22/18 03/28/19 History carbidopa ER 50 mg-levodopa 200 mg 1 tab PO DAILY tab 01/17/19 03/28/19 History tablet,extended release furosemide 20 mg tablet 20 mg PO UD PRN tab 01/17/19 03/28/19 History acetaminophen 325 mg tablet 500 - 650 mg PO BID tab 02/17/19 03/28/19 History medical marijuana .ROUTE PRN 02/17/19 02/17/19 History warfarin 3 mg tablet See Rx Instructions PO UD tab 02/17/19 03/28/19 History Allergies Allergy/AdvReac Type Severity Reaction Status Date / Time Penicillins Allergy Severe RASH,SWELLI Verified 03/28/19 16:36 NG Past Med/Surg History Medical History Impaired fasting glucose (Acute) COPD (chronic obstructive pulmonary disease) (Acute) Chronic anticoagulation (Acute) Sleep apnea (Acute) HTN (hypertension) (Acute) Hyperlipidemia (Acute) Hearing loss (Acute) Diverticulosis (Acute) DVT (deep venous thrombosis) (Acute) A-fib (Acute) Depression (Acute) Parkinson disease (Acute) Dementia (Acute) Bladder cancer (Acute) Arthralgia (Acute) CAD (coronary artery disease) (Acute) BPH (benign prostatic hyperplasia) (Acute) Anemia (Acute) Retina disorder, right (Acute) Cataract (Acute) History of recent ear, nose, and throat (ENT) procedure (Acute) Abnormal CT of brain Acute coronary syndrome H/O deep venous thrombosis Hx of deep venous thrombosis Increased ammonia level Lumbar facet joint syndrome Metabolic encephalopathy Surgical History History of uvulopalatopharyngoplasty (Acute) History of cystoscopy (Acute) Hx of CABG (Acute) Family History Other No pertinent family history Social History Preferred Language: [place] Communication Ability: Effective Visual Impairment: No Limitations Hearing Ability: Hard of Hearing Beliefs That Will Affect Care: Cheondoism Cheondoism Beliefs: Buddhism marital status: Current Living Situation: Spouse Feels Safe at Home: Yes Smoking Status: Current some day smoker Tobacco Type: pipe and cigars Cigarettes Per Day: pt reportts he "mostly chews" on cigar/pipe Second Hand Exposure: Yes ( smokes) Hx Alcohol Use: Yes Alcohol type: beer Hx Substance Use: Yes (medical marijuana) Review of Systems See HPI for pertinent positives & negatives. and A total of 10 systems reviewed and were otherwise negative Physical Exam Vital Signs Vital Signs - 24 hr 03/28/19 13:20 03/28/19 14:48 Temperature 36.7 C Temperature Source Oral Sepsis Recent Fever Within 48 Hours Yes Sepsis New/Unexplained Change in Mental Status No Sepsis Action Taken by Nursing No Action Required Pulse Rate 77 Pulse Rate [Right Finger] 71 Respiratory Rate 22 22 Respiratory Effort / Characteristics Non-Labored Non-Labored Spontaneous Respiratory Depth Normal Blood Pressure 108/73 Blood Pressure Mean 84 Blood Pressure Position Sitting Pulse Oximetry 93 92 Oxygen Delivery Method Room Air Room Air GENERAL: Patient is awake and alert. He is somewhat anxious appearing and appears to be having significant difficulty breathing. EYES: The conjunctivae are injected bilaterally. The pupils are round and reactive. EARS, NOSE, MOUTH AND THROAT: The nose is without any evidence of any deformity. Mucous membranes are moist tongue is midline NECK: The neck is nontender and supple. RESPIRATORY: Diminished breath sounds were noted throughout. There are rales at both bases. Tachypnea was appreciated. CARDIOVASCULAR: Regular rate and rhythm was noted to auscultation. No definite murmur was noted per GASTROINTESTINAL: The abdomen is soft. Bowel sounds are present in all quadrants. Abdomen is nontender MUSCULOSKELETAL/EXTREMITIES: There is no evidence of gross deformity full range of motion is noted in the hips and shoulders SKIN: There is no obvious evidence of any rash. Mild pedal edema was noted bilaterally. NEUROLOGIC: Patient is awake alert and oriented x3. Course 1351: The patient was evaluated by Dr. Lobato-Resident. 1534: The patient was evaluate in room B6. A history and physical were performed. 1702: Dr. Lobato discussed the patient's case with Dr. Alejandra Trejo who will evaluate the patient for further management. Consultations Consultation #1: Dr. Alejandra Trejo Time: 17:02 Administered Medications Ioversol (Optiray 320 125ml) 95 ml IV ONCE PRN PRN Reason: Interaction Checking Stop: 04/01/19 15:55 Last Admin: 03/28/19 15:56 Dose: 95 ml Documented by: [id number] Discontinued Medications Albuterol (Duoneb) 3 ml NEB NOW STA Stop: 03/28/19 14:17 Last Admin: 03/28/19 14:39 Dose: 3 ml Documented by: [id number] Furosemide 20 mg/ Syringe 2 mls @ 4 mls/min IV ONE ONE Stop: 03/28/19 16:20 Last Admin: 03/28/19 17:24 Dose: 4 mls/min Documented by: [id number] Ceftriaxone Sodium (Rocephin) 1,000 mg in 50 mls @ 100 mls/hr IV NOW STA Stop: 03/28/19 16:54 Last Admin: 03/28/19 17:24 Dose: 100 mls/hr Documented by: [id number] Medical Decision Making Differential Diagnosis Differential diagnosis: Etiologies such as infections, reactive airway disease, COPD, pneumonia, pleural effusion, pulmonary edema, ARDS, pneumothorax, CHF, cardiac ischemia, cardiac tamponade, dysrhythmia, anemia, pulmonary embolism, musculoskeletal, gastrointestinal process, as well as others were entertained. Medical Records Attestation: I reviewed the patient's medical records. Home Medications Current Medication List: was personally reviewed by tx Laboratory Data Attestation: I reviewed the patient's lab results. Result diagrams: 03/28/19 14:37 03/28/19 14:37 Lab Results 03/28/19 03/28/19 03/28/19 Range/Units 14:37 14:37 14:37 WBC 21.01 H (4.8-10.8) K/uL RBC 3.75 L (4.7-6.1) M/uL Hgb 11.7 L (14.0-18.0) g/dL Hct 35.5 L (42-52) % MCV 94.7 (80-100) fL MCH 31.2 (25-34) pg MCHC 33.0 (32-36) g/dL RDW Std Deviation 50.4 H (36.4-46.3) fL RDW Coeff of Fidelina 14.7 H (11.5-14.5) % Plt Count 149 (130-400) K/uL MPV 10.1 (7.4-10.4) fL Immature Gran % (Auto) 0.3 % Neut % (Auto) 90.8 % Lymph % (Auto) 5.7 % Warren % (Auto) 2.8 % Eos % (Auto) 0.4 % Baso % (Auto) 0.0 % Immature Gran # (Auto) 0.06 H (0.00-0.02) K/uL Neut # (Auto) 19.07 H (1.4-6.5) K/uL Lymph # (Auto) 1.20 (1.2-3.4) K/uL Warren # (Auto) 0.59 (0.11-0.59) K/uL Eos # (Auto) 0.08 (0-0.5) K/uL Baso # (Auto) 0.01 (0-0.2) K/uL PT 42.4 H (9.0-12.0) Seconds INR 4.6 H (0.9-1.1) APTT 55.3 H* (21.0-31.0) Seconds PTT Ratio 2.0 D-Dimer 630 H* (0-500) ug/L FEU Sodium 141 (136-145) mmol/L Potassium 4.2 (3.5-5.1) mmol/L Chloride 106 (98-107) mmol/L Carbon Dioxide 29 (21-32) mmol/L Anion Gap 6.0 (3-11) BUN 26 H (7-18) mg/dl Creatinine 1.41 H (0.6-1.4) mg/dl Est Cr Clr Drug Dosing 52.1 ml/min Est GFR ( Amer) 56.1 Est GFR (Non-Af Amer) 48.4 BUN/Creatinine Ratio 18.7 (10-20) Glucose 145 H (70-99) mg/dl Calcium 8.7 (8.5-10.1) mg/dl Troponin I (0-0.045) ng/ml NT-Pro-B Natriuret Pep 968 H (0-900) pg/ml Procalcitonin (0-0.5) ng/ml 03/28/19 03/28/19 Range/Units 15:10 15:18 WBC (4.8-10.8) K/uL RBC (4.7-6.1) M/uL Hgb (14.0-18.0) g/dL Hct (42-52) % MCV (80-100) fL MCH (25-34) pg MCHC (32-36) g/dL RDW Std Deviation (36.4-46.3) fL RDW Coeff of Fidelina (11.5-14.5) % Plt Count (130-400) K/uL MPV (7.4-10.4) fL Immature Gran % (Auto) % Neut % (Auto) % Lymph % (Auto) % Warren % (Auto) % Eos % (Auto) % Baso % (Auto) % Immature Gran # (Auto) (0.00-0.02) K/uL Neut # (Auto) (1.4-6.5) K/uL Lymph # (Auto) (1.2-3.4) K/uL Warren # (Auto) (0.11-0.59) K/uL Eos # (Auto) (0-0.5) K/uL Baso # (Auto) (0-0.2) K/uL PT (9.0-12.0) Seconds INR (0.9-1.1) APTT (21.0-31.0) Seconds PTT Ratio D-Dimer (0-500) ug/L FEU Sodium (136-145) mmol/L Potassium (3.5-5.1) mmol/L Chloride (98-107) mmol/L Carbon Dioxide (21-32) mmol/L Anion Gap (3-11) BUN (7-18) mg/dl Creatinine (0.6-1.4) mg/dl Est Cr Clr Drug Dosing ml/min Est GFR ( Amer) Est GFR (Non-Af Amer) BUN/Creatinine Ratio (10-20) Glucose (70-99) mg/dl Calcium (8.5-10.1) mg/dl Troponin I < 0.015 (0-0.045) ng/ml NT-Pro-B Natriuret Pep (0-900) pg/ml Procalcitonin 3.92 H (0-0.5) ng/ml Imaging Data Radiologist's Impression: Radiology results as stated below per my review and the radiologist's interpretation: SINGLE VIEW CHEST CLINICAL HISTORY: Hemoptysis. FINDINGS: An AP, portable, upright chest radiograph is compared to study dated 03/16/2019 and correlated with chest CT dated 12/07/2018. The examination is degraded by portable technique and patient rotation. The patient is status post midline sternotomy. The heart is enlarged and there is atherosclerotic calci fication of the thoracic aorta. There is pulmonary vascular congestion. There are low lung volumes. Bibasilar consolidation is noted. Small pleural effusions are suspected. No pneumothorax is seen. The skeletal structures are osteopenic. The bony thorax is grossly intact. Degenerative change is noted in the shoulders and thoracic spine. IMPRESSION: 1. Cardiomegaly with evidence of congestive failure. 2. There is bibasilar consolidation. 3. Suspect small pleural effusions. Electronically signed by: Reese Colmenares M.D. 03/28/2019 3:[address] angio chest PE protocol CT DOSE: 753.55 mGy.cm HISTORY: 73 years-old Male with PE. Acute cough with shortness of breath and recent pneumonia. TECHNIQUE: Multiple CTA images of the chest were obtained after the intravenous administration of 95 ml Optiray 320. Coronal and sagittal MIPS were obtained from the axial data set and were submitted for review. All measurements were obtained according to NASCET criteria. A dose lowering technique was utilized adhering to the principles of ALARA. COMPARISON: Chest radiograph of same day, CT chest 12/07/2018 FINDINGS: CTA: Mild cardiomegaly. Mural fibrofatty changes of the left ventricular apex suggest prior myocardial infarction. Prior median sternotomy and CABG. No pericardial effusion. Ione coronary arterial calcifications are noted. The thoracic aorta appears normal in course and caliber without aneurysm or dissection. There is patency of the imaged great vessels. The pulmonary arterial tree is opacified to the level of the proximal subsegmental branches. Respiratory motion artifact obscures the the majority of the segmental and subsegmental branches. No focal filling defects identified to suggest pulmonary thromboembolic disease. CT CHEST: No thyroid nodule identified. Partially calcified subcarinal and bilateral hilar lymph nodes. Enlarged subcarinal lymph nodes measure up to 1.5 cm and enlarged right hilar lymph nodes measure up to 1.2 cm, new from prior. No pneumothorax or definite pleural effusion. Bilateral intralobular septal thickening with intermixed groundglass densities. Bibasilar segmental alveolar opacities. Moderate layering secretions are noted about the tracheobronchial tree. No acute process of the imaged upper abdomen. Colonic diverticulosis. Cholelithiasis. Soft tissues are unremarkable. Degenerative changes of the shoulders and spine. IMPRESSION: 1. Cardiomegaly with bilateral intralobular septal thickening and ground glass densities suggestive of mild pulmonary edema. 2. Multifocal alveolar opacities of the bilateral lung bases are noted in addition to moderate tracheobronchial secretions. Findings are suspicious for superimposed pneumonia or aspiration pneumonitis. 3. Mediastinal and bilateral hilar adenopathy is likely reactive. 4. Cardiomegaly with prior median sternotomy and CABG. 5. Cholelithiasis. The above report was generated using voice recognition software. It may contain grammatical, syntax or spelling errors. Electronically signed by: Alvino Riddle M.D. 03/28/2019 4:10 PM ECG Data Attestation: I personally reviewed and interpreted this ECG as follows: Indication: other (cough) Rate (beats per minute): 69 Rhythm: sinus rhythm Findings: + PVC, + ST depression (anterior, lateral) and + T-wave inversion Comparison ECG Date: from (12/07/18) Change: the following changes noted (significant tracing noted) Blood Pressure Blood Pressure Findings: Normal blood pressure MDM Narrative The patient is a 73-year-old male who presented to the emergency department for an evaluation of cough. The patient's noted some hemoptysis. He does have a history of using anticoagulation for irregular heartbeat. We discussed the patient's laboratory and radiographic studies with him. He was started on IV antibiotics in the emergency department. Ultimately his condition does appear to be consistent with volume overload as well as pneumonia. We discussed his case with the on-call [facility] hospitalist. They have agreed to evaluate the patient in the emergency department for further management and disposition. The patient was feeling much better on subsequent reevaluation. Impression & Plan PNA (pneumonia), CHF (congestive heart failure), Hemoptysis Discharge Plan Visit Data Chief Complaint: Fever Stated Complaint: PNX, MISSED FO, FEVER ASPIRATION ED Provider: Alessandro Yadav ED Midlevel Provider: Kim Lobato Discharge Problem: PNA (pneumonia), CHF (congestive heart failure), Hemoptysis Patient Disposition: Being Evaluated by Hospitalist Forms Stand Alone Forms: [facility] Prescriptions Prescriptions: No Action furosemide 20 mg tablet 20 mg PO UD PRN (Reason: Shortness Of Breath) RF: 0 carbidopa-levodopa [Sinemet CR] 50-200 mg tablet extended release 1 tab PO DAILY RF: 0 acetaminophen [Tylenol] 325 mg tablet 500 - 650 mg PO BID RF: 0 medical marijuana .Route PRN (Reason: pain) RF: 0 pramipexole [Mirapex] 1 mg Tablet 1 mg PO HS RF: 0 polyethylene glycol 3350 [Miralax] 17 gram Powder In Packet 17 g PO DAILY PRN (Reason: Constipation) RF: 0 donepezil 10 mg Tablet 10 mg PO HS RF: 0 sennosides-docusate sodium [Senna-S] 8.6-50 mg Tablet 1 tab PO HS RF: 0 pantoprazole 40 mg Tablet,Delayed Release (Dr/Ec) 40 mg PO DAILY RF: 0 aspirin [Aspirin Childrens] 81 mg Tablet,Chewable 81 mg PO DAILY RF: 0 memantine 10 mg Tablet 10 mg PO BID RF: 0 diclofenac sodium [Voltaren] 1 % Gel 2 g TOPICAL QID RF: 0 Benefiber Clear SF (dextrin) 3 gram/3.5 gram Powder In Packet 1 packet PO DAILY RF: 0 atorvastatin 80 mg Tablet 80 mg PO HS RF: 0 carbidopa-levodopa 25-250 mg Tablet 1 tab PO QID RF: 0 nitroglycerin 0.4 mg Tablet, Sublingual 0.4 mg Sublingual Q5M RF: 0 docusate sodium 100 mg Capsule 100 mg PO BID RF: 0 metoprolol succinate 25 mg Tablet Extended Release 24 Hr 12.5 mg PO DAILY RF: 0 albuterol sulfate [Ventolin HFA] 90 mcg/actuation Hfa Aerosol Inhaler 2 puff INHALATION Q6H PRN (Reason: Shortness Of Breath) RF: 0 pregabalin 75 mg Capsule 75 mg PO BID RF: 0 cholecalciferol (vitamin D3) 2,000 unit Tablet 2,000 unit PO DAILY RF: 0 warfarin 3 mg tablet See Patient Comments PO UD RF: 0 Referrals Referrals: Dejuan Galaviz MD [Primary Care Provider] - Discharge Problem: PNA (pneumonia) Qualifiers: Pneumonia type: due to unspecified organism Laterality: right Lung location: lower lobe of lung Qualified Code(s): J18.1 - Lobar pneumonia, unspecified organism CHF (congestive heart failure) Qualifiers: Heart failure type: unspecified Heart failure chronicity: acute on chronic Qualified Code(s): I50.9 - Heart failure, unspecified The scribe's documentation has been prepared under my direction and personally reviewed by me in its entirety. I confirm that the note above accurately reflects all work, treatment, procedures, and medical decision making performed by me.
[2019-03-28 15:24] LABS: INR 4.6 (0.9-1.1)
[2019-03-28] MEDS ORDERED: OPTIRAY 320 125ml IV PRN (15:56)
--- NOTE | 2019-03-28 16:11 | CT Scan Report ---
CT angio chest PE protocol CT DOSE: 753.55 mGy.cm HISTORY: 73 years-old Male with PE. Acute cough with shortness of breath and recent pneumonia. TECHNIQUE: Multiple CTA images of the chest were obtained after the intravenous administration of 95 ml Optiray 320. Coronal and sagittal MIPS were obtained from the axial data set and were submitted f or review. All measurements were obtained according to NASCET criteria. A dose lowering technique wa s utilized adhering to the principles of ALARA. COMPARISON: Chest radiograph of same day, CT chest 12/07/2018 FINDINGS: CTA: Mild cardiomegaly. Mural fibrofatty changes of the left ventricular apex suggest prior myocardial inf arction. Prior median sternotomy and CABG. No pericardial effusion. [place] coronary arterial calcific ations are noted. The thoracic aorta appears normal in course and caliber without aneurysm or dissect ion. There is patency of the imaged great vessels. The pulmonary arterial tree is opacified to the [place] of the proximal subsegmental branches. Respiratory motion artifact obscures the the majority of t he segmental and subsegmental branches. No focal filling defects identified to suggest pulmonary thro mboembolic disease. CT CHEST: No thyroid nodule identified. Partially calcified subcarinal and bilateral hilar lymph nodes. Enlarge d subcarinal lymph nodes measure up to 1.5 cm and enlarged right hilar lymph nodes measure up to 1.2 cm, new from prior. No pneumothorax or definite pleural effusion. Bilateral intralobular septal thickening with intermixe d groundglass densities. Bibasilar segmental alveolar opacities. Moderate layering secretions are not ed about the tracheobronchial tree. No acute process of the imaged upper abdomen. Colonic diverticulo sis. Cholelithiasis. Soft tissues are unremarkable. Degenerative changes of the shoulders and spine. IMPRESSION: 1. Cardiomegaly with bilateral intralobular septal thickening and ground glass densities suggestive o f mild pulmonary edema. 2. Multifocal alveolar opacities of the bilateral lung bases are noted in addition to moderate trache obronchial secretions. Findings are suspicious for superimposed pneumonia or aspiration pneumonitis. 3. Mediastinal and bilateral hilar adenopathy is likely reactive. 4. Cardiomegaly with prior median sternotomy and CABG. 5. Cholelithiasis. The above report was generated using voice recognition software. It may contain grammatical, syntax o r spelling errors. Electronically signed by: Alvino Riddle M.D. 03/28/2019 4:10 PM
[2019-03-28] MEDS ORDERED: FUROSEMIDE 20 MG in SYRINGE 0 ML IV ONE (16:19)
[2019-03-28] MEDS ORDERED: cefTRIAXone SODIUM 1,000 MG/50 ML BAG IV STA (16:25)
[2019-03-28] MEDS ORDERED: FUROSEMIDE 40 MG/4 ML VIAL IV ONE (17:20)
--- NOTE | 2019-03-28 20:08 | History & Physical Report ---
Date of Service March 28, 2019 Assessment & Plan (1) PNA (pneumonia): Failed outpt tx (zpack/steroids) Noted on CXR and CTA Neg for PE Started on ceftriaxone in the ED, will continue Elevated WBC in the setting of recent steroid use, monitor Blood cx pending Add mucinex for upper airway congestion (2) CHF (congestive heart failure): Exacerbation, likely related to PNA status BNP elevated on admission CXR, CTA noted for increased fluid Last ECHO was 12/2017 per [employer] (family thought there had been on this past November but not in records), EF 55-60% t/c repeat if worsening sx, but likely to improve with improvement of PNA Lasix 20mg IV x1 in the ED, will give usual 10mg QOD dosing tomorrow and 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 (3) Paroxysmal atrial fibrillation: continue home meds INR elevated, holding coumadin (4) Parkinson disease: with dementia continue home meds One to one when family not present Medical marijuana use, can continue (5) Anticoagulated on Coumadin: 3mg every day with the exception of 4.5mg on Thursday (not given on day of admission) Holding for INR 4.6 on admission Monitor (6) COPD (chronic obstructive pulmonary disease): No wheezing noted but family states some prior Monitor with nebs/mucinex (7) Sleep apnea: Non-compliant with CPAP (8) HTN (hypertension): continue home meds (9) Hyperlipidemia: continue home meds (10) Dementia: continue home meds (11) Osteoarthritis: Medical marijuana use as at home Controls pain well per family Would much prefer this tx vs narcotics or muscle relaxers in a pt with dementia (12) BPH (benign prostatic hyperplasia): continue home meds (13) Bladder carcinoma: Hx of dx (14) DVT prophylaxis: Supratherapeutic on coumadin, monitor History of Present Illness Primary Care Provider: Isak Galaviz MD 73 y/o M c/o worsening cough and SOB. Pt was dx with PNA as outpt and given a zpack and steroids. He finished both of these, however his cough and SOB is worsening. He has wheezing at times. He has started to have upper airway congestion that is grossly audible. His appetite is down over the last two days as well. Family is present and states that he has dementia, but this is at baseline. He can express his current status, but short term memory is generally an issue. He does not usually know the date or year. He missed his AM medications today due to his acute health status. There has been blood tinged sputum the last few days. He uses PO mucinex but it has not been helping his upper airway congestion as much the last few days. Pt was given IVF and abx in the ED. There has been no change in status. Family states that he takes all medications with pudding. Pt uses medical marijuana for his OA and other MSK pains and Parkinsons and that it has helped greatly. He uses drop form BID. Allergies Allergy/AdvReac Type Severity Reaction Status Date / Time Penicillins Allergy Severe RASH,SWELLI Verified 03/28/19 16:36 NG Home Medications Home Medications Medication Instructions Recorded Confirmed Type Benefiber Clear SF (dextrin) 1 packet PO DAILY 08/04/18 03/28/19 History albuterol sulfate [Ventolin HFA] 2 puff INHALATION Q6H PRN 08/04/18 03/28/19 History aspirin [Aspirin Childrens] 81 mg PO DAILY 08/04/18 03/28/19 History atorvastatin 80 mg PO HS 08/04/18 03/28/19 History carbidopa-levodopa 1 tab PO QID 08/04/18 03/28/19 History cholecalciferol (vitamin D3) 2,000 unit PO DAILY 08/04/18 03/28/19 History diclofenac sodium [Voltaren] 2 g TOPICAL QID 08/04/18 03/28/19 History docusate sodium 100 mg PO BID 08/04/18 03/28/19 History donepezil 10 mg PO HS 08/04/18 03/28/19 History memantine 10 mg PO BID 08/04/18 03/28/19 History metoprolol succinate 12.5 mg PO DAILY 08/04/18 03/28/19 History nitroglycerin 0.4 mg SUBLINGUAL Q5M 08/04/18 03/28/19 History pantoprazole 40 mg PO DAILY 08/04/18 03/28/19 History polyethylene glycol 3350 [Miralax] 17 g PO DAILY PRN 08/04/18 03/28/19 History pregabalin 75 mg PO BID 08/04/18 03/28/19 History sennosides-docusate sodium 1 tab PO HS 08/04/18 03/28/19 History [Senna-S] pramipexole [Mirapex] 1 mg PO HS 08/22/18 03/28/19 History carbidopa ER 50 mg-levodopa 200 mg 1 tab PO DAILY tab 01/17/19 03/28/19 History tablet,extended release furosemide 20 mg tablet 20 mg PO UD PRN tab 01/17/19 03/28/19 History acetaminophen 325 mg tablet 500 - 650 mg PO BID tab 02/17/19 03/28/19 History medical marijuana .ROUTE PRN 02/17/19 02/17/19 History warfarin 3 mg tablet See Rx Instructions PO UD tab 02/17/19 03/28/19 History Past Med/Surg History Medical History Impaired fasting glucose (Acute) COPD (chronic obstructive pulmonary disease) (Acute) Chronic anticoagulation (Acute) Sleep apnea (Acute) HTN (hypertension) (Acute) Hyperlipidemia (Acute) Hearing loss (Acute) Diverticulosis (Acute) DVT (deep venous thrombosis) (Acute) A-fib (Acute) Depression (Acute) Parkinson disease (Acute) Dementia (Acute) Bladder cancer (Acute) Arthralgia (Acute) CAD (coronary artery disease) (Acute) BPH (benign prostatic hyperplasia) (Acute) Anemia (Acute) Retina disorder, right (Acute) Cataract (Acute) History of recent ear, nose, and throat (ENT) procedure (Acute) Abnormal CT of brain Acute coronary syndrome H/O deep venous thrombosis Hx of deep venous thrombosis Increased ammonia level Lumbar facet joint syndrome Metabolic encephalopathy Surgical History History of uvulopalatopharyngoplasty (Acute) History of cystoscopy (Acute) Hx of CABG (Acute) Family History Brother Myocardial infarction Other No pertinent family history Social History Preferred Language: Setswana Communication Ability: Effective Visual Impairment: No Limitations Hearing Ability: Hard of Hearing 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 Beliefs That Will Affect Care: Temple Temple Beliefs: Alevism marital status: Current Living Situation: Family Current Living Situation Comment: with 2 sons, dtr in law and grandchildren Feels Safe at Home: Yes Safety Concerns: Feels Safe At This Time Smoking Status: Current some day smoker Tobacco Type: cigars Cigarettes Per Day: 1-2 cigars every 2-3 days Do You Dip or Chew Tobacco: No Second Hand Exposure: No Tobacco Cessation Education Requested by Patient: No Hx Alcohol Use: No Hx Substance Use: Yes (medical marijuana) Substance Use Type Other:: uses vapor or RSO Review of Systems Review of Systems: Pertinent positives and negatives reviewed in HPI--all others negative Physical Exam Constitutional: WD/WN, vitals as above Eyes: normal visual bennett by confrontation and + anicteric sclerae Neck: normal visual inspection and trachea midline Respiratory: normal respiratory effort; no respiratory distress Auscultation: + crackles; no wheezes upper airway signs heard grossly Cardiovascular: Rate/Rhythm: regular rate and regular rhythm Gastrointestinal (Abdomen): Inspection/Auscultation: abdomen not distended Percussion/Palpation: abdomen soft; abdomen nontender Musculoskeletal: Head/Neck/Chest: normocephalic and head atraumatic negative for edema, peripheral pulses intact Skin: no rashes, warm and dry Neurologic: awake; not confused Speech / Cognition: normal speech Psychiatric: Orientation: oriented to person and oriented to place; + not oriented to time Results & Data Vital Signs (Past 12 Hours) Vital Signs Temp Pulse Pulse Resp BP BP Pulse Ox 03/28/19 19:55 72 20 116/78 92 03/28/19 17:57 65 16 120/71 92 03/28/19 14:48 71 22 92 03/28/19 13:20 36.7 C 77 22 108/73 93 Diagnostic Findings CXR: b/l consolidations and CHF CTA: 1. Cardiomegaly with bilateral intralobular septal thickening and ground glass densities suggestive of mild pulmonary edema. 2. Multifocal alveolar opacities of the bilateral lung bases are noted in addition to moderate tracheobronchial secretions. Findings are suspicious for superimposed pneumonia or aspiration pneumonitis. 3. Mediastinal and bilateral hilar adenopathy is likely reactive. 4. Cardiomegaly with prior median sternotomy and CABG. 5. Cholelithiasis. ECG Additional Comments: PVCs Code Status & VTE Plan Code Status Full code per family. Pt does not participate in this conversation VTE Prophylaxis Plan VTE Prophylaxis will be ordered: Yes (1) PNA (pneumonia) Laterality: right Lung location: lower lobe of lung Pneumonia type: due to unspecified organism Qualified Code(s): J18.1 - Lobar pneumonia, unspecified organism (2) CHF (congestive heart failure) Heart failure chronicity: acute on chronic Heart failure type: unspecified Qualified Code(s): I50.9 - Heart failure, unspecified
[2019-03-29] MEDS ORDERED: ALBUTEROL HFA 8 GM INHALER INH PRN (00:02)
[2019-03-29] MEDS ORDERED: FUROSEMIDE 20 MG TAB PO PRN (00:02)
[2019-03-29] MEDS ORDERED: ACETAMINOPHEN 325 MG TAB PO PRN (00:02)
[2019-03-29] MEDS ORDERED: OR MISCELLANEOUS MED XX ONE (00:02)
[2019-03-29] MEDS ORDERED: ONDANSETRON INJ 2 MG/ML 2 ML VIAL IV PRN (00:02)
[2019-03-29] MEDS ORDERED: POLYETHYLENE (MIRALAX) 17 GM PACK PO PRN (00:02)
[2019-03-29] MEDS ORDERED: MAGNESIUM HYDROXIDE SUSP 30 ML UDC PO PRN (00:02)
[2019-03-29] MEDS ORDERED: cefTRIAXone SODIUM 1,000 MG in DEXTROSE 5% 50 ML IV SCH (00:02)
[2019-03-29] MEDS: ACETYLCYSTEINE 20% INHAL SOLN ***DISPENSED BY RESP. INH SCH ×3 (00:30→19:01)
[2019-03-29] MEDS: ALBUT/IPRATROP 3MG/0.5MG NEB 3 ML VIAL NEB SCH ×7 (00:30→23:24)
[2019-03-29] MEDS: DONEPEZIL HCL 10 MG TAB PO SCH ×2 (00:53→21:41)
[2019-03-29] MEDS: PRAMIPEXOLE DIHYDROCHLO 0.5 MG TAB PO SCH ×2 (00:53→21:41)
[2019-03-29] MEDS: ATORVASTATIN 40 MG TAB PO SCH ×2 (00:54→21:41)
[2019-03-29] MEDS: DOCUSATE SODIUM 100 MG CAP PO SCH ×3 (00:55→21:41)
[2019-03-29] MEDS: MEMANTINE HCL 10 MG TAB PO SCH ×3 (00:56→21:42)
[2019-03-29] MEDS: DOCUSATE SODIUM/SENNA 50/8.6MG TAB PO SCH ×2 (00:56→21:42)
[2019-03-29] MEDS: CARBIDOPA/LEVODOPA 25-250 1 EA TAB PO SCH ×5 (00:57→21:42)
[2019-03-29] MEDS: ACETAMINOPHEN 500 MG TAB PO SCH ×3 (00:58→21:39)
[2019-03-29] MEDS ORDERED: NITROGLYCERIN SL 0.4 MG/TAB TAB SL PRN (01:04)
[2019-03-29] MEDS: PREGABALIN 75 MG CAP PO SCH ×3 (01:10→21:41)
[2019-03-29] MEDS: DICLOFENAC SOD 1% GEL 100 GM TUBE EXT SCH ×5 (01:12→21:39)
[2019-03-29] MEDS ORDERED: ZOLPIDEM TARTRATE 5 MG TAB PO ONE (02:40)
[2019-03-29] MEDS: NITROGLYCERIN SL 0.4 MG/TAB TAB SL SCH ×3 (02:47→08:43)
[2019-03-29 07:29] LABS: Basophils # (auto) 0.01 K/uL (0-0.2); Basophils % (auto) 0.1 %; Eosinophils # (auto) 0.21 K/uL (0-0.5); Eosinophils % (auto) 1.5 %; Hematocrit (blood only) 33.5 % (42-52); Hemoglobin 11.2 g/dL (14.0-18.0); Immature Granulocytes # (auto) 0.03 K/uL (0.00-0.02); Immature Granulocytes % (auto) 0.2 %; Lymphocytes # (auto) 1.32 K/uL (1.2-3.4); Lymphocytes % (auto) 9.3 %; Mean Corpuscular Hgb Conc 33.4 g/dL (32-36); Mean Corpuscular Volume 93.8 fL (80-100); Mean Platelet Volume 10.4 fL (7.4-10.4); Monocytes # (auto) 0.51 K/uL (0.11-0.59); Monocytes % (auto) 3.6 %; Neutrophils # (auto) 12.04 K/uL (1.4-6.5); Neutrophils % (auto) 85.3 %; Platelet Count 147 K/uL (130-400); RDW Coefficient of Variation 14.8 % (11.5-14.5); RDW Standard Deviation 50.2 fL (36.4-46.3); Red Blood Count 3.57 M/uL (4.7-6.1); White Blood Count 14.12 K/uL (4.8-10.8)
[2019-03-29 07:44] LABS: INR 3.4 (0.9-1.1); Prothrombin Time 31.9 Seconds (9.0-12.0)
[2019-03-29] MEDS: ASPIRIN 81 MG CHEW PO SCH (08:07)
[2019-03-29] MEDS: PSYLLIUM 58.6% POWDER PACKET PO SCH (08:07)
[2019-03-29] MEDS: CARBIDOPA/LEVODOPA 50/200MG EXT REL TAB PO SCH (08:08)
[2019-03-29] MEDS: PANTOprazole 40 MG TAB PO SCH (08:08)
[2019-03-29] MEDS: METOPROLOL SUCC 25MG EXT REL TAB PO SCH (08:08)
[2019-03-29] MEDS: CHOLECALCIFEROL 1,000 UNITS TAB PO SCH (08:08)
--- NOTE | 2019-03-29 15:50 | Hospitalist Progress Note ---
Date of Service March 29, 2019 Assessment & Plan (1) PNA (pneumonia): Failed outpt tx (zpack/steroids) Noted on CXR and CTA, bibasilar pneumonia no evidence of PE will continue on Rocephin since afebrile and WBC improved some concerns for low blood pressure and degree of illness will add Levaquin for now and monitor response blood culture with no growth thus far Add mucinex for upper airway congestion (2) Hypotension: pressures were normal yesterday and low normal this morning SBP 87 this afternoon, no real symptoms will give NSS 500cc at 125cc/hr for one bag and look for response likely a little dry despite the mild findings of pulmonary edema on CT, did get Lasix on admission (3) CHF (congestive heart failure): doubt CHF exacerbation, he examines slightly dry, intravascularly depleted BNP elevated on admission was likely due to the pneumonia Last ECHO was 12/2017 per [employer] (family thought there had been on this past November but not in records), EF 55-60% will give gentle fluids due to hypotension, hold Lasix QOD for time being, reassess every morning (4) Paroxysmal atrial fibrillation: continue home meds INR elevated, holding coumadin INR down to 3.4, continue to hold Coumadin, likely resume tomorrow (5) Parkinson disease: with dementia continue home meds One to one when family not present Medical marijuana use, can continue, communication order written (6) Anticoagulated on Coumadin: 3mg every day with the exception of 4.5mg on Thursday (not given on day of admission) Holding for INR 3.4 (7) COPD (chronic obstructive pulmonary disease): No wheezing noted but family states some prior Monitor with nebs/mucinex (8) Sleep apnea: Non-compliant with CPAP (9) HTN (hypertension): continue home meds (10) Hyperlipidemia: continue home meds (11) Dementia: continue home meds (12) Osteoarthritis: Medical marijuana use as at home Controls pain well per family Would much prefer this tx vs narcotics or muscle relaxers in a pt with dementia (13) BPH (benign prostatic hyperplasia): continue home meds (14) Bladder carcinoma: Hx of dx (15) DVT prophylaxis: INR 3.4 Dispo: remain on 2 west PT/OT once he is medically improved likely home on discharge Subjective patient very flat affect, says he is feeling okay overall denies chest pain, dyspnea, cough, fever reviewed labs, WBC improved BP down and actually a little hypotensive this afternoon he did receive some Lasix on admission and intake has been poor, possibly a little dry will give NSS 500cc total and look for response on Rocephin, since he failed Zithromax outpatient, will add Levaquin for pseudomonas coverage updated family, said that he could take the medical marijuana that he uses at home Review of Systems Review of Systems: All systems reviewed & are unremarkable except as noted in HPI & below Constitutional: + fatigue and + weakness; no fever, no chills and no sweats Respiratory: no cough, no dyspnea, no sputum production and no wheezing Cardiovascular: no chest pain, no palpitations and no edema Gastrointestinal: no abdominal pain, no nausea, no vomiting, no constipation and no diarrhea/loose stools Physical Exam Constitutional: WD/WN, vitals as above Eyes: PERRL, conjunctivae normal, anicteric sclerae ENMT: external ear and nose normal, oropharynx normal Neck: trachea midline, no thyromegaly Respiratory: normal respiratory effort; no respiratory distress Auscultation: + diminished lung sounds and + crackles (bases); no rales, no rhonchi and no wheezes Cardiovascular: RRR, no murmur, no edema Gastrointestinal (Abdomen): normal bowel sounds, soft, nontender, no hepatosplenomegaly Musculoskeletal: no cyanosis or clubbing, extremities motor strength 5/5 Skin: no rashes, warm and dry Neurologic: patellar DTR's 2+ bilat, sensation intact and PERRL, EOMI, accommodation nl, no face palsy, no dysarthria Psychiatric: Orientation: alert and oriented to person; + not oriented to place and + not oriented to time Affect: + flat affect Lymphatic: no cervical or axillary lymphadenopathy Results & Data Vital Signs (Past 12 Hours) Vital Signs Temp Pulse Pulse Resp BP BP Pulse Ox 03/29/19 15:17 74 18 89 L 03/29/19 14:29 36.5 C 78 18 87/61 L 92 03/29/19 11:24 36.6 C 72 18 95/66 L 92 03/29/19 11:09 73 14 93 03/29/19 09:11 69 03/29/19 07:05 75 14 92 03/29/19 07:01 36.8 C 72 18 104/67 90 03/29/19 04:28 36.8 C 83 20 100/63 90 Laboratory Results Laboratory Results - last 24 hr 03/28/19 03/28/19 03/29/19 15:10 15:18 07:11 WBC 14.12 H RBC 3.57 L Hgb 11.2 L Hct 33.5 L MCV 93.8 MCH 31.4 MCHC 33.4 RDW Std Deviation 50.2 H RDW Coeff of Fidelina 14.8 H Plt Count 147 MPV 10.4 Immature Gran % (Auto) 0.2 Neut % (Auto) 85.3 Lymph % (Auto) 9.3 [place] % (Auto) 3.6 Eos % (Auto) 1.5 Baso % (Auto) 0.1 Immature Gran # (Auto) 0.03 H Neut # (Auto) 12.04 H Lymph # (Auto) 1.32 [place] # (Auto) 0.51 Eos # (Auto) 0.21 Baso # (Auto) 0.01 PT INR Troponin I < 0.015 Procalcitonin 3.92 H 03/29/19 07:11 WBC RBC Hgb Hct MCV MCH MCHC RDW Std Deviation RDW Coeff of Fidelina Plt Count MPV Immature Gran % (Auto) Neut % (Auto) Lymph % (Auto) [place] % (Auto) Eos % (Auto) Baso % (Auto) Immature Gran # (Auto) Neut # (Auto) Lymph # (Auto) [place] # (Auto) Eos # (Auto) Baso # (Auto) PT 31.9 H INR 3.4 H Troponin I Procalcitonin Medications Administered Current Inpatient Medications Acetaminophen (Tylenol) 500 mg PO BID [facility] Stop: 04/28/19 00:01 Last Admin: 03/29/19 08:08 Dose: 500 mg Documented by: Acetaminophen (Tylenol) 650 mg PO Q4H PRN PRN Reason: Pain or Fever Stop: 04/28/19 00:01 Acetylcysteine (Mucomyst 20%) 5 ml INH BIDR [facility] Stop: 04/28/19 00:01 Last Admin: 03/29/19 07:05 Dose: 5 ml Documented by: Albuterol (Duoneb) 3 ml NEB Q4R [facility] Stop: 04/28/19 00:01 Last Admin: 03/29/19 15:16 Dose: 3 ml Documented by: Albuterol (Ventolin Hfa) 2 puffs INH Q6H PRN PRN Reason: Shortness Of Breath Stop: 04/28/19 00:01 Aspirin (Aspirin Chew) 81 mg PO DAILY [facility] Stop: 04/28/19 08:59 Last Admin: 03/29/19 08:07 Dose: 81 mg Documented by: Atorvastatin Calcium (Lipitor) 80 mg PO [facility] Stop: 04/28/19 00:01 Last Admin: 03/29/19 00:54 Dose: 80 mg Documented by: Carbidopa/Levodopa (Sinemet Cr 50/200mg) 1 tab PO DAILY [facility] Stop: 04/28/19 08:59 Last Admin: 03/29/19 08:08 Dose: 1 tab Documented by: Carbidopa/Levodopa (Sinemet 25/250mg) 1 tab PO QID [facility] Stop: 04/28/19 00:01 Last Admin: 03/29/19 12:45 Dose: 1 tab Documented by: Diclofenac Sodium (Voltaren 1% Top) 2 appln EXT QID [facility] Stop: 04/28/19 00:01 Last Admin: 03/29/19 12:45 Dose: 2 appln Documented by: Docusate Sodium (Colace) 100 mg PO BID [facility] Stop: 04/28/19 00:01 Last Admin: 03/29/19 08:07 Dose: 100 mg Documented by: Donepezil HCl (Aricept) 10 mg PO [facility] Stop: 04/28/19 00:01 Last Admin: 03/29/19 00:53 Dose: 10 mg Documented by: Furosemide (Lasix) 20 mg PO Q2D@0900 PRN PRN Reason: Shortness Of Breath Stop: 04/28/19 00:01 Ceftriaxone Sodium 2,000 mg/ (Dextrose) 70 mls @ 140 mls/hr IV Q24H [facility] Stop: 04/03/19 16:29 Levofloxacin/Dextrose (Levaquin/D5w) 750 mg in 150 mls @ 100 mls/hr IV Q24H [facility]; Protocol Stop: 04/05/19 15:59 Sodium Chloride (Nss) 500 mls @ 125 mls/hr IV .Q4H [facility] Stop: 03/29/19 19:59 Ioversol (Optiray 320 125ml) 95 ml IV ONCE PRN PRN Reason: Interaction Checking Stop: 04/01/19 15:55 Last Admin: 03/28/19 15:56 Dose: 95 ml Documented by: Magnesium Hydroxide (Milk Of Magnesia) 30 ml PO Q12H PRN PRN Reason: Constipation Stop: 04/28/19 00:01 Memantine (Namenda) 10 mg PO BID [facility] Stop: 04/28/19 00:01 Last Admin: 03/29/19 08:07 Dose: 10 mg Documented by: Metoprolol Succinate (Toprol Xl) 12.5 mg PO DAILY [facility] Stop: 04/28/19 08:59 Last Admin: 03/29/19 08:08 Dose: 12.5 mg Documented by: Nitroglycerin (Nitrostat) 0.4 mg SL Q5M PRN PRN Reason: Chest Pain Stop: 04/28/19 01:03 Ondansetron HCl (Zofran) 4 mg IV Q6H PRN PRN Reason: Nausea Stop: 04/28/19 00:01 Pantoprazole Sodium (Protonix) 40 mg PO DAILY [facility] Stop: 04/28/19 08:59 Last Admin: 03/29/19 08:08 Dose: 40 mg Documented by: Polyethylene Glycol (Miralax Powder Packet) 17 gm PO DAILY PRN PRN Reason: Constipation Stop: 04/28/19 00:01 Pramipexole Dihydrochloride (Mirapex) 1 mg PO HS [facility] Stop: 04/28/19 00:01 Last Admin: 03/29/19 00:53 Dose: 1 mg Documented by: Pregabalin (Lyrica) 75 mg PO BID [facility] Stop: 04/28/19 00:01 Last Admin: 03/29/19 08:07 Dose: 75 mg Documented by: Psyllium Hydrophilic Mucilloid (Metamucil) 1 pkt PO DAILY [facility] Stop: 04/28/19 08:59 Last Admin: 03/29/19 08:07 Dose: 1 pkt Documented by: Senna/Docusate Sodium (Senokot S) 1 tab PO HS [facility] Stop: 04/28/19 00:01 Last Admin: 03/29/19 00:56 Dose: 1 tab Documented by: Vitamin D (Vitamin D3) 2,000 units PO DAILY [facility] Stop: 04/28/19 08:59 Last Admin: 03/29/19 08:08 Dose: 2,000 units Documented by: (1) CHF (congestive heart failure) Heart failure chronicity: acute on chronic Heart failure type: unspecified Qualified Code(s): I50.9 - Heart failure, unspecified (2) PNA (pneumonia) Laterality: right Lung location: lower lobe of lung Pneumonia type: due to unspecified organism Qualified Code(s): J18.1 - Lobar pneumonia, unspecified organism
[2019-03-29] MEDS ORDERED: LEVOFLOXACIN/D5W 750 MG/150 ML BAG IV SCH (16:00)
[2019-03-29] MEDS ORDERED: SODIUM CHLORIDE 0.9% 500 ML IV SCH (16:00)
[2019-03-29] MEDS ORDERED: cefTRIAXone SODIUM 2,000 MG in DEXTROSE 5% 50 ML IV SCH (16:00)
[2019-03-30] MEDS: ALBUT/IPRATROP 3MG/0.5MG NEB 3 ML VIAL NEB SCH ×4 (03:24→15:11)
[2019-03-30] MEDS: ACETYLCYSTEINE 20% INHAL SOLN ***DISPENSED BY RESP. INH SCH (07:24)
[2019-03-30 07:54] LABS: Basophils # (auto) 0.01 K/uL (0-0.2); Basophils % (auto) 0.1 %; Eosinophils # (auto) 0.24 K/uL (0-0.5); Eosinophils % (auto) 3.3 %; Hemoglobin 10.8 g/dL (14.0-18.0); Immature Granulocytes # (auto) 0.03 K/uL (0.00-0.02); Immature Granulocytes % (auto) 0.4 %; Lymphocytes # (auto) 1.04 K/uL (1.2-3.4); Lymphocytes % (auto) 14.4 %; Mean Corpuscular Hgb Conc 32.7 g/dL (32-36); Mean Corpuscular Volume 94.3 fL (80-100); Mean Platelet Volume 10.6 fL (7.4-10.4); Monocytes # (auto) 0.33 K/uL (0.11-0.59); Monocytes % (auto) 4.6 %; Neutrophils # (auto) 5.59 K/uL (1.4-6.5); Neutrophils % (auto) 77.2 %; Platelet Count 151 K/uL (130-400); RDW Coefficient of Variation 14.8 % (11.5-14.5); RDW Standard Deviation 50.2 fL (36.4-46.3); White Blood Count 7.24 K/uL (4.8-10.8)
[2019-03-30] MEDS: ASPIRIN 81 MG CHEW PO SCH (07:54)
[2019-03-30] MEDS: DOCUSATE SODIUM 100 MG CAP PO SCH (07:54)
[2019-03-30] MEDS: METOPROLOL SUCC 25MG EXT REL TAB PO SCH (07:55)
[2019-03-30] MEDS: MEMANTINE HCL 10 MG TAB PO SCH (07:55)
[2019-03-30] MEDS: PANTOprazole 40 MG TAB PO SCH (07:55)
[2019-03-30] MEDS: DICLOFENAC SOD 1% GEL 100 GM TUBE EXT SCH ×2 (07:55→13:07)
[2019-03-30] MEDS: CARBIDOPA/LEVODOPA 25-250 1 EA TAB PO SCH ×2 (07:55→13:07)
[2019-03-30] MEDS: PREGABALIN 75 MG CAP PO SCH (07:55)
[2019-03-30] MEDS: PSYLLIUM 58.6% POWDER PACKET PO SCH (07:55)
[2019-03-30] MEDS: CARBIDOPA/LEVODOPA 50/200MG EXT REL TAB PO SCH (07:55)
[2019-03-30] MEDS: CHOLECALCIFEROL 1,000 UNITS TAB PO SCH (07:55)
[2019-03-30] MEDS: ACETAMINOPHEN 500 MG TAB PO SCH (07:55)
[2019-03-30 08:01] LABS: Prothrombin Time 28.8 Seconds (9.0-12.0)
[2019-03-30 08:26] LABS: BUN Creatinine Ratio 21.5 (10-20); Calcium 8.5 mg/dl (8.5-10.1); Creatinine Clr Calc Pharmacy 71.7 ml/min; Est GFR (African American) 83.9; Est GFR (Non-African American) 72.4; Potassium 3.6 mmol/L (3.5-5.1)
--- NOTE | 2019-03-30 14:05 | Discharge Summary ---
Date of Service March 30, 2019 Admission HPI Per Admitting Provider 73 y/o M c/o worsening cough and SOB. Pt was dx with PNA as outpt and given a zpack and steroids. He finished both of these, however his cough and SOB is worsening. He has wheezing at times. He has started to have upper airway congestion that is grossly audible. His appetite is down over the last two days as well. Family is present and states that he has dementia, but this is at baseline. He can express his current status, but short term memory is generally an issue. He does not usually know the date or year. He missed his AM medications today due to his acute health status. There has been blood tinged sputum the last few days. He uses PO mucinex but it has not been helping his upper airway congestion as much the last few days. Pt was given IVF and abx in the ED. There has been no change in status. Family states that he takes all medications with pudding. Pt uses medical marijuana for his OA and other MSK pains and Parkinsons and that it has helped greatly. He uses drop form BID. Admission Exam Per Admitting Provider Constitutional: WD/WN, vitals as above Eyes: normal visual bennett by confrontation and + anicteric sclerae Neck: normal visual inspection and trachea midline Respiratory: normal respiratory effort; no respiratory distress Auscultation: + crackles; no wheezes upper airway signs heard grossly Cardiovascular: Rate/Rhythm: regular rate and regular rhythm Gastrointestinal (Abdomen): Inspection/Auscultation: abdomen not distended Percussion/Palpation: abdomen soft; abdomen nontender Musculoskeletal: Head/Neck/Chest: normocephalic and head atraumatic negative for edema, peripheral pulses intact Skin: no rashes, warm and dry Neurologic: awake; not confused Speech / Cognition: normal speech Psychiatric: Orientation: oriented to person and oriented to place; + not oriented to time Principal Diagnosis Pneumonia, possible gram negative bacteria Discharge Exam Constitutional WD/WN, vitals as above Eyes PERRL, conjunctivae normal, anicteric sclerae ENMT external ear and nose normal, oropharynx normal Neck trachea midline, no thyromegaly Respiratory normal respiratory effort; no respiratory distress Auscultation: + diminished lung sounds and + rhonchi (clear with strong cough); no crackles, no rales and no wheezes Cardiovascular RRR, no murmur, no edema Gastrointestinal (Abdomen) normal bowel sounds, soft, nontender, no hepatosplenomegaly Musculoskeletal no cyanosis or clubbing, extremities motor strength 5/5 Skin no rashes, warm and dry Neurologic patellar DTR's 2+ bilat, sensation intact and PERRL, EOMI, accommodation nl, no face palsy, no dysarthria Psychiatric Orientation: alert and oriented to person; + not oriented to place and + not oriented to time Affect: + flat affect Lymphatic no cervical or axillary lymphadenopathy Discharge Data Allergies Allergy/AdvReac Type Severity Reaction Status Date / Time Penicillins Allergy Severe RASH,SWELLI Verified 03/28/19 16:36 NG Consultations 03/28/19 16:46 ED Decision to Admit Stat 03/28/19 16:57 ED Decision to Admit Stat 03/29/19 00:02 Consult Case Management - Discharge Planning Routine Ordered Studies 03/28/19 15:18 CT angio chest PE protocol Stat Hospital Course (1) PNA (pneumonia): Failed outpt tx (zpack/steroids) Noted on CXR and CTA, bibasilar pneumonia no evidence of PE POSSIBLE GRAM NEGATIVE PNEUMONIA treated with Rocephin initially, Levaquin added day two for gram negative coverage no fever, WBC normal, breathing comfortably on room air blood cultures with no growth some intermittent coughing and sputum production, sputum is white, no blood will d/c home on Levaquin 750mg daily to complete a total of 7 days follow up with PCP (2) Hypotension: pressures were normal normal on admission and low normal the next day SBP 87 in the afternoon, no real symptoms treated with NSS 500cc at 125cc/hr for one bag, BP came up to above 100 systolic likely a little dry despite the mild findings of pulmonary edema on CT, did get Lasix on admission d/w family, his pressures have been running low at home, not always taking the metoprolol only getting 12.5mg here in the hospital will stop metoprolol for time being due to low pressures he takes it for afib but his HR is in the 60-70 range on minimal dose so he would likely be fine without it follow up with PCP (3) CHF (congestive heart failure): doubt CHF exacerbation, he examines slightly dry, intravascularly depleted BNP elevated on admission was likely due to the pneumonia Last ECHO was 12/2017 per [employer] (family thought there had been on this past November but not in records), EF 55-60% will give gentle fluids due to hypotension, can resume Lasix QOD if he has swelling (4) Paroxysmal atrial fibrillation: continue home meds INR elevated, holding coumadin INR down to 3.0 instructed patient to reduced Coumadin to 2mg daily x 10 days because he will be on Levaquin follow up with PCP (5) Parkinson disease: with dementia continue home meds One to one when family not present Medical marijuana use, can continue, communication order written (6) Anticoagulated on Coumadin: 3mg every day with the exception of 4.5mg on Thursday (not given on day of admission) see above, will be on 2mg daily x 10 days (7) COPD (chronic obstructive pulmonary disease): No wheezing noted but family states some prior script given for Duoneb for the next week, continue Mucinex no steroids needed (8) Sleep apnea: Non-compliant with CPAP (9) HTN (hypertension): STOP metoprolol due to low BP (10) Hyperlipidemia: continue home meds (11) Dementia: continue home meds (12) Osteoarthritis: Medical marijuana use as at home Controls pain well per family Would much prefer this tx vs narcotics or muscle relaxers in a pt with dementia (13) BPH (benign prostatic hyperplasia): continue home meds (14) Bladder carcinoma: Hx of dx (15) DVT prophylaxis: INR 3.0 Dispo: home with home therapy Total Time Total Time Spent Total Time Spent (In Minutes): 40 minutes Total Time Includes: Examination of the Patient, Discharge Planning, Medication Reconciliation and Other (long talk with family at the bedside) Discharge Plan Discharge Items Patient Disposition: Home - Home Health Services Reason For Visit: PNA,CHF EXACERBATION Discharge Diagnosis: Pneumonia Weakness Condition: Good Discharge Goals: Improve disease control and Improve function Activity: Resume your previous activity Non-emergency contact: Primary Care Provider Call non-emergency contact if: you have any medication questions, your symptoms worsen, your pain is not controlled and you have a fever Follow-up/Referrals: Dejuan Galaviz MD [Primary Care Provider] - Diet: Heart Healthy Addtl Provider Instructions: Medications: LEVOFLOXACIN: take 750mg daily, next dose due tomorrow, for 5 days DUONEB: use this scheduled four times a day for 7 days, can use more frequently as needed WARFARIN: for the next 10 days recommend taking 2mg daily since antibiotics will raise INR INR was 3.0 on day of discharge Pneumonia, possible gram negative pneumonia given failure of outpatient regimen no fever, WBC normal, no hypoxia responding to Levaquin, complete 5 more days Low blood pressures recommend holding Metoprolol as BP running in the 90's and even 80's systolic yesterday HR is in the 60-70 range so there is room to hold the metoprolol FOLLOW UP - call for appt with Dr. Galaviz in the next week discuss treatment for pneumonia as well as stopping Metoprolol due to low blood pressure Prescriptions: New ipratropium-albuterol 0.5 mg-3 mg(2.5 mg base)/3 mL Solution For Nebulization 3 ml NEB Q4R 7 Days Qty: 90 RF: 1 levofloxacin 750 mg tablet 750 mg PO DAILY 5 Days Qty: 5 RF: 0 warfarin 2 mg tablet 2 mg PO DAILY Qty: 10 RF: 0 Continued furosemide 20 mg tablet 20 mg PO UD PRN (Reason: Shortness Of Breath) RF: 0 carbidopa-levodopa [Sinemet CR] 50-200 mg tablet extended release 1 tab PO DAILY RF: 0 acetaminophen [Tylenol] 325 mg tablet 500 - 650 mg PO BID RF: 0 medical marijuana .Route PRN (Reason: pain) RF: 0 pramipexole [Mirapex] 1 mg Tablet 1 mg PO HS RF: 0 polyethylene glycol 3350 [Miralax] 17 gram Powder In Packet 17 g PO DAILY PRN (Reason: Constipation) RF: 0 donepezil 10 mg Tablet 10 mg PO HS RF: 0 sennosides-docusate sodium [Senna-S] 8.6-50 mg Tablet 1 tab PO HS RF: 0 pantoprazole 40 mg Tablet,Delayed Release (Dr/Ec) 40 mg PO DAILY RF: 0 aspirin [Aspirin Childrens] 81 mg Tablet,Chewable 81 mg PO DAILY RF: 0 memantine 10 mg Tablet 10 mg PO BID RF: 0 diclofenac sodium [Voltaren] 1 % Gel 2 g TOPICAL QID RF: 0 Benefiber Clear SF (dextrin) 3 gram/3.5 gram Powder In Packet 1 packet PO DAILY RF: 0 atorvastatin 80 mg Tablet 80 mg PO HS RF: 0 carbidopa-levodopa 25-250 mg Tablet 1 tab PO QID RF: 0 nitroglycerin 0.4 mg Tablet, Sublingual 0.4 mg Sublingual Q5M RF: 0 docusate sodium 100 mg Capsule 100 mg PO BID RF: 0 albuterol sulfate [Ventolin HFA] 90 mcg/actuation Hfa Aerosol Inhaler 2 puff INHALATION Q6H PRN (Reason: Shortness Of Breath) RF: 0 pregabalin 75 mg Capsule 75 mg PO BID RF: 0 cholecalciferol (vitamin D3) 2,000 unit Tablet 2,000 unit PO DAILY RF: 0 warfarin 3 mg tablet See Patient Comments PO UD RF: 0 Discontinued metoprolol succinate 25 mg Tablet Extended Release 24 Hr 12.5 mg PO DAILY RF: 0 Stand-Alone Forms: [facility] Discharge Orders: Discharge Order (Routine); Ordered 03/30/19 Ordered By: Willy Dempsey Admission Data Admit Date/Time: 03/28/19 20:12 Attending Provider: Willy Dempsey Admit Provider: Mary Langley Primary Care Provider: Dejuan Galaviz Other Providers: Mary Langley Service: Telemetry Medical Other Interventions: Discharge Summary Assessment (RN) Last Done: 03/30/19 15:01 DC Date/Time DO NOT enter until pt leaves facility: 03/30/19 16:46
== END 2019-03-30 16:46 | disposition home health service (06) | DRG 178 ==
LOC: ED 12:37 → 2W 20:12 → SUATTDRO 20:12 → 2W 21:35

== ENCOUNTER 2019-07-27 17:41 | Inpatient (IN) ==
[2019-07-27] MEDS ORDERED: ALBUT/IPRATROP 3MG/0.5MG NEB 3 ML VIAL INH STA (18:20)
[2019-07-27 18:47] LABS: Basophils # (auto) 0.02 K/uL (0-0.2); Basophils % (auto) 0.1 %; Eosinophils # (auto) 0.13 K/uL (0-0.5); Hematocrit (blood only) 36.5 % (42-52); Hemoglobin 12.4 g/dL (14.0-18.0); Immature Granulocytes # (auto) 0.02 K/uL (0.00-0.02); Immature Granulocytes % (auto) 0.1 %; Mean Corpuscular Hemoglobin 31.6 pg (25-34); Mean Corpuscular Volume 92.9 fL (80-100); Mean Platelet Volume 10.6 fL (7.4-10.4); Monocytes % (auto) 5.2 %; Neutrophils # (auto) 11.21 K/uL (1.4-6.5); Neutrophils % (auto) 82.6 %; Platelet Count 109 K/uL (130-400); RDW Coefficient of Variation 13.7 % (11.5-14.5); RDW Standard Deviation 46.8 fL (36.4-46.3); Red Blood Count 3.93 M/uL (4.7-6.1); White Blood Count 13.58 K/uL (4.8-10.8)
[2019-07-27 19:00] LABS: INR 2.2 (0.9-1.1); Partial Thromboplastin Ratio 1.3; Partial Thromboplastin Time 35.4 Seconds (21.0-31.0); Prothrombin Time 21.7 Seconds (9.0-12.0)
[2019-07-27 19:03] LABS: Alanine Aminotransferase 8 U/L (12-78); Albumin Level 3.4 gm/dl (3.4-5.0); Aspartate Aminotransferase 16 U/L (15-37); BUN Creatinine Ratio 15.5 (10-20); Blood Urea Nitrogen 16 mg/dl (7-18); Carbon Dioxide 27 mmol/L (21-32); Chloride 109 mmol/L (98-107); Est GFR (African American) 84.4; Est GFR (Non-African American) 72.8; Glucose 98 mg/dl (70-99); Potassium 4.1 mmol/L (3.5-5.1); Sodium 141 mmol/L (136-145)
[2019-07-27 19:08] LABS: Alkaline Phosphatase 101 U/L (45-117); Bilirubin,Total 0.7 mg/dl (0.2-1); Globulin 3.5 gm/dl (2.5-4.0); NT Pro B Type Natriuretic Pept 607 pg/ml (0-1800); Total Protein 6.9 gm/dl (6.4-8.2); Troponin I < 0.015 ng/ml (0-0.045)
--- NOTE | 2019-07-27 19:13 | XRay Report ---
XR chest 1V portable CLINICAL HISTORY: 74 years-old Male presenting with SOB. TECHNIQUE: Portable upright AP view of the chest was obtained. COMPARISON: 06/21/2019. FINDINGS: Median sternotomy wires. Atherosclerosis of the aortic arch. Cardiac silhouette enlarged as on prior exam. Mildly low lung volumes with hypoventilatory changes. Pulmonary vascular prominence. Minimal ba silar opacities. No pleural effusion or pneumothorax. Degenerative changes of the thoracic spine. Upp er abdomen normal. IMPRESSION: 1. Mildly low lung volumes with hypoventilatory changes and minimal bibasilar opacities likely atele ctasis or scarring. 2. Cardiomegaly with mild volume overload. No milly pulmonary edema. Electronically signed by: Yemi Blancas M.D. 07/27/2019 7:12 PM
[2019-07-27] MEDS ORDERED: methylPREDNISolone 60 MG in SYRINGE 1 ML IV STA (20:11)
[2019-07-27] MEDS ORDERED: CLINDAMYCIN 600 MG in DEXTROSE 5% 50 ML IV ONE (20:13)
[2019-07-27] MEDS ORDERED: ALBUT/IPRATROP 3MG/0.5MG NEB 3 ML VIAL NEB STA (20:14)
--- NOTE | 2019-07-27 21:30 | CT Scan Report ---
CT chest wo con CT DOSE: 588.11 mGy.cm HISTORY: Shortness of breath. TECHNIQUE: Multiaxial CT images of the chest were performed without contrast. A dose lowering techni que was utilized adhering to the principles of ALARA. COMPARISON: Chest CTA 03/28/2019. FINDINGS: Small amount of mucoid material within the trachea. A few partially opacified bilateral low er lobe distal bronchi. No pneumothorax. No pleural effusions. A punctate calcified granuloma within the left lung apex. 3 mm subpleural nodule within the left major fissure on image 103 is likely benig n. Stable 6 mm subpleural nodule along the right minor fissure on image 129. This demonstrates greate r than 2 year stability and is therefore considered to be benign. Right greater than left patchy grou ndglass densities within the base of the lower lobes.. Poststernotomy changes. No suspicious lytic ar e blastic osseous lesions. Multiple small gallstones. The visualized liver, spleen, and adrenal gland s are unremarkable. Calcified subcarinal and right hilar lymph nodes. No pericardial effusion. Normal esophagus. No mediastinal or hilar lymphadenopathy. Normal caliber thoracic aorta. The heart is norm al in size. IMPRESSION: 1. Right greater than left patchy groundglass densities within the bases of the lower lobes. This fav ors a pneumonia, possibly secondary to aspiration. 2. Small amount of mucoid material within the trachea and a few partially opacified bilaterally lobe distal bronchi. Electronically signed by: Cameron Coelho M.D. 07/27/2019 9:27 PM
[2019-07-27] MEDS ORDERED: ACETAMINOPHEN 325 MG TAB PO PRN (22:05)
[2019-07-27] MEDS ORDERED: ONDANSETRON INJ 2 MG/ML 2 ML VIAL IV PRN (22:05)
[2019-07-27] MEDS ORDERED: ALBUTEROL 0.083% NEBU SOLN 3 ML VIAL NEB PRN (22:05)
[2019-07-27] MEDS ORDERED: DOCUSATE SODIUM/SENNA 50/8.6MG TAB PO PRN (22:38)
[2019-07-27] MEDS ORDERED: TRAMADOL HCL 50 MG TABLET PO PRN (22:42)
[2019-07-27] MEDS ORDERED: NITROGLYCERIN SL 0.4 MG/TAB TAB SL PRN (22:42)
[2019-07-27] MEDS: metroNIDAZOLE 500 MG/100 ML BAG IV SCH (23:10)
[2019-07-27] MEDS ORDERED: FUROSEMIDE 40 MG/4 ML VIAL IV ONE (23:15)
[2019-07-27] MEDS: MEMANTINE HCL 10 MG TAB PO SCH (23:45)
[2019-07-27] MEDS: DONEPEZIL HCL 10 MG TAB PO SCH (23:45)
[2019-07-27] MEDS: CARBIDOPA/LEVODOPA 25-250 1 EA TAB PO SCH (23:50)
[2019-07-28] MEDS: cefTRIAXone SODIUM 1,000 MG in DEXTROSE 5% 50 ML IV SCH ×2 (00:02→23:48)
[2019-07-28] MEDS: ALBUT/IPRATROP 3MG/0.5MG NEB 3 ML VIAL NEB SCH ×5 (00:26→18:58)
--- NOTE | 2019-07-28 01:07 | Emergency Department Note ---
Entered by Samm Mendieta acting as a scribe for Reese Emanuel MD History of Present Illness General Chief complaint: Respiratory Problems Stated complaint: FLUID IN LUNGS,REFERRED BY DOCTOR Time Seen by Provider: 07/27/19 18:06 Source: patient History of Present Illness Onset (ago): day(s) 1 Location: mouth (shortness of breath) Pain Consistency: + other (worsening) Maximum Pain Intensity: 10 Quality: + other (coughing with production of phlegm) Associated symptoms: + cough Treatments prior to arrival: other (nebulizer) The patient is a 74 year old M who presents to the Emergency Room with complaints of worsening shortness of breath that started 1 day ago. The patient states that his symptoms started last night. He notes that he is also currently experiencing coughing. He adds that his cough produces phlegm. He denies ex periencing fevers. He notes that he was feeling okay earlier this week. He denies being around anybody sick. He states that he uses an inhaler and nebulizer at home. He adds that he uses the nebulizer 2-4 times a day. He notes that he took his nebulizer 1 time today. He denies being on home oxygen. He states that he has a history of CHF, pneumonia, A Fib, and abnormal clotting. He notes that he is currently on a water pill, which he takes every other day for CHF. He adds that he is also on Coumadin. He states that he normally uses a walker and electric wheelchair to get around. He adds that it was harder to get around today due to his symptoms. Home Medications Home Medications Medication Instructions Recorded Confirmed Type albuterol sulfate [Ventolin HFA] 2 puff INHALATION Q6H PRN 08/04/18 07/27/19 History atorvastatin 80 mg PO HS 08/04/18 07/27/19 History carbidopa-levodopa 1 tab PO QID 08/04/18 07/27/19 History cholecalciferol (vitamin D3) 2,000 unit PO QAM 08/04/18 07/27/19 History docusate sodium 100 mg PO BID 08/04/18 07/27/19 History donepezil 10 mg PO HS 08/04/18 07/27/19 History memantine 10 mg PO BID 08/04/18 07/27/19 History polyethylene glycol 3350 [Miralax] 17 g PO DAILY PRN 08/04/18 07/27/19 History carbidopa ER 50 mg-levodopa 200 mg 1 tab PO DAILY@1800 tab 01/17/19 07/27/19 History tablet,extended release nitroglycerin 0.4 mg sublingual 0.4 mg SUBLINGUAL DIRECTED PRN 04/06/19 07/27/19 History tablet warfarin 3 mg tablet 3 mg PO 6XWK tab 05/09/19 07/27/19 History furosemide 20 mg tablet 10 mg PO Q2D tab 05/11/19 07/27/19 History omeprazole 20 mg capsule,delayed 20 mg PO QAM #90 cap 05/11/19 07/27/19 History release pregabalin 75 mg capsule 75 mg PO BID #180 cap 05/11/19 07/27/19 Rx acetaminophen 500 mg tablet 500 mg PO BID tab 06/07/19 07/27/19 History aspirin 81 mg tablet,delayed 81 mg PO QAM 06/07/19 07/27/19 History release bisacodyl 10 mg rectal suppository [address] DAILY PRN ea 06/07/19 07/27/19 History diclofenac 1 % topical gel 2 g TOPICAL QID PRN 06/07/19 07/27/19 History glucosamine 500 1 cap PO BID cap 06/07/19 07/27/19 History ze-nnhyrszbr-uckvrkfm comp 400 mg-D3 667 unit-C-Mn cap ipratropium-albuterol 0.5 mg-3 3 ml INH QID ml 06/07/19 07/27/19 History mg(2.5 mg base)/3 mL nebulization soln pramipexole 0.5 mg tablet 1 mg PO HS tab 06/07/19 07/27/19 History sennosides 8.6 mg-docusate sodium 1 tab PO HS PRN 06/07/19 07/27/19 History 50 mg tablet sodium phosphates 19 gram-[address] DIRECTED PRN ml 06/07/19 07/27/19 History gram/197 mL enema Medical Marijuana 10 mg PO QAM 07/27/19 07/27/19 History tramadol 50 mg PO DAILY PRN 07/27/19 07/27/19 History warfarin 4.5 mg PO WK 07/27/19 07/27/19 History Allergies Allergy/AdvReac Type Severity Reaction Status Date / Time Penicillins Allergy Severe RASH,DEBORAHI Verified 07/27/19 21:08 NG Past Med/Surg History Social History Preferred Language: Chadian Communication Ability: Effective Visual Impairment: No Limitations Hearing Ability: Hard of Hearing Framing Inspector Required: No Beliefs That Will Affect Care: None marital status: / Current Living Situation: Family Current Living Situation Comment: with 2 sons, dtr in law and grandchildren Other Information That Helps Us Care for You: No Feels Safe at Home: Yes Safety Concerns: Feels Safe At This Time Smoking Status: Current every day smoker Tobacco Type: cigars ; Cigarettes Per Day: 1-2 cigars every 2-3 days ; Do You Dip or Chew Tobacco: No ; Second Hand Exposure: Yes ; Tobacco Cessation Education Requested by Patient: No Hx Alcohol Use: Yes Alcohol type: beer, wine and hard liquor Alcohol Intake Frequency: Daily Alcohol Intake Frequency Comment: 1 beer Hx Substance Use: Yes (medical marijuana) substance use type: marijuana Substance Use Type Other:: uses vapor or RSO Last Used Substance: Hours (ago) Last Used Substance Other:: 10:00 am Physical Activity Frequency: Does not Exercise Review of Systems See HPI for pertinent positives & negatives. and A total of 10 systems reviewed and were otherwise negative Physical Exam Vital Signs Vital Signs - 24 hr 07/27/19 17:47 07/27/19 18:46 07/27/19 18:52 Temperature 36.8 C Temperature Source Oral Sepsis Recent Fever Within 48 Hours No Sepsis Action Taken by Nursing No Action Required Pulse Rate 84 Pulse Rate [Apical] 82 81 Pulse Rhythm [Apical] Respiratory Rate 24 18 14 Respiratory Effort / Characteristics Spontaneous Respiratory Depth Blood Pressure 124/79 Blood Pressure [Left Arm] 110/73 Blood Pressure Mean 94 Blood Pressure Mean [Left Arm] 85 Blood Pressure Position Sitting Pulse Oximetry 95 93 93 Oxygen Delivery Method Room Air Room Air Room Air Oxygen Flow Rate 07/27/19 19:11 07/27/19 20:00 07/27/19 20:23 Temperature Temperature Source Sepsis Recent Fever Within 48 Hours Sepsis Action Taken by Nursing Pulse Rate Pulse Rate [Apical] 81 90 88 Pulse Rhythm [Apical] Regular Respiratory Rate 16 24 20 Respiratory Effort / Characteristics Non-Labored Spontaneous Non-Labored Spontaneous Respiratory Depth Normal Blood Pressure Blood Pressure [Left Arm] 104/70 Blood Pressure Mean Blood Pressure Mean [Left Arm] 81 Blood Pressure Position Pulse Oximetry 97 95 97 Oxygen Delivery Method Room Air Nasal Cannula Nasal Cannula Oxygen Flow Rate 2 2 GENERAL: Patient is in no acute distress. HEENT: No acute trauma, normocephalic atraumatic, mucous membranes moist, no nasal congestion, no scleral icterus. NECK: No stridor, no adenopathy, no meningismus, trachea is midline. LUNGS: Rhonchi heard with expiration, no respiratory distress, no wheezing, equal breath sounds. HEART: Without murmurs gallops or rubs, regular rate and rhythm. ABDOMEN: Soft, nontender, bowel sounds positive, no hernias, no peritonitis. EXTREMITIES: No cyanosis or edema, full range of motion of all the joints without pain or difficulty, no signs for acute trauma. NEUROLOGIC: Some confusion noted, moving all extremities, awake and alert. SKIN: No rash, no jaundice, no diaphoresis. Course 1816: The patient was evaluated in room B4A. A complete history and physical exam was performed. 2006: I re-checked the patient and updated him on his test results. The patient states that he is not doing any better. 2020: I reviewed the patient's case with Dr. Newman, [facility] Hospitalist. He will evaluate the patient for further management. Consultations Consultation #1: I reviewed the patient's case with Dr. Newman, [facility] Hospitalist. He will evaluate the patient for further management. Time: 20:20 Administered Medications Albuterol (Duoneb) 3 ml NEB Q6R [facility] Stop: 08/27/19 00:59 Last Admin: 07/28/19 00:26 Dose: 3 ml Documented by: [id number] Carbidopa/Levodopa (Sinemet 25/250mg) 1 tab PO QID [facility] Stop: 08/27/19 08:59 Last Admin: 07/27/19 23:50 Dose: 1 tab Documented by: [id number] Donepezil HCl (Aricept) 10 mg PO HS [facility] Stop: 08/26/19 23:14 Last Admin: 07/27/19 23:45 Dose: 10 mg Documented by: [id number] Metronidazole (Flagyl) 500 mg in 100 mls @ 100 mls/hr IV Q8 JOSUE; Protocol Stop: 08/03/19 22:44 Last Infusion: 07/28/19 00:10 Dose: 0 mls/hr Documented by: [id number] Admin: 07/27/19 23:10 Dose: 100 mls/hr Documented by: [id number] Ceftriaxone Sodium 1,000 mg/ (Dextrose) 50 mls @ 100 mls/hr IV Q24H JOSUE; Protocol Stop: 08/03/19 22:59 Last Infusion: 07/28/19 00:32 Dose: 0 mls/hr Documented by: [id number] Admin: 07/28/19 00:02 Dose: 100 mls/hr Documented by: [id number] Memantine (Namenda) 10 mg PO BID@1400,2200 [facility] Stop: 08/26/19 23:14 Last Admin: 07/27/19 23:45 Dose: 10 mg Documented by: [id number] Discontinued Medications Albuterol (Duoneb) 3 ml INH NOW STA Stop: 07/27/19 18:21 Last Admin: 07/27/19 18:50 Dose: 3 ml Documented by: [id number] Albuterol (Duoneb) 3 ml NEB NOW STA Stop: 07/27/19 20:15 Last Admin: 07/27/19 20:21 Dose: 3 ml Documented by: [id number] Furosemide (Lasix) 40 mg IV NOW ONE Stop: 07/27/19 23:16 Last Admin: 07/28/19 00:01 Dose: 40 mg Documented by: [id number] Clindamycin Phosphate 600 mg/ (Dextrose) 54 mls @ 100 mls/hr IV ONE ONE Stop: 07/27/19 20:45 Last Infusion: 07/27/19 21:25 Dose: 0 mls/hr Documented by: [id number] Admin: 07/27/19 20:40 Dose: 100 mls/hr Documented by: [id number] Methylprednisolone 60 mg/ (Syringe) 1.96 mls @ 1.5 mls/min IV NOW STA Stop: 07/27/19 20:12 Last Admin: 07/27/19 20:40 Dose: 1.5 mls/min Documented by: [id number] Methylprednisolone (Solumedrol) Confirm Administered Dose 80 mg .ROUTE .STK-MED ONE Stop: 07/27/19 20:39 Last Admin: 07/27/19 20:46 Dose: Not Given Documented by: [id number] Medical Decision Making Differential Diagnosis Differential diagnosis includes: CHF, PNA, bronchitis, COPD exacerbation, RI, anemia, electrolyte imbalance, URI Medical Records Attestation: I reviewed the patient's medical records. Home Medications Current Medication List: was personally reviewed by me Laboratory Data Attestation: I reviewed the patient's lab results. Result diagrams: 07/27/19 18:40 07/27/19 18:40 Lab Results 07/27/19 07/27/19 07/27/19 Range/Units 18:40 18:40 18:40 WBC 13.58 H (4.8-10.8) K/uL RBC 3.93 L (4.7-6.1) M/uL Hgb 12.4 L (14.0-18.0) g/dL Hct 36.5 L (42-52) % MCV 92.9 (80-100) fL MCH 31.6 (25-34) pg MCHC 34.0 (32-36) g/dL RDW Std Deviation 46.8 H (36.4-46.3) fL RDW Coeff of Fidelina 13.7 (11.5-14.5) % Plt Count 109 L (130-400) K/uL MPV 10.6 H (7.4-10.4) fL Immature Gran % (Auto) 0.1 % Neut % (Auto) 82.6 % Lymph % (Auto) 11.0 % Atkinson % (Auto) 5.2 % Eos % (Auto) 1.0 % Baso % (Auto) 0.1 % Immature Gran # (Auto) 0.02 (0.00-0.02) K/uL Neut # (Auto) 11.21 H (1.4-6.5) K/uL Lymph # (Auto) 1.50 (1.2-3.4) K/uL Atkinson # (Auto) 0.70 H (0.11-0.59) K/uL Eos # (Auto) 0.13 (0-0.5) K/uL Baso # (Auto) 0.02 (0-0.2) K/uL PT 21.7 H (9.0-12.0) Seconds INR 2.2 H (0.9-1.1) APTT 35.4 H (21.0-31.0) Seconds PTT Ratio 1.3 Sodium 141 (136-145) mmol/L Potassium 4.1 (3.5-5.1) mmol/L Chloride 109 H (98-107) mmol/L Carbon Dioxide 27 (21-32) mmol/L Anion Gap 5.0 (3-11) BUN 16 (7-18) mg/dl Creatinine 1.00 (0.6-1.4) mg/dl Est Cr Clr Drug Dosing Not Reportable Est GFR ( Amer) 84.4 Est GFR (Non-Af Amer) 72.8 BUN/Creatinine Ratio 15.5 (10-20) Glucose 98 (70-99) mg/dl Calcium 9.0 (8.5-10.1) mg/dl Total Bilirubin 0.7 (0.2-1) mg/dl AST 16 (15-37) U/L ALT 8 L (12-78) U/L Alkaline Phosphatase 101 (45-117) U/L Troponin I < 0.015 (0-0.045) ng/ml NT-Pro-B Natriuret Pep 607 (0-1800) pg/ml Total Protein 6.9 (6.4-8.2) gm/dl Albumin 3.4 (3.4-5.0) gm/dl Globulin 3.5 (2.5-4.0) gm/dl Albumin/Globulin Ratio 1.0 (0.9-2) Imaging Data Radiologist's Impression: Radiology results as stated below per my review and the radiologist's interpretation: XR chest 1V portable CLINICAL HISTORY: 74 years-old Male presenting with SOB. TECHNIQUE: Portable upright AP view of the chest was obtained. COMPARISON: 06/21/2019. FINDINGS: Median sternotomy wires. Atherosclerosis of the aortic arch. Cardiac silhouette enlarged as on prior exam. Mildly low lung volumes with hypoventilatory changes. Pulmonary vascular prominence. Minimal basilar opacities. No pleural effusion or pneumothorax. Degenerative changes of the thoracic spine. Upper abdomen normal. IMPRESSION: 1. Mildly low lung volumes with hypoventilatory changes and minimal bibasilar opacities likely atelectasis or scarring. 2. Cardiomegaly with mild volume overload. No milly pulmonary edema. Electronically signed by: Yemi Blancas M.D. 07/27/2019 7:12 PM ECG Data Attestation: I personally reviewed and interpreted this ECG as follows: Indication: SOB/dyspnea Rate (beats per minute): 79 Rhythm: normal sinus Findings: + other (QTc 493) and + RBBB; no ST elevation and no acute ischemic change Comparison ECG Date: from (12/07/18) Change: the following changes noted (RBBB is new) Blood Pressure Blood Pressure Findings: Elevated blood pressure Blood Pressure Disposition: elevated BP felt to be situational MDM Narrative There is a mild leukocytosis at 13,000, this is likely consistent with infection. The patient was mildly anemic but this was baseline looking back at previous testing. INR is elevated but therapeutic for someone on Coumadin. No concerning electrolyte abnormality or kidney failure. No liver enzyme elevation. BNP was not elevated making CHF less likely. EKG showed a sinus rhy thm, no acute ischemia. Patient did have a new right bundle branch block. Cardiac enzyme testing x1 was not consistent with acute cardiac injury. Chest film did not show pneumonia or CHF. Patient was given 2 DuoNeb's, he received IV Solu-Medrol and IV clindamycin. The patient still has rhonchi on exam and seems somewhat short of breath. He has known COPD. As per his family, he has had a difficult time walking because of his dyspnea. I do think a hospital stay is warranted. He appears to have an acute bronchitis with an exacerbation of his COPD. He also has a new right bundle branch block that may need further explored through cardiology. I spoke to the patient and his family, I talked with the bilingual case manager. The on- call hospitalist was consulted. Impression & Plan SOB (shortness of breath), Acute bronchitis, COPD exacerbation, Acute electrocardiogram changes Discharge Plan Visit Data *Final* Discharge Date/Time: 07/27/19 21:20 Chief Complaint: Respiratory Problems Stated Complaint: FLUID IN LUNGS,REFERRED BY DOCTOR ED Provider: Reese Emanuel Discharge Problem: SOB (shortness of breath), Acute bronchitis, COPD exacerbation, Acute electrocardiogram changes Patient Disposition: Admitted As Inpatient Discharge Instructions Interventions: ED Discharge Assessment Last Done: 07/27/19 21:20 Discharge Problem: Acute bronchitis Qualifiers: Bronchitis organism: unspecified organism Qualified Code(s): J20.9 - Acute bronchitis, unspecified The scribe's documentation has been prepared under my direction and personally reviewed by me in its entirety. I confirm that the note above accurately reflects all work, treatment, procedures, and medical decision making performed by me.
[2019-07-28] MEDS: methylPREDNISolone 40 MG in SYRINGE 0 ML IV SCH ×4 (02:00→20:51)
[2019-07-28 03:57] LABS: Hematocrit (blood only) 37.8 % (42-52); Hemoglobin 12.9 g/dL (14.0-18.0); Mean Corpuscular Hemoglobin 31.6 pg (25-34); Mean Corpuscular Hgb Conc 34.1 g/dL (32-36); Mean Corpuscular Volume 92.6 fL (80-100); Mean Platelet Volume 11.2 fL (7.4-10.4); Platelet Count 121 K/uL (130-400); RDW Coefficient of Variation 13.6 % (11.5-14.5); RDW Standard Deviation 46.2 fL (36.4-46.3); Red Blood Count 4.08 M/uL (4.7-6.1); White Blood Count 14.21 K/uL (4.8-10.8)
[2019-07-28 04:08] LABS: INR 2.4 (0.9-1.1); Prothrombin Time 23.1 Seconds (9.0-12.0)
[2019-07-28 04:12] LABS: BUN Creatinine Ratio 13.2 (10-20); Blood Urea Nitrogen 17 mg/dl (7-18); Calcium 8.7 mg/dl (8.5-10.1); Carbon Dioxide 29 mmol/L (21-32); Chloride 107 mmol/L (98-107); Creatinine Clr Calc Pharmacy 55.3 ml/min; Est GFR (African American) 62.6; Glucose 182 mg/dl (70-99); Potassium 3.9 mmol/L (3.5-5.1); Sodium 141 mmol/L (136-145)
[2019-07-28 04:16] LABS: Troponin I < 0.015 ng/ml (0-0.045)
--- NOTE | 2019-07-28 06:10 | History & Physical Report ---
Date of Service July 28, 2019 Assessment & Plan (1) Pneumonia: Admit tele Covering for aspiration pneumonia with IV Rocephin and IV Flagyl Supplemental oxygen. speech therapy consult for swallowing function. (2) COPD exacerbation: Duonebs Solumedrol 40mg Q 6 hours (3) Paroxysmal atrial fibrillation: Continue warfarin INR therapeutic at 2.2 (4) Parkinson disease: Continue Sinemet and medical marijuana (5) Dementia: Continue donepezil and memantine (6) CAD (coronary artery disease): trop was negative No chest pain will trend trops new RBBB noted on EKG. History of Present Illness 74 y/o male presented to the ED with SOB and productive cough of 24 hours duration. He declines having F/C. He has noticed increased weakness as well. No chest pain, no N/V/D, no dizziness. He normally uses a walker or electric wheelchair to get around. on Coumadin. Primary Care Provider: Isak Galaviz MD Allergies Allergy/AdvReac Type Severity Reaction Status Date / Time Penicillins Allergy Severe RASH,SWELLI Verified 08/16/19 15:33 NG Home Medications Home Medications Medication Instructions Recorded Confirmed Type albuterol sulfate [Ventolin HFA] 2 puff INHALATION Q6H PRN 08/04/18 08/16/19 History docusate sodium 100 mg PO BID 08/04/18 08/16/19 History polyethylene glycol 3350 [Miralax] 17 g PO DAILY PRN 08/04/18 08/16/19 History nitroglycerin 0.4 mg sublingual 0.4 mg SUBLINGUAL DIRECTED PRN 04/06/19 08/16/19 History tablet omeprazole 20 mg capsule,delayed 20 mg PO QAM #90 cap 05/11/19 08/16/19 History release pregabalin 75 mg capsule 75 mg PO BID #180 cap 05/11/19 08/16/19 Rx bisacodyl 10 mg rectal suppository 10 mg OH DAILY PRN ea 06/07/19 08/16/19 History diclofenac 1 % topical gel 2 g TOPICAL QID PRN 06/07/19 08/16/19 History ipratropium-albuterol 0.5 mg-3 3 ml INH QID ml 06/07/19 08/16/19 History mg(2.5 mg base)/3 mL nebulization soln sodium phosphates 19 gram-7 118 ml OH DIRECTED PRN ml 06/07/19 08/16/19 History gram/197 mL enema Medical Marijuana 10 mg PO QAM 07/27/19 08/16/19 History tramadol 50 mg PO DAILY PRN 07/27/19 08/16/19 History metoprolol succinate 12.5 mg PO DAILY #30 tab 08/01/19 08/16/19 Rx prednisone 20 mg PO DAILY #20 tab 08/01/19 08/16/19 Rx acetaminophen 500 mg tablet 500 mg PO BID 90 Days #180 tab 08/04/19 08/16/19 Rx aspirin 81 mg tablet,delayed 81 mg PO QAM #90 tab 08/04/19 08/16/19 Rx release atorvastatin 80 mg tablet 80 mg PO HS #90 tab 08/04/19 08/16/19 Rx carbidopa 25 mg-levodopa 250 mg 1 tab PO QID 90 Days #360 tab 08/04/19 08/16/19 Rx tablet carbidopa ER 50 mg-levodopa 200 mg 1 tab PO ONCE 90 Days #90 tab 08/04/19 08/16/19 Rx tablet,extended release cholecalciferol (vitamin D3) 2,000 2,000 unit PO QAM #90 tab 08/04/19 08/16/19 Rx unit tablet donepezil 10 mg tablet 10 mg PO HS 90 Days #90 tab 08/04/19 08/16/19 Rx glucosamine 500 1 cap PO BID #90 cap 08/04/19 08/16/19 Rx pb-mvfplbzyf-snarokco comp 400 mg-D3 667 unit-C-Mn cap memantine 10 mg tablet 10 mg PO BID 90 Days #180 tab 08/04/19 08/16/19 Rx pramipexole 0.5 mg tablet 1 mg PO HS 90 Days #180 tab 08/04/19 08/16/19 Rx sennosides 8.6 mg-docusate sodium 1 tab PO HS PRN #90 tab 08/04/19 08/16/19 Rx 50 mg tablet furosemide 20 mg tablet 10 mg PO Q2D #45 tab 08/09/19 08/16/19 Rx warfarin 3 mg tablet See Rx Instructions PO DAILY tab 08/15/19 08/16/19 History Past Med/Surg History Medical History Impaired fasting glucose (Acute) COPD (chronic obstructive pulmonary disease) (Acute) Chronic anticoagulation (Acute) Sleep apnea (Acute) HTN (hypertension) (Acute) Hyperlipidemia (Acute) Hearing loss (Acute) Diverticulosis (Acute) DVT (deep venous thrombosis) (Acute) A-fib (Acute) Depression (Acute) Parkinson disease (Chronic) Dementia (Chronic) Bladder cancer (Acute) Arthralgia (Acute) CAD (coronary artery disease) (Chronic) BPH (benign prostatic hyperplasia) (Acute) Anemia (Acute) Retina disorder, right (Acute) Cataract (Acute) History of recent ear, nose, and throat (ENT) procedure (Acute) Abnormal CT of brain Acute coronary syndrome H/O deep venous thrombosis Hx of deep venous thrombosis Increased ammonia level Lumbar facet joint syndrome Metabolic encephalopathy Surgical History History of uvulopalatopharyngoplasty (Acute) History of cystoscopy (Acute) Hx of CABG (Acute) Family History Brother Myocardial infarction Colorectal cancer Father Myocardial infarction Sister Heart disease Social History Preferred Language: Arabic Communication Ability: Effective Visual Impairment: No Limitations Hearing Ability: Hard of Hearing Diamond Driller Required: No Beliefs That Will Affect Care: None marital status: / Current Living Situation: Family Current Living Situation Comment: with 2 sons, dtr in law and grandchildren Feels Safe at Home: Yes Smoking Status: Current every day smoker Tobacco Type: cigars ; Cigarettes Per Day: 1-2 cigars every 2-3 days ; Second Hand Exposure: Yes ; Hx Alcohol Use: Yes Alcohol type: beer, wine and hard liquor Alcohol Intake Frequency: Daily Alcohol Intake Frequency Comment: 1 beer Hx Substance Use: Yes (medical marijuana) substance use type: marijuana Substance Use Type Other:: uses vapor or RSO Last Used Substance: Hours (ago) Physical Activity Frequency: Does not Exercise Review of Systems Review of Systems: All systems reviewed & are unremarkable except as noted in HPI & below Physical Exam Physical Exam: General- adult male, NAD Head- atraumatic Eyes- PERRL, EOMI, anicteric ENT- oropharynx clear Neck- supple, no JVD, no adenopathy, no thyromegaly. Lungs- + b/l rhonchi. + crackles in the lower lung bennett. Heart- regular rhythm; no murmur, no gallop, no rub appreciated Abdomen- normal bowel sounds, soft, nontender. 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 Skin- warm & dry Results & Data Vital Signs (Past 12 Hours) Vital Signs Temp Pulse Pulse Resp BP BP Pulse Ox 07/28/19 03:54 36.5 C 77 19 103/65 96 07/28/19 00:26 76 14 91 07/28/19 00:15 80 07/27/19 23:22 36.7 C 74 19 115/63 92 07/27/19 21:30 89 07/27/19 21:20 90 18 119/83 95 07/27/19 20:44 93 H 20 109/83 95 07/27/19 20:23 88 20 97 07/27/19 20:00 90 24 95 07/27/19 19:11 81 16 104/70 97 07/27/19 18:52 81 14 93 07/27/19 18:46 82 18 110/73 93 Laboratory Results Laboratory Results WBC 14.21 K/uL (4.8-10.8) H 07/28/19 03:30 RBC 4.08 M/uL (4.7-6.1) L 07/28/19 03:30 Hgb 12.9 g/dL (14.0-18.0) L 07/28/19 03:30 Hct 37.8 % (42-52) L 07/28/19 03:30 MCV 92.6 fL (80-100) 07/28/19 03:30 MCH 31.6 pg (25-34) 07/28/19 03:30 MCHC 34.1 g/dL (32-36) 07/28/19 03:30 RDW Std Deviation 46.2 fL (36.4-46.3) 07/28/19 03:30 RDW Coeff of Fidelina 13.6 % (11.5-14.5) 07/28/19 03:30 Plt Count 121 K/uL (130-400) L 07/28/19 03:30 MPV 11.2 fL (7.4-10.4) H 07/28/19 03:30 Immature Gran % (Auto) 0.1 % 07/27/19 18:40 Neut % (Auto) 82.6 % 07/27/19 18:40 Lymph % (Auto) 11.0 % 07/27/19 18:40 Eaton % (Auto) 5.2 % 07/27/19 18:40 Eos % (Auto) 1.0 % 07/27/19 18:40 Baso % (Auto) 0.1 % 07/27/19 18:40 Immature Gran # (Auto) 0.02 K/uL (0.00-0.02) 07/27/19 18:40 Neut # (Auto) 11.21 K/uL (1.4-6.5) H 07/27/19 18:40 Lymph # (Auto) 1.50 K/uL (1.2-3.4) 07/27/19 18:40 Eaton # (Auto) 0.70 K/uL (0.11-0.59) H 07/27/19 18:40 Eos # (Auto) 0.13 K/uL (0-0.5) 07/27/19 18:40 Baso # (Auto) 0.02 K/uL (0-0.2) 07/27/19 18:40 PT 23.1 Seconds (9.0-12.0) H 07/28/19 03:30 INR 2.4 (0.9-1.1) H 07/28/19 03:30 APTT 35.4 Seconds (21.0-31.0) H 07/27/19 18:40 PTT Ratio 1.3 07/27/19 18:40 Sodium 141 mmol/L (136-145) 07/28/19 03:30 Potassium 3.9 mmol/L (3.5-5.1) 07/28/19 03:30 Chloride 107 mmol/L (98-107) 07/28/19 03:30 Carbon Dioxide 29 mmol/L (21-32) 07/28/19 03:30 Anion Gap 5.0 (3-11) 07/28/19 03:30 BUN 17 mg/dl (7-18) 07/28/19 03:30 Creatinine 1.28 mg/dl (0.6-1.4) 07/28/19 03:30 Est Cr Clr Drug Dosing 55.3 ml/min 07/28/19 03:30 Est GFR ( Amer) 62.6 07/28/19 03:30 Est GFR (Non-Af Amer) 54.0 07/28/19 03:30 BUN/Creatinine Ratio 13.2 (10-20) 07/28/19 03:30 Glucose 182 mg/dl (70-99) H 07/28/19 03:30 Calcium 8.7 mg/dl (8.5-10.1) 07/28/19 03:30 Total Bilirubin 0.7 mg/dl (0.2-1) 07/27/19 18:40 AST 16 U/L (15-37) 07/27/19 18:40 ALT 8 U/L (12-78) L 07/27/19 18:40 Alkaline Phosphatase 101 U/L (45-117) 07/27/19 18:40 Troponin I < 0.015 ng/ml (0-0.045) 07/28/19 03:30 NT-Pro-B Natriuret Pep 607 pg/ml (0-1800) 07/27/19 18:40 Total Protein 6.9 gm/dl (6.4-8.2) 07/27/19 18:40 Albumin 3.4 gm/dl (3.4-5.0) 07/27/19 18:40 Globulin 3.5 gm/dl (2.5-4.0) 07/27/19 18:40 Albumin/Globulin Ratio 1.0 (0.9-2) 07/27/19 18:40 Diagnostic Findings [facility] [place], [place] [phone] CT Scan Report Patient: EBLL WILLSON EAdmit Date: 07/27/19 MR#: [id number] [address] Acct ID:[id number]: Date: 1945[facility] Zip: [place] [address] Age: 74Location: ED Sex: M Room/Bed: Att Phy:Diagnosis: FLUID IN LUNGS,REFERRED BY DOCTOR Meryl Phy: Isak Galaviz, MDService Date: 07/27/19 [facility] Phy:Interpreting Phy: Cameron Coelho MD Admit Phy: Ordering Phy: Douglas Newman, DO cc: ~ CT chest wo con CT DOSE: 588.11 mGy.cm HISTORY: Shortness of breath. TECHNIQUE: Multiaxial CT images of the chest were performed without contrast. A dose lowering technique was utilized adhering to the principles of ALARA. COMPARISON: Chest CTA 03/28/2019. FINDINGS: Small amount of mucoid material within the trachea. A few partially opacified bilateral lower lobe distal bronchi. No pneumothorax. No pleural effusions. A punctate calcified granuloma within the left lung apex. 3 mm subpleural nodule within the left major fissure on image 103 is likely benign. Stable 6 mm subpleural nodule along the right minor fissure on image 129. This demonstrates greater than 2 year stability and is therefore considered to be benign. Right greater than left patchy groundglass densities within the base of the lower lobes.. Poststernotomy changes. No suspicious lytic are blastic osseous lesions. Multiple small gallstones. The visualized liver, spleen, and adrenal glands are unremarkable. Calcified subcarinal and right hilar lymph nodes. No pericardial effusion. Normal esophagus. No mediastinal or hilar lymphadenopathy. Normal caliber thoracic aorta. The heart is normal in size. IMPRESSION: 1. Right greater than left patchy groundglass densities within the bases of the lower lobes. This favors a pneumonia, possibly secondary to aspiration. 2. Small amount of mucoid material within the trachea and a few partially opacified bilaterally lobe distal bronchi. Electronically signed by: Cameron Coelho M.D. 07/27/2019 9:27 PM Dictated: 07/27/192119 Transcribed: 07/27/192119 Code Status & VTE Plan VTE Prophylaxis Plan VTE Prophylaxis will be ordered: Yes PG Care Time/CCT Total # of Minutes Spent Total Time Spent: 65 Total Time Spent with Patient: Total time spent is greater than 50% in coordination of care (as documented) at patient's floor/unit and/or counseling patient: (1) Pneumonia Laterality: bilateral Pneumonia type: due to unspecified organism
[2019-07-28] MEDS: metroNIDAZOLE 500 MG/100 ML BAG IV SCH ×3 (06:11→22:21)
[2019-07-28] MEDS ORDERED: GLUC CHONDR COLLAGEN D3 C MN PO SCH (09:00)
[2019-07-28] MEDS: PREGABALIN 75 MG CAP PO SCH ×2 (09:42→20:50)
[2019-07-28] MEDS: ASPIRIN 81 MG ECTAB PO SCH (09:42)
[2019-07-28] MEDS: DOCUSATE SODIUM 100 MG CAP PO SCH ×2 (09:42→20:50)
[2019-07-28] MEDS: PANTOprazole 40 MG TAB PO SCH (09:43)
[2019-07-28] MEDS: CARBIDOPA/LEVODOPA 25-250 1 EA TAB PO SCH ×4 (09:43→20:50)
[2019-07-28] MEDS: CHOLECALCIFEROL 1,000 UNITS TAB PO SCH (09:44)
--- NOTE | 2019-07-28 09:50 | Hospitalist Progress Note ---
Date of Service July 28, 2019 Assessment & Plan (1) Pneumonia: * Admit tele- patient with history of ANNELISE, bronchoscopy Nov [address] Leigh revealed severe airway collapse- patient to have had repeat sleep study with Dr. Denise. Unsure of CPAP use currently. Attempted to contact son. * Covering for aspiration pneumonia with IV Rocephin and IV Flagyl- will continue for now, but may switch to Unasyn for dual coverage of anaerobic and gram positive bugs. Patient without hospitalization in the last 90 days. May need to cover for pseudomonas if no improvement. * Supplemental oxygen. * Speech therapy consult for swallowing function. 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 I agree w/ the hernandez components of her documentation. Pt on rocephin/flagyl for aspiration pneumonia. Speech therapy eval pending. Labs/vitals stable. Remains on high-dose IV steroids for COPD exacerbation. Mina Shoemaker MD Subjective Patient evaluated at bedside this morning. He states he had a cough last evening that was originally clear/milky white in color, but this morning he has had 2-3 episodes of blood tinged sputum. Patient continues to express shortness of breath at baseline. States it feels like something is stuck that he can't cough up. He had been using his nebulizer 1-2 times per day at home as needed without much relief. Denies chest pain, palpitations, n/v/d/c, fevers, chills, headache. He does state that his two grandchildren that live with him have been sick recently, but is unsure exactly what they had. Believes he may have had a bronchoscopy at some point in the past, but is unsure of a lot of historical details. He also thinks he may have had a pulmonary embolism in the past but is also unsure. He states his son Navin is in charge of his medications and knows his history. Review of Systems Review of Systems: Constitutional: Denies fever, weight loss, cold or heat intolerance, weakness or fatigue. +Recent sick contacts- 2 grandchildren that live with him. HEENT: Denies headaches, lightheadedness, acute visual changes, dysphagia. Pulmonary: +Shortness of breath, dyspneic on exertion, cough, sputum-initially white/milky--> now blood tinged/yellow Cardiovascular: Denies chest pain, palpitations, syncope, edema. GI: Denies abdominal pain, nausea, vomiting, diarrhea, constipation, melena, hematochezia, change in stool color or consistency. : Denies dysuria, discharge, itching, bleeding, hematuria, changes in frequency or urgency, flank pain. MSK/Neuro:Denies muscle or joint pain, weakness, numbness, tingling. Skin: No rashes, lesions, wounds, eczema. Physical Exam Physical Exam: General: Flat affect. No acute distress. Skin: Warm, dry. Cap refill <3 seconds. HEENT: Head normocephalic, atraumatic. Frontal and maxillary sinuses without tenderness to palpation. Anicteric sclera. EOMI intact. PERRLA. Moist mucous membranes. Trachea midline. Swallowing intact. FROM without crepitus or tenderness. No lymphadenopathy. Thyroid without nodules. No carotid bruits noted on auscultation. Posterior oropharynx with evidence of cobblestoning/post nasal drip. Pulmonary: +Inspiratory wheezes in all lung bennett. Expiratory rhonchi heard throughout. Bibasilar crackles. No acute distress. No accessory muscle usage noted. Increased tactile fremitus posterior inferior lung bennett. Cardiac: No visible PMI. Neck without JVD. RRR, S1, S2. No murmurs, rubs, or gallops. Abdomen:Abdomen soft, non-tender to palpation. Normoactive bowel sounds in all quadrants. No hepatosplenomegaly. Neuro: CN II-XII grossly intact. Short term memory intact, however care home memory poor. Slow, but clear speech. Respiratory: Inspiratory wheezes, upper lung benentt > lower lung bennett. Expiratory rhonchi heard through all lung bennett Results & Data Vital Signs (Past 12 Hours) Vital Signs Temp Pulse Pulse Resp BP Pulse Ox 07/28/19 08:00 71 07/28/19 07:21 69 20 95 07/28/19 07:04 36.4 C L 72 19 113/75 92 07/28/19 03:54 36.5 C 77 19 103/65 96 07/28/19 00:26 76 14 91 07/28/19 00:15 80 07/27/19 23:22 36.7 C 74 19 115/63 92 Laboratory Results 07/28/19 07/28/19 07/28/19 Range/Units 03:30 03:30 03:30 WBC 14.21 H (4.8-10.8) K/uL RBC 4.08 L (4.7-6.1) M/uL Hgb 12.9 L (14.0-18.0) g/dL Hct 37.8 L (42-52) % MCV 92.6 (80-100) fL MCH 31.6 (25-34) pg MCHC 34.1 (32-36) g/dL RDW Std Deviation 46.2 (36.4-46.3) fL RDW Coeff of Fidelina 13.6 (11.5-14.5) % Plt Count 121 L (130-400) K/uL MPV 11.2 H (7.4-10.4) fL Immature Gran % (Auto) % Neut % (Auto) % Lymph % (Auto) % [place] % (Auto) % Eos % (Auto) % Baso % (Auto) % Immature Gran # (Auto) (0.00-0.02) K/uL Neut # (Auto) (1.4-6.5) K/uL Lymph # (Auto) (1.2-3.4) K/uL Putnam # (Auto) (0.11-0.59) K/uL Eos # (Auto) (0-0.5) K/uL Baso # (Auto) (0-0.2) K/uL PT 23.1 H (9.0-12.0) Seconds INR 2.4 H (0.9-1.1) APTT (21.0-31.0) Seconds PTT Ratio Sodium 141 (136-145) mmol/L Potassium 3.9 (3.5-5.1) mmol/L Chloride 107 (98-107) mmol/L Carbon Dioxide 29 (21-32) mmol/L Anion Gap 5.0 (3-11) BUN 17 (7-18) mg/dl Creatinine 1.28 (0.6-1.4) mg/dl Est Cr Clr Drug Dosing 55.3 Est GFR ( Amer) 62.6 Est GFR (Non-Af Amer) 54.0 BUN/Creatinine Ratio 13.2 (10-20) Glucose 182 H (70-99) mg/dl Calcium 8.7 (8.5-10.1) mg/dl Total Bilirubin (0.2-1) mg/dl AST (15-37) U/L ALT (12-78) U/L Alkaline Phosphatase (45-117) U/L Troponin I < 0.015 (0-0.045) ng/ml NT-Pro-B Natriuret Pep (0-1800) pg/ml Total Protein (6.4-8.2) gm/dl Albumin (3.4-5.0) gm/dl Globulin (2.5-4.0) gm/dl Albumin/Globulin Ratio (0.9-2) 07/27/19 07/27/19 07/27/19 Range/Units 18:40 18:40 18:40 WBC 13.58 H (4.8-10.8) K/uL RBC 3.93 L (4.7-6.1) M/uL Hgb 12.4 L (14.0-18.0) g/dL Hct 36.5 L (42-52) % MCV 92.9 (80-100) fL MCH 31.6 (25-34) pg MCHC 34.0 (32-36) g/dL RDW Std Deviation 46.8 H (36.4-46.3) fL RDW Coeff of Fidelina 13.7 (11.5-14.5) % Plt Count 109 L (130-400) K/uL MPV 10.6 H (7.4-10.4) fL Immature Gran % (Auto) 0.1 % Neut % (Auto) 82.6 % Lymph % (Auto) 11.0 % [place] % (Auto) 5.2 % Eos % (Auto) 1.0 % Baso % (Auto) 0.1 % Immature Gran # (Auto) 0.02 (0.00-0.02) K/uL Neut # (Auto) 11.21 H (1.4-6.5) K/uL Lymph # (Auto) 1.50 (1.2-3.4) K/uL [place] # (Auto) 0.70 H (0.11-0.59) K/uL Eos # (Auto) 0.13 (0-0.5) K/uL Baso # (Auto) 0.02 (0-0.2) K/uL PT 21.7 H (9.0-12.0) Seconds INR 2.2 H (0.9-1.1) APTT 35.4 H (21.0-31.0) Seconds PTT Ratio 1.3 Sodium 141 (136-145) mmol/L Potassium 4.1 (3.5-5.1) mmol/L Chloride 109 H (98-107) mmol/L Carbon Dioxide 27 (21-32) mmol/L Anion Gap 5.0 (3-11) BUN 16 (7-18) mg/dl Creatinine 1.00 (0.6-1.4) mg/dl Est Cr Clr Drug Dosing Not Reportable Est GFR ( Amer) 84.4 Est GFR (Non-Af Amer) 72.8 BUN/Creatinine Ratio 15.5 (10-20) Glucose 98 (70-99) mg/dl Calcium 9.0 (8.5-10.1) mg/dl Total Bilirubin 0.7 (0.2-1) mg/dl AST 16 (15-37) U/L ALT 8 L (12-78) U/L Alkaline Phosphatase 101 (45-117) U/L Troponin I < 0.015 (0-0.045) ng/ml NT-Pro-B Natriuret Pep 607 (0-1800) pg/ml Total Protein 6.9 (6.4-8.2) gm/dl Albumin 3.4 (3.4-5.0) gm/dl Globulin 3.5 (2.5-4.0) gm/dl Albumin/Globulin Ratio 1.0 (0.9-2) PG Care Time/CCT Total # of Minutes Spent Total Time Spent with Patient: Total time spent is greater than 50% in coordination of care (as documented) at patient's floor/unit and/or counseling patient: (1) Pneumonia Laterality: bilateral Pneumonia type: due to unspecified organism
[2019-07-28] MEDS: guaiFENesin 600 MG TABCR PO SCH ×2 (11:06→20:50)
[2019-07-28] MEDS: MEDICAL MARIJUANA PO SCH (12:16)
[2019-07-28] MEDS: MEMANTINE HCL 10 MG TAB PO SCH ×2 (13:28→22:22)
[2019-07-28] MEDS ORDERED: PRAMIPEXOLE DIHYDROCHLO 0.25 MG TAB PO STA (13:56)
[2019-07-28] MEDS ORDERED: PRAMIPEXOLE DIHYDROCHLO 0.25 MG TAB PO ONE (14:06)
--- NOTE | 2019-07-28 14:52 | Fluoroscopy Report ---
FL video swallow HISTORY: h/o aspiration; Parkinson's disease TECHNIQUE: Video fluoroscopic evaluation of swallowing was performed in the AP and lateral projection s by the speech pathology staff. The patient is fed nectar-thick and thin liquid barium, a barium coa leanne wafer, and barium pudding. FLUOROSCOPY TIME: 2.5 minutes. A cine loop submitted. COMPARISON STUDY: None. FINDIN03/08/2019.GS: Normal hyoid excursion and epiglottic deflection throughout the majority of the e xamination. However, incomplete epiglottic deflection with the barium coated cracker consistent with penetration without aspiration. This was recovered and swallowed again. There is also an episode of s ilent aspiration with the serial swallows of thin liquid barium. IMPRESSION: 1. Trace silent aspiration with the thin liquid barium. There is also penetration without aspiration with the barium coated cracker which was recovered and swallowed again. 2. Please see the speech pathologist report for detailed findings and recommendations. Electronically signed by: Cameron Coelho M.D. 07/28/2019 2:50 PM
[2019-07-28] MEDS: WARFARIN SOD 3 MG TAB PO SCH (15:07)
[2019-07-28] MEDS: CARBIDOPA/LEVODOPA 50/200MG EXT REL TAB PO SCH (18:02)
[2019-07-28] MEDS: PRAMIPEXOLE DIHYDROCHLO 0.5 MG TAB PO SCH (20:50)
[2019-07-28] MEDS: ATORVASTATIN 40 MG TAB PO SCH (20:50)
[2019-07-28] MEDS: DONEPEZIL HCL 10 MG TAB PO SCH (20:50)
[2019-07-29] MEDS: methylPREDNISolone 40 MG in SYRINGE 0 ML IV SCH ×2 (01:29→08:55)
[2019-07-29] MEDS: metroNIDAZOLE 500 MG/100 ML BAG IV SCH ×3 (06:33→21:01)
[2019-07-29 07:39] LABS: Hematocrit (blood only) 35.9 % (42-52); Hemoglobin 12.1 g/dL (14.0-18.0); Mean Corpuscular Hemoglobin 31.5 pg (25-34); Mean Corpuscular Hgb Conc 33.7 g/dL (32-36); Mean Corpuscular Volume 93.5 fL (80-100); Mean Platelet Volume 11.5 fL (7.4-10.4); Platelet Count 128 K/uL (130-400); RDW Coefficient of Variation 14.1 % (11.5-14.5); RDW Standard Deviation 48.4 fL (36.4-46.3); Red Blood Count 3.84 M/uL (4.7-6.1); White Blood Count 18.04 K/uL (4.8-10.8)
[2019-07-29 07:47] LABS: INR 3.3 (0.9-1.1); Prothrombin Time 30.9 Seconds (9.0-12.0)
[2019-07-29 08:10] LABS: BUN Creatinine Ratio 19.3 (10-20); Calcium 9.1 mg/dl (8.5-10.1); Creatinine Clr Calc Pharmacy 55.5 ml/min; Est GFR (African American) 63.2; Est GFR (Non-African American) 54.5; Potassium 4.4 mmol/L (3.5-5.1)
[2019-07-29] MEDS: ALBUT/IPRATROP 3MG/0.5MG NEB 3 ML VIAL NEB SCH ×4 (08:44→19:51)
[2019-07-29] MEDS: guaiFENesin 600 MG TABCR PO SCH ×2 (08:55→20:19)
[2019-07-29] MEDS: ASPIRIN 81 MG ECTAB PO SCH (08:55)
[2019-07-29] MEDS: DOCUSATE SODIUM 100 MG CAP PO SCH ×2 (08:56→20:19)
[2019-07-29] MEDS: CHOLECALCIFEROL 1,000 UNITS TAB PO SCH (08:56)
[2019-07-29] MEDS: PANTOprazole 40 MG TAB PO SCH (08:56)
[2019-07-29] MEDS: CARBIDOPA/LEVODOPA 25-250 1 EA TAB PO SCH ×4 (08:56→20:19)
[2019-07-29] MEDS: MEDICAL MARIJUANA PO SCH (09:00)
[2019-07-29] MEDS: PREGABALIN 75 MG CAP PO SCH ×2 (09:01→20:19)
--- NOTE | 2019-07-29 10:13 | Hospitalist Progress Note ---
Date of Service July 29, 2019 Assessment & Plan (1) Aspiration pneumonia: * Admit tele- patient with history of ANNELISE, bronchoscopy Nov [address] Leigh revealed severe airway collapse- patient to have had repeat sleep study with Dr. Denise. Does not use CPAP due to loud noise bothering per patient. * IV Rocephin and IV Flagyl- will continue for now-- initially considering Unasyn, however patient with listed allergy and unaware of previous anaphylactic reaction- may need to convert to Clinda PO prior to discharge. * Patient without hospitalization in the last 90 days. May need to cover for pseudomonas if no improvement. * Supplemental oxygen. * Speech therapy consult for swallowing function. * Duonebs Q4h WA * Guaifenesin * Sputum Culture pending * Flutter Valve * Should be followed by Pulm as outpatient for re-evaluation for CPAP-- nurse navigator contacted [facility]-- to be set up with local provider on discharge (2) COPD exacerbation: * Improving * Duonebs switched from Q6h to Q4h while awake * Solumedrol 40mg Q 6 hours-- decreased to 20mg Q6 -- will continue to taper given patient improvement * Guaifenesin * Flutter Valve (3) Parkinson disease: * Stable * Continue Sinemet and medical marijuana (4) Dementia: * Stable * Continue home donepezil and memantine (5) Paroxysmal atrial fibrillation: * Hx afib * Reviewed telemetry-bout of atrial fib/flutter overnight noted on telemetry-- spontaneous conversion back to NSR, HR 70-80s * On ocean transportation intermediary anticoagulation with coumadin * Current INR 3.3-- will continue at this time with episode of afib/flutter-- repeat in AM-- hold >3.5 (6) CAD (coronary artery disease): * Stable * Hx CABG * New RBBB noted on EKG * Troponins negative * Continue home medications- atorvastatin 80mg, ASA 81mg (7) DVT prophylaxis: * Coumadin * INR 3.3 this AM * As above Dispo: has services through [facility]-- will need PROPERTY CARETAKER, pulmonary services-- anticipate d/c in 2-3 days. Supervising Physician Co-Signing Physician Notes Attending Attestation: Chart reviewed in detail, care plan d/w DEEPTHI Jasso. I agree w/ the hernandez components of her documentation. Pt with b/l aspiration pneumonia and COPD exacerbation. Remains on IV antibiotics and IV steroids - latter being tapered. Vitals and labs remain acceptable. Leukocytosis likely due to steroids. Thrombocytopenia - cont to trend, etiology uncertain. Overall progressing. Appreciate speech therapy assistance. Mina Shoemaker MD Subjective Patient evaluated at bedside this morning. He states he continues to have shortness of breath with occasional cough, however his sputum production has decreased. Denies any further episodes of blood tinged sputum. He states he does not use a CPAP at night because it is too loud for his . Patient with expectorated material while in the room, brown in color- patient states he just ate chocolate pudding. Review of Systems Review of Systems: Constitutional: Denies fever, weight loss, cold or heat intolerance, weakness or fatigue. +Recent sick contacts- 2 grandchildren that live with him. HEENT: Denies headaches, lightheadedness, acute visual changes. Denies dysphagia, however noted to have aspiration on video swallow yesterday. Pulmonary: +Shortness of breath, dyspneic on exertion, cough, sputum-decreased Cardiovascular: Denies chest pain, palpitations, syncope, edema. GI: Denies abdominal pain, nausea, vomiting, diarrhea, constipation, melena, hematochezia, change in stool color or consistency. : Denies dysuria, discharge, itching, bleeding, hematuria, changes in frequency or urgency, flank pain. MSK/Neuro:Denies muscle or joint pain, weakness, numbness, tingling. Skin: No rashes, lesions, wounds, eczema. Physical Exam Respiratory: Auscultation: + rhonchi (expiratory, throughout) and + wheezes (minimal on inpiration, much improved) Results & Data Vital Signs (Past 12 Hours) Vital Signs Temp Pulse Pulse Resp BP Pulse Ox 07/29/19 09:49 72 07/29/19 08:46 74 18 93 07/29/19 07:04 36.2 C L 71 20 127/71 92 07/29/19 03:52 36.8 C 72 20 117/71 93 07/29/19 00:00 68 07/28/19 23:07 36.9 C 85 20 109/68 92 PG Care Time/CCT Total # of Minutes Spent Total Time Spent with Patient: Total time spent is greater than 50% in coordination of care (as documented) at patient's floor/unit and/or counseling patient:
[2019-07-29] MEDS: MEMANTINE HCL 10 MG TAB PO SCH ×2 (13:34→21:01)
[2019-07-29] MEDS ORDERED: methylPREDNISolone 30 MG in SYRINGE 0 ML IV SCH (14:00)
[2019-07-29] MEDS: WARFARIN SOD 3 MG TAB PO SCH (15:16)
[2019-07-29] MEDS: CARBIDOPA/LEVODOPA 50/200MG EXT REL TAB PO SCH (17:20)
[2019-07-29] MEDS: methylPREDNISolone 20 MG in SYRINGE 0 ML IV SCH (20:14)
[2019-07-29] MEDS: DONEPEZIL HCL 10 MG TAB PO SCH (20:19)
[2019-07-29] MEDS: ATORVASTATIN 40 MG TAB PO SCH (20:19)
[2019-07-29] MEDS: PRAMIPEXOLE DIHYDROCHLO 0.5 MG TAB PO SCH (20:19)
[2019-07-29] MEDS: cefTRIAXone SODIUM 1,000 MG in DEXTROSE 5% 50 ML IV SCH (22:07)
[2019-07-30] MEDS: methylPREDNISolone 20 MG in SYRINGE 0 ML IV SCH ×4 (01:42→20:13)
[2019-07-30] MEDS: metroNIDAZOLE 500 MG/100 ML BAG IV SCH ×3 (06:30→22:02)
[2019-07-30 06:39] LABS: Hematocrit (blood only) 35.3 % (42-52); Immature Granulocytes # (auto) 0.05 K/uL (0.00-0.02); Immature Granulocytes % (auto) 0.3 %; Lymphocytes # (auto) 0.98 K/uL (1.2-3.4); Lymphocytes % (auto) 6.6 %; Mean Corpuscular Hemoglobin 31.7 pg (25-34); Mean Corpuscular Volume 93.1 fL (80-100); Mean Platelet Volume 11.5 fL (7.4-10.4); Monocytes # (auto) 0.49 K/uL (0.11-0.59); Monocytes % (auto) 3.3 %; Neutrophils # (auto) 13.37 K/uL (1.4-6.5); Neutrophils % (auto) 89.8 %; Platelet Count 123 K/uL (130-400); RDW Coefficient of Variation 14.3 % (11.5-14.5); RDW Standard Deviation 48.5 fL (36.4-46.3); Red Blood Count 3.79 M/uL (4.7-6.1); White Blood Count 14.89 K/uL (4.8-10.8)
[2019-07-30 07:05] LABS: INR 3.2 (0.9-1.1); Prothrombin Time 30.2 Seconds (9.0-12.0)
[2019-07-30 07:18] LABS: BUN Creatinine Ratio 23.5 (10-20); Calcium 8.5 mg/dl (8.5-10.1); Creatinine Clr Calc Pharmacy 68.7 ml/min; Est GFR (African American) 81.4; Est GFR (Non-African American) 70.2; Potassium 4.2 mmol/L (3.5-5.1)
[2019-07-30] MEDS: ALBUT/IPRATROP 3MG/0.5MG NEB 3 ML VIAL NEB SCH ×4 (07:23→19:52)
[2019-07-30] MEDS: PREGABALIN 75 MG CAP PO SCH ×2 (08:08→20:11)
[2019-07-30] MEDS: PANTOprazole 40 MG TAB PO SCH (08:09)
[2019-07-30] MEDS: guaiFENesin 600 MG TABCR PO SCH (08:09)
[2019-07-30] MEDS: ASPIRIN 81 MG ECTAB PO SCH (08:09)
[2019-07-30] MEDS: CHOLECALCIFEROL 1,000 UNITS TAB PO SCH (08:09)
[2019-07-30] MEDS: CARBIDOPA/LEVODOPA 25-250 1 EA TAB PO SCH ×4 (08:10→20:12)
[2019-07-30] MEDS: DOCUSATE SODIUM 100 MG CAP PO SCH ×2 (08:10→20:13)
[2019-07-30] MEDS: MEDICAL MARIJUANA PO SCH ×2 (08:52→20:11)
--- NOTE | 2019-07-30 10:51 | XRay Report ---
XR chest 1V portable HISTORY: 74 years-old Male aspiration pneumonia acute shortness of breath with aspiration pneumoniti s COMPARISON: Chest radiograph and chest CT 07/27/2019 TECHNIQUE: Portable AP view of the chest FINDINGS: Cardiac silhouette is mildly enlarged. Prior median sternotomy. No pneumothorax, large pleural effusi on or overt pulmonary edema. Minimal persistent asymmetric subsegmental right basilar opacities. Dege nerative changes of the shoulders and spine. IMPRESSION: Minimal persistent subsegmental right basilar opacities suggestive of atelectasis versus pneumonitis. The above report was generated using voice recognition software. It may contain grammatical, syntax o r spelling errors. Electronically signed by: Alvino Riddle M.D. 07/30/2019 10:49 AM
--- NOTE | 2019-07-30 11:22 | Hospitalist Progress Note ---
Date of Service July 30, 2019 Assessment & Plan (1) Aspiration pneumonia: * Admit tele- patient with history of ANNELISE, bronchoscopy [address] Leigh revealed severe airway collapse- patient to have had repeat sleep study with Dr. Denise. Does not use CPAP due to loud noise bothering per patient. Of note, earlier this year, January. * IV Rocephin and IV Flagyl---> will transition to Clinda PO * Patient without hospitalization in the last 90 days. May need to cover for pseudomonas if no improvement. * Supplemental oxygen as needed * Speech therapy-- video swallow with evidence of aspiration of thin liquids * Duonebs Q4h WA * Guaifenesin * Sputum Culture pending * Flutter Valve * Pulm being set-up nu nurse navigator through [place]- will be set up locally * CPAP will be order for overnight- patient does have CPAP at home but has not used, due to above (2) COPD exacerbation: * Improving * Duonebs switched from Q6h to Q4h while awake * Solumedrol 40mg Q 6 hours-- decreased to 20mg Q6 -- will continue to taper given patient improvement * Guaifenesin * Flutter Valve (3) Parkinson disease: * Stable - normal progression of disease process * Continue Sinemet and medical marijuana (4) Dementia: * Stable * Continue home donepezil and memantine (5) Paroxysmal atrial fibrillation: * Hx afib - on termite treater helper anticoagulation with coumadin * Reviewed telemetry-bout of atrial fib/flutter overnight 07/28 noted on telemetry-- spontaneous conversion back to NSR, HR 70-80s * No further episodes of afib/flutter overnight * Current INR 3.2 * Continue to monitor (6) CAD (coronary artery disease): * Stable * Hx CABG * New RBBB noted on EKG * Troponins negative * Continue home medications- atorvastatin 80mg, ASA 81mg (7) DVT prophylaxis: * Coumadin * INR 3.2 this AM * As above Dispo: has services through [facility]-- will need MAINTENANCE REPAIRMAN, pulmonary services, CPAP-- anticipate d/c ~2 days. Supervising Physician Co-Signing Physician Notes Attending Attestation: Pt seen/examined, chart reviewed in detail, care plan d/w DEEPTHI Jasso. I agree w/ the hernandez components of her documentation. Pt resting comfortably during my visit. Watching TV. Feeling better overall. VSS, no fever gen - NAD neck - no JVD heart - RRR lungs - wheezes b/l, rales bases abd - soft Imp/plan: b/l aspiration pneumonia COPD exacerbation both improved wean steroids transition to PO antibiotics vitals/labs otherwise stable progressing Mina Shoemaker MD Subjective Patient evaluated this morning, up in chair. Patient states he continues to have shortness of breath, however it is improved from yesterday. When asked how far away from his baseline his breathing is, he states he is about 50% of the way there. Sputum production decreased, per patient, and continues to be clear/white in color. States he is taking his pills without much difficulty. He confirms he is continuing to do maneuvers taught by speech and nursing while swallowing, and he has been using some thickener for thin liquids. Denies any further blood tinged sputum, fever, chills, chest pain, abdominal pain, n/v/d. Review of Systems Review of Systems: Constitutional: Denies fever, weight loss, cold or heat intolerance, weakness or fatigue. +Recent sick contacts- 2 grandchildren that live with him. HEENT: Denies headaches, lightheadedness, acute visual changes. Denies dysphagia, however noted to have aspiration on video. Pulmonary: +Continues to be short of breath, moreso with exertion. Shortness of breath at rest at a minimum. Cough, improved. Decreased sputum production. Denies hemoptysis. Cardiovascular: Denies chest pain, palpitations, syncope, edema. GI: Denies abdominal pain, nausea, vomiting, diarrhea, constipation, melena, hematochezia, change in stool color or consistency. : Denies dysuria, discharge, itching, bleeding, hematuria, changes in frequency or urgency, flank pain. MSK/Neuro:Denies muscle or joint pain, weakness, numbness, tingling. Skin: No rashes, lesions, wounds, eczema. Physical Exam Physical Exam: General: Flat affect. No acute distress. Skin: Warm, dry. Cap refill <3 seconds. HEENT: Head normocephalic, atraumatic. Frontal and maxillary sinuses without tenderness to palpation. Anicteric sclera. EOMI intact. PERRLA. Moist mucous membranes. Trachea midline. Swallowing intact. FROM without crepitus or tenderness. No lymphadenopathy. Thyroid without nodules. No carotid bruits noted on auscultation. Posterior oropharynx with evidence of cobblestoning/post nasal drip. Respiratory: Rhonchi heard throughout. Bibasilar crackles. Minimal inspiratory wheezing. No acute distress. No accessory muscle usage noted. Cardiac: No visible PMI. Neck without JVD. RRR, S1, S2. No murmurs, rubs, or gallops. Abdomen:Abdomen soft, non-tender to palpation. Normoactive bowel sounds in all quadrants. No hepatosplenomegaly. Neuro: CN II-XII grossly intact. Short term memory intact, however termite treater helper memory poor. Slow, but clear speech. Results & Data Vital Signs (Past 12 Hours) Vital Signs Temp Pulse Pulse Resp BP Pulse Ox 07/30/19 10:53 57 L 18 95 07/30/19 08:33 70 07/30/19 07:24 71 19 93 07/30/19 07:00 36.5 C 71 18 124/63 91 07/30/19 03:51 36.5 C 69 22 127/77 94 07/30/19 00:00 74 07/29/19 23:40 36.8 C 77 20 131/73 92 Laboratory Results 07/30/19 07/30/19 07/30/19 Range/Units 06:13 06:13 06:13 WBC 14.89 H (4.8-10.8) K/uL RBC 3.79 L (4.7-6.1) M/uL Hgb 12.0 L (14.0-18.0) g/dL Hct 35.3 L (42-52) % MCV 93.1 (80-100) fL MCH 31.7 (25-34) pg MCHC 34.0 (32-36) g/dL RDW Std Deviation 48.5 H (36.4-46.3) fL RDW Coeff of Fidelina 14.3 (11.5-14.5) % Plt Count 123 L (130-400) K/uL MPV 11.5 H (7.4-10.4) fL Immature Gran % (Auto) 0.3 % Neut % (Auto) 89.8 % Lymph % (Auto) 6.6 % Trigg % (Auto) 3.3 % Eos % (Auto) 0.0 % Baso % (Auto) 0.0 % Immature Gran # (Auto) 0.05 H (0.00-0.02) K/uL Neut # (Auto) 13.37 H (1.4-6.5) K/uL Lymph # (Auto) 0.98 L (1.2-3.4) K/uL Trigg # (Auto) 0.49 (0.11-0.59) K/uL Eos # (Auto) 0.00 (0-0.5) K/uL Baso # (Auto) 0.00 (0-0.2) K/uL PT 30.2 H (9.0-12.0) Seconds INR 3.2 H (0.9-1.1) Sodium 143 (136-145) mmol/L Potassium 4.2 (3.5-5.1) mmol/L Chloride 112 H (98-107) mmol/L Carbon Dioxide 26 (21-32) mmol/L Anion Gap 5.0 (3-11) BUN 24 H (7-18) mg/dl Creatinine 1.03 (0.6-1.4) mg/dl Est Cr Clr Drug Dosing 68.7 ml/min Est GFR ( Amer) 81.4 Est GFR (Non-Af Amer) 70.2 BUN/Creatinine Ratio 23.5 H (10-20) Glucose 137 H (70-99) mg/dl Calcium 8.5 (8.5-10.1) mg/dl PG Care Time/CCT Total # of Minutes Spent Total Time Spent with Patient: Total time spent is greater than 50% in coordination of care (as documented) at patient's floor/unit and/or counseling patient:
[2019-07-30] MEDS: MEMANTINE HCL 10 MG TAB PO SCH ×2 (13:38→22:03)
[2019-07-30] MEDS: WARFARIN SOD 3 MG TAB PO SCH (15:52)
[2019-07-30] MEDS: CARBIDOPA/LEVODOPA 50/200MG EXT REL TAB PO SCH (18:15)
[2019-07-30] MEDS: ATORVASTATIN 40 MG TAB PO SCH (20:11)
[2019-07-30] MEDS: PRAMIPEXOLE DIHYDROCHLO 0.5 MG TAB PO SCH (20:12)
[2019-07-30] MEDS: DONEPEZIL HCL 10 MG TAB PO SCH (20:13)
[2019-07-30] MEDS: cefTRIAXone SODIUM 1,000 MG in DEXTROSE 5% 50 ML IV SCH (23:04)
[2019-07-31] MEDS: methylPREDNISolone 20 MG in SYRINGE 0 ML IV SCH ×4 (01:50→21:11)
[2019-07-31] MEDS: CLINDAMYCIN HCL 150 MG CAP PO SCH ×3 (05:35→17:18)
[2019-07-31] MEDS: ALBUT/IPRATROP 3MG/0.5MG NEB 3 ML VIAL NEB SCH ×4 (06:58→19:48)
[2019-07-31 07:02] LABS: Hemoglobin 11.8 g/dL (14.0-18.0); Mean Corpuscular Hemoglobin 31.1 pg (25-34); Mean Corpuscular Hgb Conc 32.8 g/dL (32-36); Mean Corpuscular Volume 94.7 fL (80-100); Mean Platelet Volume 11.9 fL (7.4-10.4); Platelet Count 127 K/uL (130-400); RDW Coefficient of Variation 14.4 % (11.5-14.5); RDW Standard Deviation 49.7 fL (36.4-46.3)
[2019-07-31 07:44] LABS: BUN Creatinine Ratio 21.6 (10-20); Calcium 8.3 mg/dl (8.5-10.1); Creatinine Clr Calc Pharmacy 73.1 ml/min; Est GFR (African American) 87.5; Est GFR (Non-African American) 75.5; Potassium 4.2 mmol/L (3.5-5.1)
[2019-07-31] MEDS: MEDICAL MARIJUANA PO SCH ×2 (08:27→21:17)
[2019-07-31 08:30] LABS: Prothrombin Time 33.7 Seconds (9.0-12.0)
[2019-07-31] MEDS: CARBIDOPA/LEVODOPA 25-250 1 EA TAB PO SCH ×4 (08:30→21:12)
[2019-07-31] MEDS: CHOLECALCIFEROL 1,000 UNITS TAB PO SCH (08:30)
[2019-07-31] MEDS: PANTOprazole 40 MG TAB PO SCH (08:31)
[2019-07-31] MEDS: ASPIRIN 81 MG ECTAB PO SCH (08:31)
[2019-07-31] MEDS: DOCUSATE SODIUM 100 MG CAP PO SCH ×2 (08:31→21:15)
[2019-07-31 08:32] LABS: INR 3.6 (0.9-1.1)
[2019-07-31] MEDS: PREGABALIN 75 MG CAP PO SCH ×2 (08:35→21:14)
--- NOTE | 2019-07-31 10:26 | Hospitalist Progress Note ---
Date of Service July 31, 2019 Assessment & Plan (1) Aspiration pneumonia: * Admit tele- patient with history of ANNELISE, bronchoscopy Nov [address] Leigh revealed severe airway collapse- patient to have had repeat sleep study with Dr. Denise. Has CPAP at home but does not use due to "loud noise bothered my ". passed in January 2019. Has still not used CPAP since that time, per patient. Currently with b/l aspiration pneumonia vs pneumonitis * Improving * IV Rocephin and IV Flagyl discontinued--> patient transitioned to Clinda PO this morning, seven day course of treatment to be completed 08/02 * Supplemental oxygen as needed * Speech therapy-- video swallow with evidence of aspiration of thin liquids-- patient to use chin/tuck maneuver, thickener for liquids * Duoneb Q6WA * Guaifenesin discontinued 07/30 due to increasing PVCs- improved on telemetry overnight/today-- 2-3 beats PVC, bigeminy, trigeminy noted: * ECHO today --> LV systolic function normal. EF 55-60%. No wall motion abnormality * Flutter Valve * Sputum Culture with moderate normal dany, rare gram + diplococci, rare gram negative bacilli * Pulm being set-up nu nurse navigator through [place]- will be set up locally * CPAP tolerated by patient until early AM due to mask discomfort- requested nursing to inquire about more comfortable mask for tonight (2) COPD exacerbation: * Improving slowly- patient with decreased shortness of breath * Duoneb Q6WA * Solumedrol 40mg Q 6 hours-- decreased to 20mg Q6 -- given ANA wheezing today, will continue 20mg Q6 and re-evaluate in AM * Guaifenesin d/c'd * Flutter Valve (3) Parkinson disease: * Stable with normal progression * Continue Sinemet and medical marijuana (4) Paroxysmal atrial fibrillation: * Hx afib - on correction anticoagulation with Coumadin * Reviewed telemetry-bout of atrial fib/flutter overnight 07/28 noted on telemetry-- spontaneous conversion back to NSR, HR 70-80s. No further episodes of afib/flutter per telemetry * On 07/30, patient with 8-10 beat run of PVCs- EKG with frequent PVCs. ??possible afib/flutter with aberrancy -->Guaifenesin discontinued at that time d/t increased PVCs. Mag level wnl. -- patient with 2-3 beats overnight/today * ECHO today --> LV systolic function normal. EF 55-60%. No wall motion abnormality * Current INR 3.6- hold Coumadin * Repeat INR in AM (5) Dementia: * Stable * Continue home donepezil and memantine (6) CAD (coronary artery disease): * Stable * Hx CABG * New RBBB noted on EKG * Troponins negative * Continue home medications- atorvastatin 80mg, ASA 81mg * Most recent ECHO 07/31/19--> LV systolic function normal. EF 55-60%. No wall motion abnormality (7) DVT prophylaxis: * Coumadin held this evening for INR 3.6 today * Will repeat INR in AM, continue home medications when no longer supratherapeutic Dispo: likely discharge tomorrow pending continuing improvement Supervising Physician Co-Signing Physician Notes Attending Attestation: Chart reviewed in detail, care plan d/w PA Casi Jasso. I agree w/ the hernandez components of her documentation. Patient doing well. Potentially could d/c tomorrow. Wean steroids next 24 hours then slowly taper over 7-10 days. Converted abx to clindamycin by mouth for b/l aspiration pneumonia in setting of dysphagia from parkinson's disease. vitals/labs remain stable. d/c tomorrow? Mina Shoemaker MD Subjective Evaluated patient ad bedside this morning. Patient states his breathing has improved. Still has occasional shortness of breath, but ambulated through the unit with walker and ETCHER APPRENTICE for assistance without too much difficulty. Patient states his breathing is about 85% of his baseline. No cough or sputum production noted during conversation. He did have some increased restlessness of his legs last evening, which has improved with change in his medical marijuana from once daily to his twice daily home regimen. Patient states he was able to tolerate CPAP last night until 3am, but the mask was very uncomfortable at that time so he took it off. The patient is agreeable to continue to use CPAP, but is requesting a different mask. Patient tolerating thickened liquids, and had BM which he confirms was formed and normal in color. Patient denies any further hemoptysis, fever, chills, chest pain, palpitations, abdominal pain, n/v/d. Review of Systems Review of Systems: Constitutional: Denies fever, weight loss, cold or heat intolerance, weakness or fatigue. +Recent sick contacts- 2 grandchildren that live with him. HEENT: Denies headaches, lightheadedness, acute visual changes. Denies dysphagia, however noted to have aspiration on video. Pulmonary: +Minimally short of breath at baseline, moreso with exertion. Improved from yesterday. Less cough occasionally productive of clear/white sputum, decreased in quantity from yesterday. One brown sputum following eating chocolate pudding. Denies hemoptysis. Cardiovascular: Denies chest pain, palpitations, syncope, edema. GI: Denies abdominal pain, nausea, vomiting, diarrhea, constipation, melena, hematochezia, change in stool color or consistency. : Denies dysuria, discharge, itching, bleeding, hematuria, changes in frequency or urgency, flank pain. MSK/Neuro:+Restless legs during the night- improved with home medical marijuana. Skin: No rashes, lesions, wounds, eczema. Physical Exam Physical Exam: General: Flat affect. No acute distress. Skin: Warm, dry. Cap refill <3 seconds. HEENT: Head normocephalic, atraumatic. Frontal and maxillary sinuses without tenderness to palpation. Anicteric sclera. EOMI intact. PERRLA. Moist mucous membranes. Trachea midline. Swallowing intact. FROM without crepitus or tenderness. No lymphadenopathy. Thyroid without nodules. No carotid bruits noted on auscultation. Posterior oropharynx with evidence of prior UVP surgery with palatal reconstruction. Cobblestoning of posterior oropharnyx. Respiratory: Minimal rhonchi heard throughout. Slight expiratory wheeze ANA. Bibasilar crackles. No acute distress. No accessory muscle usage noted. Cardiac: No visible PMI. Neck without JVD. RRR, S1, S2. No murmurs, rubs, or gallops. Abdomen:Abdomen soft, non-tender to palpation. Normoactive bowel sounds in all quadrants. No hepatosplenomegaly. Neuro: CN II-XII grossly intact. Short term memory intact, however manager intermediate memory poor. Slowed, but clear speech. Results & Data Vital Signs (Past 12 Hours) Vital Signs Temp Pulse Pulse Resp BP BP Pulse Ox 07/31/19 08:05 36.6 C 75 16 150/87 H 91 07/31/19 07:01 63 16 96 07/31/19 04:43 36.5 C 82 20 115/71 95 07/31/19 00:10 77 18 93 07/30/19 23:13 36.7 C 42 L 18 118/71 93 Laboratory Results 07/31/19 07/31/19 07/31/19 Range/Units 07:44 06:26 06:26 WBC 11.40 H (4.8-10.8) K/uL RBC 3.80 L (4.7-6.1) M/uL Hgb 11.8 L (14.0-18.0) g/dL Hct 36.0 L (42-52) % MCV 94.7 (80-100) fL MCH 31.1 (25-34) pg MCHC 32.8 (32-36) g/dL RDW Std Deviation 49.7 H (36.4-46.3) fL RDW Coeff of Fidelina 14.4 (11.5-14.5) % Plt Count 127 L (130-400) K/uL MPV 11.9 H (7.4-10.4) fL PT 33.7 H (9.0-12.0) Seconds INR 3.6 H (0.9-1.1) Sodium 145 (136-145) mmol/L Potassium 4.2 (3.5-5.1) mmol/L Chloride 111 H (98-107) mmol/L Carbon Dioxide 28 (21-32) mmol/L Anion Gap 6.0 (3-11) BUN 21 H (7-18) mg/dl Creatinine 0.97 (0.6-1.4) mg/dl Est Cr Clr Drug Dosing 73.1 ml/min Est GFR ( Amer) 87.5 Est GFR (Non-Af Amer) 75.5 BUN/Creatinine Ratio 21.6 H (10-20) Glucose 135 H (70-99) mg/dl Calcium 8.3 L (8.5-10.1) mg/dl Magnesium (1.8-2.4) mg/dl Specimen Hemolysis 07/30/19 Range/Units 06:13 WBC (4.8-10.8) K/uL RBC (4.7-6.1) M/uL Hgb (14.0-18.0) g/dL Hct (42-52) % MCV (80-100) fL MCH (25-34) pg MCHC (32-36) g/dL RDW Std Deviation (36.4-46.3) fL RDW Coeff of Fidelina (11.5-14.5) % Plt Count (130-400) K/uL MPV (7.4-10.4) fL PT (9.0-12.0) Seconds INR (0.9-1.1) Sodium (136-145) mmol/L Potassium (3.5-5.1) mmol/L Chloride (98-107) mmol/L Carbon Dioxide (21-32) mmol/L Anion Gap (3-11) BUN (7-18) mg/dl Creatinine (0.6-1.4) mg/dl Est Cr Clr Drug Dosing ml/min Est GFR ( Amer) Est GFR (Non-Af Amer) BUN/Creatinine Ratio (10-20) Glucose (70-99) mg/dl Calcium (8.5-10.1) mg/dl Magnesium 2.1 (1.8-2.4) mg/dl Specimen Hemolysis Diagnostic Findings Echocardiogram 07/31/19 Interpretation Summary: Left ventricular systolic function is normal. No regional wall motion abnormalities noted. Ejection Fraction = 55-60% Compared with study dated 06/11/2017, no significant change. PG Care Time/CCT Total # of Minutes Spent Total Time Spent with Patient: Total time spent is greater than 50% in coordination of care (as documented) at patient's floor/unit and/or counseling patient:
[2019-07-31] MEDS: MEMANTINE HCL 10 MG TAB PO SCH ×2 (14:12→21:13)
[2019-07-31] MEDS: CARBIDOPA/LEVODOPA 50/200MG EXT REL TAB PO SCH (18:17)
[2019-07-31] MEDS: ATORVASTATIN 40 MG TAB PO SCH (21:11)
[2019-07-31] MEDS: PRAMIPEXOLE DIHYDROCHLO 0.5 MG TAB PO SCH (21:12)
[2019-07-31] MEDS: DONEPEZIL HCL 10 MG TAB PO SCH (21:13)
[2019-08-01] MEDS: methylPREDNISolone 20 MG in SYRINGE 0 ML IV SCH ×3 (01:06→14:27)
[2019-08-01] MEDS: CLINDAMYCIN HCL 150 MG CAP PO SCH ×3 (01:06→11:51)
[2019-08-01 06:50] LABS: Hematocrit (blood only) 36.7 % (42-52); Hemoglobin 12.5 g/dL (14.0-18.0); Mean Corpuscular Hemoglobin 31.7 pg (25-34); Mean Corpuscular Hgb Conc 34.1 g/dL (32-36); Mean Corpuscular Volume 93.1 fL (80-100); Mean Platelet Volume 11.1 fL (7.4-10.4); Platelet Count 133 K/uL (130-400); RDW Coefficient of Variation 13.8 % (11.5-14.5); Red Blood Count 3.94 M/uL (4.7-6.1)
[2019-08-01] MEDS: ALBUT/IPRATROP 3MG/0.5MG NEB 3 ML VIAL NEB SCH ×2 (07:04→12:53)
[2019-08-01 07:13] LABS: Prothrombin Time 38.4 Seconds (9.0-12.0)
[2019-08-01 07:16] LABS: INR 4.1 (0.9-1.1)
[2019-08-01 07:23] LABS: BUN Creatinine Ratio 23.7 (10-20); Calcium 8.7 mg/dl (8.5-10.1); Creatinine Clr Calc Pharmacy 75.3 ml/min; Est GFR (African American) 90.9; Est GFR (Non-African American) 78.4; Potassium 4.5 mmol/L (3.5-5.1)
[2019-08-01] MEDS: ASPIRIN 81 MG ECTAB PO SCH (10:03)
[2019-08-01] MEDS: PREGABALIN 75 MG CAP PO SCH (10:03)
[2019-08-01] MEDS: CHOLECALCIFEROL 1,000 UNITS TAB PO SCH (10:03)
[2019-08-01] MEDS: PANTOprazole 40 MG TAB PO SCH (10:03)
[2019-08-01] MEDS: DOCUSATE SODIUM 100 MG CAP PO SCH (10:03)
[2019-08-01] MEDS: CARBIDOPA/LEVODOPA 25-250 1 EA TAB PO SCH ×2 (10:04→14:27)
[2019-08-01] MEDS: MEDICAL MARIJUANA PO SCH (11:51)
--- NOTE | 2019-08-01 13:21 | Discharge Summary ---
Date of Service August 01, 2019 Admission HPI Per Admitting Provider 74 y/o male presented to the ED with SOB and productive cough of 24 hours duration. He declines having F/C. He has noticed increased weakness as well. No chest pain, no N/V/D, no dizziness. He normally uses a walker or electric wheelchair to get around. on Coumadin. Principal Diagnosis Aspiration pneumonia Discharge Exam Constitutional WD/WN, vitals as above Respiratory normal respiratory effort, lungs clear to auscultation Cardiovascular RRR, no murmur, no edema Gastrointestinal (Abdomen) Inspection/Auscultation: abdomen normal to inspection and normal bowel sounds; abdomen not distended Percussion/Palpation: abdomen soft; abdomen nontender Skin no rashes, warm and dry Neurologic CN's II-XI intact bilaterally, moves all extremities and awake mild slurring of speech at times - patient reports this is baseline. No other focal findings. Psychiatric Orientation: alert and oriented x 3 Affect: + flat affect Discharge Data Allergies Allergy/AdvReac Type Severity Reaction Status Date / Time Penicillins Allergy Severe RASH,SWELLI Verified 07/27/19 21:08 NG Consultations 07/27/19 20:15 ED Decision to Admit Stat 08/01/19 11:30 Consult Cardiology Routine Ordered Studies 07/27/19 20:42 CT chest wo con Stat 07/28/19 14:15 FL video swallow Routine Hospital Course (1) Aspiration pneumonia: * Patient with history of ANNELISE, bronchoscopy Nov [address] Leigh revealed severe airway collapse- patient to have had repeat sleep study with Dr. Denise. Has CPAP at home but does not use due to "loud noise bothered my ". passed in January 2019. Has still not used CPAP since that time, per patient. Currently with b/l aspiration pneumonia vs pneumonitis * IV Rocephin and IV Flagyl discontinued--> patient transitioned to Clinda PO, seven day course of treatment to be completed 08/03 * Speech therapy-- video swallow with evidence of aspiration of thin liquids-- patient to use chin/tuck maneuver, thickener for liquids * Duoneb Q6WA * Guaifenesin discontinued 07/30 due to increasing PVCs- improved on telemetry overnight/today-- 2-3 beats PVC, bigeminy, trigeminy noted: * ECHO --> LV systolic function normal. EF 55-60%. No wall motion abnormality * Flutter Valve * Sputum Culture with moderate normal dany, rare gram + diplococci, rare gram negative bacilli * [facility] ([facility]) COPD exacerbation: * Improving- patient with decreased shortness of breath/ cough * Duoneb Q6WA inpatient, albuterol for home * Solumedrol 40mg Q 6 hours-- decreased to 20mg Q6 inpatient -- will give prednisone taper for home x 12 days * Guaifenesin d/c'd * Flutter Valve (3) Parkinson disease: * Stable with normal progression * Continue Sinemet and home medical marijuana (4) Paroxysmal atrial fibrillation: * Hx afib - on terminal carman anticoagulation with Coumadin * Reviewed telemetry-bout of atrial fib/flutter overnight 07/28 noted on telemetry-- spontaneous conversion back to NSR, HR 70-80s. * On 07/30, patient with 8-10 beat run of PVCs- EKG with frequent PVCs. ??possible afib/flutter with aberrancy -->Guaifenesin discontinued at that time d/t increased PVCs. Mag level wnl. -- patient with 2-3 beats overnight/today * ECHO today --> LV systolic function normal. EF 55-60%. No wall motion abnormality. * Consulted cardiology 08/01. They felt abberant rhythm is AIVR and that patient should go back on metoprolol as he was in the past - recommended metoprolol s uccinate 12.5 mg. * Current INR 4.1 - hold Coumadin until recheck two days (5) Dementia: * Stable * Continue home donepezil and memantine (6) CAD (coronary artery disease): * Stable * Hx CABG * New RBBB noted on EKG * Troponins negative * Continue home medications- atorvastatin 80mg, ASA 81mg * Most recent ECHO 07/31/19--> LV systolic function normal. EF 55-60%. No wall motion abnormality (7) DVT prophylaxis: * Coumadin held for INR 4.1 * Will repeat INR in AM, continue home medications when no longer supratherapeutic Dispo: home with home health. PT/OT recommending home Total Time Total Time Spent Total Time Spent (In Minutes): greater than 30 minutes Discharge Plan Discharge Items Patient Disposition: Home - Home Health Services Reason For Visit: COPD EXACERBATION Discharge Diagnosis: Aspiration pneumonia Activity: Resume your previous activity Activity Comment: gradually as tolerated Non-emergency contact: Primary Care Provider Call non-emergency contact if: you have any medication questions, your symptoms worsen and your pain is not controlled Follow-up/Referrals: Jaylin Agrawal CRNP [Nurse Practitioner] - 08/09/19 2:00 pm (An appointment has been made at your PCP's office on your behalf. Please call the office with any questions or concerns. ) Carter Gonzalez MD, [facility] [Physician] - (Please, follow up with [facility]'s Ear, Nose, and Throat specialist. *A nurse will be calling you with the appointment information. If you have any questions, call the office at [phone].) Diet: Heart Healthy Diet Texture: Dental soft (bite-sized) Ambulatory Orders: Prothrombin Time INR (Routine) Timeframe: [id number] Location: Determined by Patient Ordered By: Bianca Sandoval Attending Provider Instructions: You were admitted for aspiration pneumonia of the right lung. You will continue your antibiotic regimen through 08/03. Speech therapy did a video swallow which did show evidence of aspiration Speech has the following recommendations: 1. Regular diet with nectar thick liquids; no straws; do not drink from a bottle -- pour beverages into a cup 2. All liquids should be thickened to nectar thick consistency (eg milk in cereal, soups; etc. Do not eat mixed consistency foods eg juicy fruit that will squirt out thin liquid juice 3. Oral hygiene - clean all surfaces of mouthincluding tongue prior to oral intake in the morning, after meals and before bed. Patient should not eat alone when eating or drinking! A referral for Pulmonology was placed for you with the [facility] clinic. The MA will schedule an appointment for you with a Reporting Manager for a follow-up appointment. You will follow up with ENT for your hoarse voice. Please have your INR drawn in two days by home health. You should hold your warfarin until you have had your INR drawn and received further instruction. Your INR today was 4.1. Please follow up with Dr. Galaviz's office for dosing instruction after your blood draw You will continue a steroid taper with prednisone as follows: 60mg x 3days, 40mg x 3days, 20mg x 3days, 10mg x 3days You have started metoprolol per cardiology recommendation. Please check your blo od pressure daily and keep a log to take with you to your follow up appointment. Home Health to continue PT/OT and speech therapy Pending Studies at Discharge: No Stand-Alone Forms: My [facility] Medications and DC Order Prescriptions: New clindamycin HCl 150 mg Capsule 450 mg PO Q6 3 Days Qty: 34 RF: 0 metoprolol succinate 25 mg tablet extended release 24 hr 12.5 mg PO DAILY Qty: 30 RF: 1 prednisone 20 mg tablet 20 mg PO DAILY Qty: 20 RF: 0 Continued carbidopa-levodopa [Sinemet CR] 50-200 mg tablet extended release 1 tab PO DAILY@1800 RF: 0 ipratropium-albuterol 0.5 mg-3 mg(2.5 mg base)/3 mL solution for nebulization 3 ml INH QID RF: 0 aspirin [Ecotrin Low Strength] 81 mg tablet,delayed release (DR/EC) 81 mg PO QAM RF: 0 dcnu-mlocec-cxmsgcqz-D3-C-Mn 500-400-667 mg-mg-unit capsule 1 cap PO BID RF: 0 acetaminophen 500 mg tablet 500 mg PO BID RF: 0 furosemide 20 mg tablet 10 mg PO Q2D RF: 0 omeprazole 20 mg capsule,delayed release(DR/EC) 20 mg PO QAM Qty: 90 RF: 0 Lyrica 75 mg capsule 75 mg PO BID Qty: 180 RF: 2 bisacodyl 10 mg suppository 10 mg AK DAILY PRN (Reason: Constipation) RF: 0 pramipexole 0.5 mg tablet 1 mg PO HS RF: 0 sodium phosphates 19-7 gram/197 mL enema 118 ml AK DIRECTED PRN (Reason: Constipation) RF: 0 tramadol 50 mg tablet 50 mg PO DAILY PRN (Reason: Pain) RF: 0 Medical Marijuana tincture 10 mg PO QAM RF: 0 polyethylene glycol 3350 [Miralax] 17 gram Powder In Packet 17 g PO DAILY PRN (Reason: Constipation) RF: 0 donepezil 10 mg Tablet 10 mg PO HS RF: 0 memantine 10 mg Tablet 10 mg PO BID RF: 0 atorvastatin 80 mg Tablet 80 mg PO HS RF: 0 carbidopa-levodopa 25-250 mg Tablet 1 tab PO QID RF: 0 docusate sodium 100 mg Capsule 100 mg PO BID RF: 0 albuterol sulfate [Ventolin HFA] 90 mcg/actuation Hfa Aerosol Inhaler 2 puff INHALATION Q6H PRN (Reason: Shortness Of Breath) RF: 0 cholecalciferol (vitamin D3) 2,000 unit Tablet 2,000 unit PO QAM RF: 0 nitroglycerin 0.4 mg tablet, sublingual 0.4 mg Sublingual DIRECTED PRN (Reason: Chest Pain) RF: 0 diclofenac sodium [Voltaren] 1 % gel 2 g TOPICAL QID PRN (Reason: Pain) RF: 0 sennosides-docusate sodium [Senna-S] 8.6-50 mg tablet 1 tab PO HS PRN (Reason: Constipation) RF: 0 Discontinued warfarin 3 mg tablet 4.5 mg PO WK RF: 0 warfarin 3 mg tablet 3 mg PO 6XWK RF: 0 Discharge Orders: Discharge Order (Routine); Ordered 08/01/19 Ordered By: Bianca Pa Admission Data Admit Date/Time: 07/27/19 20:42 Attending Provider: Kunal Hernandez Admit Provider: Douglas Newman Primary Care Provider: Dejuan Galaviz Other Providers: Hospice,Family ; Kunal Hernandez ; Alessandro Wright
[2019-08-01] MEDS: MEMANTINE HCL 10 MG TAB PO SCH (14:27)
--- NOTE | 2019-08-01 14:50 | Cardiology Consultation ---
Date of Consultation August 01, 2019 Assessment & Plan (1) AIVR (accelerated idioventricular rhythm): The patient demonstrated a brief episode of an accelerated idioventricular rhythm. This is of no real clinical significance. Could consider restarting low-dose beta-blockade. (2) CAD (coronary artery disease): The patient underwent a 2 vessel bypass procedure in October 2011 as described. Coronary disease has been quiescent his current regimen. (3) A-fib: The patient has remained in sinus rhythm throughout the hospitalization. Is tolerating warfarin as an long-term anticoagulant without difficulty. (4) HTN (hypertension): Adequate control on current medical regimen. (5) Hyperlipidemia: Continue atorvastatin. History of Present Illness Attending Physician: Kunal Hernandez MD History of Present Illness Mr. Ramirez is a 74-year-old male admitted on July 28 with an aspiration pneumonia. The patient was noted to have a ventricular dysrhythmia on the monitor today. This consultation was ordered to assist in his cardiac management. Of note, the patient typically follows with Dr. Campbell in the outpatient setting. The patient has been recovering well with intravenous antibiotics, and is being monitored on telemetry. He has demonstrated frequent PVCs, however, demonstrated a 35-40 second episode of a regular wide complex rhythm at approximately 75 beats per minute. The patient does admit to occasional short- lived palpitations. However, he has not experienced any recent angina pectoris or limiting dyspnea. He further denies syncope, presyncope, PND, orthopnea, lower extremity edema, and claudication. Currently, patient is resting comfortably in bed without complaints. PAST MEDICAL AND SURGICAL HISTORY: 1. Coronary artery disease. 2. Coronary artery bypass surgery x2 --WHITTAKER to the LAD, SVG to the RCA --October 2011. 3. Preoperative cardiac catheterization --40% proximal LAD, 70% mid LAD,60% ostial second diagonal, 90% mid RCA, and 50% distal RCA. 4. Negative dobutamine stress test --November 2015. 5. Paroxysmal atrial fibrillation. 6. Hypertension. 7. Hypercholesterolemia. 8. DVT/PE --2012. 9. COPD. 10. Obstructive sleep apnea. 11. Cervical disc disease. 12. Lumbar spinal stenosis. 13. Depression. 14. Dementia. 15. Polymyalgia rheumatica. 16. History of parotid neoplasm. 17. Parkinson's disease. 18. Nephrolithiasis. 19. History of bladder carcinoma. 20. Diverticulosis. 21. DJD. SOCIAL HISTORY: The patient is a , lives alone. Smokes one half pack of cigarettes daily. Occasional alcohol. FAMILY HISTORY: Noncontributory realizing his advanced age. REVIEW OF SYSTEMS: A ten-point review of systems was negative except for that described above. Allergies Allergy/AdvReac Type Severity Reaction Status Date / Time Penicillins Allergy Severe RASH,SWELLI Verified 07/27/19 21:08 NG Home Medications Home Medications Medication Instructions Recorded Confirmed Type albuterol sulfate [Ventolin HFA] 2 puff INHALATION Q6H PRN 08/04/18 07/27/19 History atorvastatin 80 mg PO HS 08/04/18 07/27/19 History carbidopa-levodopa 1 tab PO QID 08/04/18 07/27/19 History cholecalciferol (vitamin D3) 2,000 unit PO QAM 08/04/18 07/27/19 History docusate sodium 100 mg PO BID 08/04/18 07/27/19 History donepezil 10 mg PO HS 08/04/18 07/27/19 History memantine 10 mg PO BID 08/04/18 07/27/19 History polyethylene glycol 3350 [Miralax] 17 g PO DAILY PRN 08/04/18 07/27/19 History carbidopa ER 50 mg-levodopa 200 mg 1 tab PO DAILY@1800 tab 01/17/19 07/27/19 History tablet,extended release nitroglycerin 0.4 mg sublingual 0.4 mg SUBLINGUAL DIRECTED PRN 04/06/19 07/27/19 History tablet furosemide 20 mg tablet 10 mg PO Q2D tab 05/11/19 07/27/19 History omeprazole 20 mg capsule,delayed 20 mg PO QAM #90 cap 05/11/19 07/27/19 History release pregabalin 75 mg capsule 75 mg PO BID #180 cap 05/11/19 07/27/19 Rx acetaminophen 500 mg tablet 500 mg PO BID tab 06/07/19 07/27/19 History aspirin 81 mg tablet,delayed 81 mg PO QAM 06/07/19 07/27/19 History release bisacodyl 10 mg rectal suppository 10 mg MI DAILY PRN ea 06/07/19 07/27/19 History diclofenac 1 % topical gel 2 g TOPICAL QID PRN 06/07/19 07/27/19 History glucosamine 500 1 cap PO BID cap 06/07/19 07/27/19 History lc-injbpkjyh-jowvwqgw comp 400 mg-D3 667 unit-C-Mn cap ipratropium-albuterol 0.5 mg-3 3 ml INH QID ml 06/07/19 07/27/19 History mg(2.5 mg base)/3 mL nebulization soln pramipexole 0.5 mg tablet 1 mg PO HS tab 06/07/19 07/27/19 History sennosides 8.6 mg-docusate sodium 1 tab PO HS PRN 06/07/19 07/27/19 History 50 mg tablet sodium phosphates 19 gram-7 118 ml MI DIRECTED PRN ml 06/07/19 07/27/19 History gram/197 mL enema Medical Marijuana 10 mg PO QAM 07/27/19 07/27/19 History tramadol 50 mg PO DAILY PRN 07/27/19 07/27/19 History clindamycin HCl 450 mg PO Q6 3 Days #34 cap 08/01/19 Rx metoprolol succinate 12.5 mg PO DAILY #30 tab 08/01/19 Rx prednisone 20 mg PO DAILY #20 tab 08/01/19 Rx Patient History Medical History Impaired fasting glucose (Acute) COPD (chronic obstructive pulmonary disease) (Acute) Chronic anticoagulation (Acute) Sleep apnea (Acute) HTN (hypertension) (Acute) Hyperlipidemia (Acute) Hearing loss (Acute) Diverticulosis (Acute) DVT (deep venous thrombosis) (Acute) A-fib (Acute) Depression (Acute) Parkinson disease (Chronic) Dementia (Chronic) Bladder cancer (Acute) Arthralgia (Acute) CAD (coronary artery disease) (Chronic) BPH (benign prostatic hyperplasia) (Acute) Anemia (Acute) Retina disorder, right (Acute) Cataract (Acute) History of recent ear, nose, and throat (ENT) procedure (Acute) Abnormal CT of brain Acute coronary syndrome H/O deep venous thrombosis Hx of deep venous thrombosis Increased ammonia level Lumbar facet joint syndrome Metabolic encephalopathy Surgical History History of uvulopalatopharyngoplasty (Acute) History of cystoscopy (Acute) Hx of CABG (Acute) Family History Brother Myocardial infarction Colorectal cancer Father Myocardial infarction Sister Heart disease Social History Preferred Language: Kyrgyz Communication Ability: Effective Visual Impairment: No Limitations Hearing Ability: Hard of Hearing Car Deliverer Required: No Beliefs That Will Affect Care: None marital status: / Current Living Situation: Family Current Living Situation Comment: with 2 sons, dtr in law and grandchildren Feels Safe at Home: Yes Smoking Status: Current every day smoker Tobacco Type: cigars ; Cigarettes Per Day: 1-2 cigars every 2-3 days ; Second Hand Exposure: Yes ; Hx Alcohol Use: Yes Alcohol type: beer, wine and hard liquor Alcohol Intake Frequency: Daily Alcohol Intake Frequency Comment: 1 beer Hx Substance Use: Yes (medical marijuana) substance use type: marijuana Substance Use Type Other:: uses vapor or RSO Last Used Substance: Hours (ago) Physical Activity Frequency: Does not Exercise Physical Exam Physical Exam: PHYSICAL EXAMINATION: GENERAL: This is a well-developed, well-nourished, white male lying supine in bed without complaints. HEENT: Negative. NECK: Supple with full carotid upstrokes. There are no carotid bruits. Jugular venous pressure is flat at 90 degrees. There is no thyromegaly. CARDIOVASCULAR: Reveals a regular rhythm with normal S1 and S2. No S3, S4,or murmurs are noted. LUNGS: Clear without rales, rhonchi, or wheezes. ABDOMEN: Soft and nontender without bruits. EXTREMITIES: Reveal intact radial artery pulses bilaterally. There is no peripheral edema. Results & Data Vital Signs (Past 12 Hours) Vital Signs Temp Pulse Pulse Resp BP BP Pulse Ox 08/01/19 12:53 87 18 96 08/01/19 11:34 36.5 C 56 L 18 128/77 95 08/01/19 08:01 36.9 C 62 20 140/82 93 08/01/19 08:00 66 08/01/19 07:04 80 18 96 08/01/19 03:52 36.5 C 56 L 17 142/83 H 94 Laboratory Results MORTGAGE PROCESSING CLERK notes hemoglobin of 12.5, hematocrit 36.7, white count 12.0, platelet count of [id number]. Electrolytes noted a sodium of 141, potassium 4.5, chloride 108, bicarb 20, BUN 22, creatinine 0.94, and a glucose of 137. Magnesium is normal 2.1. Diagnostic Findings Echocardiogram performed July 31 noted normal left ventricular systolic function without wall motion abnormalities. This is unchanged from a study done in May 2017. EKG notes normal sinus rhythm with frequent PVCs in a complete right bundle-branch block. nuclear monitoring technician was reviewed in detail. The wide complex rhythm described above likely represents an episode of AIVR. PG Care Time/CCT Total # of Minutes Spent Total Time Spent with Patient: Total time spent is greater than 50% in coordination of care (as documented) at patient's floor/unit and/or counseling patient:
== END 2019-08-01 15:53 | disposition home health service (06) | DRG 178 ==
LOC: ED 17:41 → 2S 20:42 → SUATTDRO 20:42 → 2S 21:20

== ENCOUNTER 2019-11-28 03:16 | Inpatient (IN) ==
[2019-11-28 04:02] LABS: Basophils # (auto) 0.01 K/uL (0-0.2); Basophils % (auto) 0.1 %; Eosinophils # (auto) 0.06 K/uL (0-0.5); Eosinophils % (auto) 0.3 %; Hematocrit (blood only) 34.5 % (42-52); Hemoglobin 11.7 g/dL (14.0-18.0); Immature Granulocytes # (auto) 0.05 K/uL (0.00-0.02); Immature Granulocytes % (auto) 0.3 %; Lymphocytes # (auto) 1.95 K/uL (1.2-3.4); Mean Corpuscular Hemoglobin 31.7 pg (25-34); Mean Corpuscular Hgb Conc 33.9 g/dL (32-36); Mean Corpuscular Volume 93.5 fL (80-100); Mean Platelet Volume 10.8 fL (7.4-10.4); Monocytes # (auto) 0.46 K/uL (0.11-0.59); Monocytes % (auto) 2.4 %; Neutrophils # (auto) 16.92 K/uL (1.4-6.5); Neutrophils % (auto) 86.9 %; Platelet Count 137 K/uL (130-400); RDW Standard Deviation 48.1 fL (36.4-46.3); Red Blood Count 3.69 M/uL (4.7-6.1); White Blood Count 19.45 K/uL (4.8-10.8)
[2019-11-28 04:17] LABS: Albumin Level 2.9 gm/dl (3.4-5.0); Calcium 8.5 mg/dl (8.5-10.1); Magnesium 1.7 mg/dl (1.8-2.4); Potassium 3.7 mmol/L (3.5-5.1)
[2019-11-28 04:19] LABS: BUN Creatinine Ratio 15.6 (10-20); Creatinine Clr Calc Pharmacy 69.8 ml/min; Est GFR (African American) 79.5; Est GFR (Non-African American) 68.6; INR 3.5 (0.9-1.1); Partial Thromboplastin Ratio 1.3; Partial Thromboplastin Time 35.9 Seconds (21.0-31.0); Prothrombin Time 32.7 Seconds (9.0-12.0)
[2019-11-28 04:28] LABS: Albumin Globulin Ratio 0.9 (0.9-2); Bilirubin,Total 0.7 mg/dl (0.2-1); Globulin 3.2 gm/dl (2.5-4.0); Total Protein 6.1 gm/dl (6.4-8.2); Troponin I 0.023 ng/ml (0-0.045)
[2019-11-28] MEDS ORDERED: AZTREONAM 2,000 MG in DEXTROSE 5% 100 ML IV STA (04:31)
[2019-11-28] MEDS ORDERED: methylPREDNISolone 125 MG/2 ML VIAL IV STA (04:33)
[2019-11-28] MEDS ORDERED: SODIUM CHLORIDE 0.9% 500 ML IV ONE ×2 (04:33)
--- NOTE | 2019-11-28 05:42 | History & Physical Report ---
Date of Service November 28, 2019 Assessment & Plan (1) Septic shock: Septic shock/acute respiratory failure with hypoxia/bilateral aspiration pneumonia/COPD exacerbation- Admitted to the intensive care unit. Given methylprednisolone 125 mg IV in the ED, and continue at 60 mg IV every 6 hours. Duonebs every 4 hours while awake and every 2 hours when necessary. Vancomycin IV per pharmacokinetic monitoring. Aztreonam 2 g IV every 8 hours. Serial x-rays. N.p.o. status. Patient's blood pressure was at its lowest 71/46 while in ED, that did respond to 2 500 cc boluses of normal saline. We will continue patient on NSS + KCl 20 mEq at 100 mils per hour. Present on Admission?: Yes (2) Aspiration pneumonia: See above Present on Admission?: Yes (3) COPD exacerbation: See above Present on Admission?: Yes (4) CAD (coronary artery disease): Follow serial troponins to assess for secondary injury Present on Admission?: Yes (5) Dementia: Resume medications when clinical status improves Present on Admission?: Yes (6) Parkinson disease: Likely in large part is contributing to decreased ability to protect his airway and resulting in recurrent aspiration pneumonia. Resume carbidopa levodopa when able to do so as respiratory status improves Present on Admission?: Yes (7) Paroxysmal atrial fibrillation: Continue chronic anticoagulation with warfarin for paroxysmal defibrillation and DVT history. INR is mildly supratherapeutic at 3.5, with warfarin being held today, and recheck INR daily. 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 Present on Admission?: Yes (10) Bladder cancer: We will hold medical marijuana 1 tablet p.o. twice daily, until respiratory status improves Present on Admission?: Yes History of Present Illness Chief Complaint: Patient is brought to the emergency department due to acute shortness of breath, productive cough and altered mental state. Primary Care Provider: Isak Galaviz MD The patient is a 74-year-old male with a past medical history including dementia, peripheral neuropathy, AI VR, aspiration pneumonia, COPD exacerbations, hypotension, atrial fibrillation, BPH, acute coronary syndrome, paroxysmal atrial fibrillation, history of DVT and pulmonary embolism on chronic anticoagulation with Coumadin, status post most recent hospitalization from 11/10-11/14/2023 for pneumonia. The patient is not able to contribute to his HPI or review of systems due to baseline dementia and altered cognitive status due to illness. His son reports that the patient has been since his discharge from the hospital until earlier in the day today and then overnight. He continues to have issues with clearing his throat when he is eating, but has been making significant effort to eating upright and try to minimize aspiration Allergies Allergy/AdvReac Type Severity Reaction Status Date / Time Penicillins Allergy Severe RASH,SWELLI Verified 11/28/19 03:55 NG Home Medications Home Medications Medication Instructions Recorded Confirmed Type docusate sodium 100 mg PO BID 08/04/18 11/28/19 History polyethylene glycol 3350 [Miralax] 17 g PO DAILY PRN 08/04/18 11/28/19 History nitroglycerin 0.4 mg sublingual 0.4 mg SUBLINGUAL DIRECTED PRN 04/06/19 11/28/19 History tablet omeprazole 20 mg capsule,delayed 20 mg PO QAM #90 cap 05/11/19 11/28/19 History release diclofenac sodium 1 % topical gel 2 g TOPICAL QID PRN 06/07/19 11/28/19 History ipratropium 0.5 mg-albuterol 3 mg 3 ml INH QID PRN ml 06/07/19 11/28/19 History (2.5 mg base)/3 mL nebulization soln tramadol 50 mg PO DAILY PRN 07/27/19 11/28/19 History acetaminophen 500 mg tablet 500 mg PO BID 90 Days #180 tab 08/04/19 11/28/19 Rx carbidopa 25 mg-levodopa 250 mg 1 tab PO QID 90 Days #360 tab 08/04/19 11/28/19 Rx tablet cholecalciferol (vitamin D3) 2,000 2,000 unit PO QAM #90 tab 08/04/19 11/28/19 Rx unit tablet donepezil 10 mg tablet 10 mg PO HS 90 Days #90 tab 08/04/19 11/28/19 Rx glucosamine 500 1 cap PO BID #90 cap 08/04/19 11/28/19 Rx xp-zyxecetco-qrufxrgz comp 400 mg-D3 667 unit-C-Mn cap memantine 10 mg tablet 10 mg PO BID 90 Days #180 tab 08/04/19 11/28/19 Rx sennosides 8.6 mg-docusate sodium 1 tab PO HS PRN #90 tab 08/04/19 11/28/19 Rx 50 mg tablet pramipexole 0.5 mg tablet 1 mg PO HS 90 Days #180 tab 08/26/19 11/28/19 Rx aspirin 81 mg tablet,delayed 81 mg PO QPM tab 09/05/19 11/28/19 History release furosemide 20 mg tablet 10 mg PO Q3D tab 10/05/19 11/28/19 History medical marijiana 1 dose PO BID 10/05/19 11/28/19 History carbidopa-levodopa [Sinemet CR] 1 tab PO DAILY 10/26/19 11/28/19 History meclizine 25 mg tablet See Rx Instructions .ROUTE .COMPLEX 10/31/19 11/28/19 History pregabalin 100 mg capsule 100 mg PO BID 90 Days #180 cap 11/03/19 11/28/19 Rx prednisone 20 mg tablet 20 mg PO DAILY #30 tab 11/08/19 11/28/19 Rx clotrimazole-betamethasone 1 1 appln TOP BID #45 gm 11/15/19 11/28/19 Rx %-0.05 % topical cream azithromycin 250 mg PO 3XWK 11/18/19 11/28/19 History fluconazole 100 mg tablet 100 mg PO DAILY 11/25/19 11/28/19 History fluticasone fur. 100 mcg-umeclid 1 puffs INH DAILY #28 ea 11/25/19 11/28/19 Rx 62.5 mcg-vilant 25 mcg inhalat.powder warfarin 3 mg tablet See Rx Instructions PO UD tab 11/25/19 11/28/19 History Past Med/Surg History Medical History A-fib (Acute) Abnormal CT of brain Acute coronary syndrome Anemia (Acute) Arthralgia (Acute) Bladder cancer (Acute) BPH (benign prostatic hyperplasia) (Acute) CAD (coronary artery disease) (Chronic) Cataract (Acute) Chronic anticoagulation (Acute) COPD (chronic obstructive pulmonary disease) (Acute) Dementia (Chronic) Depression (Acute) Diverticulosis (Acute) DVT (deep venous thrombosis) (Acute) H/O deep venous thrombosis Hearing loss (Acute) History of recent ear, nose, and throat (ENT) procedure (Acute) HTN (hypertension) (Acute) Hx of deep venous thrombosis Hyperlipidemia (Acute) Impaired fasting glucose (Acute) Increased ammonia level Lumbar facet joint syndrome Metabolic encephalopathy Parkinson disease (Chronic) Retina disorder, right (Acute) Sleep apnea (Acute) Surgical History History of cystoscopy (Acute) History of uvulopalatopharyngoplasty (Acute) Hx of CABG (Acute) Family History Brother Myocardial infarction Colorectal cancer Father Myocardial infarction Sister Heart disease Social History Preferred Language: [place]isian Communication Ability: Impaired Visual Impairment: No Limitations Hearing Ability: Hard of Hearing Quiller Machine Fixer Required: No Beliefs That Will Affect Care: None marital status: / Current Living Situation: Family Current Living Situation Comment: with 2 sons, dtr in law and grandchildren Feels Safe at Home: Yes Smoking Status: Unknown if ever smoked Hx Alcohol Use: Yes Alcohol type: beer and wine Alcohol Intake Frequency: Daily Alcohol Intake Frequency Comment: 1 beer Hx Substance Use: Yes (medical marijuana) substance use type: marijuana Substance Use Type Other:: uses vapor or RSO Last Used Substance: Just Prior to Arrival Physical Activity Frequency: Does not Exercise Review of Systems Review of Systems: Unobtainable due to cognitive status and Unobtainable due to reduced consciousness Physical Exam Physical Exam: The patient is minimally responsive, wearing BiPAP mask, lying in bed and in moderate respiratory distress. HEENT--PERRL, EOMI, mucous membranes and oropharynx dry. Neck--supple. No JVD. No bruits. Thyroid normal, trachea midline, no adenopathy. Heart--normal S1 and S2. No murmurs, rubs or gallops. Lungs--coarse breath sounds bilaterally, decreased at the bases. Mild to moderate respiratory distress, no accessory muscle use, improved on BiPAP. Abdomen--normal bowel sounds and soft. Nontender. Nondistended. Extremities--no cyanosis or clubbing. No edema. There are good distal pulses b/l. Dermatologic--normal skin turgor, normal color, no abnormal lymph nodes, no rash. Neurologic--cranial nerves II through XII grossly intact. Rheumatologic--normal range of motion. Psychiatric--minimally responsive, occasionally opening his eyes, but not able to communicate Results & Data Vital Signs (Past 12 Hours) Vital Signs Temp Pulse Pulse Resp BP BP Pulse Ox 11/28/19 05:25 90 18 94/56 L 96 11/28/19 05:21 85 21 95 11/28/19 05:20 87 19 95/57 L 95 11/28/19 05:15 92 H 19 85/49 L 94 11/28/19 05:11 87 19 97 11/28/19 05:10 84 19 90/54 L 97 11/28/19 05:05 88 19 89/56 L 97 11/28/19 05:01 83 18 97 11/28/19 05:00 85 18 92/54 L 98 11/28/19 04:55 84 19 92/53 L 96 11/28/19 04:51 85 20 97 11/28/19 04:50 84 20 99/54 L 97 11/28/19 04:46 83 18 97 11/28/19 04:45 82 18 94/56 L 97 11/28/19 04:44 87 19 97 11/28/19 04:41 84 18 97 11/28/19 04:40 81 19 95/60 L 97 11/28/19 04:35 86 19 85/53 L 95 11/28/19 04:31 86 19 97 11/28/19 04:30 84 20 85/52 L 97 11/28/19 04:25 85 20 82/53 L 96 11/28/19 04:20 86 19 91/53 L 93 11/28/19 04:18 90 20 85/55 L 94 11/28/19 04:15 83 19 72/52 L 95 11/28/19 04:11 87 20 96 11/28/19 04:10 85 19 93/62 L 95 11/28/19 04:07 82 21 93 11/28/19 04:06 81 21 82/49 L 93 11/28/19 04:04 76 23 75/47 L 92 11/28/19 04:01 77 21 91 11/28/19 04:00 77 21 67/46 L 91 11/28/19 03:59 84 21 71/45 L 91 11/28/19 03:58 85 21 71/48 L 92 11/28/19 03:57 83 20 71/48 L 92 11/28/19 03:51 83 21 92 11/28/19 03:29 92 11/28/19 03:20 83 23 94/60 L 92 11/28/19 03:12 99.5 F 100 H 22 94/60 L 92 Laboratory Results Laboratory Results WBC 19.45 K/uL (4.8-10.8) H 11/28/19 03:51 RBC 3.69 M/uL (4.7-6.1) L 11/28/19 03:51 Hgb 11.7 g/dL (14.0-18.0) L 11/28/19 03:51 Hct 34.5 % (42-52) L 11/28/19 03:51 MCV 93.5 fL (80-100) 11/28/19 03:51 MCH 31.7 pg (25-34) 11/28/19 03:51 MCHC 33.9 g/dL (32-36) 11/28/19 03:51 RDW Std Deviation 48.1 fL (36.4-46.3) H 11/28/19 03:51 RDW Coeff of Fidelina 14.0 % (11.5-14.5) 11/28/19 03:51 Plt Count 137 K/uL (130-400) 11/28/19 03:51 MPV 10.8 fL (7.4-10.4) H 11/28/19 03:51 Immature Gran % (Auto) 0.3 % 11/28/19 03:51 Neut % (Auto) 86.9 % 11/28/19 03:51 Lymph % (Auto) 10.0 % 11/28/19 03:51 [place] % (Auto) 2.4 % 11/28/19 03:51 Eos % (Auto) 0.3 % 11/28/19 03:51 Baso % (Auto) 0.1 % 11/28/19 03:51 Immature Gran # (Auto) 0.05 K/uL (0.00-0.02) H 11/28/19 03:51 Neut # (Auto) 16.92 K/uL (1.4-6.5) H 11/28/19 03:51 Lymph # (Auto) 1.95 K/uL (1.2-3.4) 11/28/19 03:51 [place] # (Auto) 0.46 K/uL (0.11-0.59) 11/28/19 03:51 Eos # (Auto) 0.06 K/uL (0-0.5) 11/28/19 03:51 Baso # (Auto) 0.01 K/uL (0-0.2) 11/28/19 03:51 PT 32.7 Seconds (9.0-12.0) H 11/28/19 03:51 INR 3.5 (0.9-1.1) H 11/28/19 03:51 APTT 35.9 Seconds (21.0-31.0) H 11/28/19 03:51 PTT Ratio 1.3 11/28/19 03:51 Sodium 142 mmol/L (136-145) 11/28/19 03:51 Potassium 3.7 mmol/L (3.5-5.1) 11/28/19 03:51 Chloride 108 mmol/L (98-107) H 11/28/19 03:51 Carbon Dioxide 31 mmol/L (21-32) 11/28/19 03:51 Anion Gap 3.0 (3-11) 11/28/19 03:51 BUN 16 mg/dl (7-18) 11/28/19 03:51 Creatinine 1.05 mg/dl (0.6-1.4) 11/28/19 03:51 Est Cr Clr Drug Dosing 69.8 ml/min 11/28/19 03:51 Est GFR ( Amer) 79.5 11/28/19 03:51 Est GFR (Non-Af Amer) 68.6 11/28/19 03:51 BUN/Creatinine Ratio 15.6 (10-20) 11/28/19 03:51 Glucose 97 mg/dl (70-99) 11/28/19 03:51 Lactate 1.3 mmol/L (0.4-2.0) 11/28/19 03:51 Calcium 8.5 mg/dl (8.5-10.1) 11/28/19 03:51 Magnesium 1.7 mg/dl (1.8-2.4) L 11/28/19 03:51 Total Bilirubin 0.7 mg/dl (0.2-1) 11/28/19 03:51 AST 12 U/L (15-37) L 11/28/19 03:51 ALT 15 U/L (12-78) 11/28/19 03:51 Alkaline Phosphatase 76 U/L (45-117) 11/28/19 03:51 Troponin I 0.023 ng/ml (0-0.045) 11/28/19 03:51 NT-Pro-B Natriuret Pep 722 pg/ml (0-1800) 11/28/19 03:51 Total Protein 6.1 gm/dl (6.4-8.2) L 11/28/19 03:51 Albumin 2.9 gm/dl (3.4-5.0) L 11/28/19 03:51 Globulin 3.2 gm/dl (2.5-4.0) 11/28/19 03:51 Albumin/Globulin Ratio 0.9 (0.9-2) 11/28/19 03:51 Influenza Type A Ag Neg for Influ A (Neg) 11/28/19 03:30 Influenza Type B Ag Neg for Influ B (Neg) 11/28/19 03:30 Code Status & VTE Plan Code Status Patient is a full code, but does not want to be on a ventilator for an extended interval time VTE Prophylaxis Plan VTE Prophylaxis will be ordered: Yes Critical Care Time Critical Care Time: Yes Total Critical Care Time: 50 Total critical care time was 50 minutes PG Care Time/CCT Total # of Minutes Spent Total Time Spent with Patient: Total time spent is greater than 50% in coordination of care (as documented) at patient's floor/unit and/or counseling patient: Critical Care Time: Yes Total Critical Care Time: 50 Coding Level of Care Code 04836 Initial Inpt Care Lvl 3 Diagnoses Septic shock A41.9; R65.21 Aspiration pneumonia J69.0 COPD exacerbation J44.1 CAD (coronary artery disease) I25.10 Dementia F03.90 Parkinson disease G20 Paroxysmal atrial fibrillation I48.0 History of DVT (deep vein thrombosis) Z86.718 Admitted to intensive care unit Z78.9 Bladder cancer C67.9 Additional Codes Critical Care Time - Critical Care Time: Yes ([id number]) Time Spent (min) 50
[2019-11-28] MEDS ORDERED: NSS + 20MEQ KCL 20 MEQ/1,000 ML BAG IV SCH (05:45)
[2019-11-28] MEDS: MAGNESIUM SULFATE / D5W 1 GM/100 ML BAG IV SCH ×2 (05:50→06:48)
[2019-11-28] MEDS: ALBUMIN 25% 50 ML IV SCH ×2 (05:58→06:12)
--- NOTE | 2019-11-28 06:01 | Emergency Department Note ---
Entered by Pat Robins acting as a scribe for Martina Gonzales DO History of Present Illness General Chief complaint: Respiratory Problems Stated complaint: FEVER/BREATHING DIFFICULTY Time Seen by Provider: 11/28/19 03:18 Source: patient and EMS History of Present Illness Provider complaint: breathing difficulties Onset (ago): hour(s) less than 1 Location: chest Radiation: non-radiation Pain Consistency: + constant Quality: + other (gargled ) Relieved By: + none Exacerbated By: + none Associated symptoms: + denies other symptoms The patient is a 74 y/o male who presents to the emergency department for evaluation of constant breathing difficulties and gargling that began prior to arrival. EMS reports that the patients son found the patient this morning sounding very gargled and having some issues breathing. They note that the patient is being treated for pneumonia. The patient states that he had chills earlier this evening and had trouble sleeping. The patient denies any other symptoms. Home Medications Home Medications Medication Instructions Recorded Confirmed Type docusate sodium 100 mg PO BID 08/04/18 11/28/19 History polyethylene glycol 3350 [Miralax] 17 g PO DAILY PRN 08/04/18 11/28/19 History nitroglycerin 0.4 mg sublingual 0.4 mg SUBLINGUAL DIRECTED PRN 04/06/19 11/28/19 History tablet omeprazole 20 mg capsule,delayed 20 mg PO QAM #90 cap 05/11/19 11/28/19 History release diclofenac sodium 1 % topical gel 2 g TOPICAL QID PRN 06/07/19 11/28/19 History ipratropium 0.5 mg-albuterol 3 mg 3 ml INH QID PRN ml 06/07/19 11/28/19 History (2.5 mg base)/3 mL nebulization soln tramadol 50 mg PO DAILY PRN 07/27/19 11/28/19 History acetaminophen 500 mg tablet 500 mg PO BID 90 Days #180 tab 08/04/19 11/28/19 Rx carbidopa 25 mg-levodopa 250 mg 1 tab PO QID 90 Days #360 tab 08/04/19 11/28/19 Rx tablet cholecalciferol (vitamin D3) 2,000 2,000 unit PO QAM #90 tab 08/04/19 11/28/19 Rx unit tablet donepezil 10 mg tablet 10 mg PO HS 90 Days #90 tab 08/04/19 11/28/19 Rx glucosamine 500 1 cap PO BID #90 cap 08/04/19 11/28/19 Rx ml-xhdvvudnl-ggputlrt comp 400 mg-D3 667 unit-C-Mn cap memantine 10 mg tablet 10 mg PO BID 90 Days #180 tab 08/04/19 11/28/19 Rx sennosides 8.6 mg-docusate sodium 1 tab PO HS PRN #90 tab 08/04/19 11/28/19 Rx 50 mg tablet pramipexole 0.5 mg tablet 1 mg PO HS 90 Days #180 tab 08/26/19 11/28/19 Rx aspirin 81 mg tablet,delayed 81 mg PO QPM tab 09/05/19 11/28/19 History release furosemide 20 mg tablet 10 mg PO Q3D tab 10/05/19 11/28/19 History medical marijiana 1 dose PO BID 10/05/19 11/28/19 History carbidopa-levodopa [Sinemet CR] 1 tab PO DAILY 10/26/19 11/28/19 History meclizine 25 mg tablet See Rx Instructions .ROUTE .COMPLEX 10/31/19 11/28/19 History pregabalin 100 mg capsule 100 mg PO BID 90 Days #180 cap 11/03/19 11/28/19 Rx prednisone 20 mg tablet 20 mg PO DAILY #30 tab 11/08/19 11/28/19 Rx clotrimazole-betamethasone 1 1 appln TOP BID #45 gm 11/15/19 11/28/19 Rx %-0.05 % topical cream azithromycin 250 mg PO 3XWK 11/18/19 11/28/19 History fluconazole 100 mg tablet 100 mg PO DAILY 11/25/19 11/28/19 History fluticasone fur. 100 mcg-umeclid 1 puffs INH DAILY #28 ea 11/25/19 11/28/19 Rx 62.5 mcg-vilant 25 mcg inhalat.powder warfarin 3 mg tablet See Rx Instructions PO UD tab 11/25/19 11/28/19 History Allergies Allergy/AdvReac Type Severity Reaction Status Date / Time Penicillins Allergy Severe RASH,SWELLI Verified 11/28/19 03:55 NG Past Med/Surg History Medical History A-fib (Acute) Abnormal CT of brain Acute coronary syndrome Anemia (Acute) Arthralgia (Acute) Bladder cancer (Acute) BPH (benign prostatic hyperplasia) (Acute) CAD (coronary artery disease) (Chronic) Cataract (Acute) Chronic anticoagulation (Acute) COPD (chronic obstructive pulmonary disease) (Acute) Dementia (Chronic) Depression (Acute) Diverticulosis (Acute) DVT (deep venous thrombosis) (Acute) H/O deep venous thrombosis Hearing loss (Acute) History of recent ear, nose, and throat (ENT) procedure (Acute) HTN (hypertension) (Acute) Hx of deep venous thrombosis Hyperlipidemia (Acute) Impaired fasting glucose (Acute) Increased ammonia level Lumbar facet joint syndrome Metabolic encephalopathy Parkinson disease (Chronic) Retina disorder, right (Acute) Sleep apnea (Acute) Surgical History History of cystoscopy (Acute) History of uvulopalatopharyngoplasty (Acute) Hx of CABG (Acute) Family History Brother Myocardial infarction Colorectal cancer Father Myocardial infarction Sister Heart disease Social History Preferred Language: Wolof Communication Ability: Impaired Visual Impairment: No Limitations Hearing Ability: Hard of Hearing Dental Billing Specialist Required: No Beliefs That Will Affect Care: None marital status: / Current Living Situation: Family Current Living Situation Comment: with 2 sons, dtr in law and grandchildren Feels Safe at Home: Yes Smoking Status: Unknown if ever smoked Hx Alcohol Use: Yes Alcohol type: beer and wine Alcohol Intake Frequency: Daily Alcohol Intake Frequency Comment: 1 beer Hx Substance Use: Yes (medical marijuana) substance use type: marijuana Substance Use Type Other:: uses vapor or RSO Last Used Substance: Just Prior to Arrival Physical Activity Frequency: Does not Exercise Review of Systems See HPI for pertinent positives & negatives. and A total of 10 systems reviewed and were otherwise negative Physical Exam Vital Signs Vital Signs - 24 hr 11/28/19 03:12 11/28/19 03:20 11/28/19 03:29 Temperature 37.5 C Temperature Source Oral Pulse Rate 100 H 83 Pulse Rate [Apical] Pulse Rate from SpO2 Sensor 83 Respiratory Rate 22 23 Respiratory Effort / Characteristics Respiratory Depth Respiratory Pattern Blood Pressure 94/60 L 94/60 L Blood Pressure [Left Arm] Blood Pressure Mean 71 67 Blood Pressure Mean [Left Arm] Blood Pressure Position [Left Arm] Pulse Oximetry 92 92 92 Oxygen Delivery Method Nasal Cannula Nasal Cannula Oxygen Flow Rate 2 2 Fraction of Inspired Oxygen Sepsis Recent Fever Within 48 Hours Yes Sepsis New/Unexplained Change in Mental Status No Sepsis Action Taken by Nursing Physician Notified 11/28/19 03:51 11/28/19 03:57 11/28/19 03:58 Temperature Temperature Source Pulse Rate 83 85 Pulse Rate [Apical] 83 Pulse Rate from SpO2 Sensor 84 91 H Respiratory Rate 21 20 21 Respiratory Effort / Characteristics Non-Labored Respiratory Depth Normal Respiratory Pattern Blood Pressure 71/48 L Blood Pressure [Left Arm] 71/48 L Blood Pressure Mean 52 Blood Pressure Mean [Left Arm] 55 Blood Pressure Position [Left Arm] Lying Pulse Oximetry 92 92 92 Oxygen Delivery Method Nasal Cannula Oxygen Flow Rate 2 Fraction of Inspired Oxygen Sepsis Recent Fever Within 48 Hours Sepsis New/Unexplained Change in Mental Status Sepsis Action Taken by Nursing 11/28/19 03:59 11/28/19 04:00 11/28/19 04:01 Temperature Temperature Source Pulse Rate 84 77 77 Pulse Rate [Apical] Pulse Rate from SpO2 Sensor 74 77 76 Respiratory Rate 21 21 21 Respiratory Effort / Characteristics Respiratory Depth Respiratory Pattern Blood Pressure 71/45 L 67/46 L Blood Pressure [Left Arm] Blood Pressure Mean 49 52 Blood Pressure Mean [Left Arm] Blood Pressure Position [Left Arm] Pulse Oximetry 91 91 91 Oxygen Delivery Method Oxygen Flow Rate Fraction of Inspired Oxygen Sepsis Recent Fever Within 48 Hours Sepsis New/Unexplained Change in Mental Status Sepsis Action Taken by Nursing 11/28/19 04:04 11/28/19 04:06 11/28/19 04:07 Temperature Temperature Source Pulse Rate 76 81 82 Pulse Rate [Apical] Pulse Rate from SpO2 Sensor 74 81 82 Respiratory Rate 23 21 21 Respiratory Effort / Characteristics Respiratory Depth Respiratory Pattern Blood Pressure 75/47 L 82/49 L Blood Pressure [Left Arm] Blood Pressure Mean 52 55 Blood Pressure Mean [Left Arm] Blood Pressure Position [Left Arm] Pulse Oximetry 92 93 93 Oxygen Delivery Method Oxygen Flow Rate Fraction of Inspired Oxygen Sepsis Recent Fever Within 48 Hours Sepsis New/Unexplained Change in Mental Status Sepsis Action Taken by Nursing 11/28/19 04:10 11/28/19 04:11 11/28/19 04:15 Temperature Temperature Source Pulse Rate 85 87 83 Pulse Rate [Apical] Pulse Rate from SpO2 Sensor 81 86 82 Respiratory Rate 19 20 19 Respiratory Effort / Characteristics Respiratory Depth Respiratory Pattern Blood Pressure 93/62 L 72/52 L Blood Pressure [Left Arm] Blood Pressure Mean 67 61 Blood Pressure Mean [Left Arm] Blood Pressure Position [Left Arm] Pulse Oximetry 95 96 95 Oxygen Delivery Method Oxygen Flow Rate Fraction of Inspired Oxygen Sepsis Recent Fever Within 48 Hours Sepsis New/Unexplained Change in Mental Status Sepsis Action Taken by Nursing 11/28/19 04:18 11/28/19 04:20 11/28/19 04:25 Temperature Temperature Source Pulse Rate 90 86 85 Pulse Rate [Apical] Pulse Rate from SpO2 Sensor 90 80 80 Respiratory Rate 20 19 20 Respiratory Effort / Characteristics Respiratory Depth Respiratory Pattern Blood Pressure 85/55 L 91/53 L 82/53 L Blood Pressure [Left Arm] Blood Pressure Mean 59 61 59 Blood Pressure Mean [Left Arm] Blood Pressure Position [Left Arm] Pulse Oximetry 94 93 96 Oxygen Delivery Method Oxygen Flow Rate Fraction of Inspired Oxygen Sepsis Recent Fever Within 48 Hours Sepsis New/Unexplained Change in Mental Status Sepsis Action Taken by Nursing 11/28/19 04:30 11/28/19 04:31 11/28/19 04:35 Temperature Temperature Source Pulse Rate 84 86 86 Pulse Rate [Apical] Pulse Rate from SpO2 Sensor 83 75 75 Respiratory Rate 20 19 19 Respiratory Effort / Characteristics Respiratory Depth Respiratory Pattern Blood Pressure 85/52 L 85/53 L Blood Pressure [Left Arm] Blood Pressure Mean 60 63 Blood Pressure Mean [Left Arm] Blood Pressure Position [Left Arm] Pulse Oximetry 97 97 95 Oxygen Delivery Method Oxygen Flow Rate Fraction of Inspired Oxygen Sepsis Recent Fever Within 48 Hours Sepsis New/Unexplained Change in Mental Status Sepsis Action Taken by Nursing 11/28/19 04:40 11/28/19 04:41 11/28/19 04:44 Temperature Temperature Source Pulse Rate 81 84 87 Pulse Rate [Apical] Pulse Rate from SpO2 Sensor 81 83 Respiratory Rate 19 18 19 Respiratory Effort / Characteristics Spontaneous Respiratory Depth Normal Respiratory Pattern Regular Blood Pressure 95/60 L Blood Pressure [Left Arm] Blood Pressure Mean 69 Blood Pressure Mean [Left Arm] Blood Pressure Position [Left Arm] Pulse Oximetry 97 97 97 Oxygen Delivery Method Oxygen Flow Rate Fraction of Inspired Oxygen 40 Sepsis Recent Fever Within 48 Hours Sepsis New/Unexplained Change in Mental Status Sepsis Action Taken by Nursing 11/28/19 04:45 11/28/19 04:46 11/28/19 04:50 Temperature Temperature Source Pulse Rate 82 83 84 Pulse Rate [Apical] Pulse Rate from SpO2 Sensor 80 82 84 Respiratory Rate 18 18 20 Respiratory Effort / Characteristics Respiratory Depth Respiratory Pattern Blood Pressure 94/56 L 99/54 L Blood Pressure [Left Arm] Blood Pressure Mean 63 69 Blood Pressure Mean [Left Arm] Blood Pressure Position [Left Arm] Pulse Oximetry 97 97 97 Oxygen Delivery Method Oxygen Flow Rate Fraction of Inspired Oxygen Sepsis Recent Fever Within 48 Hours Sepsis New/Unexplained Change in Mental Status Sepsis Action Taken by Nursing 11/28/19 04:51 11/28/19 04:55 11/28/19 05:00 Temperature Temperature Source Pulse Rate 85 84 85 Pulse Rate [Apical] Pulse Rate from SpO2 Sensor 84 83 84 Respiratory Rate 20 19 18 Respiratory Effort / Characteristics Respiratory Depth Respiratory Pattern Blood Pressure 92/53 L 92/54 L Blood Pressure [Left Arm] Blood Pressure Mean 65 61 Blood Pressure Mean [Left Arm] Blood Pressure Position [Left Arm] Pulse Oximetry 97 96 98 Oxygen Delivery Method Oxygen Flow Rate Fraction of Inspired Oxygen Sepsis Recent Fever Within 48 Hours Sepsis New/Unexplained Change in Mental Status Sepsis Action Taken by Nursing 11/28/19 05:01 11/28/19 05:05 11/28/19 05:10 Temperature Temperature Source Pulse Rate 83 88 84 Pulse Rate [Apical] Pulse Rate from SpO2 Sensor 83 88 83 Respiratory Rate 18 19 19 Respiratory Effort / Characteristics Respiratory Depth Respiratory Pattern Blood Pressure 89/56 L 90/54 L Blood Pressure [Left Arm] Blood Pressure Mean 70 66 Blood Pressure Mean [Left Arm] Blood Pressure Position [Left Arm] Pulse Oximetry 97 97 97 Oxygen Delivery Method Oxygen Flow Rate Fraction of Inspired Oxygen Sepsis Recent Fever Within 48 Hours Sepsis New/Unexplained Change in Mental Status Sepsis Action Taken by Nursing 11/28/19 05:11 11/28/19 05:15 11/28/19 05:20 Temperature Temperature Source Pulse Rate 87 92 H 87 Pulse Rate [Apical] Pulse Rate from SpO2 Sensor 84 86 84 Respiratory Rate 19 19 19 Respiratory Effort / Characteristics Respiratory Depth Respiratory Pattern Blood Pressure 85/49 L 95/57 L Blood Pressure [Left Arm] Blood Pressure Mean 60 69 Blood Pressure Mean [Left Arm] Blood Pressure Position [Left Arm] Pulse Oximetry 97 94 95 Oxygen Delivery Method Oxygen Flow Rate Fraction of Inspired Oxygen Sepsis Recent Fever Within 48 Hours Sepsis New/Unexplained Change in Mental Status Sepsis Action Taken by Nursing 11/28/19 05:21 11/28/19 05:25 Temperature Temperature Source Pulse Rate 85 90 Pulse Rate [Apical] Pulse Rate from SpO2 Sensor 86 84 Respiratory Rate 21 18 Respiratory Effort / Characteristics Respiratory Depth Respiratory Pattern Blood Pressure 94/56 L Blood Pressure [Left Arm] Blood Pressure Mean 69 Blood Pressure Mean [Left Arm] Blood Pressure Position [Left Arm] Pulse Oximetry 95 96 Oxygen Delivery Method Oxygen Flow Rate Fraction of Inspired Oxygen Sepsis Recent Fever Within 48 Hours Sepsis New/Unexplained Change in Mental Status Sepsis Action Taken by Nursing General: Audible rales. HEENT: Head - normocephalic and atraumatic. Pupils are equal, round, and reactive to light. Extraocular eye muscles are intact, and sclera are anicteric. Nose - moist nasal mucosa without discharge. Mouth - moist buccal mucosa. Oropharynx is nonerythematous and there is no tonsillar exudate or edema noted. Neck: Supple; no JVD Heart: Regular rate and rhythm. There is a normal S1 and S2 with no murmurs, clicks, or gallops appreciated. Lungs: Absent breath sounds in bases, rales throughout upper lung bennett with no wheezes or rhonchi. Abdomen: Protuberant, soft, completely nontender, with good bowel sounds. There are no palpable pulsatile masses or hepatosplenomegaly. There is no guarding, rigidity, or rebound noted. Extremities: 2+ pitting edema on lower extremities. No evidence of cyanosis, clubbing. There are easily palpable peripheral pulses. Skin: warm and dry with good turgor and no rashes. Course Course 0322: Past medical records reviewed. The patient was evaluated in room C09. A complete history and physical exam was performed. An order was placed for continuous cardiac monitoring. The patient remained in a normal sinus rhythm at a rate of 88. A septic protocol was performed. A twelve-lead EKG was obtained. 0350: Nursing staff contacted me to tell me that the patient's blood pressure was in the 80s. I ordered a 500 cc bolus of normal saline solution. 0401: I checked on the patient and his systolic blood pressure was 71. He was receiving the normal saline bolus under pressure. The patients son and the patients power of living supervisor are at the bedside. They state that the patient is a full code. The patient was given 500 CC of normal saline and his pressure has come up to systolic in the 90s. The patient will be placed on Bipap. 0431: I ordered Azactam 2000 mg IV, sodium chloride 999 mls/hr, and solumedrol 125 mg IV. The patient's blood pressure went back down and he was given a second 500 cc bolus of normal saline solution. His BNP value came back at less than 800. I discussed the case with Carlos Adames PA-C. The patient will go to the ICU. 0455: The patient is tolerating BiPAP nicely. I discussed the case with the respiratory therapist at the bedside. He will remain on 07/20. 0516: I reevaluated the patient. I spoke [place] [facility]. [place] [facility] [place] at the bedside. He will evaluate for further management. Administered Medications Magnesium Sulfate/Dextrose (Magnesium Sulfate / D5w) 1 gm in 100 mls @ 100 mls/hr IV Q1H JOSUE Stop: 11/28/19 07:40 Last Admin: 11/28/19 05:50 Dose: 100 mls/hr Documented by: [id number] Potassium Chloride/Sodium Chloride (Normal Saline W/20 Meq Kcl) 20 meq in 1,000 mls @ 100 mls/hr IV .Q10H JOSUE Stop: 12/28/19 05:44 Last Admin: 11/28/19 05:50 Dose: 100 mls/hr Documented by: [id number] Discontinued Medications Aztreonam 2,000 mg/ Dextrose 120 mls @ 100 mls/hr IV NOW STA; Protocol Stop: 11/28/19 05:42 Last Admin: 11/28/19 05:15 Dose: 100 mls/hr Documented by: [id number] Sodium Chloride (Nss) 500 mls @ 999 mls/hr IV .Q31M ONE Stop: 11/28/19 05:03 Last Infusion: 11/28/19 05:27 Dose: 0 mls/hr Documented by: [id number] Admin: 11/28/19 04:45 Dose: 999 mls/hr Documented by: [id number] Sodium Chloride (Nss) 500 mls @ 999 mls/hr IV .Q31M ONE Stop: 11/28/19 05:03 Last Infusion: 11/28/19 05:27 Dose: 0 mls/hr Documented by: [id number] Admin: 11/28/19 04:45 Dose: 999 mls/hr Documented by: [id number] Methylprednisolone (Solumedrol) 125 mg IV NOW STA Stop: 11/28/19 04:34 Last Admin: 11/28/19 04:45 Dose: 125 mg Documented by: [id number] Critical Care Time Critical Care Time: Yes Total Critical Care Time: 65 I have personally spent 65 minutes of critical care time in the direct management of this patient. This includes bedside care, interpretation of diagnostic studies, and testing, discussion with consultants, patient, and family members, and other required patient management activities. This 65 minutes is in excess of all separately billable procedures. Medical Decision Making Differential Diagnosis Differential Diagnosis: influenza, CHF, pneumonia, pulmonary edema. Medical Records Attestation: I reviewed the patient's medical records. Home Medications Current Medication List: was personally reviewed by me Laboratory Data Attestation: I reviewed the patient's lab results. Result diagrams: 11/28/19 03:51 11/28/19 03:51 Lab Results 11/28/19 11/28/19 11/28/19 Range/Units 03:30 03:51 03:51 WBC 19.45 H (4.8-10.8) K/uL RBC 3.69 L (4.7-6.1) M/uL Hgb 11.7 L (14.0-18.0) g/dL Hct 34.5 L (42-52) % MCV 93.5 (80-100) fL MCH 31.7 (25-34) pg MCHC 33.9 (32-36) g/dL RDW Std Deviation 48.1 H (36.4-46.3) fL RDW Coeff of Fidelina 14.0 (11.5-14.5) % Plt Count 137 (130-400) K/uL MPV 10.8 H (7.4-10.4) fL Immature Gran % (Auto) 0.3 % Neut % (Auto) 86.9 % Lymph % (Auto) 10.0 % Crenshaw % (Auto) 2.4 % Eos % (Auto) 0.3 % Baso % (Auto) 0.1 % Immature Gran # (Auto) 0.05 H (0.00-0.02) K/uL Neut # (Auto) 16.92 H (1.4-6.5) K/uL Lymph # (Auto) 1.95 (1.2-3.4) K/uL Crenshaw # (Auto) 0.46 (0.11-0.59) K/uL Eos # (Auto) 0.06 (0-0.5) K/uL Baso # (Auto) 0.01 (0-0.2) K/uL PT 32.7 H (9.0-12.0) Seconds INR 3.5 H (0.9-1.1) APTT 35.9 H (21.0-31.0) Seconds PTT Ratio 1.3 Sodium (136-145) mmol/L Potassium (3.5-5.1) mmol/L Chloride (98-107) mmol/L Carbon Dioxide (21-32) mmol/L Anion Gap (3-11) BUN (7-18) mg/dl Creatinine (0.6-1.4) mg/dl Est Cr Clr Drug Dosing ml/min Est GFR ( Amer) Est GFR (Non-Af Amer) BUN/Creatinine Ratio (10-20) Glucose (70-99) mg/dl Lactate (0.4-2.0) mmol/L Calcium (8.5-10.1) mg/dl Magnesium (1.8-2.4) mg/dl Total Bilirubin (0.2-1) mg/dl AST (15-37) U/L ALT (12-78) U/L Alkaline Phosphatase (45-117) U/L Troponin I (0-0.045) ng/ml NT-Pro-B Natriuret Pep (0-1800) pg/ml Total Protein (6.4-8.2) gm/dl Albumin (3.4-5.0) gm/dl Globulin (2.5-4.0) gm/dl Albumin/Globulin Ratio (0.9-2) Influenza Type A Ag Neg for Influ A (Neg) Influenza Type B Ag Neg for Influ B (Neg) 11/28/19 11/28/19 Range/Units 03:51 03:51 WBC (4.8-10.8) K/uL RBC (4.7-6.1) M/uL Hgb (14.0-18.0) g/dL Hct (42-52) % MCV (80-100) fL MCH (25-34) pg MCHC (32-36) g/dL RDW Std Deviation (36.4-46.3) fL RDW Coeff of Fidelina (11.5-14.5) % Plt Count (130-400) K/uL MPV (7.4-10.4) fL Immature Gran % (Auto) % Neut % (Auto) % Lymph % (Auto) % Crenshaw % (Auto) % Eos % (Auto) % Baso % (Auto) % Immature Gran # (Auto) (0.00-0.02) K/uL Neut # (Auto) (1.4-6.5) K/uL Lymph # (Auto) (1.2-3.4) K/uL Crenshaw # (Auto) (0.11-0.59) K/uL Eos # (Auto) (0-0.5) K/uL Baso # (Auto) (0-0.2) K/uL PT (9.0-12.0) Seconds INR (0.9-1.1) APTT (21.0-31.0) Seconds PTT Ratio Sodium 142 (136-145) mmol/L Potassium 3.7 (3.5-5.1) mmol/L Chloride 108 H (98-107) mmol/L Carbon Dioxide 31 (21-32) mmol/L Anion Gap 3.0 (3-11) BUN 16 (7-18) mg/dl Creatinine 1.05 (0.6-1.4) mg/dl Est Cr Clr Drug Dosing 69.8 ml/min Est GFR ( Amer) 79.5 Est GFR (Non-Af Amer) 68.6 BUN/Creatinine Ratio 15.6 (10-20) Glucose 97 (70-99) mg/dl Lactate 1.3 (0.4-2.0) mmol/L Calcium 8.5 (8.5-10.1) mg/dl Magnesium 1.7 L (1.8-2.4) mg/dl Total Bilirubin 0.7 (0.2-1) mg/dl AST 12 L (15-37) U/L ALT 15 (12-78) U/L Alkaline Phosphatase 76 (45-117) U/L Troponin I 0.023 (0-0.045) ng/ml NT-Pro-B Natriuret Pep 722 (0-1800) pg/ml Total Protein 6.1 L (6.4-8.2) gm/dl Albumin 2.9 L (3.4-5.0) gm/dl Globulin 3.2 (2.5-4.0) gm/dl Albumin/Globulin Ratio 0.9 (0.9-2) Influenza Type A Ag (Neg) Influenza Type B Ag (Neg) Imaging Data Attestation: I personally reviewed and interpreted this imaging study as follow s: My Impression: Chest x-ray showed left lower lobe pneumonia, and congestive heart failure with cardiomegaly ECG Data Attestation: I personally reviewed and interpreted this ECG as follows: Indication: + SOB/dyspnea Rate (beats per minute): 101 Rhythm: + sinus tachycardia ECG Intervals/blocks: + Right Bundle branch block ECG ST segments: + T-wave inversions (deeper in the lateral leads ) ECG Findings: + Other (concerning for ischemia ) Comparison ECG Date: from (11/10/2019) Change: no significant change Blood Pressure Blood Pressure Findings: Low blood pressure Blood Pressure Disposition: further management by hospitalist MEGHNA Narrative The patient is a 74 y/o male who presents to the emergency department for evaluation of constant breathing difficulties and gargling that began prior to arrival. This is a 74-year-old male who has a history of emphysema according to his medical records. Although, the family explains that he recently saw a monitoring engineer that told him he has no history of COPD. He was told to stop taking his pulmonary medications. He was diagnosed this past week with a pneumonia and started on azithromycin. The son explains that he seemed to be getting better until tonight when he awoke with shortness of breath and gurgling breath sounds. The patient required supplemental oxygen to keep his oxygen saturations greater than 90. He had an elevated white blood cell count and became hypotensive. This is concerning for septic shock. Because of the gurgling breath sounds, I was concerned for the possibility of fluid overload but the patient's BNP was less than 800. The patient tolerated a liter of normal saline as a bolus and his blood pressure responded nicely to the IV fluid bolus. I had a lengthy conversation with the patient's power of living supervisor and the patient's son with regards to his CODE STATUS. They wanted him to be a full code. The patient had been taking Zithromax at home. I added aztreonam here in the emergency department to his treatment regimen. I discussed the case with Dr. [facility] Hospitalist group and they will evaluate for further management. Impression & Plan Septic shock, Pneumonia Discharge Plan Visit Data Chief Complaint: Respiratory Problems Stated Complaint: FEVER/BREATHING DIFFICULTY Other Complaint: Fever ED Provider: Martina Gonzales Discharge Problem: Septic shock, Pneumonia Patient Disposition: Being Evaluated by Hospitalist Forms Stand Alone Forms: My [facility] Prescriptions Prescriptions: No Action meclizine 25 mg tablet See Rx Instructions .ROUTE .COMPLEX RF: 0 ipratropium-albuterol 0.5 mg-3 mg(2.5 mg base)/3 mL solution for nebulization 3 ml INH QID PRN (Reason: Shortness Of Breath Or Wheezing) RF: 0 acetaminophen 500 mg tablet 500 mg PO BID 90 Days Qty: 180 RF: 0 bygw-lqzkas-bteyhvby-D3-C-Mn 500-400-667 mg-mg-unit capsule 1 cap PO BID Qty: 90 RF: 3 sennosides-docusate sodium [Senna-S] 8.6-50 mg tablet 1 tab PO HS PRN (Reason: Constipation) Qty: 90 RF: 3 cholecalciferol (vitamin D3) 2,000 unit tablet 2,000 unit PO QAM Qty: 90 RF: 3 carbidopa-levodopa 25-250 mg tablet 1 tab PO QID 90 Days Qty: 360 RF: 1 memantine 10 mg tablet 10 mg PO BID 90 Days Qty: 180 RF: 1 donepezil 10 mg tablet 10 mg PO HS 90 Days Qty: 90 RF: 1 pramipexole 0.5 mg tablet 1 mg PO HS 90 Days Qty: 180 RF: 1 pregabalin 100 mg capsule 100 mg PO BID 90 Days Qty: 180 RF: 0 prednisone 20 mg tablet 20 mg PO DAILY Qty: 30 RF: 0 Trelegy Ellipta 100-62.5-25 mcg blister with device 1 puffs INH DAILY Qty: 28 RF: 0 furosemide 20 mg tablet 10 mg PO Q3D RF: 0 clotrimazole-betamethasone [Lotrisone] 1-0.05 % cream 1 appln TOP BID Qty: 45 RF: 0 omeprazole 20 mg capsule,delayed release(DR/EC) 20 mg PO QAM Qty: 90 RF: 0 aspirin [Ecotrin Low Strength] 81 mg tablet,delayed release (DR/EC) 81 mg PO QPM RF: 0 medical marijiana 1 dose PO BID RF: 0 fluconazole [Diflucan] 100 mg tablet 100 mg PO DAILY RF: 0 warfarin 3 mg tablet See Rx Instructions PO UD RF: 0 tramadol 50 mg tablet 50 mg PO DAILY PRN (Reason: Pain) RF: 0 polyethylene glycol 3350 [Miralax] 17 gram Powder In Packet 17 g PO DAILY PRN (Reason: Constipation) RF: 0 docusate sodium 100 mg Capsule 100 mg PO BID RF: 0 nitroglycerin 0.4 mg tablet, sublingual 0.4 mg Sublingual DIRECTED PRN (Reason: Chest Pain) RF: 0 diclofenac sodium [Voltaren] 1 % gel 2 g TOPICAL QID PRN (Reason: Pain) RF: 0 carbidopa-levodopa [Sinemet CR] 50-200 mg tablet extended release 1 tab PO DAILY RF: 0 azithromycin 250 mg tablet 250 mg PO 3XWK RF: 0 Referrals Referrals: Dejuan Galaviz MD [Primary Care Provider] - Discharge Problem: Pneumonia Qualifiers: Pneumonia type: due to unspecified organism Laterality: left Lung location: lower lobe of lung Qualified Code(s): J18.9 - Pneumonia, unspecified organism The scribe's documentation has been prepared under my direction and personally reviewed by me in its entirety. I confirm that the note above accurately reflects all work, treatment, procedures, and medical decision making performed by me.
[2019-11-28] MEDS ORDERED: ICU PROTOCOL FOR HYPERGLYCEMIA PRN (06:37)
[2019-11-28] MEDS ORDERED: AZTREONAM 2,000 MG in DEXTROSE 5% 100 ML IV SCH (06:37)
[2019-11-28] MEDS ORDERED: VANCOMYCIN CONSULT ACTIVE PRN (06:37)
[2019-11-28] MEDS ORDERED: ALBUT/IPRATROP 3MG/0.5MG NEB 3 ML VIAL INH PRN (06:37)
--- NOTE | 2019-11-28 06:51 | XRay Report ---
XR chest 1V portable CLINICAL HISTORY: 74 years-old Male presenting with SEPSIS. TECHNIQUE: Portable upright AP view of the chest was obtained. COMPARISON: 11/18/2019. FINDINGS: Median sternotomy wires and coronary artery bypass graft rings noted. Atherosclerosis of the aortic a rch. Cardiac silhouette mildly enlarged. Pulmonary vasculature is mildly prominent. Mildly low lung v olumes. Bibasilar reticular patchy opacities, left greater than right. These are new from prior. No l arge effusion or pneumothorax. Degenerative changes of the thoracic spine. Degenerative changes of th e left glenohumeral joint. Upper abdomen normal. IMPRESSION: 1. Bibasilar patchy reticular infiltrates, left greater than right could represent atelectasis, aspi ration, or potentially infection/pneumonia. Follow-up is advised. ACT 112: Negative or not required by law. Electronically signed by: Yemi Blancas M.D. 11/28/2019 6:49 AM
[2019-11-28 06:54] LABS: Appearance Urine Clear (Clear); Bilirubin Urine Negative (Negative); Blood Urine Negative (Negative); Color Urine Yellow; Glucose Urine UA Negative (Negative); Ketones Urine Negative (Negative); Leukocyte Esterase Urine Negative (Negative); Nitrite Urine Negative (Negative); Protein Urine Negative (Negative); Specific Gravity Urine 1.013 (1.000-1.030); Urobilinogen Urine Negative (Negative)
[2019-11-28] MEDS ORDERED: cefTRIAXone SODIUM 1,000 MG in DEXTROSE 5% 50 ML IV SCH (07:00)
--- NOTE | 2019-11-28 07:03 | Critical Care Consultation ---
Date of Consultation November 28, 2019 Assessment & Plan (1) Admitted to intensive care unit: Reason Critically Ill: 74-year-old male presenting with shortness of breath and cough with chest x-ray findings concerning for worsening LEFT lower lobe and right middle lobe pneumonia presumed to be aspiration in nature. Hypotensive in the emergency department. Responded to fluid boluses. Unable to clear upper airway secretions. Requiring close hemodynamic and respiratory monitoring in the acute phases. NEURO - * CAM ICU: NEGATIVE * History of Parkinson's and dementia. * Continue current home medications. CARDIAC/VASCULAR - * Hypotension: * Clinically, patient appears dry. Agree with continued IV fluids at this point. * PRN boluses of IV fluid as needed. * Patient does not carry diagnostic history of overt CHF in the past. * Chest x-ray more consistent with pneumonia. * Pressors if needed. * Coronary artery disease status post CABG, A. fib, hypertension, hyperlipidemia: * Hold on antihypertensives currently. * Reintroduce as blood pressure allows. * Continue Coumadin. * Monitor on telemetry. RESPIRATORY - * Pneumonia -likely aspiration: * On physical exam, the patient has difficulty clearing his upper airway secretions. We were able to suction a moderate amount of upper airway secretions and patient could produce minimal cough to clear some thick mucus from the back of his throat. This did help with his breath sounds. * Will advocate for aggressive pulmonary toilet including chest PT, spirometry, and flutter valve. * Will change antibiotics to Rocephin, Flagyl, and vancomycin. * Continue with steroids at this point. * Inhalers as needed. * Discontinue BiPAP as patient has normal saturations on 3 L nasal cannula at this point. I am concerned that the sounds the patient are making her from upper airway the resonating into the lower lung bennett rather than diffuse rales. No indication for positive pressure at this time. GI/NUTRITION - * N.p.o. currently. Progress diet if blood pressures remain tolerable throughout the day. * Consider speech-language pathology assessment, however patient is already on nectar thick liquids and modified diet at this point. Uncertain of utility. * Prophylaxis: Famotidine RENAL/LYTES - * No significant electrolyte derangements * IVF @100mL/hr - * History of UTIs and concern for bladder lesion. * Will add urinalysis. * Strict I&Os. ENDO - * No known history of diabetes or thyroid disease. * BSGs per unit protocol. ISS --> gtt per unit policy. HEME - * Stable H&H. * Monitor for signs/symptoms of significant bleeding in the anticoagulated patient. ID - * Sepsis secondary to pulmonary source: * Received aztreonam and vancomycin in the emergency department. * Will discontinue a strain a.m. and opted for Rocephin for gram-positive coverage. Patient has successfully been treated with vancomycin in the past. * Will add Flagyl for anaerobic coverage with concerns for aspiration. * Continue vancomycin until MRSA nasal swab returns. Do feel initial dose is appropriate as the patient has had recent hospitalizations. * Will add procalcitonin. * Lactic acid negative. * Blood cultures pending. LINES/IV ACCESS - * PIVs x2 DVT PROPHYLAXIS - * Coumadin * SCDs I have personally spent 45 minutes of critical care time in the direct management of this patient. This is a life/limb threatening event. This includes time spent evaluating patient, direct bedside care, chart review, placing orders, interpretation of diagnostic studies, discussion with consultants, patient, and family members, as well as other required patient management activities. This time is exclusive of all separately billable procedures, and teaching time and separate from and in addition to any other critical care service time. Thank you for allowing us to participate in the care of this patient. Please refer to my attending physician's documentation for any further recommendations. (2) Aspiration pneumonia: (3) Sepsis: (4) Pneumonia: (5) Physical deconditioning: (6) Cough: (7) Chronic anticoagulation: (8) SOB (shortness of breath): (9) Dementia: (10) AIVR (accelerated idioventricular rhythm): (11) Afib: (12) Hypotension: Supervising Physician Co-Signing Physician Notes I have personally evaluated and examined this patient. I agree with assessment and plan of Ignacio Adames PA-C. Patient was discussed in multidisciplinary rounds. Patient's clinical status has stabilized. He is not requiring noninvasive mechanical ventilation and is only requiring very minimal supplemental oxygen. I discussed the case with speech therapy as well as the patient's [id number]. Will consult palliative care for hopeful meeting tomorrow to discuss goals of care as he is a known aspirator and they do not feel that he would want a feeding tube in any fashion and this will likely not improve. Patient is stable for downgrade out of the ICU. History of Present Illness Attending Physician: Cailin Flaherty MD History of Present Illness Patient is a 74-year-old male with a significant past medical history of Parkinson's disease, dementia, coronary artery disease status post CABG, A. fib currently anticoagulated on Coumadin, hypertension, hyperlipidemia, atrial intraventricular rhythm, recurrent pneumonia, obstructive sleep apnea status post UPPP surgery. Patient has had multiple recent admissions secondary to recurrent pneumonia. Recently had outpatient visit with pulmonology with concern for previous diagnosis of COPD. Per records, patient has had normal spirometry testing and does not appear to carry the diagnosis of COPD clinically. He is on inhalers which she has continued to use as he reports they have continued to make him feel better. He had been doing well up until last evening when he developed an abrupt onset of shortness of breath and cough. In the emergency department, the patient was noted to have coarse breath sounds and audible rails as well as hypotension which responded to IV fluid boluses. Patient was placed on BiPAP and received aztreonam and vancomycin. Patient admitted for further evaluation and management. Upon assessment in the ICU, patient is awake, alert, and oriented. He reports that other than inability to clear secretions and cough, he has felt fine. He denies any complaints of chest pain, palpitations, hemoptysis, nausea, vomiting, abdominal pain. Patient reports that he has been following his diet and has been drinking fluids nectar thick. He does report that he occasionally coughs after meals. He denies any recent sick contacts. Allergies Allergy/AdvReac Type Severity Reaction Status Date / Time Penicillins Allergy Severe RASH,SWELLI Verified 11/28/19 03:55 NG Home Medications Home Medications Medication Instructions Recorded Confirmed Type docusate sodium 100 mg PO BID 08/04/18 11/28/19 History polyethylene glycol 3350 [Miralax] 17 g PO DAILY PRN 08/04/18 11/28/19 History nitroglycerin 0.4 mg sublingual 0.4 mg SUBLINGUAL DIRECTED PRN 04/06/19 11/28/19 History tablet omeprazole 20 mg capsule,delayed 20 mg PO QAM #90 cap 05/11/19 11/28/19 History release diclofenac sodium 1 % topical gel 2 g TOPICAL QID PRN 06/07/19 11/28/19 History ipratropium 0.5 mg-albuterol 3 mg 3 ml INH QID PRN ml 06/07/19 11/28/19 History (2.5 mg base)/3 mL nebulization soln tramadol 50 mg PO DAILY PRN 07/27/19 11/28/19 History acetaminophen 500 mg tablet 500 mg PO BID 90 Days #180 tab 08/04/19 11/28/19 Rx carbidopa 25 mg-levodopa 250 mg 1 tab PO QID 90 Days #360 tab 08/04/19 11/28/19 Rx tablet cholecalciferol (vitamin D3) 2,000 2,000 unit PO QAM #90 tab 08/04/19 11/28/19 Rx unit tablet donepezil 10 mg tablet 10 mg PO HS 90 Days #90 tab 08/04/19 11/28/19 Rx glucosamine 500 1 cap PO BID #90 cap 08/04/19 11/28/19 Rx kg-tgaxzxkxx-wqeefliy comp 400 mg-D3 667 unit-C-Mn cap memantine 10 mg tablet 10 mg PO BID 90 Days #180 tab 08/04/19 11/28/19 Rx sennosides 8.6 mg-docusate sodium 1 tab PO HS PRN #90 tab 08/04/19 11/28/19 Rx 50 mg tablet pramipexole 0.5 mg tablet 1 mg PO HS 90 Days #180 tab 08/26/19 11/28/19 Rx aspirin 81 mg tablet,delayed 81 mg PO QPM tab 09/05/19 11/28/19 History release furosemide 20 mg tablet 10 mg PO Q3D tab 10/05/19 11/28/19 History medical marijiana 1 dose PO BID 10/05/19 11/28/19 History carbidopa-levodopa [Sinemet CR] 1 tab PO DAILY 10/26/19 11/28/19 History meclizine 25 mg tablet See Rx Instructions .ROUTE .COMPLEX 10/31/19 11/28/19 History pregabalin 100 mg capsule 100 mg PO BID 90 Days #180 cap 11/03/19 11/28/19 Rx prednisone 20 mg tablet 20 mg PO DAILY #30 tab 11/08/19 11/28/19 Rx clotrimazole-betamethasone 1 1 appln TOP BID #45 gm 11/15/19 11/28/19 Rx %-0.05 % topical cream azithromycin 250 mg PO 3XWK 11/18/19 11/28/19 History fluconazole 100 mg tablet 100 mg PO DAILY 11/25/19 11/28/19 History fluticasone fur. 100 mcg-umeclid 1 puffs INH DAILY #28 ea 11/25/19 11/28/19 Rx 62.5 mcg-vilant 25 mcg inhalat.powder warfarin 3 mg tablet See Rx Instructions PO UD tab 11/25/19 11/28/19 History Patient History Medical History A-fib (Acute) Abnormal CT of brain Acute coronary syndrome Anemia (Acute) Arthralgia (Acute) Bladder cancer (Acute) BPH (benign prostatic hyperplasia) (Acute) CAD (coronary artery disease) (Chronic) Cataract (Acute) Chronic anticoagulation (Acute) COPD (chronic obstructive pulmonary disease) (Acute) Dementia (Chronic) Depression (Acute) Diverticulosis (Acute) DVT (deep venous thrombosis) (Acute) H/O deep venous thrombosis Hearing loss (Acute) History of recent ear, nose, and throat (ENT) procedure (Acute) HTN (hypertension) (Acute) Hx of deep venous thrombosis Hyperlipidemia (Acute) Impaired fasting glucose (Acute) Increased ammonia level Lumbar facet joint syndrome Metabolic encephalopathy Parkinson disease (Chronic) Retina disorder, right (Acute) Sleep apnea (Acute) Surgical History History of cystoscopy (Acute) History of uvulopalatopharyngoplasty (Acute) Hx of CABG (Acute) Family History Brother Myocardial infarction Colorectal cancer Father Myocardial infarction Sister Heart disease Social History Preferred Language: Occitan Communication Ability: Effective Visual Impairment: No Limitations Hearing Ability: Hard of Hearing Access Assoc Required: No Beliefs That Will Affect Care: None marital status: / Current Living Situation: Family Current Living Situation Comment: with 2 sons, dtr in law and grandchildren Feels Safe at Home: Yes Smoking Status: Former smoker Tobacco Type: cigars ; Cigarettes Per Day: 2 - 3 ; Second Hand Exposure: Yes ; Hx Alcohol Use: Yes Alcohol type: beer Alcohol Intake Frequency: Daily Alcohol Intake Frequency Comment: 1 beer Hx Substance Use: No Physical Activity Frequency: Does not Exercise Review of Systems Review of Systems: A complete 10 point review of systems was reviewed with the patient with pertinent positives and negatives as per history of present illness. All else were negative. Physical Exam Physical Exam: VITAL SIGNS - Vital signs and nursing notes were reviewed. GENERAL - 74-year-old male appearing his stated age who is in no acute distress. Communicates well with provider and answers questions appropriately. SKIN - Redness of the decubitus area. HEAD - NC/AT. EYES - PERRL with EOMI bilaterally. Sclera anicteric. Palpebral conjunctiva pink and moist with no injection noted. EARS - No deformities of external structures noted on gross examination bilaterally. NOSE - Midline and without cyanosis. No epistaxis or purulent drainage noted. Septum midline without deviation or septal hematoma noted. MOUTH/OROPHARYNX - Without perioral cyanosis. Buccal mucosa pink and moist and without leukoplakia. Dry mucous membranes. NECK - Neck with FROM. Supple to palpation. No nuchal rigidity. LUNGS - Chest wall symmetric without accessory muscle use, intercostals retractions, or central cyanosis. Coarse upper airway respiratory sounds appreciated likely contributed to inability to clear up versus airway secretions. Residents of sound through remaining lung bennett. No rales noted. CARDIAC - RRR with S1/S2. No murmur, rubs, or gallops appreciated. ABDOMEN - Abdominal contour obese without pulsations or visible masses. BS normoactive all four quadrants. No tenderness, palpable masses, hepatosplenomegaly, or ascites noted. EXTREMITIES - No clubbing or peripheral cyanosis. No pretibial edema present. +3/5 radial and dorsalis pedis pulses palpated throughout. +5/5 strength noted in UE/LE bilaterally. NEUROLOGIC - Cranial nerves II through XII grossly intact. Sensory intact to light touch throughout. PSYCH - A&Ox3 and cooperates fully with examiner. Pt is very pleasant and interacts well with examiner. Results & Data ([facility]) Vital Signs (Past 12 Hours) Vital Signs Temp Pulse Pulse Resp BP BP Pulse Ox 11/28/19 06:11 84 19 95 11/28/19 06:10 86 19 93/59 L 95 11/28/19 06:05 88 18 98/59 L 96 11/28/19 06:01 86 18 93 11/28/19 06:00 85 18 96/57 L 95 11/28/19 05:55 87 19 94/55 L 96 11/28/19 05:51 90 19 95 11/28/19 05:50 90 19 93/58 L 95 11/28/19 05:45 86 21 99/58 L 97 11/28/19 05:41 93 H 19 94 11/28/19 05:40 94 H 19 88/61 L 96 11/28/19 05:35 91 H 19 101/62 96 11/28/19 05:31 89 18 95 11/28/19 05:30 91 H 19 96/60 L 95 11/28/19 05:26 89 18 95 11/28/19 05:25 90 18 94/56 L 96 11/28/19 05:21 85 21 95 11/28/19 05:20 87 19 95/57 L 95 11/28/19 05:15 92 H 19 85/49 L 94 11/28/19 05:11 87 19 97 11/28/19 05:10 84 19 90/54 L 97 11/28/19 05:05 88 19 89/56 L 97 11/28/19 05:01 83 18 97 11/28/19 05:00 85 18 92/54 L 98 11/28/19 04:55 84 19 92/53 L 96 11/28/19 04:51 85 20 97 11/28/19 04:50 84 20 99/54 L 97 11/28/19 04:46 83 18 97 11/28/19 04:45 82 18 94/56 L 97 11/28/19 04:44 87 19 97 11/28/19 04:41 84 18 97 11/28/19 04:40 81 19 95/60 L 97 11/28/19 04:35 86 19 85/53 L 95 11/28/19 04:31 86 19 97 11/28/19 04:30 84 20 85/52 L 97 11/28/19 04:25 85 20 82/53 L 96 11/28/19 04:20 86 19 91/53 L 93 11/28/19 04:18 90 20 85/55 L 94 11/28/19 04:15 83 19 72/52 L 95 11/28/19 04:11 87 20 96 11/28/19 04:10 85 19 93/62 L 95 11/28/19 04:07 82 21 93 11/28/19 04:06 81 21 82/49 L 93 11/28/19 04:04 76 23 75/47 L 92 11/28/19 04:01 77 21 91 11/28/19 04:00 77 21 67/46 L 91 11/28/19 03:59 84 21 71/45 L 91 11/28/19 03:58 85 21 71/48 L 92 11/28/19 03:57 83 20 71/48 L 92 11/28/19 03:51 83 21 92 11/28/19 03:29 92 11/28/19 03:20 83 23 94/60 L 92 11/28/19 03:12 37.5 C 100 H 22 94/60 L 92 Coding Level of Care Code Critical Care 1st 30-74 mins Diagnoses Admitted to intensive care unit Z78.9 Aspiration pneumonia J69.0 Sepsis A41.9 Pneumonia J18.9 Laterality: left Lung location: lower lobe of lung Pneumonia type: due to unspecified organism Physical deconditioning R53.81 Cough R05 Chronic anticoagulation Z79.01 SOB (shortness of breath) R06.02 Dementia F03.90 AIVR (accelerated idioventricular rhythm) I44.2 Afib I48.0 Atrial fibrillation type: paroxysmal Hypotension I95.2 Hypotension type: hypotension due to drug Time Spent (min) 45 (1) Afib Atrial fibrillation type: paroxysmal Qualified Code(s): I48.0 - Paroxysmal atrial fibrillation (2) Hypotension Hypotension type: hypotension due to drug Qualified Code(s): I95.2 - Hypotension due to drugs (3) Pneumonia Laterality: left Lung location: lower lobe of lung Pneumonia type: due to unspecified organism Qualified Code(s): J18.9 - Pneumonia, unspecified organism
[2019-11-28] MEDS: cefTRIAXone SODIUM 2,000 MG in DEXTROSE 5% 50 ML IV SCH (07:06)
[2019-11-28] MEDS ORDERED: metroNIDAZOLE 500 MG/100 ML BAG IV SCH (08:00)
[2019-11-28] MEDS ORDERED: VANCOMYCIN HCL 2,250 MG in SODIUM CHLORIDE 0.9% 500 ML IV SCH (08:00)
[2019-11-28] MEDS: FAMOTIDINE 20 MG in SYRINGE 3 ML IV SCH ×2 (08:10→20:40)
[2019-11-28] MEDS ORDERED: VANCOMYCIN HCL 1,000 MG in SODIUM CHLORIDE 0.9% 250 ML IV SCH (09:00)
--- NOTE | 2019-11-28 09:43 | Electrocardiogram Report ---
Test Reason : Blood Pressure : / mmHG Vent. Rate : 101 BPM Atrial Rate : 101 BPM P-R Int : 144 ms QRS Dur : 136 ms QT Int : 380 ms P-R-T Axes : -04 -17 011 degrees QTc Int : 492 ms Sinus tachycardia Right bundle branch block , may be rate related T wave abnormality, consider lateral ischemia Abnormal ECG When compared with ECG of 18-NOV-2019 21:38, Vent. rate has increased BY 44 BPM Right bundle branch block is now Present Confirmed by Javier Toth ([id number]) on 11/28/2019 9:42:42 AM Referred By: REFERRED SELF Confirmed By:Javier Toth
[2019-11-28] MEDS: CARBIDOPA/LEVODOPA 25-250 1 EA TAB PO SCH ×4 (10:46→20:39)
[2019-11-28] MEDS: CARBIDOPA/LEVODOPA 50/200MG EXT REL TAB PO SCH (10:46)
[2019-11-28] MEDS: MEDICAL MARIJUANA PO SCH ×2 (10:46→22:04)
[2019-11-28] MEDS: methylPREDNISolone 60 MG in SYRINGE 0 ML IV SCH ×3 (10:49→23:12)
--- NOTE | 2019-11-28 12:56 | Hospitalist Progress Note ---
Date of Service November 28, 2019 Assessment & Plan (1) Sepsis: Mr. Ramirez is a 74y/o M with PMH significant for dementia, peripheral neuropathy, aspiration pneumonia, COPD exacerbations, atrial fibrillation, history of DVT and pulmonary embolism on chronic anticoagulation with Coumadin, returned to the hospital following recent hospitalization from 11/10-11/14/2023 for pneumonia, after continued worsening of condition. Septic shock with acute resp failure secondary; - hypotensive in ED despite 1000cc total bolus of NSS - improvement in BP throughout the day today - not requiring oxygen anymore - initially on Vanc/aztreonam for concern of continued worsening aspiration events; switched to Rocephin/Flagyl/Vancomycin Aspiration pneumonia with COPD exacerbation: - patient is of known aspiration risk, and wants to resume eating despite education of continued risk - Given methylprednisolone 125 mg IV in the ED, continued at 60 mg IV every 6 hours. - Duonebs every 4 hours while awake and every 2 hours when necessary. - CCU following: advocating for aggressive pulmonary toilet including chest PT, spirometry, and flutter valve; change antibiotics to Rocephin, Flagyl, and vancomycin. - previously tolerated regular diet during last admission; started on regular diet per patient and family request COPD exacerbation: - See above Parkinson disease: - ?if in large part is contributing to decreased ability to protect his airway and resulting in recurrent aspiration pneumonia. - continue carbidopa levodopa Atrial fibrillation: - Continue chronic anticoagulation with warfarin for paroxysmal defibrillation and DVT history. INR is mildly supratherapeutic at 3.5, with warfarin being held today, and recheck INR daily. History of DVT (deep vein thrombosis): - See above Diet: regular DVT ppx: supratherapeutic INR, will restart Warfarin in AM Code status: Full code (2) Aspiration pneumonia: (3) Afib: (4) History of DVT (deep vein thrombosis): (5) Dementia: (6) COPD (chronic obstructive pulmonary disease): Admission and Anticipated Discharge Date Admission Date: November 28, 2019 Supervising Physician Co-Signing Physician Notes Resident Physician Supervision Note: I independently interviewed and examined the patient and verified the hernandez history and physical, reviewed labs and image studies, discussed the case with the resident Dr. Sams and agree with the findings and care plan. Subjective Patient is feeling well this morning; main complaint is that he would like to eat;he was previously on regular diet during last hospital visit. Per discussions with family, family would like to have palliative meeting to discuss further goals of care given patient's dementia and continued desire to eat regular food in the face of regular aspiration causing continued decline of lung function. Review of Systems Review of Systems: Unobtainable due to cognitive status Physical Exam Constitutional: WD/WN, vitals as above Eyes: PERRL, conjunctivae normal, anicteric sclerae ENMT: external ear and nose normal, oropharynx normal Respiratory: + cough; no respiratory distress and no labored breathing Auscultation: + diminished lung sounds, + crackles and + wheezes Cardiovascular: RRR, no murmur, no edema Gastrointestinal (Abdomen): normal bowel sounds, soft, nontender, no hepatosplenomegaly Musculoskeletal: no cyanosis or clubbing, extremities motor strength 5/5 Neurologic: awake Motor/Sensory: no tremor and normal movement Psychiatric: Orientation: alert, oriented to person and cooperative; + not oriented to place and + not oriented to time Results & Data ([facility]) Vital Signs (Past 12 Hours) Vital Signs Temp Pulse Pulse Resp BP BP Pulse Ox 11/28/19 11:57 65 13 100/58 L 94 11/28/19 11:27 74 15 120/67 94 11/28/19 10:57 57 L 11 L 96/62 L 93 11/28/19 10:28 61 17 104/63 95 11/28/19 09:57 62 19 108/66 96 11/28/19 09:27 63 96/63 L 95 11/28/19 08:57 64 114/63 95 11/28/19 07:57 36.8 C 80 106/67 96 11/28/19 07:27 71 101/62 94 11/28/19 06:57 78 102/61 95 11/28/19 06:20 36.9 C 81 24 98/64 L 97 11/28/19 06:11 84 19 95 11/28/19 06:10 86 19 93/59 L 95 11/28/19 06:05 88 18 98/59 L 96 11/28/19 06:01 86 18 93 11/28/19 06:00 85 18 96/57 L 95 11/28/19 05:55 87 19 94/55 L 96 11/28/19 05:51 90 19 95 11/28/19 05:50 90 19 93/58 L 95 11/28/19 05:45 86 21 99/58 L 97 11/28/19 05:41 93 H 19 94 11/28/19 05:40 94 H 19 88/61 L 96 11/28/19 05:35 91 H 19 101/62 96 11/28/19 05:31 89 18 95 11/28/19 05:30 91 H 19 96/60 L 95 11/28/19 05:26 89 18 95 11/28/19 05:25 90 18 94/56 L 96 11/28/19 05:21 85 21 95 11/28/19 05:20 87 19 95/57 L 95 11/28/19 05:15 92 H 19 85/49 L 94 11/28/19 05:11 87 19 97 11/28/19 05:10 84 19 90/54 L 97 11/28/19 05:05 88 19 89/56 L 97 11/28/19 05:01 83 18 97 11/28/19 05:00 85 18 92/54 L 98 11/28/19 04:55 84 19 92/53 L 96 11/28/19 04:51 85 20 97 11/28/19 04:50 84 20 99/54 L 97 11/28/19 04:46 83 18 97 11/28/19 04:45 82 18 94/56 L 97 11/28/19 04:44 87 19 97 11/28/19 04:41 84 18 97 11/28/19 04:40 81 19 95/60 L 97 11/28/19 04:35 86 19 85/53 L 95 11/28/19 04:31 86 19 97 11/28/19 04:30 84 20 85/52 L 97 11/28/19 04:25 85 20 82/53 L 96 11/28/19 04:20 86 19 91/53 L 93 11/28/19 04:18 90 20 85/55 L 94 11/28/19 04:15 83 19 72/52 L 95 11/28/19 04:11 87 20 96 11/28/19 04:10 85 19 93/62 L 95 11/28/19 04:07 82 21 93 11/28/19 04:06 81 21 82/49 L 93 11/28/19 04:04 76 23 75/47 L 92 11/28/19 04:01 77 21 91 11/28/19 04:00 77 21 67/46 L 91 11/28/19 03:59 84 21 71/45 L 91 11/28/19 03:58 85 21 71/48 L 92 11/28/19 03:57 83 20 71/48 L 92 11/28/19 03:51 83 21 92 11/28/19 03:29 92 11/28/19 03:20 83 23 94/60 L 92 11/28/19 03:12 37.5 C 100 H 22 94/60 L 92 Pulse Ox 11/28/19 11:57 11/28/19 11:27 11/28/19 10:57 11/28/19 10:28 11/28/19 09:57 11/28/19 09:27 11/28/19 08:57 11/28/19 07:57 11/28/19 07:27 11/28/19 06:57 11/28/19 06:20 97 11/28/19 06:11 11/28/19 06:10 11/28/19 06:05 11/28/19 06:01 11/28/19 06:00 11/28/19 05:55 11/28/19 05:51 11/28/19 05:50 11/28/19 05:45 11/28/19 05:41 11/28/19 05:40 11/28/19 05:35 11/28/19 05:31 11/28/19 05:30 11/28/19 05:26 11/28/19 05:25 11/28/19 05:21 11/28/19 05:20 11/28/19 05:15 11/28/19 05:11 11/28/19 05:10 11/28/19 05:05 11/28/19 05:01 11/28/19 05:00 11/28/19 04:55 11/28/19 04:51 11/28/19 04:50 11/28/19 04:46 11/28/19 04:45 11/28/19 04:44 11/28/19 04:41 11/28/19 04:40 11/28/19 04:35 11/28/19 04:31 11/28/19 04:30 11/28/19 04:25 11/28/19 04:20 11/28/19 04:18 11/28/19 04:15 11/28/19 04:11 11/28/19 04:10 11/28/19 04:07 11/28/19 04:06 11/28/19 04:04 11/28/19 04:01 11/28/19 04:00 11/28/19 03:59 11/28/19 03:58 11/28/19 03:57 11/28/19 03:51 11/28/19 03:29 11/28/19 03:20 11/28/19 03:12 Laboratory Results 11/28/19 11/28/19 11/28/19 Range/Units 08:19 07:07 06:40 WBC (4.8-10.8) K/uL RBC (4.7-6.1) M/uL Hgb (14.0-18.0) g/dL Hct (42-52) % MCV (80-100) fL MCH (25-34) pg MCHC (32-36) g/dL RDW Std Deviation (36.4-46.3) fL RDW Coeff of Fidelina (11.5-14.5) % Plt Count (130-400) K/uL MPV (7.4-10.4) fL Immature Gran % (Auto) % Neut % (Auto) % Lymph % (Auto) % [place] % (Auto) % Eos % (Auto) % Baso % (Auto) % Immature Gran # (Auto) (0.00-0.02) K/uL Neut # (Auto) (1.4-6.5) K/uL Lymph # (Auto) (1.2-3.4) K/uL [place] # (Auto) (0.11-0.59) K/uL Eos # (Auto) (0-0.5) K/uL Baso # (Auto) (0-0.2) K/uL PT (9.0-12.0) Seconds INR (0.9-1.1) APTT (21.0-31.0) Seconds PTT Ratio Sodium (136-145) mmol/L Potassium (3.5-5.1) mmol/L Chloride (98-107) mmol/L Carbon Dioxide (21-32) mmol/L Anion Gap (3-11) BUN (7-18) mg/dl Creatinine (0.6-1.4) mg/dl Est Cr Clr Drug Dosing ml/min Est GFR ( Amer) Est GFR (Non-Af Amer) BUN/Creatinine Ratio (10-20) Glucose (70-99) mg/dl POC Glucose 119 H (70-99) mg/dl Lactate (0.4-2.0) mmol/L Calcium (8.5-10.1) mg/dl Magnesium (1.8-2.4) mg/dl Total Bilirubin (0.2-1) mg/dl AST (15-37) U/L ALT (12-78) U/L Alkaline Phosphatase (45-117) U/L Troponin I (0-0.045) ng/ml NT-Pro-B Natriuret Pep (0-1800) pg/ml Total Protein (6.4-8.2) gm/dl Albumin (3.4-5.0) gm/dl Globulin (2.5-4.0) gm/dl Albumin/Globulin Ratio (0.9-2) Procalcitonin 0.20 (0-0.5) ng/ml Urine Color Urine Appearance (Clear) Urine pH (4.5-7.5) Ur Specific [place] (1.000-1.030) Urine Protein (Negative) Urine Glucose (UA) (Negative) Urine Ketones (Negative) Urine Blood (Negative) Urine Nitrite (Negative) Urine Bilirubin (Negative) Urine Urobilinogen (Negative) Ur Leukocyte Esterase (Negative) Nasal Screen MRSA (PCR) Negative (Negative) Influenza Type A Ag (Neg) Influenza Type B Ag (Neg) 11/28/19 11/28/19 11/28/19 Range/Units 06:40 03:51 03:51 WBC (4.8-10.8) K/uL RBC (4.7-6.1) M/uL Hgb (14.0-18.0) g/dL Hct (42-52) % MCV (80-100) fL MCH (25-34) pg MCHC (32-36) g/dL RDW Std Deviation (36.4-46.3) fL RDW Coeff of Fidelina (11.5-14.5) % Plt Count (130-400) K/uL MPV (7.4-10.4) fL Immature Gran % (Auto) % Neut % (Auto) % Lymph % (Auto) % [place] % (Auto) % Eos % (Auto) % Baso % (Auto) % Immature Gran # (Auto) (0.00-0.02) K/uL Neut # (Auto) (1.4-6.5) K/uL Lymph # (Auto) (1.2-3.4) K/uL [place] # (Auto) (0.11-0.59) K/uL Eos # (Auto) (0-0.5) K/uL Baso # (Auto) (0-0.2) K/uL PT (9.0-12.0) Seconds INR (0.9-1.1) APTT (21.0-31.0) Seconds PTT Ratio Sodium 142 (136-145) mmol/L Potassium 3.7 (3.5-5.1) mmol/L Chloride 108 H (98-107) mmol/L Carbon Dioxide 31 (21-32) mmol/L Anion Gap 3.0 (3-11) BUN 16 (7-18) mg/dl Creatinine 1.05 (0.6-1.4) mg/dl Est Cr Clr Drug Dosing 69.8 ml/min Est GFR ( Amer) 79.5 Est GFR (Non-Af Amer) 68.6 BUN/Creatinine Ratio 15.6 (10-20) Glucose 97 (70-99) mg/dl POC Glucose (70-99) mg/dl Lactate 1.3 (0.4-2.0) mmol/L Calcium 8.5 (8.5-10.1) mg/dl Magnesium 1.7 L (1.8-2.4) mg/dl Total Bilirubin 0.7 (0.2-1) mg/dl AST 12 L (15-37) U/L ALT 15 (12-78) U/L Alkaline Phosphatase 76 (45-117) U/L Troponin I 0.023 (0-0.045) ng/ml NT-Pro-B Natriuret Pep 722 (0-1800) pg/ml Total Protein 6.1 L (6.4-8.2) gm/dl Albumin 2.9 L (3.4-5.0) gm/dl Globulin 3.2 (2.5-4.0) gm/dl Albumin/Globulin Ratio 0.9 (0.9-2) Procalcitonin (0-0.5) ng/ml Urine Color Yellow Urine Appearance Clear (Clear) Urine pH 5.0 (4.5-7.5) Ur Specific [place] 1.013 (1.000-1.030) Urine Protein Negative (Negative) Urine Glucose (UA) Negative (Negative) Urine Ketones Negative (Negative) Urine Blood Negative (Negative) Urine Nitrite Negative (Negative) Urine Bilirubin Negative (Negative) Urine Urobilinogen Negative (Negative) Ur Leukocyte Esterase Negative (Negative) Nasal Screen MRSA (PCR) (Negative) Influenza Type A Ag (Neg) Influenza Type B Ag (Neg) 11/28/19 11/28/19 11/28/19 Range/Units 03:51 03:51 03:30 WBC 19.45 H (4.8-10.8) K/uL RBC 3.69 L (4.7-6.1) M/uL Hgb 11.7 L (14.0-18.0) g/dL Hct 34.5 L (42-52) % MCV 93.5 (80-100) fL MCH 31.7 (25-34) pg MCHC 33.9 (32-36) g/dL RDW Std Deviation 48.1 H (36.4-46.3) fL RDW Coeff of Fidelina 14.0 (11.5-14.5) % Plt Count 137 (130-400) K/uL MPV 10.8 H (7.4-10.4) fL Immature Gran % (Auto) 0.3 % Neut % (Auto) 86.9 % Lymph % (Auto) 10.0 % [place] % (Auto) 2.4 % Eos % (Auto) 0.3 % Baso % (Auto) 0.1 % Immature Gran # (Auto) 0.05 H (0.00-0.02) K/uL Neut # (Auto) 16.92 H (1.4-6.5) K/uL Lymph # (Auto) 1.95 (1.2-3.4) K/uL [place] # (Auto) 0.46 (0.11-0.59) K/uL Eos # (Auto) 0.06 (0-0.5) K/uL Baso # (Auto) 0.01 (0-0.2) K/uL PT 32.7 H (9.0-12.0) Seconds INR 3.5 H (0.9-1.1) APTT 35.9 H (21.0-31.0) Seconds PTT Ratio 1.3 Sodium (136-145) mmol/L Potassium (3.5-5.1) mmol/L Chloride (98-107) mmol/L Carbon Dioxide (21-32) mmol/L Anion Gap (3-11) BUN (7-18) mg/dl Creatinine (0.6-1.4) mg/dl Est Cr Clr Drug Dosing ml/min Est GFR ( Amer) Est GFR (Non-Af Amer) BUN/Creatinine Ratio (10-20) Glucose (70-99) mg/dl POC Glucose (70-99) mg/dl Lactate (0.4-2.0) mmol/L Calcium (8.5-10.1) mg/dl Magnesium (1.8-2.4) mg/dl Total Bilirubin (0.2-1) mg/dl AST (15-37) U/L ALT (12-78) U/L Alkaline Phosphatase (45-117) U/L Troponin I (0-0.045) ng/ml NT-Pro-B Natriuret Pep (0-1800) pg/ml Total Protein (6.4-8.2) gm/dl Albumin (3.4-5.0) gm/dl Globulin (2.5-4.0) gm/dl Albumin/Globulin Ratio (0.9-2) Procalcitonin (0-0.5) ng/ml Urine Color Urine Appearance (Clear) Urine pH (4.5-7.5) Ur Specific [place] (1.000-1.030) Urine Protein (Negative) Urine Glucose (UA) (Negative) Urine Ketones (Negative) Urine Blood (Negative) Urine Nitrite (Negative) Urine Bilirubin (Negative) Urine Urobilinogen (Negative) Ur Leukocyte Esterase (Negative) Nasal Screen MRSA (PCR) (Negative) Influenza Type A Ag Neg for Influ A (Neg) Influenza Type B Ag Neg for Influ B (Neg) Resident Activity Tracking Resident Involvement: Resident Care Provided Care Provided: Adult Hospital Medicine (1) Afib Atrial fibrillation type: paroxysmal Qualified Code(s): I48.0 - Paroxysmal atrial fibrillation
[2019-11-29] MEDS: methylPREDNISolone 60 MG in SYRINGE 0 ML IV SCH ×3 (04:15→16:04)
[2019-11-29 06:04] LABS: Hematocrit (blood only) 34.6 % (42-52); Hemoglobin 11.3 g/dL (14.0-18.0); Immature Granulocytes # (auto) 0.03 K/uL (0.00-0.02); Immature Granulocytes % (auto) 0.2 %; Lymphocytes # (auto) 0.74 K/uL (1.2-3.4); Lymphocytes % (auto) 5.6 %; Mean Corpuscular Hemoglobin 31.1 pg (25-34); Mean Corpuscular Hgb Conc 32.7 g/dL (32-36); Mean Corpuscular Volume 95.3 fL (80-100); Mean Platelet Volume 11.6 fL (7.4-10.4); Monocytes # (auto) 0.19 K/uL (0.11-0.59); Monocytes % (auto) 1.4 %; Neutrophils # (auto) 12.36 K/uL (1.4-6.5); Neutrophils % (auto) 92.8 %; Platelet Count 114 K/uL (130-400); RDW Coefficient of Variation 13.9 % (11.5-14.5); RDW Standard Deviation 48.1 fL (36.4-46.3); Red Blood Count 3.63 M/uL (4.7-6.1); White Blood Count 13.32 K/uL (4.8-10.8)
[2019-11-29 06:18] LABS: Partial Thromboplastin Ratio 1.6; Prothrombin Time 33.5 Seconds (9.0-12.0)
[2019-11-29 06:25] LABS: INR 3.6 (0.9-1.1)
[2019-11-29 06:35] LABS: Albumin Level 2.8 gm/dl (3.4-5.0); Aspartate Aminotransferase 11 U/L (15-37); BUN Creatinine Ratio 24.5 (10-20); Blood Urea Nitrogen 22 mg/dl (7-18); Calcium 8.9 mg/dl (8.5-10.1); Carbon Dioxide 26 mmol/L (21-32); Chloride 111 mmol/L (98-107); Creatinine Clr Calc Pharmacy 79.7 ml/min; Est GFR (African American) 96.3; Est GFR (Non-African American) 83.1; Glucose 135 mg/dl (70-99); Lipase 45 U/L (73-393); Magnesium 2.2 mg/dl (1.8-2.4); Potassium 3.7 mmol/L (3.5-5.1); Sodium 143 mmol/L (136-145)
[2019-11-29 06:38] LABS: Alanine Aminotransferase 9 U/L (12-78); Alkaline Phosphatase 66 U/L (45-117); Bilirubin Direct < 0.1 mg/dl (0-0.2); Bilirubin,Total 0.5 mg/dl (0.2-1); Phosphorus 2.9 mg/dl (2.5-4.9); Total Protein 6.1 gm/dl (6.4-8.2)
[2019-11-29] MEDS: cefTRIAXone SODIUM 2,000 MG in DEXTROSE 5% 50 ML IV SCH (07:47)
[2019-11-29] MEDS: MEDICAL MARIJUANA PO SCH (07:51)
[2019-11-29] MEDS: CARBIDOPA/LEVODOPA 25-250 1 EA TAB PO SCH ×3 (07:51→16:38)
[2019-11-29] MEDS: CARBIDOPA/LEVODOPA 50/200MG EXT REL TAB PO SCH (07:52)
[2019-11-29] MEDS: FAMOTIDINE 20 MG in SYRINGE 3 ML IV SCH (07:57)
--- NOTE | 2019-11-29 08:57 | Palliative Care Consultation ---
Date of Consultation November 29, 2019 Assessment & Plan (1) Goals of care, counseling/discussion: -74 year old male patient with PMH Parkinson's dementia, peripheral neuropathy, dysphagia, aspiration pneumonia, COPD, atrial fibrillation, BPH, acute coronary syndrome, paroxysmal atrial fibrillation, history of DVT and PE on chronic anticoagulation with Coumadin, presented to the hospital with acute hypoxic respiratory failure 2/2 bilateral aspiration pneumonia. Upon arrival, WBCs 19k, hypotensive in the ED with pressure 71/46 which responded to fluid resuscitation. Patient initially admitted to ICU, but was transferred out as his VS stabilized yesterday. Patient is a known aspirator, unfortunately, due to his advancing Parkinson's. He has had several hospitalizations including in July and October, as well as several (4) video swallow studies. Speech has evaluated him again during this admission and recommended that patient have a palliative care consultation, as he is not a candidate for further speech therapies/interventions, and he continues to comfort feed with permissive aspiration. Palliative care is consulted now to discuss goals of care with patient and family. -Met with patient this morning in room 202. He is sitting in chair. Pleasant and talkative. Oriented x4, but is slightly slow to respond. Patient admits he has some memory issues, so he writes things down to help. -Patient agrees that he has known swallowing issues and that he has been in the hospital several times. Patient has several questions written down to go over when his family is present: such as questions about feeding tube, what that would be like, etc. -Patient's goal is to remain at home with his two sons, daughter in law, and grandchildren. -Plan is for family meeting this afternoon at 1330 to discuss goals of care. Looking at where patient is at in regards to the Parkinson's and dementia, he is still very functional. Probably moderate to moderately-severe, 5 or 6a on FAST scale. He does not wear oxygen at baseline and his breathing is not affected by the Parkinson's, however he does have COPD. The main concern is this dysphagia and recurrent aspiration pneumonia. Goal for today's meeting would be to know patient's goals if/when his condition worsens, if the pneumonia and respiratory failure continues to recur, would he ever want PEG/feeding tube, etc. (2) Sepsis: (3) Pneumonia: Laterality: bilateral Pneumonia type: due to unspecified organism (4) Aspiration into airway: Supervising Physician Co-Signing Physician Notes Chart reviewed, patient seen and examined. Multiple family at bedside including patient's son and [id number]. Resident physician present during family meeting. Discussed treatment options including [id number] did not want a G-tube, family supports his decision. Discussed patient returning home with home health and return to the hospital as needed for severe aspiration episodes versus going home with hospice and managing these episodes at home. Patient stated he wanted to return home and stay home, did not want any further hospitalizations. Family supports his decision. Patient is currently receiving home health through [facility]- can easily transition to [facility] home hospice. Discussed hospice services at length with patient and family. -Patient did have his living will at bedside which was reviewed with patient and family, completed a POLST form-patient signed form stating DNR, limited interventions, no feeding tube or artificial hydration. Patient signed his own POLST form, copy placed in EMR. Original given to patient's family. -Resident physician to contact case management regarding decision to return home with hospice, will plan to discharge patient once equipment is in place. -Patient will need O2 for as needed use, as well as a nebulizer for saline nebs to help mobilize secretions after episode of aspiration. History of Present Illness Attending Physician: Cailin Flaherty MD History of Present Illness This 74 year old male patient with PMH Parkinson's dementia, peripheral neuropathy, dysphagia, aspiration pneumonia, COPD, atrial fibrillation, BPH, acute coronary syndrome, paroxysmal atrial fibrillation, history of DVT and PE on chronic anticoagulation with Coumadin, presented to the hospital with acute hypoxic respiratory failure 2/2 bilateral aspiration pneumonia. Upon arrival, WBCs 19k, hypotensive in the ED with pressure 71/46 which responded to fluid resuscitation. Patient initially admitted to ICU, but was transferred out as his VS stabilized yesterday. Patient is a known aspirator, unfortunately, due to his advancing Parkinson's. He has had several hospitalizations including in July and October, as well as several (4) video swallow studies. Speech has evaluated him again during this admission and recommended that patient have a palliative care consultation, as he is not a candidate for further speech therapies/interventions, and he continues to comfort feed with permissive aspiration. Palliative care is consulted now to discuss goals of care with patient and family. Thank you kindly for this consult. Palliative care team will follow as needed. Allergies Allergy/AdvReac Type Severity Reaction Status Date / Time Penicillins Allergy Severe RASH,SWELLI Verified 11/28/19 03:55 NG Home Medications Home Medications Medication Instructions Recorded Confirmed Type docusate sodium 100 mg PO BID 08/04/18 11/28/19 History polyethylene glycol 3350 [Miralax] 17 g PO DAILY PRN 08/04/18 11/28/19 History nitroglycerin 0.4 mg sublingual 0.4 mg SUBLINGUAL DIRECTED PRN 04/06/19 11/28/19 History tablet omeprazole 20 mg capsule,delayed 20 mg PO QAM #90 cap 05/11/19 11/28/19 History release diclofenac sodium 1 % topical gel 2 g TOPICAL QID PRN 06/07/19 11/28/19 History ipratropium 0.5 mg-albuterol 3 mg 3 ml INH QID PRN ml 06/07/19 11/28/19 History (2.5 mg base)/3 mL nebulization soln tramadol 50 mg PO DAILY PRN 07/27/19 11/28/19 History acetaminophen 500 mg tablet 500 mg PO BID 90 Days #180 tab 08/04/19 11/28/19 Rx carbidopa 25 mg-levodopa 250 mg 1 tab PO QID 90 Days #360 tab 08/04/19 11/28/19 Rx tablet cholecalciferol (vitamin D3) 2,000 2,000 unit PO QAM #90 tab 08/04/19 11/28/19 Rx unit tablet donepezil 10 mg tablet 10 mg PO HS 90 Days #90 tab 08/04/19 11/28/19 Rx glucosamine 500 1 cap PO BID #90 cap 08/04/19 11/28/19 Rx rc-qcffoupzn-[id number] comp 400 mg-D3 667 unit-C-Mn cap memantine 10 mg tablet 10 mg PO BID 90 Days #180 tab 08/04/19 11/28/19 Rx sennosides 8.6 mg-docusate sodium 1 tab PO HS PRN #90 tab 08/04/19 11/28/19 Rx 50 mg tablet pramipexole 0.5 mg tablet 1 mg PO HS 90 Days #180 tab 08/26/19 11/28/19 Rx aspirin 81 mg tablet,delayed 81 mg PO QPM tab 09/05/19 11/28/19 History release furosemide 20 mg tablet 10 mg PO Q3D tab 10/05/19 11/28/19 History medical marijiana 1 dose PO BID 10/05/19 11/28/19 History carbidopa-levodopa [Sinemet CR] 1 tab PO DAILY 10/26/19 11/28/19 History meclizine 25 mg tablet See Rx Instructions .ROUTE .COMPLEX 10/31/19 11/28/19 History pregabalin 100 mg capsule 100 mg PO BID 90 Days #180 cap 11/03/19 11/28/19 Rx prednisone 20 mg tablet 20 mg PO DAILY #30 tab 11/08/19 11/28/19 Rx clotrimazole-betamethasone 1 1 appln TOP BID #45 gm 11/15/19 11/28/19 Rx %-0.05 % topical cream azithromycin 250 mg PO 3XWK 11/18/19 11/28/19 History fluconazole 100 mg tablet 100 mg PO DAILY 11/25/19 11/28/19 History fluticasone fur. 100 mcg-umeclid 1 puffs INH DAILY #28 ea 11/25/19 11/28/19 Rx 62.5 mcg-vilant 25 mcg inhalat.powder warfarin 3 mg tablet See Rx Instructions PO UD tab 11/25/19 11/28/19 History Patient History Medical History (Updated 11/29/19 @ 08:50 by ANTOLIN Chaudhary) A-fib (Acute) Abnormal CT of brain Acute coronary syndrome Anemia (Acute) Arthralgia (Acute) Aspiration into airway Bladder cancer (Acute) BPH (benign prostatic hyperplasia) (Acute) CAD (coronary artery disease) (Chronic) Cataract (Acute) Chronic anticoagulation (Acute) COPD (chronic obstructive pulmonary disease) (Acute) Dementia (Chronic) Depression (Acute) Diverticulosis (Acute) DVT (deep venous thrombosis) (Acute) Goals of care, counseling/discussion H/O deep venous thrombosis Hearing loss (Acute) History of recent ear, nose, and throat (ENT) procedure (Acute) HTN (hypertension) (Acute) Hx of deep venous thrombosis Hyperlipidemia (Acute) Impaired fasting glucose (Acute) Increased ammonia level Lumbar facet joint syndrome Metabolic encephalopathy Parkinson disease (Chronic) Retina disorder, right (Acute) Sleep apnea (Acute) Surgical History History of cystoscopy (Acute) History of uvulopalatopharyngoplasty (Acute) Hx of CABG (Acute) Family History Brother Myocardial infarction Colorectal cancer Father Myocardial infarction Sister Heart disease Social History Preferred Language: Italian Communication Ability: Effective Visual Impairment: No Limitations Hearing Ability: Hard of Hearing Community Cultural Development Officer Required: No Beliefs That Will Affect Care: None marital status: / Current Living Situation: Family Current Living Situation Comment: with 2 sons, dtr in law and grandchildren Feels Safe at Home: Yes Smoking Status: Former smoker Tobacco Type: cigars ; Cigarettes Per Day: 2 - 3 ; Second Hand Exposure: Yes ; Hx Alcohol Use: Yes Alcohol type: beer Alcohol Intake Frequency: Daily Alcohol Intake Frequency Comment: 1 beer Hx Substance Use: No Physical Activity Frequency: Does not Exercise Review of Systems Constitutional: no weakness Ear, Nose, Mouth, Throat: + dysphagia Respiratory: + cough; no dyspnea Cardiovascular: no chest pain Musculoskeletal: no pain Neurologic: no confusion Physical Exam Constitutional: well developed and well nourished; no acute distress ENMT: external ear and nose normal, oropharynx normal Respiratory: no respiratory distress and no labored breathing Auscultation: + diminished lung sounds Cardiovascular: Rate/Rhythm: regular rate and regular rhythm Extremities: + edema (BLE) Gastrointestinal (Abdomen): Inspection/Auscultation: abdomen normal to inspection and normal bowel sounds Percussion/Palpation: abdomen soft Neurologic: moves all extremities and awake; not confused Motor/Sensory: no tremor short-term memory issues Psychiatric: Orientation: alert, oriented to person, oriented to place and oriented to time Results & Data Vital Signs (Past 12 Hours) Vital Signs Temp Pulse Pulse Resp BP Pulse Ox 11/29/19 08:19 36.6 C 78 18 125/74 94 11/29/19 07:09 36.4 C L 60 17 114/73 96 11/29/19 03:39 36.7 C 58 L 18 143/81 H 97 11/29/19 00:00 55 L 11/28/19 23:23 36.3 C L 56 L 17 136/75 96 PG Care Time/CCT Prolonged Care Time Prolonged Care Time: Yes Total Prolonged Care Time: 50 Coding Level of Care Code 76673 Inpt Consult Level 3 Diagnoses Goals of care, counseling/discussion Z71.89 Sepsis A41.9 Pneumonia J18.9 Laterality: bilateral Pneumonia type: due to unspecified organism Aspiration into airway T17.908A Additional Codes Prolonged Care Time - Prolonged Care Time: Yes ([id number]) Time Spent (min) 120 Time Spent Midlevel 50 minutes during first visit with >50% of the time spent at bedside with patient discussing condition and GOC. Attending Spent 70 minutes in addition to the 50 minutes spent by ANTOLIN Guerrero for total of 120 minutes with greater than 50% of the time spent at bedside discussing treatment options, goals of care, and devising a plan of care. Critical Care Time Prolonged Care Time Prolonged Care Time: Yes Total Prolonged Care Time: 50 120
[2019-11-29] MEDS ORDERED: cefUROXime axetil 500 MG TAB PO ONE (16:03)
--- NOTE | 2019-11-29 16:19 | Discharge Summary ---
Date of Service November 29, 2019 Admission HPI Per Admitting Provider The patient is a 74-year-old male with a past medical history including dementia, peripheral neuropathy, AI VR, aspiration pneumonia, COPD exacerbations, hypotension, atrial fibrillation, BPH, acute coronary syndrome, paroxysmal atrial fibrillation, history of DVT and pulmonary embolism on chronic anticoagulation with Coumadin, status post most recent hospitalization from 11/10-11/14/2023 for pneumonia. The patient is not able to contribute to his HPI or review of systems due to baseline dementia and altered cognitive status due to illness. His son reports that the patient has been since his discharge from the hospital until earlier in the day today and then overnight. He continues to have issues with clearing his throat when he is eating, but has been making significant effort to eating upright and try to minimize aspiration Principal Diagnosis Aspiration pneumonia Discharge Exam Constitutional WD/WN, vitals as above Eyes PERRL, conjunctivae normal, anicteric sclerae ENMT external ear and nose normal, oropharynx normal Respiratory + cough; no respiratory distress and no labored breathing Auscultation: + diminished lung sounds, + crackles and + wheezes Cardiovascular RRR, no murmur, no edema Gastrointestinal (Abdomen) normal bowel sounds, soft, nontender, no hepatosplenomegaly Musculoskeletal no cyanosis or clubbing, extremities motor strength 5/5 Neurologic awake Motor/Sensory: no tremor and normal movement Psychiatric Orientation: alert, oriented to person and cooperative; + not oriented to place and + not oriented to time Discharge Data Allergies Allergy/AdvReac Type Severity Reaction Status Date / Time Penicillins Allergy Severe RASH,SWELLI Verified 11/28/19 03:55 NG Consultations 11/28/19 05:00 ED Decision to Admit Stat 11/28/19 06:37 Consult Case Management - Discharge Planning Routine Consult Screening Technician Routine 11/28/19 15:20 Consult Palliative Care Routine Hospital Course (1) Sepsis: Mr. Ramirez is a 74y/o M with PMH significant for dementia, peripheral neuropathy, aspiration pneumonia, COPD exacerbations, atrial fibrillation, history of DVT and pulmonary embolism on chronic anticoagulation with Coumadin, returned to the hospital following recent hospitalization from 11/10-11/14/2023 for pneumonia, after continued worsening of condition. Sepsis: (resolved) - Septic shock/acute respiratory failure with hypoxia/bilateral aspiration pneumonia/COPD exacerbation; hypotensive in ED despite 1000cc total bolus of NSS - continued improvement in BP Acute respiratory failure secondary to Aspiration pneumonia with copd exacerbation: - patient is of known aspiration risk, and wants to resume eating despite education of continued risk - continue Cefuroxime 500mg BID for 7 days - continue home inhaler regimen - Going home with hospice care through [facility]: supplemental oxygen as needed for worsening shortness of breath, SL ativan 1mg q4h as needed for anxiety/worsening shortness of breath, Roxanol 5mg Q2h as needed for worsening shortness of breath Parkinson disease: - continue home regimen Atrial fibrillation: - Continue chronic anticoagulation with warfarin for paroxysmal a fibrillation and DVT history. - INR is mildly supratherapeutic at 3.6, likely secondary to antibiotic - warfarin held for two days prior to discharge - resume home Wafarin regimen with follow-up in Anti-coag clinic in the setting of antibiotic use Total Time Total Time Spent Total Time Spent (In Minutes): 30 Discharge Plan Discharge Items Patient Disposition: Hospice - Home Reason For Visit: ACUTE RESP FAIL W/ HYPOXIA, ASPIR PNEUMO, HYPOTENS Discharge Diagnosis: Aspiration pneumonia Activity: Per Instructions section Non-emergency contact: Primary Care Provider, Specialist and Multilith Operator Call non-emergency contact if: you have any medication questions, your symptoms worsen and you have a fever Follow-up/Referrals: Dejuan Galaviz MD [Primary Care Provider] - 12/05/19 2:00 pm Diet: Regular Liquid Consistency: [place] thick Addtl Attending Provider Instructions: He was seen and evaluated for continued worsening of lung function, in the setting of continued aspiration of food contents into your lungs. As this is previously a problem that you have had, discussions were had in terms of continued goals of care regarding aspiration risk that we will not improve going forward. With further discussions with your family and our palliative care team, you have elected to go home with palliative care/hospice care at this point time. We have arranged for [facility] hospice care team to meet with you in the coming days. This is an attempt to continue to set you up for continued care while at home per your wishes. We will continue antibiotics that you were started on in the hospital, that you will take twice a day for an additional 5 days. Until all services with hospice has been set up, we will provide you with a days worth of pain medication and anxiety medication that will be continued by the hospice team following complete transition of your care to their services. Additionally he completed a POLST form, during this hospitalization, it is important that you leave that form barely visible in your house for continued respect of your wishes while you are at home. This will work in conjunction with the hospice team to provide continued care. Pending Studies at Discharge: No Stand-Alone Forms: My [facility] Medications and DC Order Prescriptions: New cefuroxime axetil 500 mg tablet 500 mg PO BID 5 Days Qty: 10 RF: 0 morphine 10 mg/5 mL solution 5 mg PO Q6H PRN (Reason: pain) Qty: 10 RF: 0 lorazepam 2 mg/mL concentrate 1 mg PO DAILY Qty: 2 RF: 0 Continued meclizine 25 mg tablet See Rx Instructions .ROUTE .COMPLEX RF: 0 ipratropium-albuterol 0.5 mg-3 mg(2.5 mg base)/3 mL solution for nebulization 3 ml INH QID PRN (Reason: Shortness Of Breath Or Wheezing) RF: 0 acetaminophen 500 mg tablet 500 mg PO BID 90 Days Qty: 180 RF: 0 qdtq-gasobq-khnaxuzg-D3-C-Mn 500-400-667 mg-mg-unit capsule 1 cap PO BID Qty: 90 RF: 3 sennosides-docusate sodium [Senna-S] 8.6-50 mg tablet 1 tab PO HS PRN (Reason: Constipation) Qty: 90 RF: 3 cholecalciferol (vitamin D3) 2,000 unit tablet 2,000 unit PO QAM Qty: 90 RF: 3 carbidopa-levodopa 25-250 mg tablet 1 tab PO QID 90 Days Qty: 360 RF: 1 memantine 10 mg tablet 10 mg PO BID 90 Days Qty: 180 RF: 1 donepezil 10 mg tablet 10 mg PO HS 90 Days Qty: 90 RF: 1 pramipexole 0.5 mg tablet 1 mg PO HS 90 Days Qty: 180 RF: 1 pregabalin 100 mg capsule 100 mg PO BID 90 Days Qty: 180 RF: 0 prednisone 20 mg tablet 20 mg PO DAILY Qty: 30 RF: 0 Trelegy Ellipta 100-62.5-25 mcg blister with device 1 puffs INH DAILY Qty: 28 RF: 0 furosemide 20 mg tablet 10 mg PO Q3D RF: 0 clotrimazole-betamethasone [Lotrisone] 1-0.05 % cream 1 appln TOP BID Qty: 45 RF: 0 omeprazole 20 mg capsule,delayed release(DR/EC) 20 mg PO QAM Qty: 90 RF: 0 aspirin [Ecotrin Low Strength] 81 mg tablet,delayed release (DR/EC) 81 mg PO QPM RF: 0 medical marijiana 1 dose PO BID RF: 0 fluconazole [Diflucan] 100 mg tablet 100 mg PO DAILY RF: 0 warfarin 3 mg tablet See Rx Instructions PO UD RF: 0 tramadol 50 mg tablet 50 mg PO DAILY PRN (Reason: Pain) RF: 0 polyethylene glycol 3350 [Miralax] 17 gram Powder In Packet 17 g PO DAILY PRN (Reason: Constipation) RF: 0 docusate sodium 100 mg Capsule 100 mg PO BID RF: 0 nitroglycerin 0.4 mg tablet, sublingual 0.4 mg Sublingual DIRECTED PRN (Reason: Chest Pain) RF: 0 diclofenac sodium [Voltaren] 1 % gel 2 g TOPICAL QID PRN (Reason: Pain) RF: 0 carbidopa-levodopa [Sinemet CR] 50-200 mg tablet extended release 1 tab PO DAILY RF: 0 azithromycin 250 mg tablet 250 mg PO 3XWK RF: 0 Discharge Orders: Discharge Order (Routine); Ordered 11/29/19 Ordered By: Tj Sams Admission Data Admit Date/Time: 11/28/19 05:38 Attending Provider: Cailin Flaherty Admit Provider: Jose J Leon Primary Care Provider: Dejuan Galaviz Other Providers: [facility],Home Healthcare ; Jose J Leon ; Nicole Marquez ; Claribel Menon Other Interventions: Discharge Summary Assessment (RN) Last Done: 11/29/19 16:56 DC Date/Time DO NOT enter until pt leaves facility: 11/29/19 17:22 Supervising Physician Co-Signing Physician Notes Resident Physician Supervision Note: I independently interviewed and examined the patient and verified the hernandez history and physical, reviewed labs and image studies, discussed the case with the resident Dr. Sams and agree with the findings and care plan. Resident Activity Tracking Resident Involvement: Resident Care Provided Care Provided: Adult Hospital Medicine
== END 2019-11-29 17:22 | disposition hospice, home (50) | DRG 871 ==
LOC: ED 03:16 → SUATTDRO 05:38 → 1E 05:38 → 2E 14:39